=== PATIENT | male | born 1965 | race Caucasian/White ===

== ENCOUNTER 2016-06-25 20:32 | Emergency (ER) | payer MEDICAID ==
[~2016-06-25] VITALS: Ht 195.6 cm; Wt 170.0 kg
[~2016-06-25 20:32] MED LIST: GABA600T PO; GLUCTAB PO; LISI40TA PO; LYRI50CA2 PO; METH10TA PO; METO200T3 PO; NEUR600T PO; OXYC30TA PO; PARO40TA PO; PRIL40CA PO; SUMA50 PO; TRAZ50TA4 PO
[2016-06-25 20:34] VITALS: BP 183/113; PULSE 93; RESP 16; TEMP 97.3; O2SAT 92
[2016-06-25] MEDS ORDERED: METF500T4 PO (21:14)
[2016-06-25] MEDS ORDERED: OMEP40CA2 PO (21:14)
[2016-06-25] MEDS ORDERED: WARF-21 PO (21:14)
[2016-06-25] MEDS ORDERED: GABA600T PO (21:14)
[2016-06-25] MEDS ORDERED: METO200T3 PO (21:14)
[2016-06-25] MEDS ORDERED: IMIT50TA PO (21:14)
[2016-06-25] MEDS ORDERED: METH10TA PO (21:14)
[2016-06-25] MEDS ORDERED: PAXI40TA PO (21:14)
[2016-06-25] MEDS ORDERED: TRAZ50TA12 PO (21:14)
[2016-06-25] MEDS ORDERED: OXYC-395 PO (21:14)
[2016-06-25] MEDS ORDERED: FURO1TAB60 PO (21:14)
[2016-06-25 21:17] VITALS: BP 199/99; PULSE 68; RESP 18; TEMP 98.2; O2SAT 97
[2016-06-25 21:48] LABS: AUTOMATED NEUTROPHIL # 5.1 TH/MM3 (1.8-7.7); BASOPHIL # 0.1 TH/MM3 (0-0.2); BASOPHIL % 0.8 % (0.0-2.0); EOSINOPHIL # 0.1 TH/MM3 (0-0.4); EOSINOPHIL % 0.9 % (0.0-4.0); HEMATOCRIT 45.8 % (39.0-51.0); HEMO FLAGS DIFF FINAL; LYMPH % 35.5 % (9.0-44.0); LYMPHOCYTE # 3.3 TH/MM3 (1.0-4.8); MEAN CELL VOLUME 89.6 FL (80.0-100.0); MEAN CORPUSCULAR HEMOGLOBIN 30.3 PG (27.0-34.0); MEAN CORPUSCULAR HGB CONC 33.8 % (32.0-36.0); MONO % 7.5 % (0.0-8.0); NEUT % 55.3 % (16.0-70.0); PLATELET COUNT 198 TH/MM3 (150-450); RED BLOOD COUNT 5.11 MIL/MM3 (4.50-5.90); RED CELL DISTRIBUTION WIDTH 14.9 % (11.6-17.2); WHITE BLOOD COUNT 9.3 TH/MM3 (4.0-11.0)
[2016-06-25] MEDS ORDERED: HYDROmorphone HCL PF 1 MG/ML VIAL IV PUSH ONE (22:00)
[2016-06-25] MEDS ORDERED: LIDOCAINE VISCOUS 2% SOLN 15 ML UDC SWISH-SWAL ONE (22:00)
[2016-06-25] MEDS ORDERED: ALUMINUM/MAGNESIUM/SIMETH 30 ML CUP PO ONE (22:00)
[2016-06-25] MEDS ORDERED: ATROPINE/SCOPOLAM/HYOSCYAM/PB ELIXIR 10 ML CUP PO ONE (22:00)
[2016-06-25 22:07] LABS: APTT (PATIENT) 26.4 SEC (24.3-30.1); PROTHROMBIN TIME - PATIENT 11.4 SEC (9.8-11.6)
--- NOTE | 2016-06-25 22:12 | PD ---
HPI Chief Complaint: Chest Pain Time Seen by Provider: 20:45 Travel History International Travel<30 days: No Contact w/Intl Traveler<30days: No Traveled to known affect area: No History of Present Illness HPI This is a 50-year-old male who has a history of pulmonary embolism and peptic ulcer disease who presents to the emergency department reporting 2 days of chest discomfort described as tightness in the center of his chest, constant, moderate severity associated with shortness of breath as well as pain in his epigastrium associated with nausea, worse with eating. Patient reports this is very similar to the pain that he experiences when he has a pulmonary embolism or when his ulcers act up. He takes opiate pain medications and sees pain management but has not seen them in one month. He was just hospitalized 1 week ago at [facility] for a reported pulmonary embolism and was discharged on Coumadin which he reports he's been taking. He says he missed one dose earlier this week. PFSH Past Medical History Hx Anticoagulant Therapy: Yes Arthritis: No Asthma: No Autoimmune Disease: No Blood Disorders: No Anxiety: Yes Depression: Yes Heart Rhythm Problems: No Cancer: No Cardiac Catheterization: Yes Cardiovascular Problems: Yes High Cholesterol: No Chemotherapy: No Chest Pain: Yes Congestive Heart Failure: No COPD: No Cerebrovascular Accident: No Diabetes: Yes Patient Takes Glucophage: Yes Diminished Hearing: No Endocrine: No Gastrointestinal Disorders: Yes (GERD; ULCER HX) GERD: No Glaucoma: No Genitourinary: No Headaches: No Hepatitis: No Hiatal Hernia: No Hypertension: Yes Immune Disorder: No Kidney Stones: No Musculoskeletal: Yes (BACK AND NECK PAIN) Neurologic: No Psychiatric: No Reproductive: No Respiratory: Yes Immunizations Current: No Myocardial Infarction: Yes Pancreatitis: Yes Radiation Therapy: No Renal Failure: No Seizures: No Sickle Cell Disease: No Sleep Apnea: No Thyroid Disease: No Ulcer: No Past Surgical History Abdominal Surgery: Yes (BILATERAL INGUINAL HERNIA REPAIR ; REPAIR RECURRENT RT ING HERNIA) AICD: No Appendectomy: Yes Body Medical Devices: NONE Cardiac Surgery: No Cholecystectomy: Yes Coronary Artery Bypass Graft: No Ear Surgery: No Endocrine Surgery: No Eye Surgery: No Genitourinary Surgery: No Gynecologic Surgery: No Joint Replacement: No Oral Surgery: No Pacemaker: No Thoracic Surgery: No Other Surgery: Yes Family History Family Myocardial Infarction: Yes (FATHER 63 FROM [place], SISTER HAD ONE) Social History Alcohol Use: No Tobacco Use: No (never) Substance Use: No Allergies-Medications (Allergen,Severity, Reaction): Coded Allergies: No Known Allergies (Verified , 06/25/16) Reported Meds & Prescriptions Reported Meds & Active Scripts Active Reported Lasix (Furosemide) 40 Mg Tab 40 Mg PO DAILY Warfarin 7.5 Mg Tab 7.5 Mg PO DAILY Trazodone (Trazodone HCl) 50 Mg Tab 50 Mg PO HS Paxil (Paroxetine HCl) 40 Mg Tab 40 Mg PO DAILY Oxycodone (Oxycodone HCl) 10 Mg Tab 10 Mg PO BID PRN Omeprazole 40 Mg Cap 40 Mg PO DAILY Metoprolol Succinate ER 24 HR (Metoprolol Succinate) 200 Mg Tab 200 Mg PO DAILY Methadone (Methadone HCl) 10 Mg Tab 10 Mg PO DAILY Metformin ER (Metformin HCl) 500 Mg Todd 500 Mg PO DAILY With evening meal Imitrex (Sumatriptan Succinate) 50 Mg Tab 50 Mg PO ONCE PRN If a satisfactory response has not been obtained at 2 hours, a second dose may be administered Gabapentin 600 Mg Tab 600 Mg PO HS Review of Systems Except as stated in HPI: all other systems reviewed are Neg Physical Exam Narrative GENERAL:Well appearing, no acute distress SKIN: Warm and dry. HEAD: Atraumatic. Normocephalic. EYES: Pupils equal and round. No injection or drainage. ENT: Moist mucous membranes NECK: Trachea midline. CARDIOVASCULAR: Regular rate and rhythm. No murmur appreciated. RESPIRATORY: Clear to auscultation. Breath sounds equal bilaterally. GASTROINTESTINAL: Abdomen soft, non-tender, nondistended. MUSCULOSKELETAL: No obvious deformities. NEUROLOGICAL: Awake and alert. No obvious cranial nerve deficits. Moving all extremities. PSYCHIATRIC: Appropriate mood and affect; insight and judgment normal. Data Data Last Documented VS Vital Signs Date Time Temp Pulse Resp B/P Pulse Ox O2 Delivery O2 Flow Rate FiO2 06/25/16:17 98.2 68 18 199/99 97 06/25/16 20:34 Room Air Orders Complete Blood Count With Diff (06/25/16 21:09) Comprehensive Metabolic Panel (06/25/16 21:09) Lipase (06/25/16 21:09) Troponin I (06/25/16 21:09) ^ Insert Iv (06/25/16 21:09) Electrocardiogram (06/25/16 20:52) Prothrombin Time / Inr (Pt) (06/25/16 21:33) Act Partial Throm Time (Ptt) (06/25/16 21:33) Hydromorphone Pf Inj (Dilaudid Pf Inj) (06/25/16 22:00) Al-Mag Hy-Si 40-40-4 Mg/Ml Liq (Mag-Al P (06/25/16 22:00) Lidocaine 2% Viscous (Xylocaine 2% Visco (06/25/16 22:00) Bagle-Tczkkd-Iwfexh-Pb Liq ( Liq (06/25/16 22:00) Labs Laboratory Tests Test 06/25/16 06/25/16 21:20 21:35 Prothrombin Time 11.4 SEC Prothromb Time International 1.0 RATIO Ratio Activated Partial 26.4 SEC Thromboplast Time White Blood Count 9.3 TH/MM3 Red Blood Count 5.11 MIL/MM3 Hemoglobin 15.5 GM/DL Hematocrit 45.8 % Mean Corpuscular Volume 89.6 FL Mean Corpuscular Hemoglobin 30.3 PG Mean Corpuscular Hemoglobin 33.8 % Concent Red Cell Distribution Width 14.9 % Platelet Count 198 TH/MM3 Mean Platelet Volume 8.8 FL Neutrophils (%) (Auto) 55.3 % Lymphocytes (%) (Auto) 35.5 % Monocytes (%) (Auto) 7.5 % Eosinophils (%) (Auto) 0.9 % Basophils (%) (Auto) 0.8 % Neutrophils # (Auto) 5.1 TH/MM3 Lymphocytes # (Auto) 3.3 TH/MM3 Monocytes # (Auto) 0.7 TH/MM3 Eosinophils # (Auto) 0.1 TH/MM3 Basophils # (Auto) 0.1 TH/MM3 CBC Comment DIFF FINAL Differential Comment Sodium Level 137 MEQ/L Potassium Level 4.7 MEQ/L Chloride Level 104 MEQ/L Carbon Dioxide Level 23.7 MEQ/L Anion Gap 9 MEQ/L Blood Urea Nitrogen 10 MG/DL Creatinine 1.18 MG/DL Estimat Glomerular Filtration 66 ML/MIN Rate Random Glucose 87 MG/DL Calcium Level 8.7 MG/DL Total Bilirubin 0.6 MG/DL Aspartate Amino Transf 40 U/L (AST/SGOT) Alanine Aminotransferase 53 U/L (ALT/SGPT) Alkaline Phosphatase 104 U/L Troponin I LESS THAN 0.02 NG/ML Total Protein 7.6 GM/DL Albumin 3.3 GM/DL Lipase 89 U/L [facility] Medical Decision Making Medical Screen Exam Complete: Yes Emergency Medical Condition: Yes Interpretation(s) Afebrile, no tachycardia, hypertensive No leukocytosis Electrolytes are reassuring Troponin is normal Lipase is normal INR is 1 Differential Diagnosis Pulmonary embolism, gastritis, peptic ulcer disease, pancreatitis, saddle embolus Narrative Course This is a 50-year-old male who has a history of pulmonary embolus recently diagnosed at [facility]. He was diagnosed with subsegmental bilateral PEs. He reportedly represented to their emergency department on June 20 having not filled any of his anticoagulation. He was readmitted and discharged with an INR of 2. He presents with today with worsening pain. He has normal reassuring vital signs. He was placed on a monitor and an IV was established. Labs were obtained. He was given pain control. There would be no indication based on his presentation for thrombolysis. His INR is 1 today. He reports that he's been compliant with his medications. This seems very unlikely in the setting of a normal INR. Either way the patient can be safely discharged on Lovenox injections and was instructed to continue Coumadin and can follow-up at his scheduled appointment on Tuesday, and I don't think any repeat imaging is warranted in the absence of abnormal vital signs. Diagnosis Primary Impression: Pulmonary embolism Qualified Code: I27.82 - Other chronic pulmonary embolism without acute cor pulmonale Patient Instructions: General Instructions Med/Other Pt SpecificInfo: Prescription(s) given Scripts Enoxaparin Inj (Lovenox Inj)150 Mg/Ml [id number] Mg SQ BID #10 SYRINGE Ref 0 Prov:Joselin Cooper MD 06/25/16 Disposition: 01 DISCHARGE HOME Condition: Stable Joselin Cooper MD Jun 25, 2016 22:12
[2016-06-25 22:46] LABS: ALKALINE PHOSPHATASE 104 U/L (45-117); ALT (GPT) 53 U/L (12-78); ANION GAP 9 MEQ/L (5-15); AST (GOT) 40 U/L (15-37); BICARBONATE 23.7 MEQ/L (21.0-32.0); BLOOD UREA NITROGEN 10 MG/DL (7-18); CHLORIDE 104 MEQ/L (98-107); GLOMERULAR FILTRATION RATE 66 ML/MIN (>89); SODIUM (NA) 137 MEQ/L (136-145); TOTAL BILIRUBIN ADULT 0.6 MG/DL (0.2-1.0)
[2016-06-25 22:56] LABS: POTASSIUM 4.7 MEQ/L (3.5-5.1)
[2016-06-25] MEDS ORDERED: ENOX150P SQ (23:33)
--- NOTE | 2016-06-26 14:24 | EKG ---
Date Performed: 06/25/2016 Time Performed: 20:52:53 PTAGE: 50 years EKG: Sinus rhythm Left axis deviation Otherwise within normal limits Compared to the previous tracing axis slightly mo re leftward, otherwise no significant change BORDERLINE ECG PREVIOUS TRACING : 01/16/2016 12.56 DOCTOR: Darnell Adams Interpretating Date/Time 06/26/2016 14:22:16
[2016-06-28] MEDS ORDERED: OXYC-395 PO (15:17)
[2016-06-28] MEDS ORDERED: ONDA1TAB17 PO (15:23)
[2016-06-28] MEDS ORDERED: OMEP40CA2 PO (15:23)
[2016-06-28] MEDS ORDERED: LISI10TA3 PO (15:23)
[2016-06-28] MEDS ORDERED: GABA300C5 PO (15:26)
[2016-07-21] MEDS ORDERED: OXYC-395 PO (14:56)
[2016-07-29] MEDS ORDERED: FURO1TAB60 PO (10:28)
[2016-08-03] MEDS ORDERED: WARF-21 PO (14:48)
[2016-08-19] MEDS ORDERED: WARF-18 PO (11:21)
[2016-08-19] MEDS ORDERED: METF1000 PO (11:29)
[2016-08-19] MEDS ORDERED: OXYC-395 PO (11:29)
[2016-09-07] MEDS ORDERED: ONDA1TAB17 PO (09:38)
== END 2016-06-26 00:20 | disposition home or self-care (01) ==
LOC: NEPC 20:32
DX: I26.99 Other pulmonary embolism without acute cor pulmonale (principal); E11.9 Type 2 diabetes mellitus without complications; I10 Essential (primary) hypertension; I25.2 Old myocardial infarction
CPT/HCPCS: 80053; 83690; 84484; 85025; 85610; 85730; 93005; 96374; 99284; J1170

== ENCOUNTER 2016-07-04 18:03 | Emergency (ER) | payer MEDICAID ==
[~2016-07-04 18:03] MED LIST changes: +FURO1TAB60 PO; +GABA300C5 PO; -GABA600T PO; -GLUCTAB PO; +IMIT50TA PO; +LISI10TA3 PO; -LISI40TA PO; -LYRI50CA2 PO; +METF500T4 PO; -METH10TA PO; -NEUR600T PO; +OMEP40CA2 PO; +ONDA1TAB17 PO; +OXYC-395 PO; -OXYC30TA PO; -PARO40TA PO; +PAXI40TA PO; -PRIL40CA PO; -SUMA50 PO; -TRAZ50TA4 PO; +WARF-21 PO
[2016-07-04 18:17] VITALS: BP 221/103; PULSE 93; RESP 18; TEMP 97.7; O2SAT 98
[2016-07-04 18:18] VITALS: BP 217/120
[2016-07-04 18:36] VITALS: O2SAT 98
[2016-07-04 18:38] VITALS: BP 177/115; PULSE 86; RESP 18; O2SAT 98
--- NOTE | 2016-07-04 18:43 | RADRPT ---
EXAM DATE/TIME: 07/04/2016 18:24 [facility] COMPARISON: CHEST SINGLE AP, January 16, 2016, 13:05. INDICATIONS : Chest pain. MEDICAL HISTORY : Diabetes mellitus type I. Hypertension Pulmonary emboli SURGICAL HISTORY : None. ENCOUNTER: Initial ACUITY: 1 day PAIN SCORE: 6/10 LOCATION: Bilateral chest FINDINGS: A single view of the chest demonstrates the lungs to be symmetrically aerated without evidence of mas s, infiltrate or effusion. The cardiomediastinal contours are unremarkable. Osseous structures are intact. CONCLUSION: No acute disease. Donovan Cha MD on July 04, 2016 at 18:42 Board Certified Radiologist. This report was verified electronically.
--- NOTE | 2016-07-04 18:55 | PD ---
HPI Chief Complaint: Respiratory Symptoms Time Seen by Provider: 18:55 Travel History International Travel<30 days: No Contact w/Intl Traveler<30days: No Traveled to known affect area: No History of Present Illness HPI 50-year-old male presents to the emergency Department with multiple complaints. He is complaining of worsening chest pain and shortness of breath. He has history of PE that he is currently being treated for. Reports using Lovenox injections as directed; gave himself his last injection last night, so he started warfarin today and he is getting a refill on Lovenox tomorrow. Chest pain and shortness of breath is worse with activity. Reports her palpitations. Reports chest pain is constant, sharp, stabbing in nature. Denies hemoptysis. Reports chest pain 12/26. Reports 2 syncopal episodes, one yesterday and one today. He denies falling to the floor, says he fell backwards onto his bed both times. He reports feeling weak, tired, a little bit of a headache, lightheadedness. Denies dizziness. Reports vomiting 4 times today; last vomited at 2 PM. Reports hematemesis. Says he had black tarry stools on Tuesday and Tuesday. Said he had a toilet bowl full of bright red blood this morning. Denies fever, chills. Denies dysuria. History of gastric ulcers. Reports abdominal pain to the midepigastric area. History of hypertension, PE, ulcers, type 2 diabetes. Primary care provider is Dr. Chavarria. No known allergies. PFSH Past Medical History Hx Anticoagulant Therapy: Yes Arthritis: No Asthma: No Autoimmune Disease: No Blood Disorders: No Anxiety: Yes Depression: Yes Heart Rhythm Problems: No Cancer: No Cardiac Catheterization: Yes Cardiovascular Problems: Yes High Cholesterol: No Chemotherapy: No Chest Pain: Yes Congestive Heart Failure: No COPD: No Cerebrovascular Accident: No Diabetes: Yes Patient Takes Glucophage: Yes Diminished Hearing: No Endocrine: No Gastrointestinal Disorders: Yes (GERD; ULCER HX) GERD: No Glaucoma: No Genitourinary: No Headaches: No Hepatitis: No Hiatal Hernia: No Hypertension: Yes Immune Disorder: No Kidney Stones: No Musculoskeletal: Yes (BACK AND NECK PAIN) Neurologic: No Psychiatric: No Reproductive: No Respiratory: Yes Immunizations Current: No Myocardial Infarction: Yes Pancreatitis: Yes Radiation Therapy: No Renal Failure: No Seizures: No Sickle Cell Disease: No Sleep Apnea: No Thyroid Disease: No Ulcer: No Past Surgical History Abdominal Surgery: Yes (BILATERAL INGUINAL HERNIA REPAIR ; REPAIR RECURRENT RT ING HERNIA) AICD: No Appendectomy: Yes Body Medical Devices: NONE Cardiac Surgery: No Cholecystectomy: Yes Coronary Artery Bypass Graft: No Ear Surgery: No Endocrine Surgery: No Eye Surgery: No Genitourinary Surgery: No Gynecologic Surgery: No Joint Replacement: No Oral Surgery: No Pacemaker: No Thoracic Surgery: No Other Surgery: Yes Social History Alcohol Use: No Tobacco Use: No Substance Use: No Allergies-Medications (Allergen,Severity, Reaction): Coded Allergies: No Known Allergies (Verified , 07/04/16) Reported Meds & Prescriptions Reported Meds & Active Scripts Active Lortab (Hydrocodone-Acetaminophen) 5-325 Mg Tab 1-2 Tab PO Q4-6H PRN Lovenox Inj (Enoxaparin Sodium) 150 Mg/Ml Syr 150 Mg SQ BID 7 Days Gabapentin 300 Mg Cap 300 Mg PO TID Lisinopril 10 Mg Tab 10 Mg PO DAILY Ondansetron (Ondansetron HCl) 8 Mg Tab 8 Mg PO TID PRN Take 1/2 tab Q8H as needed for nausea Omeprazole 40 Mg Cap 40 Mg PO BID Oxycodone (Oxycodone HCl) 10 Mg Tab 10 Mg PO Q12HR Reported Lasix (Furosemide) 40 Mg Tab 40 Mg PO DAILY Warfarin 7.5 Mg Tab 7.5 Mg PO DAILY Paxil (Paroxetine HCl) 40 Mg Tab 40 Mg PO DAILY Metoprolol Succinate ER 24 HR (Metoprolol Succinate) 200 Mg Tab 200 Mg PO DAILY Metformin ER (Metformin HCl) 500 Mg Todd 500 Mg PO DAILY With evening meal Imitrex (Sumatriptan Succinate) 50 Mg Tab 50 Mg PO ONCE PRN If a satisfactory response has not been obtained at 2 hours, a second dose may be administered Review of Systems Except as stated in HPI: all other systems reviewed are Neg Physical Exam Narrative GENERAL: Well-nourished, well-developed male patient, in no acute distress; afebrile, nontoxic-appearing SKIN: Warm and dry. HEAD: Atraumatic. Normocephalic. EYES: Pupils equal and round. No scleral icterus. No injection or drainage. ENT: Mucosa pink and moist. Airway patent. NECK: Trachea midline. CARDIOVASCULAR: Regular rate and rhythm. No murmur appreciated. RESPIRATORY: No accessory muscle use. Clear to auscultation. Breath sounds equal bilaterally. GASTROINTESTINAL: Abdomen soft, tenderness to mid upper epigastric area, nondistended. Hepatic and splenic margins not palpable. Bowel sounds are active 4 quadrants. No guarding. Nonrigid. RECTAL EXAM: No masses or tenderness. Hemaprompt negative. Visualized external hemorrhoids noted. MUSCULOSKELETAL: No obvious deformities. No clubbing. No cyanosis. No edema. NEUROLOGICAL: Awake and alert. Oriented 3. No obvious cranial nerve deficits. Motor grossly within normal limits. Normal speech. PSYCHIATRIC: Appropriate mood and affect; insight and judgment normal. Data Data Last Documented VS Vital Signs Date Time Temp Pulse Resp B/P Pulse Ox O2 Delivery O2 Flow Rate FiO2 07/04/16 19:45 72 18 150/81 98 Room Air 07/04/16 18:17 97.7 Orders Electrocardiogram (07/04/16 18:11) Complete Blood Count With Diff (07/04/16 18:11) Basic Metabolic Panel (Bmp) (07/04/16 18:11) Ckmb (Isoenzyme) Profile (07/04/16 18:11) Troponin I (07/04/16 18:11) Chest, Single Ap (07/04/16 18:11) Iv Access Insert/Monitor (07/04/16 18:11) Ecg Monitoring (07/04/16 18:11) Oxygen Administration (07/04/16 18:11) Oximetry (07/04/16 18:11) Prothrombin Time / Inr (Pt) (07/04/16 18:32) Act Partial Throm Time (Ptt) (07/04/16 18:32) Ct Abd/Pel W/O Iv Contrast (07/04/16 ) Hepatic Functional Panel (07/04/16 19:37) Lipase (07/04/16 19:37) Morphine Inj (Morphine Inj) (07/04/16 20:00) Enoxaparin Inj (Lovenox Inj) (07/04/16 20:15) Labs Laboratory Tests Test 07/04/16 07/04/16 07/04/16 18:42 18:58 19:42 Prothrombin Time 11.2 SEC Prothromb Time International 1.0 RATIO Ratio Activated Partial 25.7 SEC Thromboplast Time White Blood Count 8.6 TH/MM3 Red Blood Count 4.72 MIL/MM3 Hemoglobin 14.3 GM/DL Hematocrit 42.6 % Mean Corpuscular Volume 90.3 FL Mean Corpuscular Hemoglobin 30.3 PG Mean Corpuscular Hemoglobin 33.6 % Concent Red Cell Distribution Width 14.4 % Platelet Count 203 TH/MM3 Mean Platelet Volume 8.6 FL Neutrophils (%) (Auto) 58.9 % Lymphocytes (%) (Auto) 31.5 % Monocytes (%) (Auto) 7.9 % Eosinophils (%) (Auto) 0.7 % Basophils (%) (Auto) 1.0 % Neutrophils # (Auto) 5.0 TH/MM3 Lymphocytes # (Auto) 2.7 TH/MM3 Monocytes # (Auto) 0.7 TH/MM3 Eosinophils # (Auto) 0.1 TH/MM3 Basophils # (Auto) 0.1 TH/MM3 CBC Comment DIFF FINAL Differential Comment Sodium Level 141 MEQ/L Potassium Level 3.6 MEQ/L Chloride Level 105 MEQ/L Carbon Dioxide Level 28.4 MEQ/L Anion Gap 8 MEQ/L Blood Urea Nitrogen 9 MG/DL Creatinine 1.16 MG/DL Estimat Glomerular Filtration 67 ML/MIN Rate Random Glucose 135 MG/DL Calcium Level 8.2 MG/DL Total Creatine Kinase 86 U/L Troponin I LESS THAN 0.02 NG/ML Total Bilirubin 0.2 MG/DL Direct Bilirubin 0.1 MG/DL Indirect Bilirubin 0.1 MG/DL Aspartate Amino Transf 15 U/L (AST/SGOT) Alanine Aminotransferase 36 U/L (ALT/SGPT) Alkaline Phosphatase 98 U/L Total Protein 6.8 GM/DL Albumin 2.9 GM/DL Lipase 101 U/L [facility] Medical Decision Making Medical Screen Exam Complete: Yes Emergency Medical Condition: Yes Medical Record Reviewed: Yes Differential Diagnosis Bleeding ulcers, hemorrhoids, MO, ACS, PE Narrative Course 50-year-old male presents with multiple complaints. He was recently seen here and had is being treated for PE. He is on Lovenox and warfarin. Complaining of blood in his stool. Hemaprompt negative. Visualized external hemorrhoids noted. Patient placed on cardiopulmonary monitor. IV site obtained. Labs and cardiac enzymes ordered. CT abdomen/pelvis ordered. Chest x-ray ordered. EKG with normal sinus rhythm; no ST elevation or depression. 1946: Chest x-ray with no acute findings. CBC unremarkable. BMP unremarkable. Total CPK 86. Troponin less than 0.02. 2001: CT abdomen/pelvis concludes Last 24 hours Impressions Chest X-Ray 07/04/16 1811 Signed Impressions: Service Date/Time: Monday, July 04, 2016 18:24 - CONCLUSION: No acute disease. Donovan Cha MD Abdomen/Pelvis CT 07/04/16 0000 Signed Impressions: Service Date/Time: Monday, July 04, 2016 19:19 - CONCLUSION: 1. Moderate to severe hepatic steatosis. 2. Cholecystectomy. 3. Wall thickening versus nondistention of the transverse and descending colon, could be colitis. No inflammatory changes. Jacob Alcantara MD 2007: Coags unremarkable. INR 1.0. Patient instructed to take Lovenox and warfarin; he verbalizes understanding and agreement. Lovenox 150 mg subcutaneous administered in the ER. 2032: LFTs within normal limits. Lipase 101. Patient will be discharged home. He was given further instructions to follow-up with primary care. Lovenox and Lortab prescribed for home. Patient verbalizes understanding and agreement with treatment plan. Patient is medically cleared and stable for discharge. Discussed reasons to return to the emergency department. Instructed patient to follow up with primary care provider. Patient agrees with treatment plan. The patients vital signs are stable and the patient is stable for outpatient follow-up and treatment. Patient discharged home, stable and in no acute distress. Diagnosis Primary Impression: Abdominal pain Qualified Code: R10.13 - Epigastric pain Additional Impressions: Chest pain Qualified Code: R07.9 - Chest pain, unspecified type Shortness of breath Referrals: Primary Care Physician Patient Instructions: Acute Abdominal Pain (ED), General Instructions, Pulmonary Embolism (DC) Additional Instructions: Take Lovenox and warfarin as prescribed Follow-up with primary care provider Follow-up with gastroenterology Follow-up with pulmonology Follow-up with environmental engineering intern Return to the emergency department immediately with worsening of symptoms Med/Other Pt SpecificInfo: Prescription(s) given, No Change to Meds, No Meds Exist/No RX given Scripts Hydrocodone-Acetaminophen (Lortab)5-325 Mg Tab1-2 Tab PO Q4-6H PRN (PAIN) #20 TAB Ref 0 Prov:Benoit Yoon MD 07/04/16 Enoxaparin Inj (Lovenox Inj)150 Mg/Ml [id number] Mg SQ BID 7 Days Ref 0 Prov:Kathryn Calderon 07/04/16 Disposition: 01 DISCHARGE HOME Condition: Stable Kathryn Calderon Jul 04, 2016 18:55
[2016-07-04 19:07] LABS: APTT (PATIENT) 25.7 SEC (24.3-30.1); PROTHROMBIN TIME - PATIENT 11.2 SEC (9.8-11.6)
[2016-07-04 19:10] LABS: BASOPHIL # 0.1 TH/MM3 (0-0.2); EOSINOPHIL # 0.1 TH/MM3 (0-0.4); EOSINOPHIL % 0.7 % (0.0-4.0); HEMATOCRIT 42.6 % (39.0-51.0); HEMO FLAGS DIFF FINAL; LYMPH % 31.5 % (9.0-44.0); LYMPHOCYTE # 2.7 TH/MM3 (1.0-4.8); MEAN CELL VOLUME 90.3 FL (80.0-100.0); MEAN CORPUSCULAR HEMOGLOBIN 30.3 PG (27.0-34.0); MEAN CORPUSCULAR HGB CONC 33.6 % (32.0-36.0); MONO % 7.9 % (0.0-8.0); NEUT % 58.9 % (16.0-70.0); PLATELET COUNT 203 TH/MM3 (150-450); RED BLOOD COUNT 4.72 MIL/MM3 (4.50-5.90); RED CELL DISTRIBUTION WIDTH 14.4 % (11.6-17.2); WHITE BLOOD COUNT 8.6 TH/MM3 (4.0-11.0)
[2016-07-04 19:26] LABS: ANION GAP 8 MEQ/L (5-15); BICARBONATE 28.4 MEQ/L (21.0-32.0); BLOOD UREA NITROGEN 9 MG/DL (7-18); CHLORIDE 105 MEQ/L (98-107); GLOMERULAR FILTRATION RATE 67 ML/MIN (>89); POTASSIUM 3.6 MEQ/L (3.5-5.1); SODIUM (NA) 141 MEQ/L (136-145)
[2016-07-04 19:44] LABS: CREATINE KINASE 86 U/L (39-308)
[2016-07-04 19:45] VITALS: BP 150/81; PULSE 72; RESP 18; O2SAT 98
--- NOTE | 2016-07-04 19:51 | RADRPT ---
EXAM DATE/TIME: 07/04/2016 19:19 [facility] COMPARISON: No previous studies available for comparison. INDICATIONS : Epigastric abdominal pain today. ORAL CONTRAST: No oral contrast ingested. RADIATION DOSE: 31.08 CTDIvol (mGy) MEDICAL HISTORY : Gastroesophageal reflux disease. Pancreatitis. Hypertension.Diabetes. SURGICAL HISTORY : Cholecystectomy. Hernia repair. ENCOUNTER: Initial ACUITY: 1 day PAIN SCALE: 7/10 LOCATION: epigastric abdomen TECHNIQUE: Volumetric scanning of the abdomen and pelvis was performed. Using automated exposure control and ad justment of the mA and/or kV according to patient size, radiation dose was kept as low as reasonably achievable to obtain optimal diagnostic quality images. FINDINGS: LOWER LUNGS: The visualized lower lungs are clear. LIVER: Decreased attenuation without lesion. There is no dilation of the biliary tree. Cholecystectomy clip s. SPLEEN: Normal size without lesion. PANCREAS: Within normal limits. KIDNEYS: Normal in size and shape. There is no mass, stone, or hydronephrosis. ADRENAL GLANDS: Within normal limits. VASCULAR: There is no aortic aneurysm. BOWEL/MESENTERY: Mild wall thickening versus nondistention of the mid to distal transverse colon and descending colon. . There is no free intraperitoneal air or fluid. ABDOMINAL WALL: Within normal limits. RETROPERITONEUM: There is no lymphadenopathy. BLADDER: No wall thickening or mass. REPRODUCTIVE: Within normal limits. INGUINAL: There is no lymphadenopathy or hernia. MUSCULOSKELETAL: Within normal limits for patient age. CONCLUSION: 1. Moderate to severe hepatic steatosis. 2. Cholecystectomy. 3. Wall thickening versus nondistention of the transverse and descending colon, could be colitis. No inflammatory changes. Jacob Alcantara MD on July 04, 2016 at 19:47 Board Certified Radiologist. This report was verified electronically.
[2016-07-04] MEDS ORDERED: MORPHINE SULFATE 4 MG/ML INJ IV PUSH ONE (20:00)
[2016-07-04] MEDS ORDERED: ENOX150P SQ (20:14)
[2016-07-04] MEDS ORDERED: ENOXAPARIN SODIUM 150 MG/ML SYRINGE SQ ONE (20:15)
[2016-07-04] MEDS ORDERED: HYDR-3533 PO (20:15)
[2016-07-04 20:19] LABS: INDIRECT BILIRUBIN 0.1 MG/DL (0.0-0.8); TOTAL BILIRUBIN ADULT 0.2 MG/DL (0.2-1.0)
--- NOTE | 2016-07-05 14:43 | EKG ---
Date Performed: 07/04/2016 Time Performed: 18:11:57 PTAGE: 50 years EKG: Sinus rhythm NORMAL ECG INTERPRETATION BASED ON A DEFAULT AGE OF 40 YEARS PREVIOUS TRACING : 06/25/2016 20.52 Compared to prior tracing no significant change DOCTOR: Teddy Mars Interpretating Date/Time 07/05/2016 14:43:17
[2016-07-21] MEDS ORDERED: OXYC-395 PO (14:56)
[2016-07-29] MEDS ORDERED: FURO1TAB60 PO (10:28)
[2016-08-03] MEDS ORDERED: WARF-21 PO (14:48)
[2016-08-19] MEDS ORDERED: WARF-18 PO (11:21)
[2016-08-19] MEDS ORDERED: METF1000 PO (11:29)
[2016-08-19] MEDS ORDERED: OXYC-395 PO (11:29)
[2016-09-07] MEDS ORDERED: ONDA1TAB17 PO (09:38)
== END 2016-07-04 20:46 | disposition home or self-care (01) ==
LOC: NEPA 18:03
DX: R10.13 Epigastric pain (principal); R07.9 Chest pain, unspecified; R06.02 Shortness of breath; R55 Syncope and collapse; I10 Essential (primary) hypertension
CPT/HCPCS: 71010; 74176; 80048; 80076; 82550; 83690; 84484; 85025; 85610; 85730; 93005; 96372; 96374; 99285; J1650; J2270

== ENCOUNTER 2016-08-06 16:21 | Observation (INO) | payer MEDICAID ==
[~2016-08-06] VITALS: Ht 182.9 cm; Wt 154.5 kg
[2016-08-06 16:24] VITALS: BP 196/109; PULSE 112; RESP 22; TEMP 98.2; O2SAT 99
[2016-08-06] MEDS ORDERED: LISI40TA PO (16:58)
[2016-08-06 16:59] VITALS: BP 186/102; PULSE 93; RESP 20; O2SAT 96
[2016-08-06] MEDS ORDERED: SODIUM CHLORIDE 0.9% FLUSH 10 ML FLUSH IVF PRN (17:00)
[2016-08-06 17:25] LABS: BASOPHIL # 0.1 TH/MM3 (0-0.2); BASOPHIL % 0.7 % (0.0-2.0); EOSINOPHIL # 0.1 TH/MM3 (0-0.4); EOSINOPHIL % 0.7 % (0.0-4.0); HEMATOCRIT 45.6 % (39.0-51.0); HEMO FLAGS DIFF FINAL; LYMPH % 30.2 % (9.0-44.0); LYMPHOCYTE # 2.9 TH/MM3 (1.0-4.8); MEAN CELL VOLUME 88.9 FL (80.0-100.0); MEAN CORPUSCULAR HEMOGLOBIN 31.3 PG (27.0-34.0); MEAN CORPUSCULAR HGB CONC 35.2 % (32.0-36.0); NEUT % 62.4 % (16.0-70.0); PLATELET COUNT 285 TH/MM3 (150-450); RED BLOOD COUNT 5.12 MIL/MM3 (4.50-5.90); RED CELL DISTRIBUTION WIDTH 14.2 % (11.6-17.2); WHITE BLOOD COUNT 9.6 TH/MM3 (4.0-11.0)
[2016-08-06] MEDS ORDERED: PANTOPRAZOLE SODIUM 40 MG VIAL IV PUSH ONE (17:30)
--- NOTE | 2016-08-06 17:40 | RADRPT ---
EXAM DATE/TIME: 08/06/2016 17:21 [facility] COMPARISON: CHEST SINGLE AP, July 04, 2016, 18:24. INDICATIONS : Patient states chest pain. MEDICAL HISTORY : Hypertension. Hypercholesterolemia. Diabetes mellitus type II. SURGICAL HISTORY : None. ENCOUNTER: Initial ACUITY: 1 day PAIN SCORE: 0/10 LOCATION: Bilateral chest FINDINGS: The lungs are clear without infiltrate, nodule, or mass. There is no appreciable pleural effusion fo r technique. Heart and mediastinum are unremarkable. CONCLUSION: No acute cardiopulmonary disease. Philly Mcgee MD on August 06, 2016 at 17:38 Board Certified Radiologist. This report was verified electronically.
[2016-08-06 17:49] LABS: APTT (PATIENT) 26.5 SEC (24.3-30.1); INTERNATIONAL NORMALIZED RATIO 1.1 RATIO; PROTHROMBIN TIME - PATIENT 12.2 SEC (9.8-11.6)
[2016-08-06 17:57] LABS: ANION GAP 8 MEQ/L (5-15); AST (GOT) 36 U/L (15-37); BICARBONATE 24.7 MEQ/L (21.0-32.0); BLOOD UREA NITROGEN 14 MG/DL (7-18); CHLORIDE 102 MEQ/L (98-107); GLOMERULAR FILTRATION RATE 58 ML/MIN (>89); MAGNESIUM 2.2 MG/DL (1.5-2.5); SODIUM (NA) 135 MEQ/L (136-145)
[2016-08-06 18:02] LABS: POTASSIUM 5.2 MEQ/L (3.5-5.1)
[2016-08-06 18:06] LABS: ALKALINE PHOSPHATASE 130 U/L (45-117); ALT (GPT) 33 U/L (12-78); CREATINE KINASE 188 U/L (39-308); TOTAL BILIRUBIN ADULT 0.7 MG/DL (0.2-1.0)
[2016-08-06 18:13] VITALS: BP 145/84; PULSE 87; RESP 18; O2SAT 99
[2016-08-06] MEDS ORDERED: ONDANSETRON HCL 4 MG/2 ML VIAL IV PUSH ONE (18:15)
[2016-08-06] MEDS ORDERED: HYDROmorphone HCL PF 1 MG/ML VIAL IV PUSH ONE (18:15)
[2016-08-06 18:19] LABS: CKMB 1.1 NG/ML (0.5-3.6)
[2016-08-06] MEDS ORDERED: IOHEXOL 350 MG/ML 10 ML VIAL (for RAD DIAG) IV ONE (19:05)
--- NOTE | 2016-08-06 19:11 | PD ---
HPI Chief Complaint: Chest Pain Time Seen by Provider: 17:27 Travel History International Travel<30 days: No Contact w/Intl Traveler<30days: No Traveled to known affect area: No History of Present Illness HPI 51-year-old male with history of previous PE 3, had been on Coumadin, presents to the ER today for several days history of left sided chest pains which he currently rates at a 10 out of 10. He states that he has had syncopal episodes from it. He has been short of breath. He also is complaining of abdominal pains. He denies any fevers, diarrhea, or other symptoms. He does not know any exacerbating or alleviating factors. Patient also states that he is having red blood in his stools in the past day. Modifying Factors: None Associated Signs & Symptoms: Chest pains, shortness of breath, abdominal pain, syncope, rectal bleeding Risk Factors: Previous PEs PFSH Past Medical History Hx Anticoagulant Therapy: Yes Arthritis: No Asthma: No Autoimmune Disease: No Blood Disorders: No Anxiety: Yes Depression: Yes Heart Rhythm Problems: No Cancer: No Cardiac Catheterization: Yes Cardiovascular Problems: Yes High Cholesterol: No Chemotherapy: No Chest Pain: Yes Congestive Heart Failure: No COPD: No Cerebrovascular Accident: No Diabetes: Yes Patient Takes Glucophage: Yes Diminished Hearing: No Endocrine: No Gastrointestinal Disorders: Yes (GERD; ULCER HX) GERD: No Glaucoma: No Genitourinary: No Headaches: No Hepatitis: No Hiatal Hernia: No Hypertension: Yes Immune Disorder: No Kidney Stones: No Musculoskeletal: Yes (BACK AND NECK PAIN) Neurologic: No Psychiatric: No Reproductive: No Respiratory: Yes Immunizations Current: No Myocardial Infarction: Yes Pancreatitis: Yes Radiation Therapy: No Renal Failure: No Seizures: No Sickle Cell Disease: No Sleep Apnea: No Thyroid Disease: No Ulcer: No Influenza Vaccination: Yes Past Surgical History Abdominal Surgery: Yes (BILATERAL INGUINAL HERNIA REPAIR ; REPAIR RECURRENT RT ING HERNIA) AICD: No Appendectomy: Yes Body Medical Devices: NONE Cardiac Surgery: No Cholecystectomy: Yes Coronary Artery Bypass Graft: No Ear Surgery: No Endocrine Surgery: No Eye Surgery: No Genitourinary Surgery: No Gynecologic Surgery: No Joint Replacement: No Oral Surgery: No Pacemaker: No Thoracic Surgery: No Other Surgery: Yes (RT SHOULDER SURGERY REBUILT 2013; RT KNEE SCOPED X 3, LT KNEE X 2) Family History Family Myocardial Infarction: Yes (FATHER 63 FROM [place], SISTER HAD ONE) Social History Alcohol Use: No Tobacco Use: No Substance Use: No Allergies-Medications (Allergen,Severity, Reaction): Coded Allergies: No Known Allergies (Verified , 08/06/16) Reported Meds & Prescriptions Reported Meds & Active Scripts Active Lasix (Furosemide) 40 Mg Tab 40 Mg PO DAILY Oxycodone (Oxycodone HCl) 10 Mg Tab 10 Mg PO TID PRN Take one tab in the AM and PM PRN pain and can take a half a tab in the afternoon as needed Gabapentin 300 Mg Cap 300 Mg PO TID Ondansetron (Ondansetron HCl) 8 Mg Tab 8 Mg PO TID PRN Take 1/2 tab Q8H as needed for nausea Omeprazole 40 Mg Cap 40 Mg PO BID Reported Lisinopril 40 Mg Tab 40 Mg PO DAILY Warfarin 7.5 Mg Tab 7.5 Mg PO DAILY Paxil (Paroxetine HCl) 40 Mg Tab 40 Mg PO DAILY Metoprolol Succinate ER 24 HR (Metoprolol Succinate) 200 Mg Tab 200 Mg PO DAILY Metformin ER (Metformin HCl) 500 Mg Todd 500 Mg PO DAILY With evening meal Imitrex (Sumatriptan Succinate) 50 Mg Tab 50 Mg PO ONCE PRN If a satisfactory response has not been obtained at 2 hours, a second dose may be administered Review of Systems Except as stated in HPI: all other systems reviewed are Neg Physical Exam Narrative GENERAL: Well-developed middle age white male patient currently in moderate distress. Awake and oriented 3. SKIN: Focused skin assessment warm/dry. HEAD: Atraumatic. Normocephalic. EYES: Pupils equal and round. No scleral icterus. No injection or drainage. ENT: No nasal bleeding or discharge. Mucous membranes pink and moist. NECK: Trachea midline. No JVD. CARDIOVASCULAR: Regular rate and rhythm. No murmur appreciated. Pulses are present and equal bilaterally. RESPIRATORY: No accessory muscle use. Clear to auscultation. Breath sounds equal bilaterally. GASTROINTESTINAL: Abdomen soft, upper abdominal tenderness without guarding or rebound, nondistended. Hepatic and splenic margins not palpable. MUSCULOSKELETAL: No obvious deformities. No clubbing. No cyanosis. No edema. NEUROLOGICAL: Awake and alert. No obvious cranial nerve deficits. Motor grossly within normal limits. Normal speech. PSYCHIATRIC: Appropriate mood and affect; insight and judgment normal. Data Data Last Documented VS Vital Signs Date Time Temp Pulse Resp B/P Pulse Ox O2 Delivery O2 Flow Rate FiO2 08/06/16 18:13 87 18 145/84 99 Nasal Cannula 2.5 08/06/16 16:24 98.2 Orders Electrocardiogram (08/06/16 ) Ckmb (Isoenzyme) Profile (08/06/16 16:59) Complete Blood Count With Diff (08/06/16 16:59) Comprehensive Metabolic Panel (08/06/16 16:59) D-Dimer (08/06/16 16:59) Magnesium (Mg) (08/06/16 16:59) Prothrombin Time / Inr (Pt) (08/06/16 16:59) Act Partial Throm Time (Ptt) (08/06/16 16:59) Troponin I (08/06/16 16:59) Chest, Single Ap (08/06/16 16:59) Ecg Monitoring (08/06/16 16:59) Bilateral Bp Monitoring (08/06/16 16:59) Iv Access Insert/Monitor (08/06/16 16:59) Oximetry (08/06/16 16:59) Oxygen Administration (08/06/16 16:59) Sodium Chloride 0.9% Flush (Ns Flush) (08/06/16 17:00) Pantoprazole Inj (Protonix Inj) (08/06/16 17:30) Ct Abd/Pel W Iv Contrast(Rout) (08/06/16 17:44) Ct Pulmonary Angiogram (08/06/16 17:44) CKMB (08/06/16 17:10) CKMB% (08/06/16 17:10) Hydromorphone Pf Inj (Dilaudid Pf Inj) (08/06/16 18:15) Ondansetron Inj (Zofran Inj) (08/06/16 18:15) Iohexol 350 Inj (Omnipaque 350 Inj) (08/06/16 19:05) Labs Laboratory Tests Test 08/06/16 17:10 White Blood Count 9.6 TH/MM3 Red Blood Count 5.12 MIL/MM3 Hemoglobin 16.0 GM/DL Hematocrit 45.6 % Mean Corpuscular Volume 88.9 FL Mean Corpuscular Hemoglobin 31.3 PG Mean Corpuscular Hemoglobin 35.2 % Concent Red Cell Distribution Width 14.2 % Platelet Count 285 TH/MM3 Mean Platelet Volume 8.7 FL Neutrophils (%) (Auto) 62.4 % Lymphocytes (%) (Auto) 30.2 % Monocytes (%) (Auto) 6.0 % Eosinophils (%) (Auto) 0.7 % Basophils (%) (Auto) 0.7 % Neutrophils # (Auto) 6.0 TH/MM3 Lymphocytes # (Auto) 2.9 TH/MM3 Monocytes # (Auto) 0.6 TH/MM3 Eosinophils # (Auto) 0.1 TH/MM3 Basophils # (Auto) 0.1 TH/MM3 CBC Comment DIFF FINAL Differential Comment Prothrombin Time 12.2 SEC Prothromb Time International 1.1 RATIO Ratio Activated Partial 26.5 SEC Thromboplast Time D-Dimer Quantitative (PE/DVT) 0.25 MG/L FEU Sodium Level 135 MEQ/L Potassium Level 5.2 MEQ/L Chloride Level 102 MEQ/L Carbon Dioxide Level 24.7 MEQ/L Anion Gap 8 MEQ/L Blood Urea Nitrogen 14 MG/DL Creatinine 1.30 MG/DL Estimat Glomerular Filtration 58 ML/MIN Rate Random Glucose 114 MG/DL Calcium Level 9.2 MG/DL Magnesium Level 2.2 MG/DL Total Bilirubin 0.7 MG/DL Aspartate Amino Transf 36 U/L (AST/SGOT) Alanine Aminotransferase 33 U/L (ALT/SGPT) Alkaline Phosphatase 130 U/L Total Creatine Kinase 188 U/L Creatine Kinase MB 1.1 NG/ML Troponin I LESS THAN 0.02 NG/ML Total Protein 8.5 GM/DL Albumin 3.5 GM/DL MDM Medical Decision Making Medical Screen Exam Complete: Yes Emergency Medical Condition: Yes Medical Record Reviewed: Yes Interpretation(s) EKG shows NSR, no ST elevation or depression, and no arrhythmias. No significant T-wave inversions. Laboratory Tests Test 08/06/16 17:10 Prothrombin Time 12.2 SEC (9.8-11.6) Sodium Level 135 MEQ/L (136-145) Potassium Level 5.2 MEQ/L (3.5-5.1) Estimat Glomerular Filtration 58 ML/MIN (>89) Rate Random Glucose 114 MG/DL (74-106) Alkaline Phosphatase 130 U/L (45-117) Troponin I LESS THAN 0.02 NG/ML (0.02-0.05) Total Protein 8.5 GM/DL (6.4-8.2) Last 24 hours Impressions Chest X-Ray 08/06/16 1659 Signed Impressions: Service Date/Time: Saturday, August 06, 2016 17:21 - CONCLUSION: No acute cardiopulmonary disease. Philly Mcgee MD Differential Diagnosis PE versus dysrhythmias versus dehydration versus electrolyte abnormalities versus gastroenteritis versus pneumonia versus acute intra-abdominal processes Narrative Course Lab work did not indicate significant dehydration or electro light abnormalities. EKG did not show any signs of ST acute changes. Chest x-ray did not show acute pulmonary processes. CTA of the chest and CT of the abdomen was ordered for further evaluation of the pain. Physician Communication Physician Communication Case is signed out to Dr. Lima at 7 PM pending CAT scan. Patient will likely need to be admitted to rule out other acute processes on chest and abdomen CT. Diagnosis Primary Impression: Chest pain Additional Impression: Syncope Admitting Information Admitting Physician Requests: Admit Sumaya Burns MD Aug 06, 2016 19:11
[2016-08-06 19:34] VITALS: BP 146/90; PULSE 88; RESP 16; O2SAT 98
--- NOTE | 2016-08-06 19:36 | RADRPT ---
EXAM DATE/TIME: 08/06/2016 19:01 [facility] COMPARISON: CT PULMONARY ANGIOGRAM, January 16, 2016, 13:55. INDICATIONS : Chest pain; shortness of breath. IV CONTRAST: 75 cc Omnipaque 350 (iohexol) IV RADIATION DOSE: 6.38 CTDIvol (mGy) MEDICAL HISTORY : Deep venous thrombosis. Pulmonary emboli. SURGICAL HISTORY : None. ENCOUNTER: Initial ACUITY: 1 day PAIN SCALE: 4/10 LOCATION: Right chest TECHNIQUE: Volumetric scanning of the chest was performed using a pulmonary embolism protocol MIP images were re constructed. Using automated exposure control and adjustment of the mA and/or kV according to patien t size, radiation dose was kept as low as reasonably achievable to obtain optimal diagnostic quality images. FINDINGS: PULMONARY ARTERIES: No filling defects are seen in the central pulmonary arteries. LUNGS: There is no consolidation or pneumothorax . No concerning pulmonary nodule is visualized. PLEURAE: There is no pleural thickening or pleural effusion. MEDIASTINUM: There is good visualization of the great vessels of the middle mediastinum. No enlarged adenopathy. S mall lymph node in the superior mediastinum. MUSCULOSKELETAL: Within normal limits for patient age. MISCELLANEOUS: The visualized upper abdominal organs demonstrate no acute abnormality. CONCLUSION: 1. No evidence for central pulmonary embolus. 2. No infiltrate or mass. Jacob Alcantara MD on August 06, 2016 at 19:32 Board Certified Radiologist. This report was verified electronically.
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
--- NOTE | 2016-08-06 19:45 | PD ---
Data Data Last Documented VS Vital Signs Date Time Temp Pulse Resp B/P Pulse Ox O2 Delivery O2 Flow Rate FiO2 08/06/16 19:34 88 16 146/90 98 Room Air 08/06/16 18:13 2.5 08/06/16 16:24 98.2 Orders Electrocardiogram (08/06/16 ) Ckmb (Isoenzyme) Profile (08/06/16 16:59) Complete Blood Count With Diff (08/06/16 16:59) Comprehensive Metabolic Panel (08/06/16 16:59) D-Dimer (08/06/16 16:59) Magnesium (Mg) (08/06/16 16:59) Prothrombin Time / Inr (Pt) (08/06/16 16:59) Act Partial Throm Time (Ptt) (08/06/16 16:59) Troponin I (08/06/16 16:59) Chest, Single Ap (08/06/16 16:59) Ecg Monitoring (08/06/16 16:59) Bilateral Bp Monitoring (08/06/16 16:59) Iv Access Insert/Monitor (08/06/16 16:59) Oximetry (08/06/16 16:59) Oxygen Administration (08/06/16 16:59) Sodium Chloride 0.9% Flush (Ns Flush) (08/06/16 17:00) Pantoprazole Inj (Protonix Inj) (08/06/16 17:30) Ct Abd/Pel W Iv Contrast(Rout) (08/06/16 17:44) Ct Pulmonary Angiogram (08/06/16 17:44) CKMB (08/06/16 17:10) CKMB% (08/06/16 17:10) Hydromorphone Pf Inj (Dilaudid Pf Inj) (08/06/16 18:15) Ondansetron Inj (Zofran Inj) (08/06/16 18:15) Iohexol 350 Inj (Omnipaque 350 Inj) (08/06/16 19:05) Admit Order (Ed Use Only) (08/06/16 20:14) Labs Laboratory Tests Test 08/06/16 17:10 White Blood Count 9.6 TH/MM3 Red Blood Count 5.12 MIL/MM3 Hemoglobin 16.0 GM/DL Hematocrit 45.6 % Mean Corpuscular Volume 88.9 FL Mean Corpuscular Hemoglobin 31.3 PG Mean Corpuscular Hemoglobin 35.2 % Concent Red Cell Distribution Width 14.2 % Platelet Count 285 TH/MM3 Mean Platelet Volume 8.7 FL Neutrophils (%) (Auto) 62.4 % Lymphocytes (%) (Auto) 30.2 % Monocytes (%) (Auto) 6.0 % Eosinophils (%) (Auto) 0.7 % Basophils (%) (Auto) 0.7 % Neutrophils # (Auto) 6.0 TH/MM3 Lymphocytes # (Auto) 2.9 TH/MM3 Monocytes # (Auto) 0.6 TH/MM3 Eosinophils # (Auto) 0.1 TH/MM3 Basophils # (Auto) 0.1 TH/MM3 CBC Comment DIFF FINAL Differential Comment Prothrombin Time 12.2 SEC Prothromb Time International 1.1 RATIO Ratio Activated Partial 26.5 SEC Thromboplast Time D-Dimer Quantitative (PE/DVT) 0.25 MG/L FEU Sodium Level 135 MEQ/L Potassium Level 5.2 MEQ/L Chloride Level 102 MEQ/L Carbon Dioxide Level 24.7 MEQ/L Anion Gap 8 MEQ/L Blood Urea Nitrogen 14 MG/DL Creatinine 1.30 MG/DL Estimat Glomerular Filtration 58 ML/MIN Rate Random Glucose 114 MG/DL Calcium Level 9.2 MG/DL Magnesium Level 2.2 MG/DL Total Bilirubin 0.7 MG/DL Aspartate Amino Transf 36 U/L (AST/SGOT) Alanine Aminotransferase 33 U/L (ALT/SGPT) Alkaline Phosphatase 130 U/L Total Creatine Kinase 188 U/L Creatine Kinase MB 1.1 NG/ML Troponin I LESS THAN 0.02 NG/ML Total Protein 8.5 GM/DL Albumin 3.5 GM/DL [facility] Medical Record Reviewed: Yes Supervised Visit with ERROL: No Narrative Course CBC & BMP Diagram 08/06/16 17:10 LFTs essentially normal Tn < 0.02 INR 1.1 Please refer to the outgoing provider's note. The patient to me reports recurrent syncope, 4 episodes coupled with chest pain, left lower quadrant pain and bloody stool. His workup today is essentially normal including a CT pulmonary angiogram and CT abdomen and pelvis. 4 episodes of syncope is somewhat concerning. Patient underwent cardiac catheterization 2000 however does not know the results. He denies any prior colonoscopy. He reports noncompliance with Coumadin for 4 days until yesterday when he resumed taking it. Apparently he had been unable to get it as [place]. Diagnosis Primary Impression: Chest pain Qualified Code: R07.9 - Chest pain, unspecified type Additional Impression: Syncope Qualified Code: R55 - Syncope, unspecified syncope type Admitting Information Admitting Physician Requests: Observation Gaston Lima MD Aug 06, 2016 19:45
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
[2016-08-06] MEDS ORDERED: NALOXONE HCL 0.4 MG/ML AMP IV PRN (21:30)
[2016-08-06] MEDS ORDERED: MORPHINE SULFATE 4 MG/ML INJ IV PRN (21:45)
[2016-08-06] MEDS ORDERED: ACETAMINOPHEN 325 MG TAB PO PRN (21:45)
[2016-08-06] MEDS ORDERED: ALPRAZolam 0.25 MG TAB PO PRN (21:45)
[2016-08-06] MEDS ORDERED: cloNIDine HCL 0.1 MG TAB PO PRN (22:45)
[2016-08-06 23:29] VITALS: BP 123/73; TEMP 97.8
[2016-08-06 23:35] VITALS: BP 142/84; PULSE 90; RESP 20; TEMP 97.8; O2SAT 98
[2016-08-06 23:46] LABS: BLOOD, URINE TRACE (NEG); GLUCOSE,URINE NEG (NEG); KETONE, URINE NEG (NEG); MUCUS URINE FEW /lpf (OCC); NITRITE,URINE NEG (NEG); PH, URINE 5.5 (5.0-8.5); SQUAMOUS EPITHELIAL CELL URINE 1 /hpf (0-5); URINE COLOR YELLOW (YELLW/STRAW)
[2016-08-06 23:48] LABS: COMMENT (UR) CULT NOT INDICATED; CULTURE IF INDICATED CULT NOT INDICATED
[2016-08-07] VITALS (8 sets, daily range): BP systolic 100–166; BP diastolic 56–92; PULSE 62–107; RESP 18–20; TEMP 96.5–98.1; O2SAT 93–98
[2016-08-07 00:20] LABS: HEMATOCRIT 45.1 % (39.0-51.0); REVIEW FLAG FINAL
[2016-08-07 00:42] LABS: CREATINE KINASE 111 U/L (39-308)
[2016-08-07 00:54] LABS: CKMB 1.3 NG/ML (0.5-3.6)
[2016-08-07] MEDS ORDERED: GLUCAGON 1 MG/ML VIAL OTHER PRN (02:15)
[2016-08-07] MEDS ORDERED: DEXTROSE 50% IN WATER 50 ML VIAL(D50) IV PUSH PRN (02:15)
[2016-08-07] MEDS: MORPHINE SULFATE 4 MG/ML INJ IV PUSH PRN ×7 (03:10→23:19)
[2016-08-07] MEDS: INSULIN ASPART SUPPLEMENTAL SCALE SQ SCH ×4 (06:09→20:19)
[2016-08-07 06:49] LABS: INTERNATIONAL NORMALIZED RATIO 1.9 RATIO; PROTHROMBIN TIME - PATIENT 21.4 SEC (9.8-11.6)
[2016-08-07 07:06] LABS: AUTOMATED NEUTROPHIL # 4.2 TH/MM3 (1.8-7.7); BASOPHIL % 0.3 % (0.0-2.0); EOSINOPHIL # 0.1 TH/MM3 (0-0.4); EOSINOPHIL % 0.9 % (0.0-4.0); HEMO FLAGS DIFF FINAL; LYMPH % 34.2 % (9.0-44.0); LYMPHOCYTE # 2.5 TH/MM3 (1.0-4.8); MEAN CELL VOLUME 89.5 FL (80.0-100.0); MEAN CORPUSCULAR HEMOGLOBIN 29.8 PG (27.0-34.0); MEAN CORPUSCULAR HGB CONC 33.3 % (32.0-36.0); MONO % 8.3 % (0.0-8.0); NEUT % 56.3 % (16.0-70.0); PLATELET COUNT 241 TH/MM3 (150-450); RED BLOOD COUNT 4.91 MIL/MM3 (4.50-5.90); RED CELL DISTRIBUTION WIDTH 13.8 % (11.6-17.2); WHITE BLOOD COUNT 7.4 TH/MM3 (4.0-11.0)
[2016-08-07 07:16] LABS: CREATINE KINASE 108 U/L (39-308)
[2016-08-07 07:21] LABS: BICARBONATE 24.3 MEQ/L (21.0-32.0); HDL CHOLESTEROL 32.6 MG/DL (40.0-60.0); POTASSIUM 3.9 MEQ/L (3.5-5.1)
[2016-08-07 07:29] LABS: CKMB 1.2 NG/ML (0.5-3.6)
[2016-08-07] MEDS: SODIUM CHLORIDE FLUSH BID IV FLUSH SCH ×2 (09:00→20:18)
[2016-08-07] MEDS ORDERED: metFORMIN HCL 500 MG TAB PO SCH (09:00)
[2016-08-07] MEDS: ONDANSETRON HCL 4 MG/2 ML VIAL IV PRN ×2 (09:13→20:18)
[2016-08-07] MEDS: PARoxetine HCL 20 MG TAB PO SCH (09:41)
[2016-08-07] MEDS: PANTOPRAZOLE SOD 40 MG DELAYED RELEASE TAB PO SCH ×2 (09:41→18:17)
[2016-08-07] MEDS: METOPROLOL SUCCINATE 50 MG EXTENDED RELEASE TAB PO SCH (09:41)
[2016-08-07] MEDS: LISINOPRIL 20 MG TAB PO SCH (09:41)
[2016-08-07] MEDS: FUROSEMIDE 40 MG TAB PO SCH (09:42)
[2016-08-07] MEDS: GABAPENTIN 300 MG CAP PO SCH ×3 (09:42→18:17)
--- NOTE | 2016-08-07 10:56 | PD.CONS ---
HPI History of Present Illness This is a 51 year old male who presented to the ER for evaluation of LLQ pain and rectal bleeding. He reports that he has been having intermittent diarrhea with hematochezia for the past month and half. Prior to yesterday, he was having about 3-4 loose stools with a small to moderate amount of red blood mixed within his stools. He was looking into going back to see his old foot doctor, Dr. Hernandez, but states that he was no longer on his insurance plan. He was then going to talk to his primary care physician at his next appointment. He started having abdominal pain on . This is a severe sharp pain that is constant, but varies in intensity. There are no aggravating or alleviating factors. He also has associated hematochezia with a large amount of bright red blood- several episodes since . The last episode of this was yesterday. He denies any fevers or chills. He has mild nausea without vomiting. He denies any unintentional weight loss. He has never had a colonoscopy. He does have a hx of peptic ulcer disease (last EGD was 2012). He does have heartburn/reflux and states this is well controlled with omeprazole 20mg po BID. He does have a hx of DVTs "many years ago." He also reports that he was diagnosed with a pulmonary embolism back in May of 2016. He takes Couamdin for this. He reports that his father had prostate cancer. He denies any recent travel, suspicious food, or sick contacts. He denies any recent antibiotic use. (Marissa Mas) PFSH Past Medical History Hx DVT Pulmonary embolism (May) HTN DM Osteoarthritis PUD MRSA Cellulitis Herniated disc Chronic neck and back pain Past Surgical History Appendectomy EGD Cholecystectomy Hernia repairs Bilateral knee laparoscopic procedures IM rodding and later removal right femur (Marissa Mas) Coded Allergies: No Known Allergies (Verified , 08/06/16) Medications Allergies Coded Allergies Type Severity Reaction Last Updated Verified No Known Allergies 08/06/16 Yes Active Scripts Medications Dose Route/Sig Days Date Category Dose Instructions Lisinopril 40 Mg Tab 40 Mg PO DAILY 08/06/16 Reported Lasix (Furosemide) 40 Mg Tab 40 Mg PO DAILY 07/29/16 Rx Oxycodone (Oxycodone HCl) 10 Mg Tab 10 Mg PO TID PRN 07/21/16 Rx Take one tab in the AM and PM PRN pain and can take a half a tab in the afternoon as needed Gabapentin 300 Mg Cap 300 Mg PO TID 06/28/16 Rx Ondansetron (Ondansetron HCl) 8 Mg Tab 8 Mg PO TID PRN 06/28/16 Rx Take 1/2 tab Q8H as needed for nausea Omeprazole 40 Mg Cap 40 Mg PO BID 06/28/16 Rx Warfarin 7.5 Mg Tab 7.5 Mg PO DAILY 06/25/16 Reported Paxil (Paroxetine HCl) 40 Mg Tab 40 Mg PO DAILY 06/25/16 Reported Metoprolol Succinate ER 24 HR (Metoprolol Succinate) 200 Mg Tab 200 Mg PO DAILY 06/25/16 Reported Metformin ER (Metformin HCl) 500 Mg Todd 500 Mg PO DAILY 06/25/16 Reported With evening meal Imitrex (Sumatriptan Succinate) 50 Mg Tab 50 Mg PO ONCE PRN 06/25/16 Reported If a satisfactory response has not been obtained at 2 hours, a second dose may be administered Family History Father had prostate cancer Mother had COPD, CVA Social History No tobacco. No ETOH (Marissa Mas) Review of Systems Constitutional: COMPLAINS OF: Fatigue, Chills, DENIES: Fever, Weight loss Respiratory: DENIES: Cough Cardiovascular: DENIES: Chest pain Gastrointestinal: COMPLAINS OF: Abdominal pain, Bloody stools, Diarrhea, Nausea , Heartburn, DENIES: Black stools, Constipation, Vomiting Musculoskeletal: COMPLAINS OF: Joint pain, Back pain, Neck pain Integumentary: DENIES: Abnormal pigmentation, Rash Hematologic/lymphatic: DENIES: Bruising Neurologic: DENIES: Headache Psychiatric: DENIES: Confusion (Marissa Mas) GI Exam Vitals I&O Vital Signs Date Time Temp Pulse Resp B/P Pulse Ox O2 Delivery O2 Flow Rate FiO2 08/07/16 08:00 97.9 79 18 158/77 94 08/07/16 04:40 97.9 78 20 129/80 95 08/07/16 00:00 98 Nasal Cannula 2.50 08/06/16 23:35 97.8 90 20 142/84 98 08/06/16 23:29 97.8 94 16 123/73 100 08/06/16 19:34 88 16 146/90 98 Nasal Cannula 2.5 08/06/16 18:13 87 18 145/84 99 Nasal Cannula 2.5 08/06/16 16:59 93 20 186/102 96 Nasal Cannula 2.5 08/06/16 16:24 98.2 112 22 196/109 99 I/O 08/06/16 08/06/16 08/06/16 08/07/16 08/07/16 08/07/16 07:00 15:00 23:00 07:00 15:00 23:00 Intake Total 120 ml Balance 120 ml Intake Oral 120 ml Imaging Last Impressions CT Angiography 08/06/16 1744 Signed Impressions: Service Date/Time: Saturday, August 06, 2016 19:01 - CONCLUSION: 1. No evidence for central pulmonary embolus. 2. No infiltrate or mass. Jacob Alcantara MD Abdomen/Pelvis CT 08/06/164 Signed Impressions: Service Date/Time: Saturday, August 06, 2016 19:09 - CONCLUSION: 1. No abdominal visceral injury. 2. Fatty liver and previous cholecystectomy. Jacob Alcantara MD Chest X-Ray 08/06/16 1659 Signed Impressions: Service Date/Time: Saturday, August 06, 2016 17:21 - CONCLUSION: No acute cardiopulmonary disease. Philly Mcgee MD Laboratory Test 08/06/16 08/06/16 08/07/16 08/07/16 17:10 23:15 00:02 06:07 White Blood Count 9.6 TH/MM3 7.4 TH/MM3 Red Blood Count 5.12 MIL/MM3 4.91 MIL/MM3 Hemoglobin 16.0 GM/DL 14.8 GM/DL 14.6 GM/DL Hematocrit 45.6 % 45.1 % 44.0 % Mean Corpuscular Volume 88.9 FL 89.5 FL Mean Corpuscular Hemoglobin 31.3 PG 29.8 PG Mean Corpuscular Hemoglobin 35.2 % 33.3 % Concent Red Cell Distribution Width 14.2 % 13.8 % Platelet Count 285 TH/MM3 241 TH/MM3 Mean Platelet Volume 8.7 FL 8.1 FL Neutrophils (%) (Auto) 62.4 % 56.3 % Lymphocytes (%) (Auto) 30.2 % 34.2 % Monocytes (%) (Auto) 6.0 % 8.3 % Eosinophils (%) (Auto) 0.7 % 0.9 % Basophils (%) (Auto) 0.7 % 0.3 % Neutrophils # (Auto) 6.0 TH/MM3 4.2 TH/MM3 Lymphocytes # (Auto) 2.9 TH/MM3 2.5 TH/MM3 Monocytes # (Auto) 0.6 TH/MM3 0.6 TH/MM3 Eosinophils # (Auto) 0.1 TH/MM3 0.1 TH/MM3 Basophils # (Auto) 0.1 TH/MM3 0.0 TH/MM3 CBC Comment DIFF FINAL DIFF FINAL Differential Comment Prothrombin Time 12.2 SEC 21.4 SEC Prothromb Time International 1.1 RATIO 1.9 RATIO Ratio Activated Partial 26.5 SEC Thromboplast Time D-Dimer Quantitative (PE/DVT) 0.25 MG/L FEU Sodium Level 135 MEQ/L 137 MEQ/L Potassium Level 5.2 MEQ/L 3.9 MEQ/L Chloride Level 102 MEQ/L 104 MEQ/L Carbon Dioxide Level 24.7 MEQ/L 24.3 MEQ/L Anion Gap 8 MEQ/L 9 MEQ/L Blood Urea Nitrogen 14 MG/DL 12 MG/DL Creatinine 1.30 MG/DL 1.08 MG/DL Estimat Glomerular Filtration 58 ML/MIN 72 ML/MIN Rate Random Glucose 114 MG/DL 104 MG/DL Calcium Level 9.2 MG/DL 8.4 MG/DL Magnesium Level 2.2 MG/DL Total Bilirubin 0.7 MG/DL Aspartate Amino Transf 36 U/L (AST/SGOT) Alanine Aminotransferase 33 U/L (ALT/SGPT) Alkaline Phosphatase 130 U/L Total Creatine Kinase 188 U/L 111 U/L 108 U/L Creatine Kinase MB 1.1 NG/ML 1.3 NG/ML 1.2 NG/ML Troponin I LESS THAN 0.02 LESS THAN 0.02 LESS THAN 0.02 NG/ML NG/ML NG/ML Total Protein 8.5 GM/DL Albumin 3.5 GM/DL Urine Color YELLOW Urine Turbidity CLEAR Urine pH 5.5 Urine Specific [place] GREATER THAN 1.050 Urine Protein TRACE mg/dL Urine Glucose (UA) NEG mg/dL Urine Ketones NEG mg/dL Urine Occult Blood TRACE Urine Nitrite NEG Urine Bilirubin NEG Urine Urobilinogen LESS THAN 2.0 MG/DL Urine Leukocyte Esterase NEG Urine RBC LESS THAN 1 /hpf Urine WBC 1 /hpf Urine Squamous Epithelial 1 /hpf Cells Urine Mucus FEW /lpf Microscopic Urinalysis Comment CULT NOT INDICATED Triglycerides Level 98 MG/DL Cholesterol Level 140 MG/DL LDL Cholesterol 88 MG/DL HDL Cholesterol 32.6 MG/DL Cholesterol/HDL Ratio 4.29 RATIO Physical Examination HEENT: Normocephalic; atraumatic; no jaundice. CHEST: CTA CARDIAC: RRR ABDOMEN: Soft, nondistended, LLQ tenderness; no hepatosplenomegaly; bowel sounds are present in all four quadrants. EXTREMITIES: No clubbing, cyanosis, or edema. SKIN: Normal; no rash; no jaundice. AUTOMATIC OPERATOR: No focal deficits; alert and oriented times three. (Marissa Mas) Assessment and Plan Plan ASSESSMENT: - LLQ Pain. Sudden onset severe constant sharp LLQ pain without radiation on - associated diarrhea and hematochezia. Abdomen/Pelvis CT (08/06/16)----> 1. No abdominal visceral injury. 2. Fatty liver and previous cholecystectomy. WBC 7.4. HH has remained stable 14.6/44.0. Never had a colonoscopy. No recent travel, suspicious food, sick contacts, abx use. - GIB, Hematochezia. C/O intermittent diarrhea with hematochezia for the past month and half. Prior to yesterday, he was having about 3-4 loose stools with a small to moderate amount of red blood mixed within his stools. - Diarrhea. 1.5 months of intermittent diarrhea (3-4 with small to moderate amount red blood mixed within stool), now with LLQ pain and large amount of blood mixed within stool. No recent travel, suspicious food , sick contacts, abx use. No hx colonoscopy. - GERD, Hx PUD (last egd was [address] Hernandez). PPI - Hx PE, DVT. On coumadin at home. - DM, HTN, OA, Chronic neck and back pain. PLAN: - Plan on EGD/Colonoscopy Tuesday - Obtain consents - Clear liquids - NPO after MN - Golytely prep - Protonix 40mg po BID - Flagyl 500mg IV q8h - Monitor HH - Transfuse as necessary - Stool for CDiff, C/S, Giardia, WBC - If anticoagulation started, prefer that short acting agent such as heparin be used in order that we can hold it prior to the procedure - Pt seen and examined by Dr. Block and myself and this note is written on her behalf (Marissa Mas) Physician Comments seen, examined agree with above (Klaudia Block MD) Marissa Mas Aug 07, 2016 10:56 Klaudia Block MD Aug 07, 2016 14:23 for central pulmonary embolus. 2. No infiltrate or mass. MD Jacob Foote MD Chest X-Ray 08/06/16 3317 Signed Impressions: Service Date/Time: Saturday, August 06, 2016 17:21 - CONCLUSION: No acute cardiopulmonary disease. MD Chace Salcedo Carly Melissa ARNP Aug 07, 2016 10:56
--- NOTE | 2016-08-07 13:35 | EKG ---
Date Performed: 08/06/2016 Time Performed: 23:41:32 PTAGE: 51 years EKG: Sinus rhythm MODERATE INTRAVENTRICULAR CONDUCTION DELAY BORDERLINE ECG Compared to prior tracing no significant c hange NO PREVIOUS TRACING DOCTOR: Hipolito Evans Interpretating Date/Time 08/07/2016 13:32:47
--- NOTE | 2016-08-07 13:35 | EKG ---
Date Performed: 08/06/2016 Time Performed: 16:33:46 PTAGE: 51 years EKG: Sinus rhythm PATTERN CONSISTENT WITH PULMONARY DISEASE LEFT ANTERIOR FASCICULAR BLOCK ABNORMAL ECG Compared to pr ior tracing no significant change PREVIOUS TRACING : 07/04/2016 18.11 DOCTOR: Hipolito Evans Interpretating Date/Time 08/07/2016 13:32:34
--- NOTE | 2016-08-07 13:35 | EKG ---
Date Performed: 08/07/2016 Time Performed: 05:07:50 PTAGE: 51 years EKG: Sinus rhythm INTRAVENTRICULAR CONDUCTION DELAY ABNORMAL ECG Compared to prior tracing no significant change PREVIOUS TRACING : 08/06/2016 23.41 DOCTOR: Hipolito Evans Interpretating Date/Time 08/07/2016 13:32:55
[2016-08-07] MEDS: metroNIDAZOLE 500 MG INJ 100 ML IV SCH ×2 (13:44→20:19)
--- NOTE | 2016-08-07 13:45 | RADRPT ---
EXAM DATE/TIME: 08/07/2016 12:01 [facility] COMPARISON: No previous studies available for comparison. INDICATIONS : Syncope. MEDICAL HISTORY : Myocardial infarction. Hypertension. Pancreatitis. Syncope. Chest pain. Dyspnea. GERD. Ulcer. Abdomin al pain. Melena. Diabetes. Back and neck pain. Depression. Anxiety. Anticoagulant therapy. MRSA. SURGICAL HISTORY : Cholecystectomy. Appendectomy. Cardiac cath. Bilateral inguinal hernia repair. ORIF right femur wit h angel. Removal hardware right femur. Bilateral knee. Righ shoulder. ENCOUNTER: Initial ACUITY: 1 month PAIN SCORE: 0/10 LOCATION: Bilateral neck PEAK SYSTOLIC VELOCITIES (cm/sec): ICA/CCA RATIO: Right: 0.8 Left: 1.0 ICA: Right: 89 Left: 84 CCA: Right: 105 Left: 86 ECA: Right: 84 Left: 77 VERTEBRAL: Right: 46 antegrade Left: 55 antegrade Elevated flow velocities and ICA/CCA ratios have been found to correlate with increased degrees of vessel stenosis, calculated as percentage of diameter relative to a normal segment of distal ICA/CCA FINDINGS: RIGHT CAROTID: No significant stenosis is visualized. The waveforms are within normal limits. LEFT CAROTID: No significant stenosis is visualized. The waveforms are within normal limits. VERTEBRAL ARTERIES: Antegrade flow is seen in both vertebral arteries. MISCELLANEOUS: None. CONCLUSION: Normal examination. Joe Fowler MD on August 07, 2016 at 13:41 Board Certified Radiologist. This report was verified electronically.
[2016-08-07 13:47] LABS: HEMATOCRIT 46.4 % (39.0-51.0); REVIEW FLAG FINAL
--- NOTE | 2016-08-07 15:50 | MB ---
cc: BIBIANA DICKINSON M.D. DATE OF CONSULTATION 08/07/16 REASON FOR CONSULTATION Evaluation of syncope. HISTORY OF PRESENT ILLNESS Hipolito Pagan is a 51-year-old man who has been to [facility] on multiple occasions. He comes in for left lower quadrant pain with bright red blood per rectum. He has already seen GI and they plan to scope him on Tuesday. The patient has had intermittent chest pain for many years. He underwent a cardiac catheterization December 11, [address] Tobin. He had a 10-20% mid-LAD irregularities and 10-20% ostial disease to the right coronary artery and mild irregularities throughout. There is no findings to explain his chest pain. Apparently, he has had multiple DVTs and pulmonary emboli and no those were at this hospital so we do not have any of the direct records. He has been on chronic warfarin therapy. He has hypertension and peptic ulcer disease. He has had he says about five episodes of passing out in the past one and a half months. He had an episode Tuesday morning sitting on the edge of the bed and when he stood up quickly he passed out without warning. He had an episode the same day at 2:00 p.m. brushing his teeth. He slightly scuffed his head on that one. The episodes typically occur when he gets up from sitting or lying down but the problem is he does not get any warning. He has been trying to lose weight and has lost from about 400 pounds down to 340 pounds. He has chronic shortness of breath with exertion. He has chronic intermittent chest pressure particularly under stress about twice a week, lasting 20 minutes. He gets some extremely sharp, crampy chest pains lasting about a second. PAST MEDICAL HISTORY Past medical history includes hypertension, peptic ulcer disease, previous DVT, previous pulmonary emboli. Herniated disk in his neck. MRSA infection left lower extremity. His chart documents a previous heart attack but there is not any objective evidence of him having had a prior heart attack looking at the chart. There was a mention of him having heart attack in 2000. He had two cardiology consults in 2004 and there was no mention of a previous [place]. The findings of the cath from 2007 also do not fit with a previous [place]. SOCIAL HISTORY He has never smoked. Denies alcohol. FAMILY HISTORY Family history his father had a heart attack and had bypass surgery. REVIEW OF SYSTEMS Significant for back, neck and joint pain. The remaining review of systems unremarkable. PHYSICAL EXAMINATION GENERAL: Physical exam reveals a morbidly obese white male in no acute distress. VITAL SIGNS: He was quite hypertensive when he first came in, blood pressure is improved. HEENT: Exam is unremarkable. NECK: Negative for bruits. Neck veins cannot be assessed due to the obesity. CHEST: Chest is clear to auscultation. CARDIAC: Exam S1-S2. Regular rate and rhythm. No murmurs or gallops appreciated. ABDOMEN: Notable for some mild left lower quadrant tenderness on palpation. EXTREMITIES: Show no peripheral edema. Peripheral pulses are intact. NEUROLOGICALLY: He is alert and oriented. LABORATORY FINDINGS Notable for hematocrit of 44, creatinine 1.08. Troponins are normal x3. LDL is 88 and HDL 33, triglycerides 98. IMAGING STUDIES Carotid Doppler results are pending. CT of the lungs this admission showed no evidence for pulmonary emboli. IMPRESSION Multiple episodes of syncope. This occur when he stands up. Most likely some vasomotor instability. No evidence for arrhythmia so far. He has ongoing left lower quadrant pain and plan to undergo scope procedures on Tuesday, I think that is appropriate. He has chronic intermittent chest discomfort with a fairly benign cath in 2007. This does not sound unstable. Continue watching the patient on telemetry, await the results of his carotid Doppler. Further therapy be determined. Bibiana Dickinson MD VEJuan Carlos/EO /1:21 PM /3:12 PM
[2016-08-07 18:53] LABS: HEMATOCRIT 47.3 % (39.0-51.0); REVIEW FLAG FINAL
[2016-08-07] MEDS: SODIUM CHLORIDE FLUSH PRN IV FLUSH ×2 (20:18→23:19)
[2016-08-07] MEDS: DOCUSATE SODIUM 50 MG/SENNA 8.6 MG TAB PO SCH (20:19)
[2016-08-07] MEDS: HEPARIN-D5W INJ 250 ML IV SCH (23:22)
[2016-08-07 23:45] LABS: HEMATOCRIT 44.3 % (39.0-51.0); REVIEW FLAG FINAL
[2016-08-08 02:22] VITALS: PULSE 61
[2016-08-08] MEDS: MORPHINE SULFATE 4 MG/ML INJ IV PUSH PRN ×7 (02:45→22:44)
[2016-08-08] MEDS: SODIUM CHLORIDE FLUSH PRN IV FLUSH ×2 (02:46→05:16)
[2016-08-08] MEDS: metroNIDAZOLE 500 MG INJ 100 ML IV SCH ×3 (05:15→20:31)
[2016-08-08] MEDS: INSULIN ASPART SUPPLEMENTAL SCALE SQ SCH ×4 (05:59→20:38)
[2016-08-08 07:47] LABS: AUTOMATED NEUTROPHIL # 4.1 TH/MM3 (1.8-7.7); BASOPHIL % 0.3 % (0.0-2.0); EOSINOPHIL # 0.1 TH/MM3 (0-0.4); EOSINOPHIL % 0.9 % (0.0-4.0); HEMATOCRIT 43.5 % (39.0-51.0); HEMO FLAGS DIFF FINAL; LYMPH % 35.7 % (9.0-44.0); LYMPHOCYTE # 2.7 TH/MM3 (1.0-4.8); MEAN CELL VOLUME 89.5 FL (80.0-100.0); MEAN CORPUSCULAR HEMOGLOBIN 31.2 PG (27.0-34.0); MEAN CORPUSCULAR HGB CONC 34.9 % (32.0-36.0); MONO % 7.7 % (0.0-8.0); NEUT % 55.4 % (16.0-70.0); PLATELET COUNT 250 TH/MM3 (150-450); RED BLOOD COUNT 4.86 MIL/MM3 (4.50-5.90); RED CELL DISTRIBUTION WIDTH 14.1 % (11.6-17.2); WHITE BLOOD COUNT 7.4 TH/MM3 (4.0-11.0)
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
[2016-08-08 07:59] LABS: APTT (PATIENT) 44.9 SEC (24.3-30.1)
[2016-08-08 08:00] VITALS: BP_SYST 100; BP_SYST 106; BP_SYST 108; BP_DIAS 54; BP_DIAS 56; BP_DIAS 60; PULSE 58; PULSE 62; RESP 18; TEMP 98.1; O2SAT 93
[2016-08-08 08:22] LABS: BICARBONATE 24.9 MEQ/L (21.0-32.0); POTASSIUM 3.9 MEQ/L (3.5-5.1)
[2016-08-08] MEDS: ONDANSETRON HCL 4 MG/2 ML VIAL IV PRN ×2 (08:36→22:43)
[2016-08-08] MEDS: METOPROLOL SUCCINATE 50 MG EXTENDED RELEASE TAB PO SCH (08:41)
[2016-08-08] MEDS: PANTOPRAZOLE SOD 40 MG DELAYED RELEASE TAB PO SCH ×2 (08:42→18:13)
[2016-08-08] MEDS: LISINOPRIL 20 MG TAB PO SCH (08:42)
[2016-08-08] MEDS: PARoxetine HCL 20 MG TAB PO SCH (08:42)
[2016-08-08] MEDS: DOCUSATE SODIUM 50 MG/SENNA 8.6 MG TAB PO SCH ×2 (08:42→20:25)
[2016-08-08] MEDS: GABAPENTIN 300 MG CAP PO SCH ×3 (08:43→18:12)
[2016-08-08] MEDS: FUROSEMIDE 40 MG TAB PO SCH (08:43)
[2016-08-08] MEDS: SODIUM CHLORIDE FLUSH BID IV FLUSH SCH ×2 (09:00→20:31)
[2016-08-08 12:00] VITALS: BP 114/55; PULSE 87; RESP 20; TEMP 97.8; O2SAT 92
--- NOTE | 2016-08-08 13:33 | PD.CARD.PN ---
Subjective Subjective Remarks Mild intermittent chest pressure. Severe LLQ abdominal pain. + hematochezia Objective Medications Current Medications Medications (Trade) Dose Ordered Sig/Sanjiv Route Start Time Stop Time Status Last Admin (Narcan Inj) 0.4 mg UNSCH PRN IV 08/06/16 21:30 (Tylenol) 650 mg Q6H PRN PO 08/06/16 21:45 (Xanax) 0.25 mg Q8H PRN PO 08/06/16 21:45 08/07/16 00:02 (Zofran Inj) 4 mg Q6H PRN IV 08/06/16 21:45 08/08/16 08:36 (NS Flush) 2 ml BID IV FLUSH 08/07/16 09:00 08/08/16 09:00 (NS Flush) 2 ml UNSCH PRN IV FLUSH 08/06/16 21:45 08/08/16 05:16 (Lasix) 40 mg DAILY PO 08/07/16 09:00 08/08/16 08:43 (Neurontin) 300 mg TID PO 08/07/16 09:00 08/08/16 08:43 (Prinivil) 40 mg DAILY PO 08/07/16 09:00 08/08/16 08:42 (Toprol Xl) 200 mg DAILY PO 08/07/16 09:00 08/08/16 08:41 (Protonix) 40 mg BIDPC PO 08/07/16 09:00 08/08/16 08:42 (Paxil) 40 mg DAILY PO 08/07/16 09:00 08/08/16 08:42 (Catapres) 0.1 mg Q6H PRN PO 08/06/16 22:45 (D50w (Vial) Inj) 25 ml UNSCH PRN IV PUSH 08/07/16 02:15 Glucagon 1 mg 1 mg UNSCH PRN OTHER 08/07/16 02:15 (Flagyl 500 Mg Inj) 100 ml @ 100 mls/hr Q8H IV 08/07/16 12:00 08/08/16 11:37 Polyethylene Glycol/ Electrolytes 4000 ml 4,000 ml ONCE ONCE PO 08/08/16 16:00 08/08/16 16:01 (Heparin-D5W Inj) 250 ml @ 0 mls/hr TITRATE IV 08/07/16 19:30 08/07/16 23:22 (Shantal-Colace) 2 tab BID PO 08/07/16 21:00 08/08/16 08:42 (Morphine Inj) 1 mg Q3H PRN IV PUSH 08/08/16 09:00 08/08/16 11:30 (Roxicodone) 10 mg Q6H PRN PO 08/08/16 06:44 (Roxicodone) 5 mg Q6H PRN PO 08/08/16 06:45 Vital Signs / I&O Vital Signs Date Time Temp Pulse Resp B/P Pulse Ox O2 Delivery O2 Flow Rate FiO2 08/08/16 08:33 20 08/08/16 08:00 106/60 08/08/16 08:00 108/56 08/08/16 08:00 98.1 62 18 100/54 93 08/08/16 05:37 16 08/08/16 02:22 61 08/07/16 23:52 98.1 78 18 102/82 97 08/07/16 20:22 93 08/07/16 19:23 97.8 62 18 100/56 97 08/07/16 16:00 97.8 107 18 166/66 95 I/O 08/07/16 08/07/16 08/07/16 08/08/16 08/08/16 08/08/16 07:00 15:00 23:00 07:00 15:00 23:00 Intake Total 120 ml 480 ml Balance 120 ml 480 ml Intake Oral 120 ml 480 ml # Voids 4 1 Physical Exam Alert Does not Appear toxic Morbisly obese Chest clear CV S1S2 RRR No edema Laboratory Laboratory Tests Test 08/07/16 08/07/16 08/08/16 18:28 23:19 06:45 Hemoglobin 15.3 GM/DL 15.1 GM/DL 15.2 GM/DL Hematocrit 47.3 % 44.3 % 43.5 % White Blood Count 7.4 TH/MM3 Red Blood Count 4.86 MIL/MM3 Mean Corpuscular Volume 89.5 FL Mean Corpuscular Hemoglobin 31.2 PG Mean Corpuscular Hemoglobin 34.9 % Concent Red Cell Distribution Width 14.1 % Platelet Count 250 TH/MM3 Mean Platelet Volume 8.4 FL Neutrophils (%) (Auto) 55.4 % Lymphocytes (%) (Auto) 35.7 % Monocytes (%) (Auto) 7.7 % Eosinophils (%) (Auto) 0.9 % Basophils (%) (Auto) 0.3 % Neutrophils # (Auto) 4.1 TH/MM3 Lymphocytes # (Auto) 2.7 TH/MM3 Monocytes # (Auto) 0.6 TH/MM3 Eosinophils # (Auto) 0.1 TH/MM3 Basophils # (Auto) 0.0 TH/MM3 CBC Comment DIFF FINAL Differential Comment Activated Partial 44.9 SEC Thromboplast Time Sodium Level 136 MEQ/L Potassium Level 3.9 MEQ/L Chloride Level 101 MEQ/L Carbon Dioxide Level 24.9 MEQ/L Anion Gap 10 MEQ/L Blood Urea Nitrogen 18 MG/DL Creatinine 1.67 MG/DL Estimat Glomerular Filtration 44 ML/MIN Rate Random Glucose 112 MG/DL Calcium Level 8.5 MG/DL Imaging Last 48 hours Impressions Carotid Artery Ultrasound 08/07/16 0000 Signed Impressions: Service Date/Time: Sunday, August 07, 2016 12:01 - CONCLUSION: Normal examination. Joe Fowler MD CT Angiography [id number]/06/161743 Signed Impressions: Service Date/Time: Saturday, August 06, 2016 19:01 - CONCLUSION: 1. No evidence for central pulmonary embolus. 2. No infiltrate or mass. Jacob Alcantara MD Abdomen/Pelvis CT [id number]/06/161743 Signed Impressions: Service Date/Time: Saturday, August 06, 2016 19:09 - CONCLUSION: 1. No abdominal visceral injury. 2. Fatty liver and previous cholecystectomy. Jacob Alcantara MD Chest X-Ray 08/06/16 1659 Signed Impressions: Service Date/Time: Saturday, August 06, 2016 17:21 - CONCLUSION: No acute cardiopulmonary disease. Philly Mcgee MD Assessment and Plan Problem List: (1) Coronary artery disease Assessment and Plan: Only 10% irregularites on 2007 cath. No evidence OR (2) Pulmonary embolism (3) Morbid obesity (4) Hematochezia (5) Angina pectoris (6) Syncope Assessment and Plan: Suspect vasomotor/ orthostasis Nate Guzman MD Aug 08, 2016 13:33
[2016-08-08 13:41] LABS: APTT (PATIENT) 44.7 SEC (24.3-30.1)
[2016-08-08] MEDS: HEPARIN-D5W INJ 250 ML IV SCH (14:16)
[2016-08-08 14:59] LABS: AMPHETAMINE, URINE NEG (NEG); BARBITURATES, URINE NEG (NEG); COCAINE, URINE NEG (NEG)
--- NOTE | 2016-08-08 15:46 | HHI.GIFU ---
Subjective Remarks Pt reports that he is still having the same abd pain, worse in the LLQ No BM yet today Pt tolerating liquids. (Britney Salcido) Objective Vitals I&O Vital Signs Date Time Temp Pulse Resp B/P Pulse Ox O2 Delivery O2 Flow Rate FiO2 08/08/16 12:00 97.8 87 20 114/55 92 08/08/16 08:33 20 08/08/16 08:00 106/60 08/08/16 08:00 108/56 08/08/16 08:00 98.1 62 18 100/54 93 08/08/16 05:37 16 08/08/16 02:22 61 08/07/16 23:52 98.1 78 18 102/82 97 08/07/16 20:22 93 08/07/16 19:23 97.8 62 18 100/56 97 08/07/16 16:00 97.8 107 18 166/66 95 I/O 08/07/16 08/07/16 08/07/16 08/08/16 08/08/16 08/08/16 07:00 15:00 23:00 07:00 15:00 23:00 Intake Total 120 ml 480 ml 840 ml Balance 120 ml 480 ml 840 ml Intake Oral 120 ml 480 ml 840 ml # Voids 4 1 2 Laboratory Laboratory Tests Test 08/07/16 08/07/16 08/08/16 08/08/16 18:28 23:19 06:45 13:05 Hemoglobin 15.3 15.1 15.2 Hematocrit 47.3 44.3 43.5 White Blood Count 7.4 Red Blood Count 4.86 Mean Corpuscular Volume 89.5 Mean Corpuscular Hemoglobin 31.2 Mean Corpuscular Hemoglobin 34.9 Concent Red Cell Distribution Width 14.1 Platelet Count 250 Mean Platelet Volume 8.4 Neutrophils (%) (Auto) 55.4 Lymphocytes (%) (Auto) 35.7 Monocytes (%) (Auto) 7.7 Eosinophils (%) (Auto) 0.9 Basophils (%) (Auto) 0.3 Neutrophils # (Auto) 4.1 Lymphocytes # (Auto) 2.7 Monocytes # (Auto) 0.6 Eosinophils # (Auto) 0.1 Basophils # (Auto) 0.0 CBC Comment DIFF FINAL Differential Comment Activated Partial 44.9 44.7 Thromboplast Time Sodium Level 136 Potassium Level 3.9 Chloride Level 101 Carbon Dioxide Level 24.9 Anion Gap 10 Blood Urea Nitrogen 18 Creatinine 1.67 Estimat Glomerular Filtration 44 Rate Random Glucose 112 Calcium Level 8.5 Test 08/08/16 14:10 Urine Opiates Screen POS Urine Barbiturates Screen NEG Urine Amphetamines Screen NEG Urine Benzodiazepines Screen POS Urine Cocaine Screen NEG Urine Cannabinoids Screen NEG Imaging Last Impressions Carotid Artery Ultrasound 08/07/16 0000 Signed Impressions: Service Date/Time: Sunday, August 07, 2016 12:01 - CONCLUSION: Normal examination. Joe Fowler MD CT Angiography [id number] Signed Impressions: Service Date/Time: Saturday, August 06, 2016 19:01 - CONCLUSION: 1. No evidence for central pulmonary embolus. 2. No infiltrate or mass. Jacob Alcantara MD Abdomen/Pelvis CT [id number] Signed Impressions: Service Date/Time: Saturday, August 06, 2016 19:09 - CONCLUSION: 1. No abdominal visceral injury. 2. Fatty liver and previous cholecystectomy. Jacob Alcantara MD Chest X-Ray 08/06/16 1659 Signed Impressions: Service Date/Time: Saturday, August 06, 2016 17:21 - CONCLUSION: No acute cardiopulmonary disease. Philly Mcgee MD Physical Exam HEENT: Pupils round and reactive to light; normocephalic; atraumatic; no jaundice. Throat is clear. NECK: Neck is supple CHEST: CTA CARDIAC: Regular ABDOMEN: +BS, semi-firm, mildly distended, lower abdominal tenderness, worse in the LLQ EXTREMITIES: No clubbing, cyanosis, or edema. SKIN: Normal; no rash; no jaundice. 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 (Britney Salcido E SHERITA) Assessment and Plan Plan ASSESSMENT: - LLQ Pain. Sudden onset severe constant sharp LLQ pain without radiation on - associated diarrhea and hematochezia. Abdomen/Pelvis CT (08/06/16)----> 1. No abdominal visceral injury. 2. Fatty liver and previous cholecystectomy. WBC 7.4. HH has remained stable. Never had a colonoscopy. No recent travel, suspicious food, sick contacts, abx use. - GIB, Hematochezia. C/O intermittent diarrhea with hematochezia for the past month and half. Prior to yesterday, he was having about 3-4 loose stools with a small to moderate amount of red blood mixed within his stools. - Diarrhea. 1.5 months of intermittent diarrhea (3-4 with small to moderate amount red blood mixed within stool), now with LLQ pain and large amount of blood mixed within stool. No recent travel, suspicious food , sick contacts, abx use. No hx colonoscopy. - GERD, Hx PUD (last egd was [address] Hernandez). PPI - Hx PE, DVT. On Coumadin at home. - DM, HTN, OA, Chronic neck and back pain. PLAN: - Plan on EGD/Colonoscopy tomorrow - Consent have been obtained - Clear liquids - NPO after MN - Golytely prep - Protonix 40mg po BID - Flagyl 500mg IV q8h - Monitor HH - Transfuse as necessary - Stool for CDiff, C/S, Giardia, WBC - Heparin to be held at midnight tonight - Pt seen and examined by Dr. Block and myself and this note is written on her behalf (Britney Salcido) Physician Comments seen, examined agree with above (Klaudia Block MD) Britney Salcido Aug 08, 2016 15:46 Klaudia Block MD Aug 08, 2016 17:07
[2016-08-08] MEDS ORDERED: PEG (High)/E-LYTE SOLN 4000 ML BTL PO ONE (16:00)
--- NOTE | 2016-08-08 17:28 | EC ---
Study Study Date:08/08/2016 STUDY CONCLUSIONS SUMMARY LEFT VENTRICLE: The cavity size was normal. Wall thickness was increased in a pattern of mild LVH. There was concentric hypertrophy. Systolic function was normal. The estimated ejection fraction was in the range of 55% to 60%. Although no diagnostic regional wall motion abnormality was identified, this possibility cannot be completely excluded on the basis of this study. Doppler parameters are consistent with abnormal left ventricular relaxation (grade 1 diastolic dysfunction). If LV function is below 40, please consider prescribing an ACEI or ARB or document rationale for non-use. PROCEDURE DATA STUDY STATUS: Elective. Procedure: Transthoracic echocardiography. Image quality was good. Scanning was performed from the parasternal, apical, and subcostal acoustic windows. Study completion: The patient tolerated the procedure well. Transthoracic echocardiography. M-mode, complete 2D, complete spectral Doppler, and color Doppler. Patient status: Inpatient. CARDIAC ANATOMY LEFT VENTRICLE: The cavity size was normal. Wall thickness was increased in a pattern of mild LVH. There was concentric hypertrophy. Systolic function was normal. The estimated ejection fraction was in the range of 55% to 60%. Although no diagnostic regional wall motion abnormality was identified, this possibility cannot be completely excluded on the basis of this study. Doppler parameters are consistent with abnormal left ventricular relaxation (grade 1 diastolic dysfunction). AORTIC VALVE: Probably trileaflet. Doppler: There was no stenosis. No significant regurgitation. MITRAL VALVE: The valve appears to be grossly normal. Doppler: There was no evidence for stenosis. No significant regurgitation. LEFT ATRIUM: The atrium was normal in size. PULMONIC VALVE: Not visualized. TRICUSPID VALVE: The valve appears to be grossly normal. Doppler: There was no evidence for stenosis. Trace regurgitation. PERICARDIUM: There was no pericardial effusion. BASIC MEASUREMENTS ADULT NORMAL Left ventricle LV internal dimension, ED, chordal level, 46.6 mm 43-52 PLAX LV internal dimension, ES, chordal level, 36.5 mm 23-38 PLAX Fractional shortening, chordal level, PLAX *22 % >29 LV posterior wall thickness, ED 10.5 mm IVS/LVPW ratio, ED 1.24 <1.3 Ventricular septum Septal thickness, ED 13 mm Aortic valve Leaflet separation 22 mm 15-26 Left atrium Anterior-posterior dimension 37 mm Right ventricle RV internal dimension, ED, PLAX 20.8 mm 19-38 BASIC MEASUREMENTS ADULT NORMAL Aortic valve Leaflet separation 22 mm 15-26 Aorta Root diameter, ED 34 mm 20-37 DOPPLER MEASUREMENTS ADULT NORMAL Mitral valve Peak E-wave velocity 41.6 cm/s Peak A-wave velocity 59.8 cm/s Peak E/A ratio 0.7 Tricuspid valve Regurgitant peak velocity 153 cm/s Peak RV-RA gradient, S 9 mm Hg Maximal regurgitant velocity 153 cm/s LEGEND: Mean values are shown as u=mean value. Asterisk (*) londono values outside specified normal range. Prepared and signed by Primitivo Lima [id number]
[2016-08-08 19:57] VITALS: BP 113/61; PULSE 58; RESP 18; TEMP 97.8
[2016-08-08 21:50] VITALS: PULSE 53
[2016-08-08 23:36] VITALS: BP 118/55; PULSE 56; RESP 18; TEMP 97.6; O2SAT 95
[2016-08-09] MEDS: MORPHINE SULFATE 4 MG/ML INJ IV PUSH PRN ×3 (02:53→09:05)
[2016-08-09] MEDS: SODIUM CHLORIDE FLUSH PRN IV FLUSH (02:54)
[2016-08-09 03:44] VITALS: BP 116/57; PULSE 56; RESP 18; TEMP 97.9; O2SAT 94
[2016-08-09] MEDS: metroNIDAZOLE 500 MG INJ 100 ML IV SCH ×2 (03:48→12:00)
[2016-08-09] MEDS: INSULIN ASPART SUPPLEMENTAL SCALE SQ SCH ×2 (06:11→11:00)
[2016-08-09 07:08] LABS: HEMATOCRIT 43.1 % (39.0-51.0); MEAN CELL VOLUME 88.6 FL (80.0-100.0); MEAN CORPUSCULAR HEMOGLOBIN 30.6 PG (27.0-34.0); MEAN CORPUSCULAR HGB CONC 34.5 % (32.0-36.0); PLATELET COUNT 231 TH/MM3 (150-450); RED BLOOD COUNT 4.86 MIL/MM3 (4.50-5.90); RED CELL DISTRIBUTION WIDTH 13.7 % (11.6-17.2); REVIEW FLAG FINAL; WHITE BLOOD COUNT 7.2 TH/MM3 (4.0-11.0)
[2016-08-09 07:18] LABS: APTT (PATIENT) 34.5 SEC (24.3-30.1)
[2016-08-09 07:40] LABS: BICARBONATE 26.2 MEQ/L (21.0-32.0); POTASSIUM 3.6 MEQ/L (3.5-5.1)
[2016-08-09] MEDS: PARoxetine HCL 20 MG TAB PO SCH (07:59)
[2016-08-09] MEDS: GABAPENTIN 300 MG CAP PO SCH ×2 (07:59→13:52)
[2016-08-09] MEDS: SODIUM CHLORIDE FLUSH BID IV FLUSH SCH (08:00)
[2016-08-09] MEDS: DOCUSATE SODIUM 50 MG/SENNA 8.6 MG TAB PO SCH (08:00)
[2016-08-09] MEDS: PANTOPRAZOLE SOD 40 MG DELAYED RELEASE TAB PO SCH (08:00)
[2016-08-09] MEDS ORDERED: METOPROLOL SUCCINATE 50 MG EXTENDED RELEASE TAB PO SCH (09:00)
[2016-08-09] MEDS ORDERED: LISINOPRIL 20 MG TAB PO SCH (09:00)
[2016-08-09 09:13] VITALS: PULSE 56
--- NOTE | 2016-08-09 09:42 | HHI.FPPN ---
Subjective Remarks The patient was seen and examined this am. His vitals are stable and he is afebrile. The patient is complaining of 8/10 LLQ pain. He has had multiple loose stools since his bowel prep, denies seeing any bright red blood. He has never had a colonoscopy before. He is denies having active chest pain. He denies any SOB or difficulty breathing. Having colonoscopy later this am. Objective Vitals Vital Signs Date Time Temp Pulse Resp B/P Pulse Ox O2 Delivery O2 Flow Rate FiO2 08/09/16 09:13 56 08/09/16 06:11 16 08/09/16 03:44 97.9 56 18 116/57 94 08/08/16 23:36 97.6 56 18 118/55 95 08/08/16 21:50 53 08/08/16 21:47 16 08/08/16 19:57 97.8 58 18 113/61 08/08/16 12:00 97.8 87 20 114/55 92 I/O 08/08/16 08/08/16 08/08/16 08/09/16 08/09/16 08/09/16 07:00 15:00 23:00 07:00 15:00 23:00 Intake Total 840 ml 958 ml Output Total 800 ml Balance 840 ml 158 ml Intake Oral 840 ml 800 ml IV Total 158 ml Output Urine Total 800 ml Stool Total 0 ml # Voids 1 2 4 # Bowel Movements 5 Result Diagram: 08/09/16 0640 08/09/16 0640 Imaging Last Impressions Carotid Artery Ultrasound 08/07/16 0000 Signed Impressions: Service Date/Time: Sunday, August 07, 2016 12:01 - CONCLUSION: Normal examination. Joe Fowler MD CT Angiography [id number] Signed Impressions: Service Date/Time: Saturday, August 06, 2016 19:01 - CONCLUSION: 1. No evidence for central pulmonary embolus. 2. No infiltrate or mass. Jacob Alcantara MD Abdomen/Pelvis CT [id number]/06/[id number] Signed Impressions: Service Date/Time: Saturday, August 06, 2016 19:09 - CONCLUSION: 1. No abdominal visceral injury. 2. Fatty liver and previous cholecystectomy. Jacob Alcantara MD Chest X-Ray 08/06/16 5436 Signed Impressions: Service Date/Time: Saturday, August 06, 2016 17:21 - CONCLUSION: No acute cardiopulmonary disease. Philly Mcgee MD Objective Remarks GENERAL: Morbidly obese male sitting up in bed in no acute distress. SKIN: No rashes, ecchymoses or lesions. Warm and dry. HEAD: Atraumatic. Normocephalic. Small abrasion on the medial forehead. EYES: Pupils equal round and reactive. Extraocular motions intact. No scleral icterus. No injection or drainage. ENT: Nose without bleeding or drainage. Airway patent. NECK: Trachea midline. No JVD or lymphadenopathy. Supple, nontender, no meningeal signs. CARDIOVASCULAR: Mild tachycardia on auscultation, regular rhythm. No murmurs, gallops, or rubs. RESPIRATORY: Clear to auscultation. Breath sounds equal bilaterally. No wheezes , rales, or rhonchi. GASTROINTESTINAL: Abdomen is obese and soft. Abdomen is tender to deep palpation only over the distal LLQ. No palpable organomegaly. Bowel sounds are hyperactive. No guarding. + pain in the LLQ MUSCULOSKELETAL: Extremities without clubbing, cyanosis, or edema. No joint tenderness, effusion, or edema noted. No calf tenderness. NEUROLOGICAL: Awake and alert. Motor and sensory grossly within normal limits.ps. Normal speech. PSYCH: Mild anxiety. Appropriate for situation. A/P Assessment and Plan 51-year-old male with a history of multiple PEs, morbid obesity, hypertension, chronic pain who presents to the ED with severe LLQ and BRBPR. He also has chronic, possible acute worsening of chest pain and shortness of breath which has not been worked up. He was admitted to observation for trending troponins and further workup of abdominal pain and BRBPR. Discharge Planning Cleared from a cardiac standpoint, negative PE workup, work up for GI bleed is pending this am and d.c is pending the results of this. Anticipate as early as this afternoon or tomorrow am. Problem List: (1) Chest pain Status: Resolved Plan: Currently without active chest pain. EKG showing no acute disease and troponins are negative x 3. Seen and evaluated by cardiology Dr. Guzman "only 10% irregularities on 2007 cath. no evidence of MA" Will continue to monitor. (2) Abdominal pain Status: Acute Plan: Patient has had a number of abdominal surgeries including hernia repairs , cholecystectomy. Differential diagnosis includes perforated viscus, diverticulitis, diverticulosis, gastroenteritis, mass, trauma, adhesions vs other. CT abdomen pelvis unremarkable. Plan: Monitor symptoms Seen by GI: EGD colonoscopy today, protonix 40 mg po BID, flagyl 500 mg IV q8, monitor H/H (have been stable), stool for c. diff, C/S, girardia, WBC Oxycodone 10 mg every 3 hours when necessary for pain 6-10 Morphine 2 mg every 3 hours when necessary breakthrough (3) BRBPR (bright red blood per rectum) Status: Acute Plan: See above. (4) Syncope Status: Acute Plan: Syncope chronic in nature but with increased frequency over last two days. Possibly cardiogenic in nature vs vasovagal or other cause Plan: Vital signs Orthostatics, negative. Some hypotension experienced with his regularly scheduled home meds, patient with a hx of non compliance. His metoprol xl decreased to 100 mg daily a Telemetry Echocardiogram: EF 55-60%, some LVH, grade 1 diastolic dysfunction Fall Precautions (5) History of pulmonary embolism Status: Acute Plan: Patient with history of multiple unprovoked PEs. He was on warfarin 7.5 mg daily without any recent changes in dose. However, patient did miss his doses on . He took warfarin 08/05 and 08/06 and now has BRBPR. EKG showing no acute disease. CT angiogram performed in ED, not showing PE Plan: Due to BRBPR, will hold warfarin at this time Monitor symptoms, patient currently does not have shortness of breath or vital sign abnormalities Consider hypercoagulability workup, possibly as outpatient given no current evidence of PE. Heparin on hold for procedure today (6) Diabetes Status: Chronic Plan: Chronic. Patient is on Metformin at home at 500mg daily. Plan: Low dose supplemental Novolog Titrate as needed, monitor BSG Monitor for hypoglycemia (7) Hypertension Status: Chronic Plan: Continue home lisinopril 40mg daily, metoprolol 100mg daily. - Add clonidine 0.1mg PRN. (8) Chronic pain Status: Chronic Plan: On oxycodone at home, TID PRN. Will continue. Monitor for respiratory depression. Add stool softener once no longer having diarrhea (9) Anxiety Status: Chronic Plan: Anxiety per patient is chronic. Low dose Xanax q8hr started, he seems fine today (10) Fluids/Electrolytes/Nutrition/Prophylaxis Status: Acute Plan: Fluids: HLIV, some renal injury noted, may be from the CTA, seems to be improving Electrolytes: monitor and replete as needed Nutrition: currently NPO, may have heart healthy diet after procedure DVT Prophylaxis: bilateral SCDs only at this time, HOLD warfarin 7.5 mg daily, heparin drip can see if his colonoscopy is fine with no source of acute bleed can bridge back to coumadin GI Prophylaxis: Continue Protonix 40 mg PO BID Discussed with patients PCP Dr. Chavarria Will discuss with attending Problem Qualifiers (1) Chest pain: Qualified Code: R07.9 - Chest pain, unspecified type (2) Syncope: Qualified Code: R55 - Syncope, unspecified syncope type (3) Diabetes: Qualified Code: E11.8 - Type 2 diabetes mellitus with complication, unspecified termite exterminator helper insulin use status (4) Hypertension: Qualified Code: I10 - Essential hypertension (5) Chronic pain: Qualified Code: G89.4 - Chronic pain syndrome Carlota Winkler MD R3 Aug 09, 2016 09:42
[2016-08-09] MEDS ORDERED: PHENYLEPH/NS 1000 MCG/10 ML SYR IV ONE (12:00)
[2016-08-09] MEDS ORDERED: ePHEDrine/NS 25 MG/5 ML SYR IV ONE (12:00)
[2016-08-09] MEDS ORDERED: PROPOFOL 200 MG/20 ML AMP IV ONE (12:21)
[2016-08-09] MEDS ORDERED: DO NOT ADM ANY ANTICOAGULANT DRUGS PRN (12:29)
--- NOTE | 2016-08-09 13:16 | GIPROC ---
[facility] [address] [facility]. [facility] [address] EGD PROCEDURE REPORT EXAM DATE: 08/09/2016 PATIENT NAME: Hipolito Pagan MR #: [id number] BIRTHDATE: 1965 ATTENDING: Balbir Blanc MD ORDER #: [id number] [employer] TILE FLOOR LAYER: Bibiana Navas and Myra Marin STATUS: inpatient INDICATIONS: The patient is a 51 yr old male here for an EGD due to GI bleed and unexplained diarrhea PROCEDURE PERFORMED: EGD w/ biopsy MEDICATIONS: None, Per Anesthesia, None, and Per Anesthesia. TOPICAL ANESTHETIC: CONSENT: The patient understands the risks and benefits of the procedure and understands that these risks include, but are not limited to: sedation, allergic reaction, infection, perforation and/or bleeding. Alternative means of evaluation and treatment include, among others: physical exam, x-rays, and/or surgical intervention. The patient elects to proceed with this endoscopic procedure. medical equipment was checked for proper function. Hand hygiene and appropriate measures for infection prevention was taken. After the risks, benefits and alternatives of the procedure were thoroughly explained, Informed consent was verified, confirmed and timeout was successfully executed by the treatment team. The patient was anesthetized with topical anesthesia and the EC-3490Li (Pedi C) endoscope was introduced through the mouth and advanced to the second portion of the duodenum. Retroflexed views revealed no abnormalities The gastroscope was then slowly withdrawn and removed. ESOPHAGUS: Irregular Z line and this was biopsied. STOMACH: There was erythematous moderate gastritis in the entire examined stomach. Multiple biopsies were performed. DUODENUM: The duodenal mucosa appeared normal. Cold forcep biopsies were taken in the second portion. ADVERSE EVENTS: There were no complications. IMPRESSIONS: 1. Irregular Z line and this was biopsied 2. There was erythematous gastritis in the entire examined stomach; multiple biopsies were performed 3. Normal duodenal mucosa 4. Retroflexed views revealed no abnormalities RECOMMENDATIONS: 1. Await biopsy results. Biopsy results will not be ready for 7-10 days. If you don't hear from us in two weeks, call our office for biopsy results. 2. Avoid NSAIDS PATIENT CONDITION: stable DISPOSITION: Inpatient REPEAT EXAM: Balbir Blanc MD eSigned: Balbir Blanc MD 08/09/2016 1:16 PM cc: PATIENT NAME: Hipolito Pagan Maribell MR#: [id number]
[2016-08-09 13:19] VITALS: BP 124/75; PULSE 75; RESP 16; TEMP 99.3; O2SAT 90
--- NOTE | 2016-08-09 13:27 | GIPROC ---
[facility] [address] [facility]. [facility], [address] COLONOSCOPY PROCEDURE REPORT EXAM DATE: 08/09/2016 PATIENT NAME: Hipolito Pagan MR #: [id number] BIRTHDATE: 1965 ENDOSCOPIST: Balbir Blanc MD ORDER #: [id number] MANAGER PAPER: Bibiana Navas and Myra Marin STATUS: inpatient INDICATIONS: The patient is a 51 yr old male here for a colonoscopy due to unexplained diarrhea PROCEDURE PERFORMED: Colonoscopy with polypectomy Colonoscopy with biopsy MEDICATIONS: None and Per Anesthesia. PREP QUALITY: good ESTIMATED BLOOD LOSS: None CONSENT: The patient understands the risks and benefits of the procedure and understands that these risks include, but are not limited to: sedation, allergic reaction, infection, perforation and/or bleeding. Alternative means of evaluation and treatment include, among others: physical exam, x-rays, and/or surgical intervention. The patient elects to proceed with this endoscopic procedure. medical equipment was checked for proper function. Hand hygiene and appropriate measures for infection prevention was taken. After the risks, benefits and alternatives of the procedure were thoroughly explained, Informed consent was verified, confirmed and timeout was successfully executed by the treatment team. A digital exam revealed no abnormalities of the rectum The Pentax EC-3490Li endoscope was introduced through the anus and advanced to the cecum, which was identified by both the appendix and ileocecal valve. The instrument was then slowly withdrawn as the colon was fully examined. COLON FINDINGS: A medium sized smooth sessile polyp was found in the transverse colon. A polypectomy was performed with a cold snare. The resection was complete and the polyp tissue was completely retrieved. The colon mucosa was otherwise normal. Multiple random biopsies of the area were performed. Retroflexed views revealed no abnormalities The scope was then completely withdrawn from the patient and the procedure terminated. PROCEDURE WITHDRAWAL TIME:10.8minutes ADVERSE EVENTS: There were no complications. IMPRESSIONS: 1. A medium sized sessile polyp was found in the transverse colon; polypectomy was performed with a cold snare 2. The colon mucosa was otherwise normal; multiple random biopsies of the area were performed 3. Retroflexed views revealed no abnormalities 4. Revealed no abnormalities of the rectum RECOMMENDATIONS: 1. Await biopsy results. Biopsy results will not be ready for 7-10 days. If you don't hear from us in two weeks, call our office for results. 2. Yearly hemoccult 3. High fiber diet 4. Follow-up: GI Clinic 4 week(s) RECALL: Return 5 years Colonoscopy Balbir Blanc MD eSigned: Balbir Blanc MD 08/09/2016 1:27 PM cc: PATIENT NAME: Hipolito Pagan MR#: [id number]
[2016-08-09 13:52] VITALS: RESP 16; O2SAT 95
--- NOTE | 2016-08-09 14:11 | HHI.FPPN ---
Addendum to progress note ADDENDUM Reason for addendum: Additonal documentation Additional information EGD and colonoscopy shows gastritis and colonic polyps. Patient is tolerating his diet and ambulatory without issues. He will be discharged home, follow up with his PCP and GI. We will resume his coumadin and he can have his INR checked in 3 days. Plan explained to patient. Carlota Winkler MD R3 Aug 09, 2016 14:11
--- NOTE | 2016-08-09 14:14 | HHI.DCPOC ---
Discharge Care Plan Diagnosis: (1) Gastritis Goals to Promote Your Health * To prevent worsening of your condition and complications * To maintain your health at the optimal level Directions to Meet Your Goals Take your medications as prescribed Follow your dietary instruction Follow activity as directed Keep your appointments as scheduled Take your immunizations and boosters as scheduled If your symptoms worsen call your PCP, if no PCP go to Urgent Care Center or Emergency Room Smoking is Dangerous to Your Health. Avoid second hand smoke Call the 24-hour hour crisis hotline for domestic abuse at Carlota Winkler MD R3 Aug 09, 2016 14:14
[2016-08-19] MEDS ORDERED: WARF-18 PO (11:21)
[2016-08-19] MEDS ORDERED: OXYC-395 PO (11:29)
[2016-08-19] MEDS ORDERED: METF1000 PO (11:29)
--- NOTE | 2016-08-27 10:08 | HHI.DS ---
Discharge Summary Admission Date Aug 06, 2016 at 20:16 Discharge Date: Aug 11, 2016 Admitting Diagnosis Recurrent Syncope, CP, Bloody Stool (1) Chest pain Plan: Currently without active chest pain. EKG showing no acute disease and troponins are negative x 3. Seen and evaluated by cardiology Dr. Guzman "only 10% irregularities on 2007 cath. no evidence of ID" Will continue to monitor. (2) Abdominal pain Diagnosis: Principal Plan: Patient has had a number of abdominal surgeries including hernia repairs , cholecystectomy. Differential diagnosis includes perforated viscus, diverticulitis, diverticulosis, gastroenteritis, mass, trauma, adhesions vs other. CT abdomen pelvis unremarkable. Plan: Monitor symptoms Seen by GI: EGD colonoscopy today, protonix 40 mg po BID, flagyl 500 mg IV q8, monitor H/H (have been stable), stool for c. diff, C/S, girardia, WBC Oxycodone 10 mg every 3 hours when necessary for pain 6-10 Morphine 2 mg every 3 hours when necessary breakthrough (3) BRBPR (bright red blood per rectum) Diagnosis: Principal Plan: See above. (4) Syncope Plan: Syncope chronic in nature but with increased frequency over last two days. Possibly cardiogenic in nature vs vasovagal or other cause Plan: Vital signs Orthostatics, negative. Some hypotension experienced with his regularly scheduled home meds, patient with a hx of non compliance. His metoprol xl decreased to 100 mg daily a Telemetry Echocardiogram: EF 55-60%, some LVH, grade 1 diastolic dysfunction Fall Precautions (5) History of pulmonary embolism Plan: Patient with history of multiple unprovoked PEs. He was on warfarin 7.5 mg daily without any recent changes in dose. However, patient did miss his doses on . He took warfarin 08/05 and 08/06 and now has BRBPR. EKG showing no acute disease. CT angiogram performed in ED, not showing PE Plan: Due to BRBPR, will hold warfarin at this time Monitor symptoms, patient currently does not have shortness of breath or vital sign abnormalities Consider hypercoagulability workup, possibly as outpatient given no current evidence of PE. Heparin on hold for procedure today (6) Diabetes Plan: Chronic. Patient is on Metformin at home at 500mg daily. Plan: Low dose supplemental Novolog Titrate as needed, monitor BSG Monitor for hypoglycemia (7) Hypertension Plan: Continue home lisinopril 40mg daily, metoprolol 100mg daily. - Add clonidine 0.1mg PRN. (8) Chronic pain Plan: On oxycodone at home, TID PRN. Will continue. Monitor for respiratory depression. Add stool softener once no longer having diarrhea (9) Anxiety Plan: Anxiety per patient is chronic. Low dose Xanax q8hr started, he seems fine today (10) Fluids/Electrolytes/Nutrition/Prophylaxis Plan: Fluids: HLIV, some renal injury noted, may be from the CTA, seems to be improving Electrolytes: monitor and replete as needed Nutrition: currently NPO, may have heart healthy diet after procedure DVT Prophylaxis: bilateral SCDs only at this time, HOLD warfarin 7.5 mg daily, heparin drip can see if his colonoscopy is fine with no source of acute bleed can bridge back to coumadin GI Prophylaxis: Continue Protonix 40 mg PO BID Discussed with patients PCP Dr. Chavarria Will discuss with attending Consultants GI Brief History Mr Pagan is a 51 year old male with a history of pulmonary emboli and hypertension who presents to the ED after acute onset of LLQ abdominal pain and bright red blood per rectum. He has had symptoms of feeling "crappy" for over a month at this point with acute worsening last night. He has had at least 4 syncopal episodes in the last week while standing, without any nausea, vomiting , or dizziness prior to the episodes. He began passing blood per rectum prior to his syncopal episode yesterday evening, large volume in the toilet with loose but normal brown stools. He reportedly passed out again this morning at 7am and 2pm. The syncopal episode this afternoon was associated with him head hitting his head on the floor in the bathroom. Prior to this episode he was brushing his teeth was standing. He does not have loss of bowel or bladder function during the episodes. He does not know how long he is passed out but the time appears to be short, and the episodes are unwitnessed. These are not the first episodes of syncope he has had. He has reported to [facility] in the last 2 months for evaluation after syncopal episodes, but states that extensive workup was not performed. He states that he had chest pain and shortness of breath with previous episodes of syncope more remotely but not in the episodes more recently. Chest pain and shortness of breath has been coming and going for a while. He is not having chest pain now, last episode 12:30 PM on 08/06. He describes the previous chest pain "like a truck parked on chest." The pain as non-radiating, pleuritic beneath the right shoulder blade. He has never had Holter monitoring. He states the EKGs he has gotten in the past have been normal. He states the episodes of bleeding per rectum are not new either. He has had this multiple times in the past but never large-volume like he had yesterday and today. The left lower quadrant pain which he describes as nonradiating and sharp as well as severe, is new. He has never had colonoscopy; has had EGDs in the remote past which showed bleeding ulcers. He had a PE, unprovoked in 2012 as well as one in May 2016. He states he has been on warfarin for many years. However, he did not take warfarin for 08/01- 08/04 due to running out, but did take it 08/05 and 08/06. He takes 7.5 mg of warfarin daily. Referrals for cardiology and pulmonology were placed by his PCP as outpatient he has not seen anyone yet. ANDRES with PCP, Dr. Ne Chavarria was on 07/21/16. At that time labs were ordered including INR which were not completed.. He had a family emergency at that time and did not get labs done due to this. He reports continuing abdominal pain this am but no chest pain currently. As a historian he is difficult to pin down as he has a hard time describing exact sequences of events or quantities of blood for example and can be a little vague. Fortunately, he has been able to walk to the bathroom here in the hospital without syncope or problems and does not drive. He was warned about not driving if he has any unusual events or possible syncope happening and the dangers of this. He was commenting this am that he thought maybe he was having hemorrhoids and is very concerned about his ongoing abdominal pain. He does not have any worsening when he eats nor is his pain tied to any particular activity or problem. Imaging Last Impressions Carotid Artery Ultrasound 08/07/16 0000 Signed Impressions: Service Date/Time: Sunday, August 07, 2016 12:01 - CONCLUSION: Normal examination. Joe Fowler MD CT Angiography [id number] Signed Impressions: Service Date/Time: Saturday, August 06, 2016 19:01 - CONCLUSION: 1. No evidence for central pulmonary embolus. 2. No infiltrate or mass. Jacob Alcantara MD Abdomen/Pelvis CT [id number] Signed Impressions: Service Date/Time: Saturday, August 06, 2016 19:09 - CONCLUSION: 1. No abdominal visceral injury. 2. Fatty liver and previous cholecystectomy. Jacob Alcantara MD Chest X-Ray 08/06/16 1712 Signed Impressions: Service Date/Time: Saturday, August 06, 2016 17:21 - CONCLUSION: No acute cardiopulmonary disease. Philly Mcgee MD PE at Discharge GENERAL: Morbidly obese male sitting up in bed in no acute distress. SKIN: No rashes, ecchymoses or lesions. Warm and dry. HEAD: Atraumatic. Normocephalic. Small abrasion on the medial forehead. EYES: Pupils equal round and reactive. Extraocular motions intact. No scleral icterus. No injection or drainage. ENT: Nose without bleeding or drainage. Airway patent. NECK: Trachea midline. No JVD or lymphadenopathy. Supple, nontender, no meningeal signs. CARDIOVASCULAR: Mild tachycardia on auscultation, regular rhythm. No murmurs, gallops, or rubs. RESPIRATORY: Clear to auscultation. Breath sounds equal bilaterally. No wheezes , rales, or rhonchi. GASTROINTESTINAL: Abdomen is obese and soft. Abdomen is tender to deep palpation only over the distal LLQ. No palpable organomegaly. Bowel sounds are hyperactive. No guarding. + pain in the LLQ MUSCULOSKELETAL: Extremities without clubbing, cyanosis, or edema. No joint tenderness, effusion, or edema noted. No calf tenderness. NEUROLOGICAL: Awake and alert. Motor and sensory grossly within normal limits.ps. Normal speech. PSYCH: Mild anxiety. Appropriate for situation. Hospital Course 51 yo male with hx recurrent syncopal episodes presented to ER after syncopal episode. ACS ruled out. Found to have GI bleed, BRB per rectum. EGD and colonoscopy showed gastritis and colonic polyps. Patient tolerated his diet and was ambulatory without issues. He was discharged home, and was instructed follow up with his PCP and GI. We resumed his Coumadin upon d/c. Pt Condition on Discharge: Stable Discharge Disposition: Discharge Home Discharge Instructions DIET: Follow Instructions for: Heart Healthy Diet, High Fiber Diet Activities you can perform: Regular-No Restrictions Follow up Referrals: Gastroenterology - 1 Week with Balbir Blanc MD PCP Follow-up - 1 Week Continued Medications: Furosemide (Lasix) 40 Mg Tab 40 MG PO DAILY #30 Ref 5 TAB Gabapentin (Gabapentin) 300 Mg Cap 300 MG PO TID #90 Ref 3 CAP Lisinopril (Lisinopril) 40 Mg Tab 40 MG PO DAILY Blood Pressure Management #30 Ref 0 TAB Metoprolol Succinate ER 24 HR (Metoprolol Succinate ER 24 HR) 200 Mg Tab 200 MG PO DAILY #30 Ref 0 TAB Omeprazole (Omeprazole) 40 Mg Cap 40 MG PO BID #30 Ref 3 CAP Ondansetron (Ondansetron) 8 Mg Tab 8 MG PO TID Take 1/2 tab Q8H as needed for nausea PRN NAUSEA OR VOMITING #12 Ref 1 TAB Paroxetine (Paxil) 40 Mg Tab 40 MG PO DAILY #30 Ref 0 TAB Sumatriptan (Imitrex) 50 Mg Tab 50 MG PO ONCE If a satisfactory response has not been obtained at 2 hours, a second dose may be administered PRN MIGRAINE HEADACHE Ref 0 TAB Warfarin (Warfarin) 7.5 Mg Tab 7.5 MG PO DAILY Blood Clot Prevention #30 Ref 0 TAB Carlota Winkler MD R3 August 27, 2016 10:08
[2016-09-07] MEDS ORDERED: ONDA1TAB17 PO (09:38)
== END 2016-08-09 18:17 | disposition home or self-care (01) ==
LOC: NEPE 16:21 → NEDA 20:16 → NEPFCDU 23:26
PROVIDERS: ADMIT Family Medicine; ATTEND Family Medicine
DX: R07.89 Other chest pain (principal); K21.0 Gastro-esophageal reflux disease with esophagitis; K29.50 Unspecified chronic gastritis without bleeding; D12.3 Benign neoplasm of transverse colon; K64.9 Unspecified hemorrhoids; K63.89 Other specified diseases of intestine; R55 Syncope and collapse; K92.1 Melena; R06.02 Shortness of breath; F41.9 Anxiety disorder, unspecified; M54.2 Cervicalgia; I25.2 Old myocardial infarction; R10.32 Left lower quadrant pain; I10 Essential (primary) hypertension; E11.8 Type 2 diabetes mellitus with unspecified complications; Z86.711 Personal history of pulmonary embolism; Z79.01 Long term (current) use of anticoagulants; Z79.4 Long term (current) use of insulin
CPT/HCPCS: 00740; 43239; 45385; 71010; 71275; 74177; 80048; 80053; 80061; 80307; 81001; 82550; 82552; 82948; 83735; 84484; 85014; 85018; 85025; 85027; 85379; 85610; 85730; 88305; 88312; 93005; 93306; 93880; 96374; 96375; 97162; 99285; C9113; G0378; G8987; G8988; J1170; J1644; J2270; J2370; J2405; Q9967

== ENCOUNTER 2016-09-09 16:47 | Emergency (ER) | payer MEDICAID ==
[~2016-09-09 16:47] MED LIST changes: -LISI10TA3 PO; +LISI40TA PO; +METF1000 PO; -METF500T4 PO; +WARF-18 PO
[2016-09-09 16:50] VITALS: BP 174/87; PULSE 90; RESP 24; TEMP 97.9; O2SAT 97
[2016-09-09] MEDS ORDERED: SODIUM CHLOR 0.9% 1000 ML INJ 1,000 ML IV SCH (17:25)
[2016-09-09] MEDS ORDERED: ONDANSETRON HCL 4 MG/2 ML VIAL IVP ONE (17:30)
[2016-09-09] MEDS ORDERED: HYDROmorphone HCL PF 1 MG/ML VIAL IVS ONE (17:30)
[2016-09-09] MEDS ORDERED: SODIUM CHLORIDE 0.9% FLUSH 10 ML FLUSH IV FLUSH PRN (17:30)
[2016-09-09 18:08] LABS: AUTOMATED NEUTROPHIL # 4.7 TH/MM3 (1.8-7.7); BASOPHIL # 0.1 TH/MM3 (0-0.2); BASOPHIL % 0.7 % (0.0-2.0); EOSINOPHIL # 0.1 TH/MM3 (0-0.4); EOSINOPHIL % 1.1 % (0.0-4.0); HEMATOCRIT 46.3 % (39.0-51.0); HEMO FLAGS DIFF FINAL; LYMPH % 31.2 % (9.0-44.0); LYMPHOCYTE # 2.4 TH/MM3 (1.0-4.8); MEAN CELL VOLUME 89.9 FL (80.0-100.0); MEAN CORPUSCULAR HEMOGLOBIN 29.3 PG (27.0-34.0); MEAN CORPUSCULAR HGB CONC 32.5 % (32.0-36.0); MONO % 7.1 % (0.0-8.0); NEUT % 59.9 % (16.0-70.0); PLATELET COUNT 236 TH/MM3 (150-450); RED BLOOD COUNT 5.15 MIL/MM3 (4.50-5.90); RED CELL DISTRIBUTION WIDTH 13.4 % (11.6-17.2); WHITE BLOOD COUNT 7.8 TH/MM3 (4.0-11.0)
[2016-09-09] MEDS ORDERED: WARF-21 PO (18:10)
[2016-09-09] MEDS ORDERED: OXYC15TA PO (18:10)
[2016-09-09] MEDS ORDERED: FURO40TA PO (18:10)
[2016-09-09] MEDS ORDERED: WARF-22 PO (18:10)
[2016-09-09] MEDS ORDERED: GABA100C4 PO (18:10)
[2016-09-09] MEDS ORDERED: PAXI30TA7 PO (18:10)
[2016-09-09 18:12] LABS: APTT (PATIENT) 34.1 SEC (24.3-30.1); INTERNATIONAL NORMALIZED RATIO 2.6 RATIO; PROTHROMBIN TIME - PATIENT 29.4 SEC (9.8-11.6)
[2016-09-09 18:22] LABS: ALT (GPT) 24 U/L (12-78); ANION GAP 5 MEQ/L (5-15); AST (GOT) 13 U/L (15-37); BICARBONATE 26.9 MEQ/L (21.0-32.0); BLOOD UREA NITROGEN 13 MG/DL (7-18); CHLORIDE 107 MEQ/L (98-107); GLOMERULAR FILTRATION RATE 65 ML/MIN (>89); POTASSIUM 4.2 MEQ/L (3.5-5.1); SODIUM (NA) 139 MEQ/L (136-145)
[2016-09-09 18:25] LABS: ALKALINE PHOSPHATASE 116 U/L (45-117); TOTAL BILIRUBIN ADULT 0.3 MG/DL (0.2-1.0)
[2016-09-09] MEDS ORDERED: IOHEXOL 350 MG/ML 10 ML VIAL (for RAD DIAG) IV ONE (19:23)
--- NOTE | 2016-09-09 19:41 | RADRPT ---
EXAM DATE/TIME: 09/09/2016 19:14 [place] COMPARISON: CT ABDOMEN & PELVIS W CONTRAST, August 06, 2016, 19:09. INDICATIONS : Diffuse abdominal pain. IV CONTRAST: 95 cc Omnipaque 350 (iohexol) IV ORAL CONTRAST: No oral contrast ingested. RADIATION DOSE: 45.33 CTDIvol (mGy) MEDICAL HISTORY : Hypertension. Gastroesophageal reflux disease. Diabetes. SURGICAL HISTORY : Appendectomy. Cholecystectomy. ENCOUNTER: Initial ACUITY: 3 days PAIN SCALE: 4/10 LOCATION: abdomen/pelvis TECHNIQUE: Volumetric scanning of the abdomen and pelvis was performed. Using automated exposure control and ad justment of the mA and/or kV according to patient size, radiation dose was kept as low as reasonably achievable to obtain optimal diagnostic quality images. FINDINGS: LOWER LUNGS: The visualized lower lungs are clear. LIVER: Homogeneous mildly fatty density without lesion. There is no dilation of the biliary tree. Previous cholecystectomy. SPLEEN: Normal size without lesion. PANCREAS: Within normal limits. KIDNEYS: Normal in size and shape. There is no mass, stone or hydronephrosis. ADRENAL GLANDS: Within normal limits. VASCULAR: There is no aortic aneurysm. BOWEL/MESENTERY: The stomach, small bowel, and colon demonstrate no acute abnormality. There is no free intraperitone al air or fluid. ABDOMINAL WALL: Within normal limits. RETROPERITONEUM: There is no lymphadenopathy. BLADDER: No wall thickening or mass. REPRODUCTIVE: Within normal limits. INGUINAL: There is no lymphadenopathy or hernia. MUSCULOSKELETAL: No fracture seen of the visualized osseous structures. There is evidence of right femoral rodding wit h subsequent removal again noted. CONCLUSION: No visceral organ injury or other acute abnormality. Mild fatty infiltration of the liver again noted . Joe Berry MD on September 09, 2016 at 19:37 Board Certified Radiologist. This report was verified electronically.
--- NOTE | 2016-09-09 19:56 | PD ---
HPI Chief Complaint: Lump, Cyst, Hernia Time Seen by Provider: 17:04 Travel History International Travel<30 days: No Contact w/Intl Traveler<30days: No Traveled to known affect area: No History of Present Illness HPI Patient is a 51-year-old male comes in complaining of abdominal pain. He says started 2 days ago and has been getting worse. He says he feels a lump that pops out when he stands and goes away when he lays down. He says he has had some nausea, but no vomiting. He had a bowel movement earlier today. He says he had a fever yesterday, but he has none today. He took an oxycodone at home for pain. He denies cough or cold, dysuria. PFSH Past Medical History Hx Anticoagulant Therapy: Yes Arthritis: No Asthma: No Autoimmune Disease: No Blood Disorders: No Anxiety: Yes Depression: Yes Heart Rhythm Problems: No Cancer: No Cardiac Catheterization: Yes Cardiovascular Problems: Yes High Cholesterol: No Chemotherapy: No Chest Pain: Yes Congestive Heart Failure: No COPD: No Cerebrovascular Accident: No Diabetes: Yes Patient Takes Glucophage: Yes Diminished Hearing: No Endocrine: No Gastrointestinal Disorders: Yes (GERD; ULCER HX) GERD: No Glaucoma: No Genitourinary: No Headaches: No Hepatitis: No Hiatal Hernia: No Hypertension: Yes Immune Disorder: No Kidney Stones: No Musculoskeletal: Yes (BACK AND NECK PAIN) Neurologic: No Psychiatric: No Reproductive: No Respiratory: Yes Immunizations Current: No Myocardial Infarction: Yes Pancreatitis: Yes Radiation Therapy: No Renal Failure: No Seizures: No Sickle Cell Disease: No Sleep Apnea: No Thyroid Disease: No Ulcer: No Past Surgical History Abdominal Surgery: Yes (BILATERAL INGUINAL HERNIA REPAIR ; REPAIR RECURRENT RT ING HERNIA) AICD: No Appendectomy: Yes Body Medical Devices: NONE Cardiac Surgery: No Cholecystectomy: Yes Coronary Artery Bypass Graft: No Ear Surgery: No Endocrine Surgery: No Eye Surgery: No Genitourinary Surgery: No Gynecologic Surgery: No Joint Replacement: No Oral Surgery: No Pacemaker: No Thoracic Surgery: No Other Surgery: Yes (RT SHOULDER SURGERY REBUILT 2012; RT KNEE SCOPED X 3, LT KNEE X 2) Family History Family Myocardial Infarction: Yes (FATHER 63 FROM [place], SISTER HAD ONE) Social History Alcohol Use: No Tobacco Use: No Substance Use: No Allergies-Medications (Allergen,Severity, Reaction): Coded Allergies: No Known Allergies (Verified , 09/09/16) Reported Meds & Prescriptions Reported Meds & Active Scripts Active Ondansetron (Ondansetron HCl) 8 Mg Tab 8 Mg PO TID PRN Take 1/2 tab Q8H as needed for nausea Metformin (Metformin HCl) 1,000 Mg Tab 1,000 Mg PO BIDPC With meals Omeprazole 40 Mg Cap 40 Mg PO BID Reported Furosemide 40 Mg Tab 40 Mg PO BID Gabapentin 100 Mg Cap 100 Mg PO BID Oxycodone (Oxycodone HCl) 15 Mg Tab 15 Mg PO Q4H PRN Paxil (Paroxetine HCl) 30 Mg Tab 30 Mg PO DAILY Warfarin 10 Mg Tab 10 Mg PO DAILY Warfarin 7.5 Mg Tab 7.5 Mg PO DAILY Lisinopril 40 Mg Tab 40 Mg PO DAILY Metoprolol Succinate ER 24 HR (Metoprolol Succinate) 200 Mg Tab 200 Mg PO DAILY Imitrex (Sumatriptan Succinate) 50 Mg Tab 50 Mg PO ONCE PRN If a satisfactory response has not been obtained at 2 hours, a second dose may be administered Review of Systems Except as stated in HPI: all other systems reviewed are Neg General / Constitutional: Positive: Fever HENT: No: Headaches, Lightheadedness Cardiovascular: No: Chest Pain or Discomfort Respiratory: No: Cough, Shortness of Breath Gastrointestinal: Positive: Nausea, Abdominal Pain, No: Vomiting Genitourinary: No: Dysuria Musculoskeletal: No: Weakness Skin: No Rash, No Change in Pigmentation Neurologic: No: Weakness, Dizziness Physical Exam Narrative GENERAL: Awake and alert, in no acute distress. SKIN: Focused skin assessment warm/dry. HEAD: Atraumatic. Normocephalic. EYES: Pupils equal and round. No scleral icterus. ENT: Mucous membranes pink and moist. NECK: Trachea midline. No JVD. CARDIOVASCULAR: Regular rate and rhythm. No murmur appreciated. RESPIRATORY: No accessory muscle use. Clear to auscultation. Breath sounds equal bilaterally. GASTROINTESTINAL: Abdomen soft, nondistended. Umbilical hernia present, easily reducible. Mild tenderness to palpation over the hernia. MUSCULOSKELETAL: No obvious deformities. No clubbing. No cyanosis. No edema. NEUROLOGICAL: Awake and alert. No obvious cranial nerve deficits. Motor grossly within normal limits. Normal speech. PSYCHIATRIC: Appropriate mood and affect; insight and judgment normal. Data Data Last Documented VS Vital Signs Date Time Temp Pulse Resp B/P Pulse Ox O2 Delivery O2 Flow Rate FiO2 09/09/16 16:50 97.9 90 24 174/87 97 Room Air Orders Complete Blood Count With Diff (09/09/16 17:25) Comprehensive Metabolic Panel (09/09/16 17:25) Lactic Acid (09/09/16 17:25) Prothrombin Time / Inr (Pt) (09/09/16 17:25) Act Partial Throm Time (Ptt) (09/09/16 17:25) Urinalysis - C+S If Indicated (09/09/16 17:25) Ua Includes Microscopic (09/09/16 17:25) Ct Abd/Pel W Iv Contrast(Rout) (09/09/16 17:25) Iv Access Insert/Monitor (09/09/16 17:25) Ecg Monitoring (09/09/16 17:25) Oximetry (09/09/16 17:25) Ondansetron Inj (Zofran Inj) (09/09/16 17:30) Sodium Chlor 0.9% 1000 Ml Inj (Ns 1000 M (09/09/16 17:25) Sodium Chloride 0.9% Flush (Ns Flush) (09/09/16 17:30) Hydromorphone Pf Inj (Dilaudid Pf Inj) (09/09/16 17:30) Iohexol 350 Inj (Omnipaque 350 Inj) (09/09/16 19:23) Labs Laboratory Tests Test 09/09/16 17:45 White Blood Count 7.8 TH/MM3 Red Blood Count 5.15 MIL/MM3 Hemoglobin 15.1 GM/DL Hematocrit 46.3 % Mean Corpuscular Volume 89.9 FL Mean Corpuscular Hemoglobin 29.3 PG Mean Corpuscular Hemoglobin 32.5 % Concent Red Cell Distribution Width 13.4 % Platelet Count 236 TH/MM3 Mean Platelet Volume 8.7 FL Neutrophils (%) (Auto) 59.9 % Lymphocytes (%) (Auto) 31.2 % Monocytes (%) (Auto) 7.1 % Eosinophils (%) (Auto) 1.1 % Basophils (%) (Auto) 0.7 % Neutrophils # (Auto) 4.7 TH/MM3 Lymphocytes # (Auto) 2.4 TH/MM3 Monocytes # (Auto) 0.6 TH/MM3 Eosinophils # (Auto) 0.1 TH/MM3 Basophils # (Auto) 0.1 TH/MM3 CBC Comment DIFF FINAL Differential Comment Prothrombin Time 29.4 SEC Prothromb Time International 2.6 RATIO Ratio Activated Partial 34.1 SEC Thromboplast Time Sodium Level 139 MEQ/L Potassium Level 4.2 MEQ/L Chloride Level 107 MEQ/L Carbon Dioxide Level 26.9 MEQ/L Anion Gap 5 MEQ/L Blood Urea Nitrogen 13 MG/DL Creatinine 1.18 MG/DL Estimat Glomerular Filtration 65 ML/MIN Rate Random Glucose 86 MG/DL Lactic Acid Level 2.1 mmol/L Calcium Level 8.4 MG/DL Total Bilirubin 0.3 MG/DL Aspartate Amino Transf 13 U/L (AST/SGOT) Alanine Aminotransferase 24 U/L (ALT/SGPT) Alkaline Phosphatase 116 U/L Total Protein 7.3 GM/DL Albumin 3.6 GM/DL [facility] Medical Decision Making Medical Screen Exam Complete: Yes Emergency Medical Condition: Yes Medical Record Reviewed: Yes Differential Diagnosis Incarcerated hernia versus strangulated hernia versus gastritis versus abdominal mass Narrative Course Patient is a 51-year-old male comes in complaining of abdominal pain. Exam shows a reducible umbilical hernia. IV established, labs sent. Labs show a lactic acid of 2.1, no other abnormalities. Patient hydrated with fluids. Given Dilaudid for pain. Given Zofran. CT of the abdomen and pelvis performed shows no acute abnormalities. Last 24 hours Impressions Abdomen/Pelvis CT 09/09/16 6959 Signed Impressions: Service Date/Time: August 19:14 - CONCLUSION: No visceral organ injury or other acute abnormality. Mild fatty infiltration of the liver again noted. Joe Berry MD Patient informed of the results. Advised to increase his fluid intake. Advised follow-up with Gen. surgery for repair of his hernia as an outpatient. Advised of warning signs and when to return to the emergency department. Advised to return to the ED as needed for any worsening symptoms. Patient is comfortable with this plan at this time. He has pain medicine at home. Diagnosis Primary Impression: Umbilical hernia Qualified Code: K42.9 - Umbilical hernia without obstruction and without gangrene Referrals: Ed Birmingham MD call for appointment Donovan Nava MD call for appointment Deandre Chandler MD call for appointment Patient Instructions: General Instructions, Umbilical Hernia (ED) Additional Instructions: Drink plenty of fluids. Follow up with general surgery. Return to the ED as needed for any worsening symptoms. Disposition: 01 DISCHARGE HOME Condition: Stable Tammy Stephenson MD September 09, 2016 19:56
[2016-09-09 20:16] VITALS: BP 155/76; PULSE 88; RESP 16; O2SAT 98
== END 2016-09-09 20:26 | disposition home or self-care (01) ==
LOC: NEPD 16:47
DX: K42.9 Umbilical hernia without obstruction or gangrene (principal)
CPT/HCPCS: 74177; 80053; 83605; 85025; 85610; 85730; 96361; 96374; 96375; 99285; J1170; J2405; J7030; Q9967

== ENCOUNTER 2017-05-26 15:48 | Inpatient (IN) | payer MEDICAID ==
[~2017-05-26] VITALS: Ht 182.9 cm; Wt 151.0 kg
[2017-05-26] VITALS (10 sets, daily range): BP systolic 157–190; BP diastolic 83–97; PULSE 68–85; RESP 14–25; TEMP 98.3–98.6; O2SAT 95–100
[~2017-05-26 15:48] MED LIST changes: -FURO1TAB60 PO; +FURO40TA PO; +LISI-515 PO; -LISI40TA PO; +METO-393 PO; -METO200T3 PO; +MOBI15TA PO; -ONDA1TAB17 PO; +ONDA8TAB7 PO; -OXYC-395 PO; +OXYC15TA PO; +PARO40TA2 PO; -PAXI40TA PO; -WARF-18 PO; +WARF-22 PO
[2017-05-26] MEDS ORDERED: IOHEXOL 350 MG/ML 10 ML VIAL (for RAD DIAG) IVCONTRAST ONE (15:49)
[2017-05-26] MEDS ORDERED: SODIUM CHLOR 0.9% 1000 ML INJ 1,000 ML IV SCH (17:40)
[2017-05-26] MEDS ORDERED: FAMOTIDINE 20 MG/2 ML VIAL IV PUSH ONE (17:45)
[2017-05-26] MEDS ORDERED: HYDROmorphone HCL PF 1 MG/ML VIAL IVS ONE (17:45)
[2017-05-26] MEDS ORDERED: ONDANSETRON HCL 4 MG/2 ML VIAL IVP ONE (17:45)
[2017-05-26] MEDS ORDERED: PANTOPRAZOLE SODIUM 40 MG VIAL IVP ONE (17:45)
[2017-05-26] MEDS ORDERED: SODIUM CHLORIDE 0.9% FLUSH 10 ML FLUSH IV FLUSH PRN ×2 (17:45→23:15)
--- NOTE | 2017-05-26 18:02 | PD ---
HPI Chief Complaint: GI Complaint Time Seen by Provider: 17:33 Travel History International Travel<30 days: No Contact w/Intl Traveler<30days: No Traveled to known affect area: No History of Present Illness HPI Patient comes to the emergency department advised his primary care doctor for evaluation of epigastric pain, left lower quadrant pain, bright red blood per rectum, and vomiting that is nonbloody and nonbilious ongoing for 4 days. Patient reports pain in the epigastric feels similar to previous ulcer pain without radiation. Patient reports that he pain left lower quadrant be a sharp stabbing pain. Patient reports he has been taking his home pain medication of oxycodone along with his ulcer meds with no improvement of symptoms. Denies any chest pain, shortness of breath, headaches, fevers, or loss or change in bladder. PFSH Past Medical History Hx Anticoagulant Therapy: Yes (Coumadin) Arthritis: No Asthma: No Autoimmune Disease: No Blood Disorders: No Anxiety: Yes Depression: Yes Heart Rhythm Problems: No Cancer: No Cardiac Catheterization: Yes Cardiovascular Problems: Yes High Cholesterol: No Chemotherapy: No Chest Pain: Yes Congestive Heart Failure: No COPD: No Cerebrovascular Accident: No Diabetes: Yes Diminished Hearing: No Endocrine: No Gastrointestinal Disorders: Yes (GERD; ULCER HX) GERD: No Glaucoma: No Genitourinary: No Headaches: No Hepatitis: No Hiatal Hernia: No Hypertension: Yes Immune Disorder: No Kidney Stones: No Musculoskeletal: Yes (BACK AND NECK PAIN) Neurologic: No Psychiatric: No Reproductive: No Respiratory: Yes Immunizations Current: No Myocardial Infarction: Yes Pancreatitis: Yes Radiation Therapy: No Renal Failure: No Seizures: No Sickle Cell Disease: No Sleep Apnea: No Thyroid Disease: No Ulcer: No Past Surgical History Abdominal Surgery: Yes (BILATERAL INGUINAL HERNIA REPAIR ; REPAIR RECURRENT RT ING HERNIA) AICD: No Appendectomy: Yes Body Medical Devices: NONE Cardiac Surgery: No Cholecystectomy: Yes Coronary Artery Bypass Graft: No Ear Surgery: No Endocrine Surgery: No Eye Surgery: No Genitourinary Surgery: No Gynecologic Surgery: No Joint Replacement: No Oral Surgery: No Pacemaker: No Thoracic Surgery: No Other Surgery: Yes (RT SHOULDER SURGERY REBUILT 2012; RT KNEE SCOPED X 3, LT KNEE X 2) Social History Alcohol Use: No Tobacco Use: No Substance Use: No Allergies-Medications (Allergen,Severity, Reaction): Coded Allergies: No Known Allergies (Verified Allergy, Unknown, 04/08/17) Reported Meds & Prescriptions Reported Meds & Active Scripts Active Warfarin 10 Mg Tab 10 Mg PO DIRECTED Take one (1) tablet once a week. On this day, do not take your 7.5 mg warfarin tablet. Lisinopril 20 Mg Tab 1 Tab PO DAILY Metoprolol Succinate ER 24 HR (Metoprolol Succinate) 200 Mg Tab 200 Mg PO DAILY Furosemide 40 Mg Tab 40 Mg PO BID Mobic (Meloxicam) 15 Mg Tab 15 Mg PO DAILY Gabapentin 300 Mg Cap 300 Mg PO TID Warfarin 7.5 Mg Tab 7.5 Mg PO DAILY Take one tabled daily every day except one; on that day, take a ten (10) mg tablet. Ondansetron (Ondansetron HCl) 8 Mg Tab 8 Mg PO TID PRN Take 1/2 tab Q8H as needed for nausea Paroxetine (Paroxetine HCl) 40 Mg Tab 40 Mg PO DAILY Metformin (Metformin HCl) 1,000 Mg Tab 1,000 Mg PO BIDPC With meals Omeprazole 40 Mg Cap 40 Mg PO BID Imitrex (Sumatriptan Succinate) 50 Mg Tab 50 Mg PO ONCE PRN If a satisfactory response has not been obtained at 2 hours, a second dose may be administered Reported Oxycodone (Oxycodone HCl) 15 Mg Tab 15 Mg PO Q4H PRN Review of Systems Except as stated in HPI: all other systems reviewed are Neg Physical Exam Narrative GENERAL: Well-developed, overly nourished, appears uncomfortable, and non-ill appearing. SKIN: Focused skin assessment warm and dry. HEAD: Atraumatic. Normocephalic. EYES: Pupils equal and round. EOMI. No scleral icterus. No injection or drainage. ENT: No nasal bleeding or discharge. Mucous membranes pink and moist. NECK: Trachea midline. No JVD. Supple. No nuclear rigidity. CARDIOVASCULAR: Regular rate and rhythm. No murmur appreciated. RESPIRATORY: No accessory muscle use. No respiratory distress. Clear to auscultation. Breath sounds equal bilaterally. GASTROINTESTINAL: Abdomen soft, nondistended, and no guarding. Hepatic and splenic margins not palpable. Normal bowel sounds x4. No pulsatile mass. Patient reports tenderness in epigastric and left lower quadrant to palpation. RECTAL EXAM: External hemorrhoids noted. Stool is brown. MUSCULOSKELETAL: No obvious deformities. No clubbing. No cyanosis. No edema. Full range of motion. NEUROLOGICAL: Awake and alert. No obvious cranial nerve deficits. Motor grossly within normal limits. Normal speech. PSYCHIATRIC: Appropriate mood and affect; insight and judgment normal. Data Data Last Documented VS Vital Signs Date Time Temp Pulse Resp B/P (MAP) Pulse Ox O2 Delivery O2 Flow Rate FiO2 05/26/17 20:09 72 20 175/89 (117) 98 Room Air 05/26/17 15:50 98.4 Orders Orders Complete Blood Count With Diff (05/26/17 16:16) Comprehensive Metabolic Panel (05/26/17 16:16) Lipase (05/26/17 16:16) Prothrombin Time / Inr (Pt) (05/26/17 16:16) Act Partial Throm Time (Ptt) (05/26/17 16:16) Type And Screen (05/26/17 16:16) Ct Abd/Pel W Iv Contrast(Rout) (05/26/17 17:40) Iv Access Insert/Monitor (05/26/17 17:40) Ecg Monitoring (05/26/17 17:40) Oximetry (05/26/17 17:40) Ondansetron Inj (Zofran Inj) (05/26/17 17:45) Pantoprazole Inj (Protonix Inj) (05/26/17 17:45) Sodium Chloride 0.9% Flush (Ns Flush) (05/26/17 17:45) Famotidine Inj (Pepcid Inj) (05/26/17 17:45) Hydromorphone Pf Inj (Dilaudid Pf Inj) (05/26/17 17:45) Chest, Single Ap (05/26/17 17:40) Sodium Chlor 0.9% 1000 Ml Inj (Ns 1000 M (05/26/17 17:40) Hydromorphone Pf Inj (Dilaudid Pf Inj) (05/26/17 18:45) ^ Lab Follow Up (05/26/17 18:36) Phytonadione Inj (Vitamin K Inj) (05/26/17 18:45) Prothrombin Complex Conc Inj (Kcentra In (05/26/17 19:15) Fresh Frozen Plasma (Ffp) (05/26/17 18:40) Blood Product Administration (05/26/17 18:40) Sodium Chloride 0.9... W/Pantoprazole In (05/26/17 18:41) Iohexol 350 Inj (Omnipaque 350 Inj) (05/26/17 15:49) Admit Order (Ed Use Only) (05/26/17 ) Film Reproducer / Telemetry ZEE.Q8H (05/26/17 20:33) Vital Signs (Adult) Q4H (05/26/17 20:33) Activity Oob With Assistance (05/26/17 20:33) Notify Dr: Other (05/26/17 20:33) Labs Laboratory Tests Test 05/26/17 18:00 White Blood Count 7.2 TH/MM3 Red Blood Count 4.91 MIL/MM3 Hemoglobin 14.9 GM/DL Hematocrit 43.3 % Mean Corpuscular Volume 88.2 FL Mean Corpuscular Hemoglobin 30.5 PG Mean Corpuscular Hemoglobin Concent 34.5 % Red Cell Distribution Width 13.8 % Platelet Count 222 TH/MM3 Mean Platelet Volume 8.2 FL Neutrophils (%) (Auto) 58.5 % Lymphocytes (%) (Auto) 31.5 % Monocytes (%) (Auto) 7.8 % Eosinophils (%) (Auto) 1.9 % Basophils (%) (Auto) 0.3 % Neutrophils # (Auto) 4.2 TH/MM3 Lymphocytes # (Auto) 2.3 TH/MM3 Monocytes # (Auto) 0.6 TH/MM3 Eosinophils # (Auto) 0.1 TH/MM3 Basophils # (Auto) 0.0 TH/MM3 CBC Comment DIFF FINAL Differential Comment Prothrombin Time 130.7 SEC Prothromb Time International Ratio 13.1 RATIO Activated Partial Thromboplast Time 56.4 SEC Blood Urea Nitrogen 8 MG/DL Creatinine 1.14 MG/DL Random Glucose 103 MG/DL Total Protein 7.3 GM/DL Albumin 3.3 GM/DL Calcium Level 8.0 MG/DL Alkaline Phosphatase 122 U/L Aspartate Amino Transf (AST/SGOT) 17 U/L Alanine Aminotransferase (ALT/SGPT) 20 U/L Total Bilirubin 0.2 MG/DL Sodium Level 140 MEQ/L Potassium Level 3.8 MEQ/L Chloride Level 106 MEQ/L Carbon Dioxide Level 27.7 MEQ/L Anion Gap 6 MEQ/L Estimat Glomerular Filtration Rate 68 ML/MIN Lipase 65 U/L [facility] Medical Decision Making Medical Screen Exam Complete: Yes Emergency Medical Condition: Yes Interpretation(s) Last Impressions Chest X-Ray 05/26/[id number] Signed Impressions: Service Date/Time: May 17:56 - CONCLUSION: No evidence of acute cardiopulmonary disease. Joe Berry MD Abdomen/Pelvis CT [id number]/26/[id number] Signed Impressions: Service Date/Time: May 19:42 - CONCLUSION: 1. Fat-containing umbilical hernia that appears mildly indurated. Adjacent loops of small bowel but no obstruction or other acute complication. 2. Mild diverticulosis without diverticulitis. 3. Otherwise negative. Joe Berry MD Differential Diagnosis Pancreatitis, gastritis, GI bleed, metabolic disturbance, SBO, ileus, diverticulitis Narrative Course Patient was seen and examined. Initial laboratory and radiological orders were placed. IV was established patient was placed on cardiac monitoring. Patient was given IV Dilaudid for pain, IV fluids, Zofran for nausea, IV Protonix, and IV Pepcid. After finding patient to have a elevated INR, then vitamin K, FFP, and Protonix drip ordered. Discussed all findings and plan of care with patient , who is agreeable for admission. All questions were answered. Discussed patient with Dr. Stephenson, so evaluated the patient and is in agreement with plan of care and disposition. Discussed patient with hospitalist who is agreeable to admit the patient. Patient remained stable throughout ED course. [facility]pt Point of Care Internal Pos. & Neg. Controls: Passed Fecal Specimen Occult Blood: Positive Comment Verbal consent was obtained. Digital rectal exam was performed. Stool specimen applied and test interpreted between 1 and 3 minutes of application and the result was positive. Internal Controls: Both positive and negative controls were validated. air force pilot Kelli was present during this exam. Physician Communication Physician Communication [address] Young, who is agreeable to admit the patient. [id number] discussed patient with the residents automobile brakes bonder who agreed with the patient to Dr. Belle as patient is one of their patients Diagnosis Primary Impression: Elevated INR Additional Impressions: Abdominal pain Qualified Codes: R10.13 - Epigastric pain Bright red blood per rectum Admitting Information Admitting Physician Requests: Admit Condition: Stable Shaji Soto May 26, 2017 18:02
--- NOTE | 2017-05-26 18:15 | RADRPT ---
EXAM DATE/TIME: 05/26/2017 17:56 [facility] COMPARISON: CHEST SINGLE AP, August 06, 2016, 17:21. INDICATIONS : Chest discomfort; vomiting. MEDICAL HISTORY : Hypertension. Diabetes mellitus type II. Myocardial infarction. SURGICAL HISTORY : Cardiac cath. ENCOUNTER: Initial ACUITY: 1 day PAIN SCORE: 4/10 LOCATION: Bilateral lower chest FINDINGS: A single view of the chest demonstrates the lungs to be symmetrically aerated without evidence of mas s, infiltrate or effusion. The cardiomediastinal contours are unremarkable. Osseous structures are intact. CONCLUSION: No evidence of acute cardiopulmonary disease. Joe Berry MD on May 26, 2017 at 18:12 Board Certified Radiologist. This report was verified electronically.
[2017-05-26 18:24] LABS: AUTOMATED NEUTROPHIL # 4.2 TH/MM3 (1.8-7.7); BASOPHIL % 0.3 % (0.0-2.0); EOSINOPHIL # 0.1 TH/MM3 (0-0.4); EOSINOPHIL % 1.9 % (0.0-4.0); HEMATOCRIT 43.3 % (39.0-51.0); HEMOGLOBIN 14.9 GM/DL (13.0-17.0); LYMPH % 31.5 % (9.0-44.0); LYMPHOCYTE # 2.3 TH/MM3 (1.0-4.8); MEAN CELL VOLUME 88.2 FL (80.0-100.0); MEAN CORPUSCULAR HEMOGLOBIN 30.5 PG (27.0-34.0); MEAN CORPUSCULAR HGB CONC 34.5 % (32.0-36.0); MEAN PLATELET VOLUME 8.2 FL (7.0-11.0); MONO % 7.8 % (0.0-8.0); MONOCYTE # 0.6 TH/MM3 (0-0.9); NEUT % 58.5 % (16.0-70.0); PLATELET COUNT 222 TH/MM3 (150-450); RED BLOOD COUNT 4.91 MIL/MM3 (4.50-5.90); RED CELL DISTRIBUTION WIDTH 13.8 % (11.6-17.2); WHITE BLOOD COUNT 7.2 TH/MM3 (4.0-11.0)
[2017-05-26 18:30] LABS: PROTHROMBIN TIME - PATIENT 130.7 SEC (9.8-11.6)
[2017-05-26 18:36] LABS: INTERNATIONAL NORMALIZED RATIO 13.1 RATIO
[2017-05-26 18:38] LABS: ALBUMIN 3.3 GM/DL (3.4-5.0); ALT (GPT) 20 U/L (12-78); AST (GOT) 17 U/L (15-37); BICARBONATE 27.7 MEQ/L (21.0-32.0); BLOOD UREA NITROGEN 8 MG/DL (7-18); CHLORIDE 106 MEQ/L (98-107); CREATININE 1.14 MG/DL (0.60-1.30); GLOMERULAR FILTRATION RATE 68 ML/MIN (>89); GLUCOSE,RANDOM 103 MG/DL (74-106); SODIUM (NA) 140 MEQ/L (136-145)
[2017-05-26 18:41] LABS: ALKALINE PHOSPHATASE 122 U/L (45-117); TOTAL BILIRUBIN ADULT 0.2 MG/DL (0.2-1.0); TOTAL PROTEIN 7.3 GM/DL (6.4-8.2)
[2017-05-26] MEDS: PANTOPRAZOLE INJ 80 MG in SODIUM CHLORIDE 0.9% INJ 100 ML IV SCH (18:41)
[2017-05-26] MEDS ORDERED: HYDROmorphone HCL PF 2 MG/ML VIAL IV PUSH ONE (18:45)
[2017-05-26] MEDS ORDERED: PHYTONADIONE INJ 10 MG in SODIUM CHLORIDE 0.9% INJ 50 ML IV ONE (18:45)
--- NOTE | 2017-05-26 19:06 | PD ---
Physical Exam Narrative I, Dr. Stephenson, have reviewed the advance practice practitioner's documentation and am in agreement, met with the patient face to face, made the diagnosis, and the medical decision making was done by me. *My assessment and Findings: Patient is a 51-year-old male who comes in complaining of epigastric pain as well as left lower quadrant pain. He says he has been noticing red blood in his stool. Patient has external hemorrhoids. He is on Coumadin for history of PE. He says he also has a history of gastric ulcers. He has had some nausea and vomiting, but denies seeing any blood in his vomit. Exam shows tenderness in the epigastric area as well as left lower quadrant. Data Data Last Documented VS Vital Signs Date Time Temp Pulse Resp B/P (MAP) Pulse Ox O2 Delivery O2 Flow Rate FiO2 05/26/17 17:56 85 25 175/94 (121) 97 Room Air 05/26/17 15:50 98.4 Orders Orders Complete Blood Count With Diff (05/26/17 16:16) Comprehensive Metabolic Panel (05/26/17 16:16) Lipase (05/26/17 16:16) Prothrombin Time / Inr (Pt) (05/26/17 16:16) Act Partial Throm Time (Ptt) (05/26/17 16:16) Type And Screen (05/26/17 16:16) Ct Abd/Pel W Iv Contrast(Rout) (05/26/17 17:40) Iv Access Insert/Monitor (05/26/17 17:40) Ecg Monitoring (05/26/17 17:40) Oximetry (05/26/17 17:40) Ondansetron Inj (Zofran Inj) (05/26/17 17:45) Pantoprazole Inj (Protonix Inj) (05/26/17 17:45) Sodium Chloride 0.9% Flush (Ns Flush) (05/26/17 17:45) Famotidine Inj (Pepcid Inj) (05/26/17 17:45) Hydromorphone Pf Inj (Dilaudid Pf Inj) (05/26/17 17:45) Chest, Single Ap (05/26/17 17:40) Sodium Chlor 0.9% 1000 Ml Inj (Ns 1000 M (05/26/17 17:40) Hydromorphone Pf Inj (Dilaudid Pf Inj) (05/26/17 18:45) ^ Lab Follow Up (05/26/17 18:36) Phytonadione Inj (Vitamin K Inj) (05/26/17 18:45) Prothrombin Complex Conc Inj (Kcentra In (05/26/17 19:15) Fresh Frozen Plasma (Ffp) (05/26/17 18:40) Blood Product Administration (05/26/17 18:40) Sodium Chloride 0.9... W/Pantoprazole In (05/26/17 18:41) Labs Laboratory Tests Test 05/26/17 18:00 White Blood Count 7.2 TH/MM3 Red Blood Count 4.91 MIL/MM3 Hemoglobin 14.9 GM/DL Hematocrit 43.3 % Mean Corpuscular Volume 88.2 FL Mean Corpuscular Hemoglobin 30.5 PG Mean Corpuscular Hemoglobin Concent 34.5 % Red Cell Distribution Width 13.8 % Platelet Count 222 TH/MM3 Mean Platelet Volume 8.2 FL Neutrophils (%) (Auto) 58.5 % Lymphocytes (%) (Auto) 31.5 % Monocytes (%) (Auto) 7.8 % Eosinophils (%) (Auto) 1.9 % Basophils (%) (Auto) 0.3 % Neutrophils # (Auto) 4.2 TH/MM3 Lymphocytes # (Auto) 2.3 TH/MM3 Monocytes # (Auto) 0.6 TH/MM3 Eosinophils # (Auto) 0.1 TH/MM3 Basophils # (Auto) 0.0 TH/MM3 CBC Comment DIFF FINAL Differential Comment Prothrombin Time 130.7 SEC Prothromb Time International Ratio 13.1 RATIO Activated Partial Thromboplast Time 56.4 SEC Blood Urea Nitrogen 8 MG/DL Creatinine 1.14 MG/DL Random Glucose 103 MG/DL Total Protein 7.3 GM/DL Albumin 3.3 GM/DL Calcium Level 8.0 MG/DL Alkaline Phosphatase 122 U/L Aspartate Amino Transf (AST/SGOT) 17 U/L Alanine Aminotransferase (ALT/SGPT) 20 U/L Total Bilirubin 0.2 MG/DL Sodium Level 140 MEQ/L Potassium Level 3.8 MEQ/L Chloride Level 106 MEQ/L Carbon Dioxide Level 27.7 MEQ/L Anion Gap 6 MEQ/L Estimat Glomerular Filtration Rate 68 ML/MIN Lipase 65 U/L MDM Supervised Visit with ERROL: Yes Narrative Course Labs and show hemoglobin of 14. INR is 13.1. Patient given vitamin K as well as FFP. His stool is positive for blood. He will be admitted for further management. Tammy Stephenson MD May 26, 2017 19:06
[2017-05-26] MEDS ORDERED: PROTHROMBIN COMPLEX CONC INJ 5,000 UNITS in SYRINGE/BAG 1 EA IV ONE (19:15)
--- NOTE | 2017-05-26 20:12 | RADRPT ---
EXAM DATE/TIME: 05/26/2017 19:42 [facility] COMPARISON: CT ABDOMEN & PELVIS W CONTRAST, September 09, 2016, 19:14. INDICATIONS : Eppigastric and left lower abdomen pain, passing bright red blood IV CONTRAST: 81 cc Omnipaque 350 (iohexol) IV ORAL CONTRAST: No oral contrast ingested. RADIATION DOSE: 29.56 CTDIvol (mGy) MEDICAL HISTORY : Hypertension. Pancreatitis. diabetes SURGICAL HISTORY : Appendectomy. Cholecystectomy. ENCOUNTER: Initial ACUITY: 2 days PAIN SCALE: 10/10 LOCATION: Abdomen TECHNIQUE: Volumetric scanning of the abdomen and pelvis was performed. Using automated exposure control and ad justment of the mA and/or kV according to patient size, radiation dose was kept as low as reasonably achievable to obtain optimal diagnostic quality images. DICOM format image data is available electro nically for review and comparison. FINDINGS: LOWER LUNGS: The visualized lower lungs are clear. LIVER: Homogeneous density without lesion. There is no dilation of the biliary tree. Previous cholecystecto my. SPLEEN: Normal size without lesion. PANCREAS: Within normal limits. KIDNEYS: Normal in size and shape. There is no mass, stone or hydronephrosis. ADRENAL GLANDS: Within normal limits. VASCULAR: There is no aortic aneurysm. BOWEL/MESENTERY: There is mild diverticulosis of the descending and sigmoid portions of the colon. No acute inflammato ry changes. Previous appendectomy. ABDOMINAL WALL: There is a small ventral hernia containing some indurated fat. There are some adjacent small bowel lo ops but no bowel herniation. There is no obstruction RETROPERITONEUM: There is no lymphadenopathy. BLADDER: No wall thickening or mass. REPRODUCTIVE: Within normal limits. INGUINAL: There is no lymphadenopathy or hernia. MUSCULOSKELETAL: No acute bony abnormality demonstrated. CONCLUSION: 1. Fat-containing umbilical hernia that appears mildly indurated. Adjacent loops of small bowel but n o obstruction or other acute complication. 2. Mild diverticulosis without diverticulitis. 3. Otherwise negative. Joe Berry MD on May 26, 2017 at 20:07 Board Certified Radiologist. This report was verified electronically.
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
[2017-05-26] MEDS ORDERED: SUMAtriptan SUCCINATE 50 MG TAB PO PRN (23:00)
[2017-05-26] MEDS ORDERED: ONDANSETRON ODT 4 MG TAB PO PRN (23:15)
[2017-05-26] MEDS ORDERED: GLUCAGON 1 MG/ML VIAL OTHER PRN (23:45)
[2017-05-26] MEDS ORDERED: DEXTROSE 50% IN WATER 50 ML VIAL(D50) IV PUSH PRN (23:45)
[2017-05-27] VITALS (10 sets, daily range): BP systolic 128–169; BP diastolic 74–97; PULSE 54–85; RESP 18–20; TEMP 97.6–98.3; O2SAT 92–99
[2017-05-27] MEDS ORDERED: NALOXONE HCL 0.4 MG/ML AMP IV PUSH PRN (00:15)
[2017-05-27] MEDS: HYDROmorphone HCL PF 2 MG/ML VIAL IV PRN ×5 (01:09→20:15)
[2017-05-27] MEDS: SODIUM CHLOR 0.9% 1000 ML INJ 1,000 ML IV SCH ×4 (02:25→20:14)
[2017-05-27] MEDS: PANTOPRAZOLE INJ 80 MG in SODIUM CHLORIDE 0.9% INJ 100 ML IV SCH ×2 (05:21→17:57)
[2017-05-27 06:21] LABS: HEMATOCRIT 40.8 % (39.0-51.0); HEMOGLOBIN 14.1 GM/DL (13.0-17.0); MEAN CELL VOLUME 88.7 FL (80.0-100.0); MEAN CORPUSCULAR HEMOGLOBIN 30.7 PG (27.0-34.0); MEAN CORPUSCULAR HGB CONC 34.6 % (32.0-36.0); MEAN PLATELET VOLUME 8.3 FL (7.0-11.0); PLATELET COUNT 205 TH/MM3 (150-450); WHITE BLOOD COUNT 6.5 TH/MM3 (4.0-11.0)
[2017-05-27 06:38] LABS: BICARBONATE 29.6 MEQ/L (21.0-32.0); CALCIUM 8.4 MG/DL (8.5-10.1)
[2017-05-27 06:50] LABS: INTERNATIONAL NORMALIZED RATIO 1.6 RATIO; PROTHROMBIN TIME - PATIENT 15.9 SEC (9.8-11.6)
[2017-05-27] MEDS: INSULIN ASPART SUPPLEMENTAL SCALE SQ SCH ×4 (08:00→20:14)
[2017-05-27] MEDS: GABAPENTIN 300 MG CAP PO SCH ×3 (08:49→17:57)
[2017-05-27] MEDS: METOPROLOL SUCCINATE 50 MG EXTENDED RELEASE TAB PO SCH (08:49)
[2017-05-27] MEDS: LISINOPRIL 20 MG TAB PO SCH (08:49)
[2017-05-27] MEDS: FUROSEMIDE 40 MG TAB PO SCH ×2 (08:49→20:13)
[2017-05-27] MEDS: SODIUM CHLORIDE 0.9% FLUSH 10 ML FLUSH IV FLUSH SCH ×2 (08:49→20:15)
[2017-05-27] MEDS: PARoxetine HCL 20 MG TAB PO SCH (08:49)
--- NOTE | 2017-05-27 09:29 | HHI.FPPN ---
Subjective Remarks Still with 8 out of 10 epigastric pain. Burning sensation. Also complaining of Left lower quadrant pain. Denies feeling nauseated currently. Denies any persistent rectal bleeding or diarrhea since being hospitalized. Denies CP, SOB, headaches. To note, he does have an extensive history of gastric ulcers and hemorrhoids. He has been taking Ibuprofen several days out of the week (400 mg). He is adherent to omeprazole therapy BID as an outpatient. He denies drinking EtOH. His only new medication is Carafate from a flu-like illness 2 weeks ago that resolved. No PO or IV steroids recently that he can recall. He is compliant with 75 mg of Coumadin 6 days a week and 10 mg 1 day per week. (Rl Angulo MD, R3) Objective Vitals Vital Signs Date Time Temp Pulse Resp B/P (MAP) Pulse Ox O2 Delivery O2 Flow Rate FiO2 05/27/17 08:00 97.7 68 18 169/88 (115) 92 05/27/17 04:00 70 05/27/17 04:00 Room Air 05/27/17 04:00 98.3 72 18 147/93 (111) 94 05/27/17 01:44 98.3 78 18 160/93 94 05/27/17 01:44 Room Air 05/27/17 00:00 98.3 85 20 160/97 (118) 93 05/26/17 23:50 71 05/26/17 23:18 98.3 78 20 158/97 97 05/26/17 23:02 98.4 71 20 158/91 95 05/26/17 22:32 72 05/26/17 22:15 Room Air 05/26/17 22:15 98.6 69 21 157/90 97 05/26/17 21:20 98.5 68 15 167/88 98 05/26/17 21:00 98.6 69 14 164/83 97 05/26/17 20:09 72 20 175/89 (117) 98 Room Air 05/26/17 17:56 85 25 175/94 (121) 97 Room Air 05/26/17 15:50 98.4 79 18 190/88 (122) 100 I/O 05/26/17 05/26/17 05/26/17 05/27/17 05/27/17 05/27/17 07:00 15:00 23:00 07:00 15:00 23:00 Intake Total 1617 ml 345 ml Output Total 1800 ml Balance 1617 ml -1455 ml Intake IV Total 1000 ml FFP 302 ml 341 ml Blood Product IV Normal Saline Flush 315 ml 4 ml Output Urine Total 1800 ml (Rl Angulo MD, R3) Result Diagram: 05/27/17 0540 05/27/17 0540 Imaging Last 72 hours Impressions Chest X-Ray 05/26/171739 Signed Impressions: Service Date/Time: May 17:56 - CONCLUSION: No evidence of acute cardiopulmonary disease. Joe Berry MD Abdomen/Pelvis CT 05/26/171739 Signed Impressions: Service Date/Time: May 19:42 - CONCLUSION: 1. Fat-containing umbilical hernia that appears mildly indurated. Adjacent loops of small bowel but no obstruction or other acute complication. 2. Mild diverticulosis without diverticulitis. 3. Otherwise negative. Joe Berry MD Objective Remarks GEN: Obese, NAD, non toxic HEENT: PERRL, EOMI, MMM CV: RRR, no mumrurs RESP: CTAB, no wheezing. NO accessory muscle use. Comfortable. GI: BS present, no rebound or guarding, TTP in epigastrium and LLQ. Ext: Hyperpigmented lower extremities, hair low, and thickened skin. No calf tenderness. Neuro: CN intack, 5/5 strength throughout. AAO to person place. (Rl Angulo MD, R3) A/P Assessment and Plan Patient is a 51 year old male with past history of DM, recurrent VTE, PE on coumadin, GI bleed who presented for red blood per rectum. Initially had hematemesis and melena, hematemesis has since resolved although there still is vomiting, melena has transition to hematochezia. Patient believes thiis similar to last time he had gastric ulcers. INR 13.1. (Rl Angulo MD, R3) Attending Attestation I examined the patient at 1155 today. He continues to complain of epigastric pain. LLQ pain seems to be improving. No vomiting, hematemesis, hematochezia or melena since admission. The patient states that two weeks ago, his warfarin dose was increased from 7.5 mg daily to 10 mg daily by an outside physician. For details of PMH, SH, FH, HPI and ROS please see Dr. Xavier's note. I agree wtih the physical findings as documented. I have discussed the case with Dr. Angulo. I agree with the present management plan. He is scheduled for EGD/ colonoscopy tomorrow. (Robby Woods Jr., MD) Problem List: (1) Hematochezia ICD Codes: K92.1 - Melena Status: Acute Plan: History of DM, recurrent VTE, PE, GI bleed who presented for red blood per rectum. Initially had hematemesis and melena, hematemesis has since resolved although there still is vomiting, melena has transition to hematochezia. Patient believes is similar to last time he had gastric ulcers. INR 13.1. Medical record shows Mobic daily. Hgb 14.[address] shows mild diverticulosis without diverticulitis. -See elevated INR plan below. -Mobic held. -Received vitamin K, FFP x 2. Stable at this time. -Protonix drip. -Monitor hemoglobin every 6 hours. Stable at 14.0 g/dL. -Monitor for signs or symptoms of anemia. -Consulted GI, appreciate recommendations. (2) Elevated INR ICD Codes: R79.1 - Abnormal coagulation profile Status: Acute Plan: Supratherapeutic INR 13.1 with minimal bleeding, hemoglobin 14.9. Stable. INR corrected to 1.6 after 2 bags FFP and Vit K. -Hold warfarin for now. -Follow up H&H every 6 hours (3) Diabetes ICD Codes: E11.9 - Type 2 diabetes mellitus without complications Status: Chronic Plan: History of diabetes, controlled metformin. -Held home medications -Monitor blood glucose -Low-dose sliding scale (4) Hypertension ICD Codes: I10 - Essential (primary) hypertension Status: Chronic Plan: History of hypertension: -BP at goal currently. -Continue home medications, metoprolol, lisinopril, lasix. Monitor for hypotension given GI bleed. (5) Fluids/Electrolytes/Nutrition/Prophylaxis Status: Acute Plan: Diet: NPO Fluids: NS at 185 ml/hr, reduce to 100 ml/hr. ECHO in 07/2016 showed 55-60% EF. DVT ppx: SCDs GI ppx: As above. WDW Dr. Woods. (Rl Angulo MD, R3) Rl Angulo MD, R3 May 27, 2017 09:29 Robby Woods Jr., MD May 27, 2017 12:33
--- NOTE | 2017-05-27 10:44 | PD.CONS ---
HPI History of Present Illness This is a 51 year old M with medical history significant for DM, recurrent VTE ( on Warfarin), PE, GI bleed who presents today with complaints of black, tarry stool that began on Tuesday with associated coffee ground emesis, two episodes. The coffee ground emesis resolved, however he continued to have clear emesis, 3- 4 episodes daily, last vomited on . The black, tarry stool was isolated on Tuesday with diarrhea, he began having BRB mixed in with stool on Tuesday. He had 2-3 episodes of this daily and then this resolved on Tuesday. He is now having abdominal pain, epigastric, chronic, progressive, described as aching. Pain states pain is localized, associated with nausea and vomiting throughout the day, increased with fluid intake and decreased in the position. Rates this a 9/10. He relates this to ulcer pain, he was diagnosed with PUD a few years ago, was also found to have H. Pylori. Reports heartburn, denies dysphagia. Pt was found to have INR 13.1 on arrival to ED, now S/P Vit K and 2 U FFP, INR currently 1.6. He is unsure when his last EGD was. He is also complaining of LLQ abdominal pain, came on suddenly at noon, described as sharp and stabbing. States pain is continuous, denies relieving factors. Rates this a 7/10. He is unsure when his last colonoscopy was, thinks they found a few polyps. Pt denies ETOH, smoking. Of note, pt is on Oxycodone for knee pain, planned for knee replacement surgery. Has been taking Ibuprofen as needed, but denies taking it daily. Denies family history significant for colon cancer. (Marta Rivers) [facility] Past Surgical History Cholecystectomy- 2010 Appendectomy- 1985 EGD Colonoscopy (Marta Rivers) Coded Allergies: No Known Allergies (Verified Allergy, Unknown, 04/08/17) Social History Denies ETOH Denies smoking (Marta Rivers) Review of Systems Gastrointestinal: COMPLAINS OF: Abdominal pain, Black stools, Bloody stools, Diarrhea, Nausea, Vomiting, Heartburn, DENIES: Constipation, Difficulty Swallowing, Odynophagia, Hematemesis (Marta Rivers) GI Exam Vitals I&O Vital Signs Date Time Temp Pulse Resp B/P (MAP) Pulse Ox O2 Delivery O2 Flow Rate FiO2 05/27/17 08:00 97.7 68 18 169/88 (115) 92 05/27/17 04:00 70 05/27/17 04:00 Room Air 05/27/17 04:00 98.3 72 18 147/93 (111) 94 05/27/17 01:44 98.3 78 18 160/93 94 05/27/17 01:44 Room Air 05/27/17 00:00 98.3 85 20 160/97 (118) 93 05/26/17 23:50 71 05/26/17 23:18 98.3 78 20 158/97 97 05/26/17 23:02 98.4 71 20 158/91 95 05/26/17 22:32 72 05/26/17 22:15 Room Air 05/26/17 22:15 98.6 69 21 157/90 97 05/26/17 21:20 98.5 68 15 167/88 98 05/26/17 21:00 98.6 69 14 164/83 97 05/26/17 20:09 72 20 175/89 (117) 98 Room Air 05/26/17 17:56 85 25 175/94 (121) 97 Room Air 05/26/17 15:50 98.4 79 18 190/88 (122) 100 I/O 05/26/17 05/26/17 05/26/17 05/27/17 05/27/17 05/27/17 07:00 15:00 23:00 07:00 15:00 23:00 Intake Total 1617 ml 345 ml Output Total 1800 ml Balance 1617 ml -1455 ml Intake IV Total 1000 ml FFP 302 ml 341 ml Blood Product IV Normal Saline Flush 315 ml 4 ml Output Urine Total 1800 ml Imaging Last Impressions Chest X-Ray 05/26/171739 Signed Impressions: Service Date/Time: May 17:56 - CONCLUSION: No evidence of acute cardiopulmonary disease. Joe Berry MD Abdomen/Pelvis CT 05/26/171739 Signed Impressions: Service Date/Time: May 19:42 - CONCLUSION: 1. Fat-containing umbilical hernia that appears mildly indurated. Adjacent loops of small bowel but no obstruction or other acute complication. 2. Mild diverticulosis without diverticulitis. 3. Otherwise negative. Joe Berry MD Laboratory Test 05/26/17 18:00 05/27/17 05:40 White Blood Count 7.2 TH/MM3 6.5 TH/MM3 Red Blood Count 4.91 MIL/MM3 4.60 MIL/MM3 Hemoglobin 14.9 GM/DL 14.1 GM/DL Hematocrit 43.3 % 40.8 % Mean Corpuscular Volume 88.2 FL 88.7 FL Mean Corpuscular Hemoglobin 30.5 PG 30.7 PG Mean Corpuscular Hemoglobin Concent 34.5 % 34.6 % Red Cell Distribution Width 13.8 % 14.0 % Platelet Count 222 TH/MM3 205 TH/MM3 Mean Platelet Volume 8.2 FL 8.3 FL Neutrophils (%) (Auto) 58.5 % Lymphocytes (%) (Auto) 31.5 % Monocytes (%) (Auto) 7.8 % Eosinophils (%) (Auto) 1.9 % Basophils (%) (Auto) 0.3 % Neutrophils # (Auto) 4.2 TH/MM3 Lymphocytes # (Auto) 2.3 TH/MM3 Monocytes # (Auto) 0.6 TH/MM3 Eosinophils # (Auto) 0.1 TH/MM3 Basophils # (Auto) 0.0 TH/MM3 CBC Comment DIFF FINAL Differential Comment Prothrombin Time 130.7 SEC 15.9 SEC Prothromb Time International Ratio 13.1 RATIO 1.6 RATIO Activated Partial Thromboplast Time 56.4 SEC Blood Urea Nitrogen 8 MG/DL 9 MG/DL Creatinine 1.14 MG/DL 1.00 MG/DL Random Glucose 103 MG/DL 81 MG/DL Total Protein 7.3 GM/DL Albumin 3.3 GM/DL Calcium Level 8.0 MG/DL 8.4 MG/DL Alkaline Phosphatase 122 U/L Aspartate Amino Transf (AST/SGOT) 17 U/L Alanine Aminotransferase (ALT/SGPT) 20 U/L Total Bilirubin 0.2 MG/DL Sodium Level 140 MEQ/L 141 MEQ/L Potassium Level 3.8 MEQ/L 3.7 MEQ/L Chloride Level 106 MEQ/L 105 MEQ/L Carbon Dioxide Level 27.7 MEQ/L 29.6 MEQ/L Anion Gap 6 MEQ/L 6 MEQ/L Estimat Glomerular Filtration Rate 68 ML/MIN 79 ML/MIN Lipase 65 U/L Physical Examination HEENT: Normocephalic; atraumatic. CHEST: Even/unlabored CARDIAC: RRR ABDOMEN: Distended, soft, epigastric TTP, left side to umbilicus TTP, bowel sounds active EXTREMITIES: No clubbing, cyanosis, or edema. SKIN: Normal; no rash; no jaundice. ACCOUNT REPRESENTATIVE: No focal deficits; alert and oriented times three. (Marta Rivers) Assessment and Plan Plan Assessment - Coffee ground emesis on Tuesday, 2 isolated episodes, now resolved. Continued nausea with clear emesis, last episode on . Associated melanotic stools that began on Tuesday. History of PUD a few years ago, was also found to have H. Pylori. Reports heartburn, denies dysphagia. Unsure when his last EGD was. Denies ETOH, smoking. Has been taking some OTC Ibuprofen but states not daily. Associated epigastric pain. Currently on Protonix gtt. H/H stable 14.1/40.8, has not received blood transfusion. - LLQ pain, described as continuous, sharp and stabbing. CT abdomen and pelvis W IV contrast (05/26) --> Fat-containing umbilical hernia that appears mildly indurated. Adjacent loops of small bowel but no obstruction or other acute complication. Mild diverticulosis without diverticulitis. Otherwise negative. - Hematochezia- BRB mixed in with stool that began on Tuesday. History of hemorrhoids. Has been having 2-3 episodes of this daily, has not had a bloody BM since Tuesday. - Coagulopathy- On Coumadin for history of DVTm PE. INR 13.1 on arrival to ED, now S/P Vit K and 2 U FFP, INR currently 1.6. He is unsure when his last EGD was. Plan: EGD/colonoscopy tomorrow Obtain consents Magnesium citrate prep Clear liquids today NPO after MN Continue Protonix gtt Monitor H/H Hold anticoagulation Transfuse as needed Further recommendations to follow based on results of above Pt has been seen and examined by myself and Dr. Block and this note is written on her behalf (Marta Rivers) Physician Comments seen, examined agree with above (Klaudia Block MD) Marta Rivers May 27, 2017 10:44 Klaudia Block MD May 27, 2017 19:46
[2017-05-27] MEDS ORDERED: MAGNESIUM CITRATE SOLN 300 ML BTL PO ONE ×3 (14:00→20:00)
[2017-05-27] MEDS: ONDANSETRON HCL 4 MG/2 ML VIAL IV PUSH PRN ×2 (14:11→20:16)
[2017-05-27 15:08] LABS: HEMATOCRIT 43.4 % (39.0-51.0); HEMOGLOBIN 14.8 GM/DL (13.0-17.0)
[2017-05-27 18:42] LABS: HEMATOCRIT 43.3 % (39.0-51.0); HEMOGLOBIN 14.9 GM/DL (13.0-17.0)
[2017-05-27 18:56] LABS: INTERNATIONAL NORMALIZED RATIO 1.4 RATIO; PROTHROMBIN TIME - PATIENT 13.9 SEC (9.8-11.6)
[2017-05-27] MEDS ORDERED: BISACODYL EC 5 MG TABEC PO ONE (20:00)
[2017-05-28] VITALS: BP 132/73; PULSE 51; PULSE 56; RESP 18; TEMP 97.8; O2SAT 94
[2017-05-28] MEDS: HYDROmorphone HCL PF 2 MG/ML VIAL IV PRN ×2 (01:38→06:16)
[2017-05-28 04:00] VITALS: BP 117/69; PULSE 57; RESP 18; TEMP 98; O2SAT 93
[2017-05-28] MEDS: PANTOPRAZOLE INJ 80 MG in SODIUM CHLORIDE 0.9% INJ 100 ML IV SCH ×2 (04:12→15:51)
[2017-05-28] MEDS: SODIUM CHLOR 0.9% 1000 ML INJ 1,000 ML IV SCH ×2 (06:10→20:00)
--- NOTE | 2017-05-28 07:37 | HHI.FPPN ---
Subjective Remarks Feeling "better." Woke up at 2 am with 10/10 epigastric. Relieved with IV dilaudid. Small amount of BRB in stools last night. Multiple BMs, soft. No SOB, CP or headaches. H&H stable. Objective Vitals Vital Signs Date Time Temp Pulse Resp B/P (MAP) Pulse Ox O2 Delivery O2 Flow Rate FiO2 05/28/17 04:00 98.0 57 18 117/69 (85) 93 05/28/17 00:00 97.8 56 18 132/73 (92) 94 05/27/17 20:00 Room Air 05/27/17 20:00 97.7 54 18 128/74 (92) 95 05/27/17 16:00 Room Air 05/27/17 16:00 97.6 59 18 156/94 (114) 92 05/27/17 15:56 55 05/27/17 12:00 97.6 67 18 155/91 (112) 99 05/27/17 12:00 Room Air 05/27/17 11:34 62 05/27/17 08:00 Room Air 05/27/17 08:00 97.7 68 18 169/88 (115) 92 I/O 05/27/17 05/27/17 05/27/17 05/28/17 05/28/17 05/28/17 07:00 15:00 23:00 07:00 15:00 23:00 Intake Total 345 ml Output Total 1800 ml Balance -1455 ml FFP 341 ml Blood Product IV Normal Saline Flush 4 ml Output Urine Total 1800 ml Result Diagram: 05/27/17 1810 05/27/17 0540 Imaging Last 72 hours Impressions Chest X-Ray 05/26/171739 Signed Impressions: Service Date/Time: May 17:56 - CONCLUSION: No evidence of acute cardiopulmonary disease. Joe Berry MD Abdomen/Pelvis CT 05/26/171739 Signed Impressions: Service Date/Time: May 19:42 - CONCLUSION: 1. Fat-containing umbilical hernia that appears mildly indurated. Adjacent loops of small bowel but no obstruction or other acute complication. 2. Mild diverticulosis without diverticulitis. 3. Otherwise negative. Joe Berry MD Objective Remarks GEN: Obese, NAD, non toxic HEENT: PERRL, EOMI, MMM CV: RRR, no mumrurs RESP: CTAB, no wheezing. NO accessory muscle use. Comfortable. GI: BS present, no rebound or guarding, TTP in epigastrium and LLQ. Ext: Hyperpigmented lower extremities, hair low, and thickened skin. No calf tenderness. Neuro: CN intack, 5/5 strength throughout. AAO to person place. A/P Assessment and Plan Patient is a 51 year old male with past history of DM, recurrent VTE, PE on coumadin, GI bleed who presented for red blood per rectum. Initially had hematemesis and melena, hematemesis has since resolved although there still is vomiting, melena has transition to hematochezia. Patient believes this similar to last time he had gastric ulcers. INR 13.1, resolved to 1.6. Problem List: (1) Hematochezia ICD Codes: K92.1 - Melena Status: Acute Plan: History of DM, recurrent VTE, PE, GI bleed who presented for red blood per rectum. Initially had hematemesis and melena, hematemesis has since resolved although there still is vomiting, melena has transition to hematochezia. Patient believes is similar to last time he had gastric ulcers. INR 13.1. Medical record shows Mobic daily. Hgb 14.[address] shows mild diverticulosis without diverticulitis. -See elevated INR plan below. -Mobic held. -Received vitamin K, FFP x 2. Stable at this time. -Protonix drip. -Monitor hemoglobin every 6 hours. Stable at 14.0 g/dL. -Monitor for signs or symptoms of anemia. -Consulted GI: Plan for upper and lower endoscopy today 05/28/2017. Will re- start anticoagulation based on findings. Will re-start anticoagulation (2) Elevated INR ICD Codes: R79.1 - Abnormal coagulation profile Status: Acute Plan: Takign increased dose of 10 mg daily after being seen in [place] ED. ON admission he had a supratherapeutic INR of 13.1 with minimal bleeding, hemoglobin 14.9. Stable. INR corrected to 1.6 after 2 bags FFP and Vit K. -Hold warfarin for now. -Follow up H&H (3) Diabetes ICD Codes: E11.9 - Type 2 diabetes mellitus without complications Status: Chronic Plan: History of diabetes, controlled metformin. -Held home medications -Monitor blood glucose -Low-dose sliding scale (4) Hypertension ICD Codes: I10 - Essential (primary) hypertension Status: Chronic Plan: History of hypertension: -BP at goal currently. -Continue home medications, metoprolol, lisinopril, lasix. Monitor for hypotension given GI bleed. (5) Fluids/Electrolytes/Nutrition/Prophylaxis Status: Acute Plan: Diet: NPO Fluids: 100 ml/hr. ECHO in 07/2016 showed 55-60% EF. DVT ppx: SCDs GI ppx: As above. DW Dr. Woods. Rl Angulo MD, R3 May 28, 2017 07:37
[2017-05-28 08:00] VITALS: BP 117/74; PULSE 56; PULSE 59; RESP 20; TEMP 97.4; O2SAT 93
[2017-05-28] MEDS: INSULIN ASPART SUPPLEMENTAL SCALE SQ SCH ×4 (08:00→21:00)
[2017-05-28] MEDS: GABAPENTIN 300 MG CAP PO SCH ×3 (08:55→18:00)
[2017-05-28] MEDS: METOPROLOL SUCCINATE 50 MG EXTENDED RELEASE TAB PO SCH (08:56)
[2017-05-28] MEDS: LISINOPRIL 20 MG TAB PO SCH (08:56)
[2017-05-28] MEDS: FUROSEMIDE 40 MG TAB PO SCH ×2 (08:56→21:52)
[2017-05-28] MEDS: PARoxetine HCL 20 MG TAB PO SCH (08:56)
[2017-05-28] MEDS: SODIUM CHLORIDE 0.9% FLUSH 10 ML FLUSH IV FLUSH SCH ×2 (08:57→21:00)
[2017-05-28] MEDS ORDERED: ENALAPRILAT 1.25 MG/ML VIAL IV PUSH PRN (09:30)
[2017-05-28] MEDS ORDERED: POTASSIUM CHLOR 40 MEQ PREMIX 100 ML IV SCH (10:00)
[2017-05-28] MEDS: oxyCODONE/ACETAMINOPHEN 7.5 MG/325 MG TAB PO PRN ×2 (11:07→15:49)
[2017-05-28] MEDS: ONDANSETRON HCL 4 MG/2 ML VIAL IV PUSH PRN (11:07)
[2017-05-28 11:12] LABS: AUTOMATED NEUTROPHIL # 4.8 TH/MM3 (1.8-7.7); BASOPHIL % 0.6 % (0.0-2.0); EOSINOPHIL # 0.2 TH/MM3 (0-0.4); EOSINOPHIL % 2.2 % (0.0-4.0); HEMATOCRIT 42.5 % (39.0-51.0); HEMOGLOBIN 14.7 GM/DL (13.0-17.0); LYMPH % 22.5 % (9.0-44.0); LYMPHOCYTE # 1.6 TH/MM3 (1.0-4.8); MEAN CELL VOLUME 88.8 FL (80.0-100.0); MEAN CORPUSCULAR HEMOGLOBIN 30.6 PG (27.0-34.0); MEAN CORPUSCULAR HGB CONC 34.4 % (32.0-36.0); MEAN PLATELET VOLUME 8.1 FL (7.0-11.0); MONO % 8.3 % (0.0-8.0); MONOCYTE # 0.6 TH/MM3 (0-0.9); NEUT % 66.4 % (16.0-70.0); PLATELET COUNT 191 TH/MM3 (150-450); RED BLOOD COUNT 4.79 MIL/MM3 (4.50-5.90); WHITE BLOOD COUNT 7.3 TH/MM3 (4.0-11.0)
[2017-05-28 11:16] LABS: INTERNATIONAL NORMALIZED RATIO 1.3 RATIO; PROTHROMBIN TIME - PATIENT 13.4 SEC (9.8-11.6)
[2017-05-28 12:00] VITALS: BP 128/69; PULSE 54; PULSE 55; RESP 20; TEMP 97.6; O2SAT 94
[2017-05-28] MEDS ORDERED: GLYCOPYRROLATE 1 MG/5 ML SYRINGE IV PUSH ONE (12:00)
[2017-05-28] MEDS ORDERED: LIDOCAINE HCL 1% PF 5 ML AMPULE OTHER ONE (12:00)
[2017-05-28] MEDS ORDERED: ePHEDrine/NS 25 MG/5 ML SYRINGE IV ONE (12:00)
[2017-05-28] MEDS ORDERED: PROPOFOL 200 MG/20 ML AMP IV ONE (12:00)
[2017-05-28 12:02] LABS: ALBUMIN 3.2 GM/DL (3.4-5.0); ALKALINE PHOSPHATASE 152 U/L (45-117); ALT (GPT) 111 U/L (12-78); AST (GOT) 61 U/L (15-37); BICARBONATE 29.2 MEQ/L (21.0-32.0); BLOOD UREA NITROGEN 13 MG/DL (7-18); CHLORIDE 103 MEQ/L (98-107); CREATININE 0.93 MG/DL (0.60-1.30); GLOMERULAR FILTRATION RATE 86 ML/MIN (>89); GLUCOSE,RANDOM 92 MG/DL (74-106); SODIUM (NA) 138 MEQ/L (136-145)
[2017-05-28 16:00] VITALS: BP 125/73; PULSE 52; PULSE 54; RESP 20; TEMP 98.1; O2SAT 94
[2017-05-28] MEDS ORDERED: KETAMINE HCL 500 MG/5 ML VIAL ONE (18:21)
--- NOTE | 2017-05-28 18:54 | PD.PROCEDR ---
GI Procedure PROCEDURE PERFORMED EGD with biopsy followed by a colonoscopy incomplete due to poor prep INDICATION FOR PROCEDURE GI bleed PROCEDURE: The procedure, risks and benefits were discussed with Mr. Pagan and informed consent was obtained. Anesthesia sedated him with Diprivan. He was placed in the left lateral decubitus position. EGD: The Pentax videoscope was introduced through the oropharynx and advanced to the second portion of the duodenum under direct visualization. Retroflexion was performed in the stomach. FINDINGS: The esophagus this was normal The stomach this was diffusely erythemic in a punctate fashion no ulcers no erosions no blood or bleeding biopsies were taken from the gastric body and the gastric antrum The duodenum this was normal Colonoscopy: The Pentax videoscope was introduced through the rectum and advanced to the cecum where the ileocecal valve and appendiceal orifice were identified. Retroflexion was performed in the rectum. Colonic prep was poor FINDINGS: Colonic withdrawal time greater than 6 minutes as the scope was slowly withdrawn colonic mucosa was carefully inspected this evaluation is incomplete due to poor prep there was no blood or bleeding noted throughout the colon there was some mild diverticulosis of the sigmoid region on retroflexion in the rectum there was grade 2 internal hemorrhoids otherwise colonic examination was incomplete and unremarkable ESTIMATED BLOOD LOSS: None SPECIMENS REMOVED: Gastric biopsies COMPLICATIONS: None IMPRESSION: Diffuse gastritis etiology unclear Mild diverticulosis Grade 2 internal hemorrhoids PLAN: Await biopsies Advanced diet Okay for discharge in a.m. if all is stable Follow-up with GI post discharge Recommend colonoscopy in one to 2 months Balbir Blanc MD May 28, 2017 18:54
[2017-05-28] MEDS ORDERED: DO NOT ADM ANY ANTICOAGULANT DRUGS PRN (19:15)
[2017-05-28 20:00] VITALS: BP 122/64; PULSE 48; PULSE 53; RESP 16; TEMP 98; O2SAT 95
[2017-05-28] MEDS ORDERED: MIDAZOLAM HCL 2 MG/2 ML VIAL ONE (21:48)
[2017-05-29] VITALS: BP 152/79; PULSE 49; PULSE 66; RESP 18; TEMP 97.8; O2SAT 94
[2017-05-29] MEDS: SODIUM CHLOR 0.9% 1000 ML INJ 1,000 ML IV SCH ×2 (02:01→06:02)
[2017-05-29] MEDS: oxyCODONE/ACETAMINOPHEN 7.5 MG/325 MG TAB PO PRN ×3 (03:20→14:50)
[2017-05-29] MEDS: ONDANSETRON HCL 4 MG/2 ML VIAL IV PUSH PRN ×2 (03:22→10:09)
[2017-05-29] MEDS: PANTOPRAZOLE INJ 80 MG in SODIUM CHLORIDE 0.9% INJ 100 ML IV SCH (03:25)
[2017-05-29 04:00] VITALS: BP 146/73; PULSE 54; RESP 18; TEMP 97.8; O2SAT 94
--- NOTE | 2017-05-29 06:52 | HHI.FPPN ---
Subjective Remarks Patient is feeling "better." His abdominal pain is well controlled. Mainly over epigastrium and RUQ. His LLQ pain has resolved. Had BM this morning, that "may have had some blood in it." He denies persistent n/v/d. He denies any fevers. He denies any palpitations or feeling lightheaded. Objective Vitals Vital Signs Date Time Temp Pulse Resp B/P (MAP) Pulse Ox O2 Delivery O2 Flow Rate FiO2 05/29/17 00:00 Nasal Cannula 2.00 05/28/17 19:50 Nasal Cannula 2.00 05/28/17 19:15 57 13 99/56 (70) 94 Nasal Cannula 2 05/28/17 19:00 98.1 64 14 90/55 (67) 94 Nasal Cannula 2 05/28/17 16:00 98.1 54 20 125/73 (90) 94 05/28/17 16:00 52 05/28/17 12:00 55 05/28/17 12:00 97.6 54 20 128/69 (88) 94 05/28/17 08:00 56 05/28/17 08:00 97.4 59 20 117/74 (88) 93 05/28/17 07:15 Room Air I/O 05/28/17 05/28/17 05/28/17 05/29/17 05/29/17 05/29/17 07:00 15:00 23:00 07:00 15:00 23:00 Intake Total 1120 ml 300 ml 2417.2 ml Balance 1120 ml 300 ml 2417.2 ml Intake Oral 0 ml 0 ml IV Total 1120 ml 2417.2 ml Other 300 ml # Voids 3 3 # Bowel Movements 4 4 Result Diagram: 05/28/17 1054 05/28/17 1054 Objective Remarks GEN: Obese, NAD, non toxic HEENT: PERRL, EOMI, MMM CV: RRR, no mumrurs RESP: CTAB, no wheezing. NO accessory muscle use. Comfortable. GI: BS present, no rebound or guarding, TTP in epigastrium and LLQ. Ext: Hyperpigmented lower extremities, hair low, and thickened skin. No calf tenderness. Neuro: CN intack, 5/5 strength throughout. AAO to person place. A/P Assessment and Plan Patient is a 51 year old male with past history of DM, recurrent VTE, PE on coumadin, GI bleed who presented for red blood per rectum. Initially had hematemesis and melena, hematemesis has since resolved although there still is vomiting, melena has transition to hematochezia. Patient believes this similar to last time he had gastric ulcers. INR 13.1, resolved to 1.6. Discharge Planning Likely today, 05/29/2017. Patient improved significantly, hemoglobin is stable, and pain is well controlled. Problem List: (1) Hematochezia ICD Codes: K92.1 - Melena Status: Acute Plan: History of DM, recurrent VTE, PE, GI bleed who presented for red blood per rectum. Initially had hematemesis and melena, hematemesis has since resolved although there still is vomiting, melena has transition to hematochezia. Patient believes is similar to last time he had gastric ulcers. INR 13.1. Medical record shows Mobic daily. Hgb 14.[address] shows mild diverticulosis without diverticulitis. --Consulted GI: Upper and lower endoscopy today 05/28/2017. His was significant for diffuse punctate erythema in the gastric mucosa, grade 2 internal hemorrhoids, and diverticulosis. The colonoscopy was a poor prep, and will need repeat in 1-2 months per gastroenterology. Hemoglobin has been stable since admission. -See elevated INR plan below. -Mobic held. -Protonix drip. Transition to by mouth Protonix. (2) Elevated INR ICD Codes: R79.1 - Abnormal coagulation profile Status: Acute Plan: Taking increased dose of 10 mg daily after being seen in [place] ED. ON admission he had a supratherapeutic INR of 13.1 with minimal bleeding, hemoglobin 14.9. Stable. INR corrected to 1.6 after 2 bags FFP and Vit K. -Restart Coumadin today, at previous doses 7.5 mg daily. Recheck INR in 2-3 days. (3) Diabetes ICD Codes: E11.9 - Type 2 diabetes mellitus without complications Status: Chronic Plan: History of diabetes, controlled metformin. -Held home medications -Monitor blood glucose -Low-dose sliding scale (4) Hypertension ICD Codes: I10 - Essential (primary) hypertension Status: Chronic Plan: History of hypertension: -BP at goal currently. -Continue home medications, metoprolol, lisinopril, lasix. Monitor for hypotension given GI bleed. -Recommend getting a blood pressure cuff as an outpatient, he agreed with this. His blood pressure was low this morning at 90/55. He was asymptomatic during this time. He may need to decrease his metoprolol succinate, as he has lost a significant amount of weight. (5) Fluids/Electrolytes/Nutrition/Prophylaxis Status: Acute Plan: Diet: Trial a heart healthy diet today. If tolerating, can be discharged home with follow-up in our clinic in 2-3 days. Fluids: By mouth. ECHO in 07/2016 showed 55-60% EF. DVT ppx: SCDs GI ppx: As above. HUGO Woods. Rl Angulo MD, R3 May 29, 2017 06:52
[2017-05-29 08:00] VITALS: BP 123/57; PULSE 55; RESP 20; TEMP 98.2; O2SAT 93
[2017-05-29] MEDS: INSULIN ASPART SUPPLEMENTAL SCALE SQ SCH ×2 (08:00→12:00)
[2017-05-29] MEDS ORDERED: PANTOPRAZOLE SOD 40 MG DELAYED RELEASE TAB PO SCH (09:00)
[2017-05-29] MEDS: SODIUM CHLORIDE 0.9% FLUSH 10 ML FLUSH IV FLUSH SCH (09:00)
--- NOTE | 2017-05-29 09:23 | HHI.DCPOC ---
Discharge Care Plan Diagnosis: (1) Hemorrhoids (2) Gastritis (3) BRBPR (bright red blood per rectum) Goals to Promote Your Health * To prevent worsening of your condition and complications * To maintain your health at the optimal level Directions to Meet Your Goals Take your medications as prescribed Follow your dietary instruction Follow activity as directed Keep your appointments as scheduled Take your immunizations and boosters as scheduled If your symptoms worsen call your PCP, if no PCP go to Urgent Care Center or Emergency Room Smoking is Dangerous to Your Health. Avoid second hand smoke Call the 24-hour hour crisis hotline for domestic abuse at Rl Angulo MD, R3 May 29, 2017 09:23
--- NOTE | 2017-05-29 09:31 | HHI.DS ---
Discharge Summary Admission Date May 26, 2017 at 20:36 Admitting Diagnosis Elevated INR, abdominal pain, hematochezia (1) Hematochezia Plan: History of DM, recurrent VTE, PE, GI bleed who presented for red blood per rectum. Initially had hematemesis and melena, hematemesis has since resolved although there still is vomiting, melena has transition to hematochezia. Patient believes is similar to last time he had gastric ulcers. INR 13.1. Medical record shows Mobic daily. Hgb 14.[address] shows mild diverticulosis without diverticulitis. --Consulted GI: Upper and lower endoscopy today 05/28/2017. His was significant for diffuse punctate erythema in the gastric mucosa, grade 2 internal hemorrhoids, and diverticulosis. The colonoscopy was a poor prep, and will need repeat in 1-2 months per gastroenterology. Hemoglobin has been stable since admission. -See elevated INR plan below. -Mobic held. -Protonix drip. Transition to by mouth Protonix. ICD Codes: K92.1 - Melena Status: Acute (2) Elevated INR Plan: Taking increased dose of 10 mg daily after being seen in [place] ED. ON admission he had a supratherapeutic INR of 13.1 with minimal bleeding, hemoglobin 14.9. Stable. INR corrected to 1.6 after 2 bags FFP and Vit K. -Restart Coumadin today, at previous doses 7.5 mg daily. Recheck INR in 2-3 days. ICD Codes: R79.1 - Abnormal coagulation profile Status: Acute (3) Diabetes Plan: History of diabetes, controlled metformin. -Held home medications -Monitor blood glucose -Low-dose sliding scale ICD Codes: E11.9 - Type 2 diabetes mellitus without complications Status: Chronic (4) Hypertension Plan: History of hypertension: -BP at goal currently. -Continue home medications, metoprolol, lisinopril, lasix. Monitor for hypotension given GI bleed. -Recommend getting a blood pressure cuff as an outpatient, he agreed with this. His blood pressure was low this morning at 90/55. He was asymptomatic during this time. He may need to decrease his metoprolol succinate, as he has lost a significant amount of weight. ICD Codes: I10 - Essential (primary) hypertension Status: Chronic (5) Fluids/Electrolytes/Nutrition/Prophylaxis Plan: Diet: Trial a heart healthy diet today. If tolerating, can be discharged home with follow-up in our clinic in 2-3 days. Fluids: By mouth. ECHO in 07/2016 showed 55-60% EF. DVT ppx: SCDs GI ppx: As above. HUGO Woods. Status: Acute Brief History 51 year old male with past history of DM, recurrent VTE, PE, GI bleed presents today for blood per rectum. Patient reports 5 days ago he had nausea, vomiting which looked like "coffee grounds" along with black tarry stools. He called his primary care's office who advised him to go to the emergency room, he decided to wait to see his primary care office later in the week. The symptoms persisted for 2 days. Nausea and vomiting continued up to 9 times per day however was clear of jesús blood, black specks, "coffee grounds." The black tarry stool stopped after 2 days, however he noticed bright red blood in his stools since then. He does note a history of internal hemorrhoids. He believes it was only a small amount, however enough to be noticed. He also states that he 's had abdominal pain this entire time which feels similar to when he last had gastric ulcers. Denies fevers, chills, cough, chest pain, palpitations, shortness of breath, arm or jaw pain, lightheadedness, dizziness, bleeding from his gums, other sources of bleeding. CBC/BMP: 05/28/17 1054 05/28/17 1054 Significant Findings Laboratory Tests Test 05/26/17 18:00 05/27/17 05:40 05/27/17 14:09 05/27/17 18:10 Prothrombin Time 130.7 SEC (9.8-11.6) 15.9 SEC (9.8-11.6) 13.9 SEC (9.8-11.6) Prothromb Time International Ratio 13.1 RATIO Activated Partial Thromboplast Time 56.4 SEC (24.3-30.1) Albumin 3.3 GM/DL (3.4-5.0) Calcium Level 8.0 MG/DL (8.5-10.1) 8.4 MG/DL (8.5-10.1) Alkaline Phosphatase 122 U/L (45-117) Estimat Glomerular Filtration Rate 68 ML/MIN (>89) 79 ML/MIN (>89) Lipase 65 U/L (73-393) Test 05/28/17 10:54 Monocytes (%) (Auto) 8.3 % (0.0-8.0) Prothrombin Time 13.4 SEC (9.8-11.6) Albumin 3.2 GM/DL (3.4-5.0) Calcium Level 8.0 MG/DL (8.5-10.1) Alkaline Phosphatase 152 U/L (45-117) Aspartate Amino Transf (AST/SGOT) 61 U/L (15-37) Alanine Aminotransferase (ALT/SGPT) 111 U/L (12-78) Estimat Glomerular Filtration Rate 86 ML/MIN (>89) PE at Discharge GEN: Obese, NAD, non toxic HEENT: PERRL, EOMI, MMM CV: RRR, no mumrurs RESP: CTAB, no wheezing. NO accessory muscle use. Comfortable. GI: BS present, no rebound or guarding, TTP in epigastrium and LLQ. Ext: Hyperpigmented lower extremities, hair low, and thickened skin. No calf tenderness. Neuro: CN intack, 5/5 strength throughout. AAO to person place. Hospital Course Mr. Pagan, is a very pleasant 51-year-old male, with past medical history significant for gastric ulcers, recurrent DVT/PEs, myocardial infarction, morbid obesity, type 2 diabetes, and chronic pain, who presented to the emergency department at the recommendation of his PCP Dr. Brian Galindo, after experiencing bright red blood in his stool for 4-5 days. Hemoglobin was stable , however his INR was elevated 13.0 on admission. He was told by a physician in [place] to take 10 mg of his Coumadin daily after he had a low INR in the emergency department. He was given 2 units of FFP, as well as vitamin K. This corrected his INR, rapidly to 1.6. Bleeding improved throughout his hospitalization. He was seen by our pharmacists, and an upper and lower endoscopy were performed. This showed grade 2 internal hemorrhoids, Diverticulosis, as well as punctate erythema throughout the gastric mucosa. He was discharged home in stable condition, was tolerating his diet. He will be started on 7.5 mg of Coumadin daily, and recheck his INR/PT in 2-3 days. He should have a repeat colonoscopy in one to 2 months, due to poor prep. Pt Condition on Discharge: Stable Discharge Disposition: Discharge Home Discharge Instructions DIET: Follow Instructions for: Heart Healthy Diet Activities you can perform: Regular-No Restrictions Continued Medications: Furosemide (Furosemide) 40 Mg Tab 40 MG PO BID, #60 TAB 0 Refills Gabapentin (Gabapentin) 300 Mg Cap 300 MG PO TID, #180 CAP 1 Refill Lisinopril (Lisinopril) 20 Mg Tab 1 TAB PO DAILY, #60 TAB 0 Refills Metformin (Metformin) 1,000 Mg Tab 1000 MG PO BIDPC for Blood Sugar Management, #60 TAB 5 Refills With meals Metoprolol Succinate ER 24 HR (Metoprolol Succinate ER 24 HR) 200 Mg Tab 200 MG PO DAILY, #30 TAB 0 Refills Omeprazole (Omeprazole) 40 Mg Cap 40 MG PO BID, #30 CAP 3 Refills Ondansetron (Ondansetron) 8 Mg Tab 8 MG PO TID PRN for NAUSEA OR VOMITING, #30 TAB 1 Refill Take 1/2 tab Q8H as needed for nausea Oxycodone (Oxycodone) 15 Mg Tab 15 MG PO Q4H PRN for PAIN, TAB 0 Refills Paroxetine (Paroxetine) 40 Mg Tab 40 MG PO DAILY, #90 TAB 0 Refills Sumatriptan (Imitrex) 50 Mg Tab 50 MG PO ONCE PRN for MIGRAINE HEADACHE, #30 TAB 0 Refills If a satisfactory response has not been obtained at 2 hours, a second dose may be administered Warfarin (Warfarin) 7.5 Mg Tab 7.5 MG PO DAILY for Blood Clot Prevention, #30 TAB 0 Refills Take one tabled daily every day except one; on that day, take a ten (10) mg tablet. Discontinued Medications: Meloxicam (Mobic) 15 Mg Tab 15 MG PO DAILY, #30 TAB 0 Refills Warfarin (Warfarin) 10 Mg Tab 10 MG PO DIRECTED for Blood Clot Prevention, #30 TAB 0 Refills Take one (1) tablet once a week. On this day, do not take your 7.5 mg warfarin tablet. Rl Angulo MD, R3 May 29, 2017 09:31
[2017-05-29 09:56] LABS: BASOPHIL % 0.5 % (0.0-2.0); EOSINOPHIL # 0.1 TH/MM3 (0-0.4); HEMATOCRIT 41.7 % (39.0-51.0); HEMOGLOBIN 14.5 GM/DL (13.0-17.0); LYMPH % 31.3 % (9.0-44.0); LYMPHOCYTE # 2.2 TH/MM3 (1.0-4.8); MEAN CELL VOLUME 89.1 FL (80.0-100.0); MEAN CORPUSCULAR HGB CONC 34.7 % (32.0-36.0); MEAN PLATELET VOLUME 8.5 FL (7.0-11.0); MONO % 8.3 % (0.0-8.0); MONOCYTE # 0.6 TH/MM3 (0-0.9); NEUT % 57.9 % (16.0-70.0); PLATELET COUNT 185 TH/MM3 (150-450); RED BLOOD COUNT 4.68 MIL/MM3 (4.50-5.90); RED CELL DISTRIBUTION WIDTH 13.8 % (11.6-17.2); WHITE BLOOD COUNT 6.9 TH/MM3 (4.0-11.0)
[2017-05-29] MEDS: LISINOPRIL 20 MG TAB PO SCH (10:04)
[2017-05-29] MEDS: FUROSEMIDE 40 MG TAB PO SCH (10:04)
[2017-05-29] MEDS: GABAPENTIN 300 MG CAP PO SCH ×3 (10:04→15:49)
[2017-05-29] MEDS: PARoxetine HCL 20 MG TAB PO SCH (10:04)
[2017-05-29] MEDS: METOPROLOL SUCCINATE 50 MG EXTENDED RELEASE TAB PO SCH (10:04)
[2017-05-29 10:14] LABS: AST (GOT) 28 U/L (15-37); BICARBONATE 28.1 MEQ/L (21.0-32.0); BLOOD UREA NITROGEN 13 MG/DL (7-18); CALCIUM 8.1 MG/DL (8.5-10.1); CHLORIDE 102 MEQ/L (98-107); CREATININE 0.94 MG/DL (0.60-1.30); GLOMERULAR FILTRATION RATE 85 ML/MIN (>89); GLUCOSE,RANDOM 77 MG/DL (74-106); SODIUM (NA) 137 MEQ/L (136-145)
[2017-05-29 10:15] LABS: ALT (GPT) 74 U/L (12-78)
[2017-05-29 10:17] LABS: ALKALINE PHOSPHATASE 142 U/L (45-117); TOTAL BILIRUBIN ADULT 1.2 MG/DL (0.2-1.0); TOTAL PROTEIN 6.8 GM/DL (6.4-8.2)
[2017-05-29 12:00] VITALS: BP 92/51; PULSE 54; RESP 20; TEMP 98.1; O2SAT 93
[2017-05-29] MEDS ORDERED: WARFARIN SOD 7.5 MG TAB PO SCH (16:00)
== END 2017-05-29 16:08 | disposition home or self-care (01) | DRG 378 ==
LOC: NEPC 15:48 → NEDA 20:36 → N04B 21:29
PROVIDERS: ADMIT Family Medicine; ATTEND Family Medicine
PROC: 30233K1 Transfusion of Nonautologous Frozen Plasma into Peripheral Vein, Percutaneous Approach (ICD-10-PCS; principal; 2017-05-26)
PROC: 0DB78ZX Excision of Stomach, Pylorus, Via Natural or Artificial Opening Endoscopic, Diagnostic (ICD-10-PCS; 2017-05-28)
PROC: 0DJD8ZZ Inspection of Lower Intestinal Tract, Via Natural or Artificial Opening Endoscopic (ICD-10-PCS; 2017-05-28)
PROC: 0DB68ZX Excision of Stomach, Via Natural or Artificial Opening Endoscopic, Diagnostic (ICD-10-PCS; 2017-05-28 18:20)
DX: K92.1 Melena (principal); D68.9 Coagulation defect, unspecified; Z68.42 Body mass index [BMI] 45.0-49.9, adult; I10 Essential (primary) hypertension; K64.4 Residual hemorrhoidal skin tags; E66.01 Morbid (severe) obesity due to excess calories; E11.9 Type 2 diabetes mellitus without complications; G89.29 Other chronic pain; M54.2 Cervicalgia; K57.30 Diverticulosis of large intestine without perforation or abscess without bleeding; K64.1 Second degree hemorrhoids; K21.9 Gastro-esophageal reflux disease without esophagitis; K29.70 Gastritis, unspecified, without bleeding; K42.9 Umbilical hernia without obstruction or gangrene; M17.10 Unilateral primary osteoarthritis, unspecified knee; F32.9 Major depressive disorder, single episode, unspecified; F41.9 Anxiety disorder, unspecified; Z87.11 Personal history of peptic ulcer disease; Z86.718 Personal history of other venous thrombosis and embolism; Z79.84 Long term (current) use of oral hypoglycemic drugs; Z86.711 Personal history of pulmonary embolism; Z79.01 Long term (current) use of anticoagulants; Z86.14 Personal history of Methicillin resistant Staphylococcus aureus infection; I25.2 Old myocardial infarction
CPT/HCPCS: 36430; 71045; 74177; 80048; 80053; 82948; 83690; 85014; 85018; 85025; 85027; 85610; 85730; 86850; 86900; 86901; 86927; 88305; 88312; 96361; 96365; 96375; C9113; J1170; J2250; J2405; J3430; J7030; P9017; Q9967

== ENCOUNTER 2017-09-03 19:22 | Observation (INO) | payer MEDICAID ==
[~2017-09-03 19:22] MED LIST changes: -MOBI15TA PO; -WARF-22 PO
[2017-09-03 19:24] VITALS: BP 176/94; PULSE 87; RESP 20; TEMP 97.9; O2SAT 98
[2017-09-03] MEDS ORDERED: PANTOPRAZOLE INJ 80 MG in SODIUM CHLORIDE 0.9% INJ 35 ML IV ONE (19:38)
[2017-09-03 19:41] VITALS: O2SAT 99
[2017-09-03] MEDS ORDERED: SODIUM CHLORIDE 0.9% FLUSH 10 ML FLUSH IVF PRN (19:45)
[2017-09-03] MEDS ORDERED: ONDANSETRON HCL 4 MG/2 ML VIAL IVP ONE (19:45)
[2017-09-03] MEDS ORDERED: PANT40TA3 PO (19:49)
[2017-09-03] MEDS ORDERED: SUCR1TAB PO ×2 (19:49)
[2017-09-03] MEDS ORDERED: METF1000 PO ×2 (19:49)
[2017-09-03] MEDS ORDERED: METO1TAB9 PO ×2 (19:49)
[2017-09-03] MEDS ORDERED: PAXI10TA8 PO (19:49)
[2017-09-03] MEDS ORDERED: OXYC-396 PO ×2 (19:49)
[2017-09-03] MEDS ORDERED: WARF-23 PO (19:49)
--- NOTE | 2017-09-03 19:54 | PD ---
HPI Chief Complaint: GI bleed Time Seen by Provider: 19:35 Travel History International Travel<30 days: No Contact w/Intl Traveler<30days: No Traveled to known affect area: No History of Present Illness HPI 52-year-old male states he has been having coffee-ground vomiting and dark stools over the past couple of days. He states that he ran out of his Coumadin a couple days ago and has had issues with GI bleeding in the past. He states when he was at [facility] before he had to get 4 units of blood but that was a while back. He states that he was out here visiting his sister and given his symptoms were getting worse he elected to come in. He denies other significant complaints other than abdominal pain that feels similar to his prior ulcers. Quality is dark. Severity is multiple episodes per patient. He states he feels worse when he moves around. He denies other modifying factors. PFSH Past Medical History Hx Anticoagulant Therapy: Yes (Coumadin) Arthritis: No Asthma: No Autoimmune Disease: No Blood Disorders: No Anxiety: Yes Depression: Yes Heart Rhythm Problems: No Cancer: No Cardiac Catheterization: Yes Cardiovascular Problems: Yes High Cholesterol: No Chemotherapy: No Chest Pain: Yes Congestive Heart Failure: No COPD: No Cerebrovascular Accident: No Diabetes: Yes Patient Takes Glucophage: No Diminished Hearing: No Endocrine: No Gastrointestinal Disorders: Yes (GERD; ULCER HX; SBO) GERD: Yes Glaucoma: No Genitourinary: No Headaches: No Hepatitis: No Hiatal Hernia: No Hypertension: Yes Immune Disorder: No Inguinal Hernia: Yes Kidney Stones: No Musculoskeletal: Yes Neurologic: No Psychiatric: Yes Reproductive: No Respiratory: No Immunizations Current: Yes Myocardial Infarction: Yes Pancreatitis: Yes Radiation Therapy: No Renal Failure: No Seizures: No Sickle Cell Disease: No Sleep Apnea: No Thyroid Disease: No Ulcer: Yes Past Surgical History Abdominal Surgery: Yes (BILATERAL INGUINAL HERNIA REPAIR ; REPAIR RECURRENT RT ING HERNIA) AICD: No Appendectomy: Yes Arteriovenous Shunt: No Body Medical Devices: NONE Cardiac Surgery: No Cholecystectomy: Yes Coronary Artery Bypass Graft: No Ear Surgery: No Endocrine Surgery: No Eye Surgery: No Genitourinary Surgery: No Gynecologic Surgery: No Insulin Pump: No Joint Replacement: No Oral Surgery: No Pacemaker: No Thoracic Surgery: No Other Surgery: Yes (RT SHOULDER SURGERY REBUILT 2012; RT KNEE SCOPED X 3/ REPLACED, LT KNEE X 2) Family History Family Myocardial Infarction: Yes (FATHER 63 FROM [place], SISTER HAD ONE) Social History Alcohol Use: No Tobacco Use: No Substance Use: No Allergies-Medications (Allergen,Severity, Reaction): Coded Allergies: No Known Allergies (Verified Allergy, Unknown, 09/03/17) Reported Meds & Prescriptions Reported Meds & Active Scripts Active Lisinopril 20 Mg Tab 1 Tab PO DAILY Furosemide 40 Mg Tab 40 Mg PO BID Gabapentin 300 Mg Cap 300 Mg PO TID Paroxetine (Paroxetine HCl) 40 Mg Tab 40 Mg PO DAILY Omeprazole 40 Mg Cap 40 Mg PO BID Imitrex (Sumatriptan Succinate) 50 Mg Tab 50 Mg PO ONCE PRN If a satisfactory response has not been obtained at 2 hours, a second dose may be administered Reported Metoprolol Succinate ER 24 HR (Metoprolol Succinate) 50 Mg Tab 50 Mg PO DAILY Warfarin 5 Mg Tab 5 Mg PO DAILY Oxycodone (Oxycodone HCl) 20 Mg Tab 20 Mg PO Q4HR Metformin (Metformin HCl) 1,000 Mg Tab 1,000 Mg PO DAILY With a meal Sucralfate 1 Gram Tab 1 Gm PO QID on empty stomach Paxil (Paroxetine HCl) 10 Mg Tab 40 Mg PO DAILY Pantoprazole (Pantoprazole Sodium) 40 Mg Tab 40 Mg PO BID Review of Systems Except as stated in HPI: all other systems reviewed are Neg Physical Exam Narrative GENERAL: 52-year-old male who appears uncomfortable SKIN: Focused skin assessment warm/dry. HEAD: Atraumatic. Normocephalic. EYES: Pupils equal and round. No scleral icterus. No injection or drainage. ENT: No nasal bleeding or discharge. Mucous membranes pink and moist. NECK: Trachea midline. CARDIOVASCULAR: Regular rate and rhythm. RESPIRATORY: No accessory muscle use. No increased effort GASTROINTESTINAL: Abdomen soft, tender in epigastric area, nondistended. No rebound MUSCULOSKELETAL: No obvious deformities. No clubbing. No cyanosis. NEUROLOGICAL: Awake and alert. Moves all extremities. Normal speech. RECTAL EXAM: Performed with ornament setter and after permission. No external hemorrhoid or fissure, stool is brown, non-bloody. Data Data Last Documented VS Vital Signs Date Time Temp Pulse Resp B/P (MAP) Pulse Ox O2 Delivery O2 Flow Rate FiO2 09/03/17 19:41 99 Room Air 09/03/17 19:24 97.9 87 20 176/94 (121) Orders Orders Complete Blood Count With Diff (09/03/17:38) Comprehensive Metabolic Panel (09/03/17:38) Lipase (09/03/17:38) Ammonia (09/03/17:38) Prothrombin Time / Inr (Pt) (09/03/17:38) Act Partial Throm Time (Ptt) (09/03/17:38) Alcohol (Ethanol) (09/03/17:38) Urinalysis - C+S If Indicated (09/03/17:38) Red Blood Cells (Rbc) (09/03/17:38) Chest, Single Ap (09/03/17:38) Ecg Monitoring (09/03/17:) Iv Access Insert/Monitor (09/03/17:38) Oximetry (09/03/17:38) Ondansetron Inj (Zofran Inj) (09/03/17 19:45) Sodium Chloride 0.9% Flush (Ns Flush) (09/03/17 19:45) Sodium Chloride 0.9... W/Pantoprazole In (09/03/17 19:38) Sodium Chloride 0.9... W/Pantoprazole In (09/03/17:38) Ckmb (Isoenzyme) Profile (09/03/17 19:38) Magnesium (Mg) (09/03/17 19:38) Troponin I (09/03/17 19:38) Type And Screen (09/03/17 19:38) Metoclopramide Inj (Reglan Inj) (09/03/17 20:00) Electrocardiogram (09/03/17 ) Morphine Inj (Morphine Inj) (09/03/17 20:45) Admit Order (Ed Use Only) (09/03/17 21:53) Labs Laboratory Tests Test 09/03/17 19:50 09/03/17 19:55 09/03/17 20:45 White Blood Count 7.0 TH/MM3 Red Blood Count 4.32 MIL/MM3 Hemoglobin 13.1 GM/DL Hematocrit 39.3 % Mean Corpuscular Volume 91.0 FL Mean Corpuscular Hemoglobin 30.3 PG Mean Corpuscular Hemoglobin Concent 33.3 % Red Cell Distribution Width 14.6 % Platelet Count 485 TH/MM3 Mean Platelet Volume 7.7 FL Neutrophils (%) (Auto) 54.0 % Lymphocytes (%) (Auto) 33.9 % Monocytes (%) (Auto) 10.1 % Eosinophils (%) (Auto) 1.2 % Basophils (%) (Auto) 0.8 % Neutrophils # (Auto) 3.8 TH/MM3 Lymphocytes # (Auto) 2.4 TH/MM3 Monocytes # (Auto) 0.7 TH/MM3 Eosinophils # (Auto) 0.1 TH/MM3 Basophils # (Auto) 0.1 TH/MM3 CBC Comment DIFF FINAL Differential Comment Prothrombin Time 11.5 SEC Prothromb Time International Ratio 1.1 RATIO Activated Partial Thromboplast Time 25.2 SEC Blood Urea Nitrogen 9 MG/DL Creatinine 1.25 MG/DL Random Glucose 86 MG/DL Total Protein 7.7 GM/DL Albumin 3.1 GM/DL Calcium Level 8.5 MG/DL Magnesium Level 2.0 MG/DL Alkaline Phosphatase 195 U/L Aspartate Amino Transf (AST/SGOT) 17 U/L Alanine Aminotransferase (ALT/SGPT) 54 U/L Total Bilirubin 0.2 MG/DL Sodium Level 145 MEQ/L Potassium Level 3.6 MEQ/L Chloride Level 112 MEQ/L Carbon Dioxide Level 25.4 MEQ/L Anion Gap 8 MEQ/L Estimat Glomerular Filtration Rate 61 ML/MIN Total Creatine Kinase 87 U/L Troponin I LESS THAN 0.02 NG/ML Lipase 97 U/L Ethyl Alcohol Level LESS THAN 3 MG/DL Ammonia 31 MCMOL/L MDM Medical Decision Making Medical Screen Exam Complete: Yes Emergency Medical Condition: Yes Medical Record Reviewed: Yes (Prior scopes noted from May of this year, past history confirmed) Interpretation(s) CBC & BMP Diagram 09/03/17 19:50 Total Protein 7.7, Albumin 3.1 L, Calcium Level 8.5, Magnesium Level 2.0, Alkaline Phosphatase 195 H, Aspartate Amino Transf (AST/SGOT) 17, Alanine Aminotransferase (ALT/SGPT) 54, Total Bilirubin 0.2 Last 24 hours Impressions Chest X-Ray 09/03/17 193 Signed Impressions: Service Date/Time: Tuesday, September 03, 2017 20:01 - CONCLUSION: No acute disease. Jacob Alcantara MD Differential Diagnosis Ulcer, anemia, pancreatitis, gastroenteritis Narrative Course We will check blood work, imaging and place on Protonix drip and reevaluate labs without emergent findings, will place in observation H[facility]pt Point of Care Internal Pos. & Neg. Controls: Passed Fecal Specimen Occult Blood: Positive Physician Communication Physician Communication resident team agree to observation Diagnosis Primary Impression: Hematochezia Additional Impressions: Coffee ground emesis Abdominal pain Qualified Codes: R10.9 - Unspecified abdominal pain Admitting Information Admitting Physician Requests: Observation Ale Hunt MD September 03, 2017 19:54
[2017-09-03 20:00] VITALS: BP 141/77; PULSE 73; RESP 16; O2SAT 98
[2017-09-03] MEDS ORDERED: METOCLOPRAMIDE HCL 10 MG/2 ML VIAL IV PUSH ONE (20:00)
--- NOTE | 2017-09-03 20:20 | RADRPT ---
EXAM DATE/TIME: 09/03/2017 20:01 [facility] COMPARISON: CHEST SINGLE AP, May 26, 2017, 17:56. INDICATIONS : Midchest pain and shortness of breath. MEDICAL HISTORY : Hypertension. Diabetes mellitus type II. SURGICAL HISTORY : None. ENCOUNTER: Initial ACUITY: 1 day PAIN SCORE: 4/10 LOCATION: chest FINDINGS: A single view of the chest demonstrates the lungs to be symmetrically aerated without evidence of mas s, infiltrate or effusion. The cardiomediastinal contours are unremarkable. Osseous structures are intact. CONCLUSION: No acute disease. Jacob Alcantara MD on September 03, 2017 at 20:18 Board Certified Radiologist. This report was verified electronically.
[2017-09-03] MEDS ORDERED: MORPHINE SULFATE 4 MG/ML INJ IV PUSH ONE (20:45)
[2017-09-03] MEDS: PANTOPRAZOLE INJ 80 MG in SODIUM CHLORIDE 0.9% INJ 100 ML IV SCH (20:50)
[2017-09-03 20:55] LABS: AUTOMATED NEUTROPHIL # 3.8 TH/MM3 (1.8-7.7); BASOPHIL # 0.1 TH/MM3 (0-0.2); BASOPHIL % 0.8 % (0.0-2.0); EOSINOPHIL # 0.1 TH/MM3 (0-0.4); EOSINOPHIL % 1.2 % (0.0-4.0); HEMATOCRIT 39.3 % (39.0-51.0); HEMOGLOBIN 13.1 GM/DL (13.0-17.0); LYMPH % 33.9 % (9.0-44.0); LYMPHOCYTE # 2.4 TH/MM3 (1.0-4.8); MEAN CORPUSCULAR HEMOGLOBIN 30.3 PG (27.0-34.0); MEAN CORPUSCULAR HGB CONC 33.3 % (32.0-36.0); MEAN PLATELET VOLUME 7.7 FL (7.0-11.0); MONO % 10.1 % (0.0-8.0); MONOCYTE # 0.7 TH/MM3 (0-0.9); PLATELET COUNT 485 TH/MM3 (150-450); RED BLOOD COUNT 4.32 MIL/MM3 (4.50-5.90); RED CELL DISTRIBUTION WIDTH 14.6 % (11.6-17.2)
[2017-09-03 21:00] VITALS: BP 152/79; PULSE 75; RESP 16; O2SAT 98
[2017-09-03 21:03] LABS: INTERNATIONAL NORMALIZED RATIO 1.1 RATIO; PROTHROMBIN TIME - PATIENT 11.5 SEC (9.8-11.6)
[2017-09-03 21:12] LABS: ALBUMIN 3.1 GM/DL (3.4-5.0); AST (GOT) 17 U/L (15-37); BICARBONATE 25.4 MEQ/L (21.0-32.0); BLOOD UREA NITROGEN 9 MG/DL (7-18); CALCIUM 8.5 MG/DL (8.5-10.1); CHLORIDE 112 MEQ/L (98-107); CREATININE 1.25 MG/DL (0.60-1.30); GLOMERULAR FILTRATION RATE 61 ML/MIN (>89); GLUCOSE,RANDOM 86 MG/DL (74-106); SODIUM (NA) 145 MEQ/L (136-145)
[2017-09-03 21:16] LABS: ALKALINE PHOSPHATASE 195 U/L (45-117); ALT (GPT) 54 U/L (12-78); TOTAL BILIRUBIN ADULT 0.2 MG/DL (0.2-1.0); TOTAL PROTEIN 7.7 GM/DL (6.4-8.2); TROPONIN I LESS THAN 0.02 NG/ML (0.02-0.05)
[2017-09-03 21:35] LABS: BILIRUBIN, URINE NEG (NEG); BLOOD, URINE NEG (NEG); GLUCOSE,URINE NEG (NEG); KETONE, URINE NEG (NEG); NITRITE,URINE NEG (NEG); URINE COLOR LIGHT-YELLOW (YELLW/STRAW); URINE LEUKOCYTE ESTERASE NEG (NEG)
[2017-09-03] MEDS ORDERED: IOHEXOL 350 MG/ML 10 ML VIAL (for RAD DIAG) IVCONTRAST ONE (21:55)
[2017-09-03 22:00] VITALS: BP 152/82; PULSE 80; RESP 16; O2SAT 99
[2017-09-03 22:01] LABS: BACTERIA, URINE RARE /hpf
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
[2017-09-03] MEDS ORDERED: GLUCAGON 1 MG/ML VIAL OTHER PRN (22:30)
[2017-09-03] MEDS ORDERED: DEXTROSE 50% IN WATER 50 ML VIAL(D50) IV PUSH PRN (22:30)
[2017-09-03] MEDS ORDERED: PANTOPRAZOLE SOD 40 MG DELAYED RELEASE TAB PO SCH (22:30)
[2017-09-03 22:57] VITALS: BP 149/70; PULSE 69; RESP 18; TEMP 98.8; O2SAT 99
[2017-09-03] MEDS ORDERED: NALOXONE HCL 0.4 MG/ML AMP IV PUSH PRN (23:00)
[2017-09-03] MEDS ORDERED: HYDROmorphone HCL PF 0.5 MG/0.5 ML SYRINGE IV PRN (23:30)
[2017-09-04] VITALS (7 sets, daily range): BP systolic 136–169; BP diastolic 68–90; PULSE 58–72; RESP 16–20; TEMP 97.6–98.5; O2SAT 94–97
[2017-09-04] MEDS: SODIUM CHLOR 0.9% 1000 ML INJ 1,000 ML IV SCH ×5 (00:04→21:44)
[2017-09-04] MEDS: HYDROmorphone HCL PF 0.5 MG/0.5 ML SYRINGE IV PRN ×7 (00:05→22:18)
[2017-09-04] MEDS: SODIUM CHLORIDE 0.9% FLUSH 10 ML FLUSH IV FLUSH PRN ×3 (00:05→06:21)
[2017-09-04] MEDS: TEMAZEPAM 15 MG CAP PO PRN ×2 (00:06→22:18)
[2017-09-04 03:31] LABS: ALBUMIN 2.8 GM/DL (3.4-5.0); ALT (GPT) 42 U/L (12-78); AST (GOT) 11 U/L (15-37); BICARBONATE 24.6 MEQ/L (21.0-32.0); BLOOD UREA NITROGEN 8 MG/DL (7-18); CHLORIDE 114 MEQ/L (98-107); CREATININE 1.13 MG/DL (0.60-1.30); GLOMERULAR FILTRATION RATE 68 ML/MIN (>89); GLUCOSE,RANDOM 83 MG/DL (74-106); SODIUM (NA) 146 MEQ/L (136-145)
[2017-09-04 03:33] LABS: ALKALINE PHOSPHATASE 168 U/L (45-117); TOTAL BILIRUBIN ADULT 0.2 MG/DL (0.2-1.0); TOTAL PROTEIN 6.7 GM/DL (6.4-8.2)
[2017-09-04] MEDS: PANTOPRAZOLE INJ 80 MG in SODIUM CHLORIDE 0.9% INJ 100 ML IV SCH ×2 (06:20→15:53)
[2017-09-04] MEDS: ONDANSETRON ODT 4 MG TAB PO PRN (06:21)
[2017-09-04] MEDS ORDERED: DIATRIZOATE MEGLUM/DIATRIZOATE SOD 9 ML CUP PO ONE (06:45)
[2017-09-04] MEDS: INSULIN ASPART SUPPLEMENTAL SCALE SQ SCH ×4 (07:57→20:30)
[2017-09-04] MEDS: METOPROLOL SUCCINATE 50 MG EXTENDED RELEASE TAB PO SCH (07:59)
[2017-09-04] MEDS: SODIUM CHLORIDE 0.9% FLUSH 10 ML FLUSH IV FLUSH SCH ×2 (07:59→21:00)
[2017-09-04] MEDS: LISINOPRIL 20 MG TAB PO SCH (07:59)
[2017-09-04] MEDS: PARoxetine HCL 20 MG TAB PO SCH (07:59)
[2017-09-04] MEDS: GABAPENTIN 300 MG CAP PO SCH ×3 (07:59→17:23)
[2017-09-04 08:18] LABS: HEMATOCRIT 36.7 % (39.0-51.0); HEMOGLOBIN 12.2 GM/DL (13.0-17.0)
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
[2017-09-04 09:10] LABS: AUTOMATED NEUTROPHIL # 3.7 TH/MM3 (1.8-7.7); BASOPHIL % 0.5 % (0.0-2.0); EOSINOPHIL # 0.1 TH/MM3 (0-0.4); EOSINOPHIL % 1.6 % (0.0-4.0); HEMATOCRIT 38.1 % (39.0-51.0); HEMOGLOBIN 12.6 GM/DL (13.0-17.0); LYMPH % 41.5 % (9.0-44.0); LYMPHOCYTE # 3.1 TH/MM3 (1.0-4.8); MEAN CELL VOLUME 90.6 FL (80.0-100.0); MEAN CORPUSCULAR HEMOGLOBIN 29.9 PG (27.0-34.0); MEAN PLATELET VOLUME 7.9 FL (7.0-11.0); MONO % 7.4 % (0.0-8.0); MONOCYTE # 0.5 TH/MM3 (0-0.9); PLATELET COUNT 465 TH/MM3 (150-450); RED CELL DISTRIBUTION WIDTH 14.6 % (11.6-17.2); WHITE BLOOD COUNT 7.5 TH/MM3 (4.0-11.0)
--- NOTE | 2017-09-04 09:26 | HHI.FPPN ---
Subjective Remarks Pt seen and examined this morning. No acute events overnight. Patient reports continued pain in his abdominal area, specifically epigastric and bilateral lower quadrants. States is a little improved since yesterday. Did have a bowel movement overnight, denies any blood in it. Endorses nausea, no vomiting. Denies any chest pain. Denies any shortness of breath. (Viraj Snider MD R2) Objective Vitals Vital Signs Date Time Temp Pulse Resp B/P (MAP) Pulse Ox O2 Delivery O2 Flow Rate FiO2 09/04/17 08:43 97 21 09/04/17 07:43 98.5 63 18 140/74 (96) 94 09/04/17 06:50 14 09/04/17 03:11 98.1 72 18 144/73 (96) 97 09/03/17 22:57 98.8 69 18 149/70 (96) 99 09/03/17 22:00 80 16 152/82 (105) 99 Room Air 09/03/17 21:00 75 16 152/79 (103) 98 Room Air 09/03/17 20:00 73 16 141/77 (98) 98 Room Air 09/03/17 19:41 99 Room Air 09/03/17 19:41 99 Room Air 09/03/17 19:24 97.9 87 20 176/94 (121) 98 I/O 09/03/17 09/03/17 09/03/17 09/04/17 09/04/17 09/04/17 07:00 15:00 23:00 07:00 15:00 23:00 Intake Total 35 ml Balance 35 ml Intake IV Total 35 ml # Voids 1 (Viraj Snider MD R2) Result Diagram: 09/04/17 0615 09/04/17 0255 Imaging Last Impressions Chest X-Ray 09/03/17 193 Signed Impressions: Service Date/Time: Sunday, September 03, 2017 20:01 - CONCLUSION: No acute disease. Jacob Alcantara MD Objective Remarks GENERAL: No acute distress, lying in bed. SKIN: Warm and dry. CARDIOVASCULAR: Regular rate and rhythm. RESPIRATORY: No accessory muscle use. Clear to auscultation. Breath sounds equal bilaterally. GASTROINTESTINAL: Abdomen soft, tender to palpation epigastric and bilateral lower quadrants. Bowel sounds positive. MUSCULOSKELETAL: Extremities without clubbing, cyanosis, or edema. No obvious deformities. NEUROLOGICAL: Awake and alert. Normal speech. PSYCHIATRIC: Appropriate mood and affect; insight and judgment normal. (Viraj Snider MD R2) A/P Assessment and Plan 52-year-old white male with past medical history of hypertension, diabetes, recurrent DVT/PEs admitted for a GI bleed. He is admitted to our [facility] for observation. Discharge Planning Pending GI workup (Viraj Snider MD R2) Attending Attestation Patient seen and examined. Discussed with Dr. Snider. Agree with assessment and plan as documented. (Prevatte,Robby Strickland Jr., MD) Problem List: (1) Hematochezia ICD Codes: K92.1 - Melena Status: Acute Plan: Bright red blood per rectum of 1 day duration. Hemoglobin on admission WNL at 13.1. No leukocytosis. INR at 1.1 Alkaline phosphatase is elevated at 195. Records from [facility] in [place] requested Hemoccult positive in ED H/H 12.6 this AM -CT abdomen/pelvis pending -Consult gastroenterology, appreciate recommendations -CLD -EGD/colonoscopy tomorrow -H-pylori -Protonix gtt -IV fluids at maintenance rate of 175 mls/hr -Monitor I's and O's -Hold anticoagulation at this time due to bleeding (2) Coffee ground emesis ICD Codes: K92.0 - Hematemesis Status: Acute Plan: Coffee-ground emesis of 2 days duration. Hemoglobin on admission 13.1. Differential diagnosis include gastric ulcers versus gastroenteritis vs esophageal varices Lipase is WNL CXR on admission shows no acute disease -Placed on Protonix drip in ED -Will continue this -Zofran ODT 4 mg p.o. every 4 hours as needed for nausea/vomiting -Dilaudid for abdominal pain (3) Chest pain ICD Codes: R07.9 - Chest pain, unspecified Status: Resolved Plan: Pressure-like chest pain that started on admission. Initial troponin negative. EKG on admission shows normal sinus rhythm. CXR as above -Troponins remained negative. -Chest pain resolved (4) Hypertension ICD Codes: I10 - Essential (primary) hypertension Status: Chronic Plan: Continue at home medications -Metoprolol succinate ER 50 mg p.o. daily -Lisinopril 20 mg p.o. daily (5) Diabetes ICD Codes: E11.9 - Type 2 diabetes mellitus without complications Status: Chronic Plan: At home Metformin was held -Hemoglobin A1c pending -NovoLog low-dose sliding scale insulin -Hypoglycemia protocol -Bedside Accu-Cheks (6) History of recurrent deep vein thrombosis ICD Codes: Z86.718 - Personal history of other venous thrombosis and embolism Status: Chronic Plan: As stated above, INR upon admission is WNL at 1.1. Patient's goal INR is 2-3. -Hold warfarin due to active bleeding (7) Chronic pain ICD Codes: G89.29 - Other chronic pain Status: Chronic Plan: Patient has chronic pain due to multiple surgeries on his neck, back, hips, knees. Patient is on oxycodone 20 mg every 4 hours at home. This is managed by pain management as an outpatient. -Due to n.p.o. status and high levels of pain, will do IV Dilaudid at this time -Will readjust to p.o. and very likely a different medication (8) Depression ICD Codes: F32.9 - Major depressive disorder, single episode, unspecified Status: Chronic Plan: Continue at home paroxetine 40 mg p.o. daily (9) FEN Status: Acute Plan: Fluids: NS @ 175ml/hr Electrolytes: monitor and replete as needed Nutrition: CLD, Npo after midnight DVT Prophylaxis: Early ambulation. bilateral SCDs GI Prophylaxis: As above (Viraj Snider MD R2) Problem Qualifiers (1) Chest pain: Qualified Codes: R07.9 - Chest pain, unspecified (2) Diabetes: Qualified Codes: E11.8 - Type 2 diabetes mellitus with unspecified complications (3) Chronic pain: Qualified Codes: G89.29 - Other chronic pain Viraj Snider MD R2 September 04, 2017 09:26 Robby Woods Jr., MD September 04, 2017 11:08
[2017-09-04 11:28] LABS: HEMOGLOBIN A1C 5.7 % (4.3-6.0)
[2017-09-04 15:52] LABS: HEMATOCRIT 35.7 % (39.0-51.0)
[2017-09-04] MEDS ORDERED: PEG (High)/E-LYTE SOLN 4000 ML BTL PO ONE (16:00)
--- NOTE | 2017-09-04 17:55 | RADRPT ---
EXAM DATE/TIME: 09/04/2017 16:06 [place] COMPARISON: CT ABDOMEN & PELVIS W CONTRAST, May 26, 2017, 19:42. INDICATIONS : Lower GI bleed. IV CONTRAST: 91 cc Omnipaque 350 (iohexol) IV ORAL CONTRAST: Prescribed oral contrast ingested. RADIATION DOSE: 17.02 CTDIvol (mGy) MEDICAL HISTORY : Cardiovascular disease. Hypertension. Pancreatitis.Hernia. SURGICAL HISTORY : Appendectomy. Cholecystectomy. ENCOUNTER: Initial ACUITY: 1 day PAIN SCALE: 0/10 LOCATION: TECHNIQUE: Volumetric scanning of the abdomen and pelvis was performed. Using automated exposure control and ad justment of the mA and/or kV according to patient size, radiation dose was kept as low as reasonably achievable to obtain optimal diagnostic quality images. DICOM format image data is available electro nically for review and comparison. FINDINGS: LOWER LUNGS: The visualized lower lungs are clear. LIVER: Mild diffusely decreased hepatic density without intrapelvic ductal dilatation or gross focal mass. G allbladder is surgically absent. SPLEEN: Normal size without lesion. PANCREAS: Within normal limits. KIDNEYS: Normal in size and shape. There is no mass, stone or hydronephrosis. ADRENAL GLANDS: Within normal limits. VASCULAR: There is no aortic aneurysm. BOWEL/MESENTERY: Ingested oral contrast is seen throughout the colon which is decompressed but otherwise appears unrem arkable by CT. No evidence for obstruction. Bowel appears otherwise unremarkable. No drainable fluid collection or free fluid in the abdomen. ABDOMINAL WALL: Small periumbilical anterior abdominal wall hernia containing small amount of fat with adjacent loops of small bowel but no herniation. RETROPERITONEUM: There is no lymphadenopathy. BLADDER: No wall thickening or mass. REPRODUCTIVE: Within normal limits. INGUINAL: There is no lymphadenopathy or hernia. MUSCULOSKELETAL: Within normal limits for patient age. CONCLUSION: 1. No acute CT abnormality in the abdomen or pelvis. 2. No evidence for bowel obstruction or focal bowel abnormality by CT exam. 3. Small periumbilical anterior abdominal wall hernia containing primarily fat with adjacent loops of small bowel but no herniation. 4. Hepatic steatosis. Hussein Kerns MD on September 04, 2017 at 17:49 Board Certified Radiologist. This report was verified electronically.
--- NOTE | 2017-09-04 20:45 | EKG ---
Date Performed: 09/04/2017 Time Performed: 07:52:54 PTAGE: 52 years EKG: Sinus rhythm POSSIBLE RIGHT VENTRICULAR CONDUCTION DELAY BORDERLINE ECG NO PREVIOUS TRACING DOCTOR: Teddy Mars Interpretating Date/Time 09/04/2017 20:44:44
--- NOTE | 2017-09-04 20:49 | EKG ---
Date Performed: 09/04/2017 Time Performed: 02:06:24 PTAGE: 52 years EKG: Sinus rhythm MODERATE INTRAVENTRICULAR CONDUCTION DELAY NONSPECIFIC ST ELEVATION BORDERLINE ECG PREVIOUS TRACING : 09/03/2017 19.37 Since the previous tracing, no significant change noted DOCTOR: Teddy Mars Interpretating Date/Time 09/04/2017 20:47:59
--- NOTE | 2017-09-04 21:11 | EKG ---
Date Performed: 09/03/2017 Time Performed: 19:37:30 PTAGE: 52 years EKG: Sinus rhythm MODERATE INTRAVENTRICULAR CONDUCTION DELAY NONSPECIFIC ST ELEVATION BORDERLINE ECG PREVIOUS TRACING : 08/07/2016 05.07 Since the previous tracing, no significant change noted DOCTOR: Teddy Mars Interpretating Date/Time 09/04/2017 21:10:14
[2017-09-05] VITALS (7 sets, daily range): BP systolic 134–171; BP diastolic 73–84; PULSE 64–73; RESP 16–20; TEMP 98–98.7; O2SAT 94–97
[2017-09-05] MEDS: PANTOPRAZOLE INJ 80 MG in SODIUM CHLORIDE 0.9% INJ 100 ML IV SCH ×2 (01:38→13:25)
[2017-09-05] MEDS: ONDANSETRON ODT 4 MG TAB PO PRN ×3 (01:56→21:25)
[2017-09-05] MEDS: HYDROmorphone HCL PF 0.5 MG/0.5 ML SYRINGE IV PRN ×5 (01:57→21:25)
[2017-09-05] MEDS: SODIUM CHLOR 0.9% 1000 ML INJ 1,000 ML IV SCH ×4 (03:02→21:26)
[2017-09-05] MEDS ORDERED: POVIDONE IODINE 5% (ANTISEPSIS KIT) 4 APPLICATIONS EACH NARE PRN (06:15)
[2017-09-05] MEDS ORDERED: CHLORHEXIDINE GLUCONATE 2 % 1 PACK (2 CLOTHS) TOPICAL PRN (06:15)
[2017-09-05] MEDS ORDERED: METOPROLOL TARTRATE 25 MG TAB PO PRN (06:15)
[2017-09-05] MEDS ORDERED: LACTATED RINGER'S 1000 ML IV PRN (06:15)
[2017-09-05] MEDS ORDERED: SODIUM CHLORID 0.9% 500 ML IV PRN (06:15)
[2017-09-05 07:55] LABS: HEMATOCRIT 38.3 % (39.0-51.0); MEAN CELL VOLUME 90.3 FL (80.0-100.0); MEAN CORPUSCULAR HEMOGLOBIN 30.6 PG (27.0-34.0); MEAN CORPUSCULAR HGB CONC 33.8 % (32.0-36.0); MEAN PLATELET VOLUME 7.7 FL (7.0-11.0); PLATELET COUNT 425 TH/MM3 (150-450); RED BLOOD COUNT 4.24 MIL/MM3 (4.50-5.90); RED CELL DISTRIBUTION WIDTH 14.6 % (11.6-17.2); WHITE BLOOD COUNT 7.8 TH/MM3 (4.0-11.0)
[2017-09-05] MEDS: INSULIN ASPART SUPPLEMENTAL SCALE SQ SCH ×4 (08:00→21:00)
--- NOTE | 2017-09-05 08:19 | HHI.FPPN ---
Subjective Remarks Mr. Pagan was afebrile with mild HTN overnight (MAP max of 115); other vital signs wnl. Patient reports having a poor night last night; he had lower abdominal pain associated with several episodes of vomiting. Patient denied presence of blood in vomit. Patient describes abdominal pain as lower and bilateral; he also has epigastric pain. Patient has had diarrhea which has some blood since taking colon prep. Patient denies chest pain or shortness of breath but states it is difficult to breathe deeply. Normal urination. No calf tenderness. Objective Vitals Vital Signs Date Time Temp Pulse Resp B/P (MAP) Pulse Ox O2 Delivery O2 Flow Rate FiO2 09/05/17 07:18 98.0 69 20 171/81 (111) 94 09/05/17 04:24 98.3 73 16 164/76 (105) 94 09/05/17 00:08 98.4 64 16 159/74 (102) 96 09/04/17 19:53 97.7 61 16 169/88 (115) 96 09/04/17 17:54 20 09/04/17 17:33 153/90 (111) 09/04/17 16:26 97.6 58 20 159/84 (109) 95 09/04/17 11:50 98.5 65 18 136/68 (90) 94 09/04/17 08:43 97 21 I/O 09/04/17 09/04/17 09/04/17 09/05/17 09/05/17 09/05/17 07:00 15:00 23:00 07:00 15:00 23:00 Intake Total 100 ml Balance 100 ml Intake IV Total 100 ml # Voids 1 1 Result Diagram: 09/05/17 0703 09/04/17 0255 Imaging Last Impressions Abdomen/Pelvis CT 09/04/17 0000 Signed Impressions: Service Date/Time: Monday, September 04, 2017 16:06 - CONCLUSION: 1. No acute CT abnormality in the abdomen or pelvis. 2. No evidence for bowel obstruction or focal bowel abnormality by CT exam. 3. Small periumbilical anterior abdominal wall hernia containing primarily fat with adjacent loops of small bowel but no herniation. 4. Hepatic steatosis. Hussein Kerns MD Chest X-Ray 09/03/17 193 Signed Impressions: Service Date/Time: Sunday, September 03, 2017 20:01 - CONCLUSION: No acute disease. Jacob Alcantara MD Objective Remarks GENERAL: No acute distress, lying in bed. SKIN: Warm and dry. Multiple tattoos CARDIOVASCULAR: Regular rate and rhythm. RESPIRATORY: No accessory muscle use. Clear to auscultation. Breath sounds equal bilaterally. GASTROINTESTINAL: Abdomen soft, tender to palpation epigastric and bilateral lower quadrants. Bowel sounds positive. MUSCULOSKELETAL: Grossly normal motor function and ROM NEUROLOGICAL: Grossly normal cranial nerves; grossly normal peripheral motor/ sensory function PSYCHIATRIC: Appropriate mood and affect; insight and judgment normal. A/P Assessment and Plan 52-year-old white male with past medical history of hypertension, diabetes, recurrent DVT/PEs admitted for a GI bleed. [facility]. Discharge Planning Pending GI workup Problem List: (1) Hematochezia ICD Codes: K92.1 - Melena Status: Acute Plan: Impression: Hemoglobin on admission WNL at 13.1. No leukocytosis. INR at 1.1 Alkaline phosphatase is elevated at 195. Records from [facility]- EGD 07/2017 with gastritis Hemoccult positive in ED H/H- 13.1 (09/03) -> 13 (09/05) -CT abdomen/pelvis pending -Consult gastroenterology, appreciate recommendations -CLD -EGD/colonoscopy today -H-pylori stool antigen pending -Protonix gtt -IV fluids at maintenance rate of 175 mls/hr -Monitor I's and O's -Hold anticoagulation at this time due to bleeding (2) Coffee ground emesis ICD Codes: K92.0 - Hematemesis Status: Acute Plan: Coffee-ground emesis of 2 days duration. Hemoglobin on admission 13.1. Differential diagnosis include gastric ulcers versus gastroenteritis vs esophageal varices Lipase is WNL CXR on admission shows no acute disease -Continue protonix drip -GI consulted -EGD/Colonoscopy pending -Zofran ODT 4 mg p.o. every 4 hours as needed for nausea/vomiting -Continue IV Dilaudid PRN (0.5mg q3 hrs for pain 3-5, 1mg q3 hrs for pain 6-10 ) for abdominal pain (3) Chest pain ICD Codes: R07.9 - Chest pain, unspecified Status: Resolved Plan: Pressure-like chest pain that started on admission. Initial troponin negative. EKG on admission shows normal sinus rhythm. CXR as above -Troponins remained negative. -Chest pain resolved (4) Hypertension ICD Codes: I10 - Essential (primary) hypertension Status: Chronic Plan: Continue at home medications -Metoprolol succinate ER 50 mg p.o. daily -Lisinopril 20 mg p.o. daily (5) Diabetes ICD Codes: E11.9 - Type 2 diabetes mellitus without complications Status: Chronic Plan: At home Metformin was held -Hemoglobin A1c pending -NovoLog low-dose sliding scale insulin -Hypoglycemia protocol -Bedside Accu-Cheks (6) History of recurrent deep vein thrombosis ICD Codes: Z86.718 - Personal history of other venous thrombosis and embolism Status: Chronic Plan: As stated above, INR upon admission is WNL at 1.1. Patient's goal INR is 2-3. No suggestion of DVT on exam -Hold warfarin due to active bleeding (7) Chronic pain ICD Codes: G89.29 - Other chronic pain Status: Chronic Plan: Patient has chronic pain due to multiple surgeries on his neck, back, hips, knees. Patient is on oxycodone 20 mg every 4 hours at home. This is managed by pain management as an outpatient. -Due to n.p.o. status and high levels of pain, will do IV Dilaudid at this time (8) Depression ICD Codes: F32.9 - Major depressive disorder, single episode, unspecified Status: Chronic Plan: Continue at home paroxetine 40 mg p.o. daily (9) FEN Status: Acute Plan: Fluids: NS @ 175ml/hr Electrolytes: monitor and replete as needed Nutrition: CLD, Npo after midnight DVT Prophylaxis: Early ambulation. bilateral SCDs GI Prophylaxis: As above Problem Qualifiers (1) Chest pain: Qualified Codes: R07.9 - Chest pain, unspecified (2) Diabetes: Qualified Codes: E11.8 - Type 2 diabetes mellitus with unspecified complications (3) Chronic pain: Qualified Codes: G89.29 - Other chronic pain Ilya Smallwood MD R3 September 05, 2017 08:19
[2017-09-05 08:27] LABS: BICARBONATE 25.5 MEQ/L (21.0-32.0); CALCIUM 8.4 MG/DL (8.5-10.1); CREATININE 1.02 MG/DL (0.60-1.30)
[2017-09-05] MEDS: SODIUM CHLORIDE 0.9% FLUSH 10 ML FLUSH IV FLUSH SCH ×2 (08:58→21:00)
[2017-09-05] MEDS: METOPROLOL SUCCINATE 50 MG EXTENDED RELEASE TAB PO SCH (08:58)
[2017-09-05] MEDS: PARoxetine HCL 20 MG TAB PO SCH (08:58)
[2017-09-05] MEDS: GABAPENTIN 300 MG CAP PO SCH ×3 (08:58→16:52)
[2017-09-05] MEDS: LISINOPRIL 20 MG TAB PO SCH (08:59)
[2017-09-05] MEDS ORDERED: LIDOCAINE HCL 1% PF 5 ML SYRINGE OTHER ONE (12:00)
[2017-09-05] MEDS ORDERED: PROPOFOL 200 MG/20 ML AMP IV ONE (12:00)
--- NOTE | 2017-09-05 12:44 | PD.PROCEDR ---
GI Procedure PROCEDURE PERFORMED EGD with biopsies followed by colonoscopy with biopsy INDICATION FOR PROCEDURE Coffee-ground emesis, lower abdominal pain, bright red blood per rectum, PROCEDURE: The procedure, risks and benefits were discussed with Patient/POA and informed consent was obtained. Anesthesia sedated Patient with Diprivan. Patient was placed in the left lateral decubitus position. EGD: The Pentax videoscope was introduced through the oropharynx and advanced to the second portion of the duodenum under direct visualization. Retroflexion was performed in the stomach. FINDINGS: The esophagus the Z line appeared to be irregular suggestive of Mercado's this would be short segment this was biopsied otherwise the esophagus was unremarkable The stomach the gastric mucosa appeared to be diffusely erythemic and somewhat edematous biopsies were taken from the gastric body and the antrum no ulcerations and no erosions were seen The duodenum this was normal Colonoscopy: The Pentax videoscope was introduced through the rectum and advanced to cecum where the ileocecal valve and appendiceal orifice were identified. Retroflexion was performed in the rectum. Colonic prep was fair FINDINGS: Colonic withdrawal time greater than 6 minutes. As the scope was slowly withdrawn colonic mucosa was carefully inspected the patient was noted to have a diminutive polyp in the distal sigmoid this was removed using biopsy forceps otherwise colonic mucosa was unremarkable and within normal limits retroflexion in the rectum did reveal grade 2 internal hemorrhoids rectal examination otherwise unremarkable ESTIMATED BLOOD LOSS: None SPECIMENS REMOVED: Esophageal, gastric, and colon biopsies COMPLICATIONS: None IMPRESSION: Irregular Z line Gunderson gastritis Colon polyp Internal hemorrhoids PLAN: Await biopsies Continue PPI Continue current supportive care Monitor labs Colonoscopy in 5 years Follow-up with GI post discharge Not much to add at this point from a GI perspective we will sign off Balbir Blanc MD September 05, 2017 12:43
--- NOTE | 2017-09-05 15:55 | HHI.FPPN ---
Addendum to progress note ADDENDUM Reason for addendum: Additonal documentation Additional information Discussed Endoscopy/colonoscopy results (EGD- Mercado's, erythematous gastric mucosa w/ o ulcerations; Colonoscopy with small polyp, grade 2 internal hemorrhoids) with patient and potential for further workup/treatment of abdominal pain as outpatient; patient declines due to feeling unsafe. Will plan to monitor an additional night prior to discharge Discussed BP during hospitalization; will plan to increase Lisinopril to 40mg daily at discharge Anticoagulation for prior DVT's discussed and [facility] Medicaid formulary reviewed; will plan to switch from Warfarin to Xarelto at discharge Ilya Smallwood MD R3 September 05, 2017 15:55
[2017-09-05] MEDS ORDERED: hydrALAZINE HCL 10 MG TAB PO PRN (16:00)
[2017-09-05] MEDS ORDERED: LISINOPRIL 20 MG TAB PO ONE (17:00)
[2017-09-06] MEDS: PANTOPRAZOLE INJ 80 MG in SODIUM CHLORIDE 0.9% INJ 100 ML IV SCH ×2 (00:52→07:38)
[2017-09-06] MEDS: SODIUM CHLOR 0.9% 1000 ML INJ 1,000 ML IV SCH ×2 (02:27→07:56)
[2017-09-06] MEDS: HYDROmorphone HCL PF 0.5 MG/0.5 ML SYRINGE IV PRN ×3 (02:28→10:21)
[2017-09-06 03:19] VITALS: BP 150/70; PULSE 71; RESP 16; TEMP 98.4; O2SAT 93
[2017-09-06 05:30] LABS: HEMATOCRIT 37.5 % (39.0-51.0); HEMOGLOBIN 12.5 GM/DL (13.0-17.0); MEAN CORPUSCULAR HEMOGLOBIN 30.1 PG (27.0-34.0); MEAN CORPUSCULAR HGB CONC 33.4 % (32.0-36.0); MEAN PLATELET VOLUME 7.4 FL (7.0-11.0); PLATELET COUNT 381 TH/MM3 (150-450); RED BLOOD COUNT 4.17 MIL/MM3 (4.50-5.90); RED CELL DISTRIBUTION WIDTH 14.3 % (11.6-17.2)
[2017-09-06 05:49] LABS: ALBUMIN 2.7 GM/DL (3.4-5.0); ALT (GPT) 30 U/L (12-78); AST (GOT) 10 U/L (15-37); BICARBONATE 27.1 MEQ/L (21.0-32.0); BLOOD UREA NITROGEN 10 MG/DL (7-18); CHLORIDE 107 MEQ/L (98-107); CREATININE 0.99 MG/DL (0.60-1.30); GLOMERULAR FILTRATION RATE 80 ML/MIN (>89); GLUCOSE,RANDOM 91 MG/DL (74-106); SODIUM (NA) 141 MEQ/L (136-145)
[2017-09-06 05:51] LABS: ALKALINE PHOSPHATASE 177 U/L (45-117); TOTAL BILIRUBIN ADULT 0.3 MG/DL (0.2-1.0); TOTAL PROTEIN 6.7 GM/DL (6.4-8.2)
[2017-09-06] MEDS: INSULIN ASPART SUPPLEMENTAL SCALE SQ SCH (07:57)
[2017-09-06 07:59] VITALS: BP 163/81; PULSE 63; RESP 20; TEMP 98.5; O2SAT 94
[2017-09-06] MEDS ORDERED: LISINOPRIL 20 MG TAB PO SCH (09:00)
[2017-09-06] MEDS: SODIUM CHLORIDE 0.9% FLUSH 10 ML FLUSH IV FLUSH SCH (09:00)
--- NOTE | 2017-09-06 09:14 | HHI.FPPN ---
Subjective Remarks Mr. Pagan was afebrile with HTN overnight (max MAP 108); other vital signs normal. Patient reports abdominal pain after eating dinner last night; this started 30 min after eating and lasted throughout the night. Patient reports 2 BM overnight with slight blood. No vomiting reported. Patient breathing well. Normal urination. Supplemental history obtained; patient thinks abdominal pain might have started after treatment for H Pylori. (Ilya Smallwood MD R3) Objective Vitals Vital Signs Date Time Temp Pulse Resp B/P (MAP) Pulse Ox O2 Delivery O2 Flow Rate FiO2 09/06/17 07:59 98.5 63 20 163/81 (108) 94 09/06/17 03:19 98.4 71 16 150/70 (96) 93 09/05/17 23:31 98.7 66 16 146/73 (97) 94 09/05/17 20:18 98.5 67 16 134/76 (95) 97 09/05/17 17:56 20 09/05/17 16:34 98.7 65 20 146/84 (104) 94 09/05/17 13:12 98.4 69 18 167/80 (109) 95 09/05/17 12:37 97.7 61 16 148/66 (93) 93 I/O 09/05/17 09/05/17 09/05/17 09/06/17 09/06/17 09/06/17 07:00 15:00 23:00 07:00 15:00 23:00 Intake Total 400 ml Balance 400 ml Other 400 ml # Voids 1 # Bowel Movements 1 (Ilya Smallwood MD R3) Result Diagram: 09/06/17 0458 09/06/17 0458 Imaging Last Impressions Abdomen/Pelvis CT 09/04/17 0000 Signed Impressions: Service Date/Time: Monday, September 04, 2017 16:06 - CONCLUSION: 1. No acute CT abnormality in the abdomen or pelvis. 2. No evidence for bowel obstruction or focal bowel abnormality by CT exam. 3. Small periumbilical anterior abdominal wall hernia containing primarily fat with adjacent loops of small bowel but no herniation. 4. Hepatic steatosis. Hussein Kerns MD Chest X-Ray 09/03/17 193 Signed Impressions: Service Date/Time: Sunday, September 03, 2017 20:01 - CONCLUSION: No acute disease. Jacob F. Tocci, MD Objective Remarks GENERAL: No acute distress, lying in bed. SKIN: Warm and dry. Multiple tattoos CARDIOVASCULAR: Regular rate and rhythm. RESPIRATORY: No accessory muscle use. Clear to auscultation. Breath sounds equal bilaterally. GASTROINTESTINAL: Abdomen soft, mild reported tender to palpationin bilateral lower quadrants. Bowel sounds normal. MUSCULOSKELETAL: Grossly normal motor function and ROM NEUROLOGICAL: Grossly normal cranial nerves; grossly normal peripheral motor/ sensory function PSYCHIATRIC: Appropriate mood and affect; insight and judgment normal. (Ilya Smallwood MD R3) A/P Assessment and Plan 52-year-old white male with past medical history of hypertension, diabetes, recurrent DVT/PEs admitted for a GI bleed. He is admitted to our [facility] Teaching [facility] for observation. Discharge Planning Planned discharge today (Ilya Smallwood MD R3) Attending Attestation Patient seen and examined. Case reviewed and discussed with the resident team. Agree with plan of care as discussed with me and documented in the resident note. encouraged him to follow up with GI as his abdominal pain is relatively recent. fortunately, there was no serious finding on endoscopy except he knows he needs to follow with his Barrets esophagus (Lisa Rhodes MD) Problem List: (1) Hematochezia ICD Codes: K92.1 - Melena Status: Acute Plan: Impression: Associated with vomiting. Hemoglobin on admission WNL at 13.1. No leukocytosis. INR at 1.1. Alkaline phosphatase is elevated at 195. Records from [facility]- EGD 07/2017 with gastritis Hemoccult positive in ED H/H- 13.1 (09/03) -> 13 (09/05) -> 12.5 (09/06) CT abdomen/pelvis 09/04: No acute abnormality. Periumbilical hernia. Hepatic steatosis. -Consult gastroenterology, appreciate recommendations -Continue PPI -EGD/colonoscopy performed 09/05 -Colonoscopy- grade 2 internal hemorrhoids, small polyp removed -EGD- suggestion of Mercado's, gastritis -H-pylori stool antigen pending -Signed off; patient will f/u as outpatient for biopsy results -Will plan to restart home anticoagulation and get f/u CBC; patient will return to clinic if bleeding recurs -Zofran ODT 4 mg p.o. every 4 hours as needed for nausea/vomiting -Will transition back to home pain control -Will add probiotics at home for pain control/changing jake (2) Chest pain ICD Codes: R07.9 - Chest pain, unspecified Status: Resolved Plan: Pressure-like chest pain that started on admission. Initial troponin negative. EKG on admission shows normal sinus rhythm. CXR as above -Troponins remained negative. -Chest pain resolved (3) Hypertension ICD Codes: I10 - Essential (primary) hypertension Status: Chronic Plan: Impression: Persistent HTN during hospitalization. On Metoprolol and Lisinopril at home -Metoprolol succinate ER 50 mg p.o. daily -Will increase Lisinopril to 40 mg p.o. daily (4) Diabetes ICD Codes: E11.9 - Type 2 diabetes mellitus without complications Status: Chronic Plan: At home Metformin was held -Hemoglobin A1c pending -NovoLog low-dose sliding scale insulin -Hypoglycemia protocol -Bedside Accu-Cheks (5) History of recurrent deep vein thrombosis ICD Codes: Z86.718 - Personal history of other venous thrombosis and embolism Status: Chronic Plan: As stated above, INR upon admission is WNL at 1.1. Patient's goal INR is 2-3. No suggestion of DVT on exam -Will change Warfarin to Xarelto at discharge (6) Chronic pain ICD Codes: G89.29 - Other chronic pain Status: Chronic Plan: Patient has chronic pain due to multiple surgeries on his neck, back, hips, knees. Patient is on oxycodone 20 mg every 4 hours at home. This is managed by pain management as an outpatient. -Due to n.p.o. status and high levels of pain, will do IV Dilaudid at this time (7) Depression ICD Codes: F32.9 - Major depressive disorder, single episode, unspecified Status: Chronic Plan: Continue at home paroxetine 40 mg p.o. daily (8) Alkaline phosphatase raised ICD Codes: R74.8 - Abnormal levels of other serum enzymes Status: Acute Plan: Impression: Present for several months; possibly secondary to knee surgery -Will need to work up further with fractionation/GGT as outpatient if it persists (9) FEN Status: Acute Plan: Fluids: NS @ 175ml/hr Electrolytes: monitor and replete as needed Nutrition: CLD, Npo after midnight DVT Prophylaxis: Early ambulation. bilateral SCDs GI Prophylaxis: As above (Chotas,Ilya N MD R3) Problem Qualifiers (1) Chest pain: Qualified Codes: R07.9 - Chest pain, unspecified (2) Hypertension: Qualified Codes: I10 - Essential (primary) hypertension (3) Diabetes: Qualified Codes: E11.8 - Type 2 diabetes mellitus with unspecified complications (4) Chronic pain: Qualified Codes: G89.29 - Other chronic pain Ilya Smallwood MD R3 September 06, 2017 09:14 Lisa Rhodes MD September 06, 2017 12:16
[2017-09-06] MEDS: GABAPENTIN 300 MG CAP PO SCH (09:18)
[2017-09-06] MEDS: PARoxetine HCL 20 MG TAB PO SCH (09:18)
[2017-09-06] MEDS: METOPROLOL SUCCINATE 50 MG EXTENDED RELEASE TAB PO SCH (09:18)
[2017-09-06] MEDS ORDERED: LISI-515 PO (09:43)
[2017-09-06] MEDS ORDERED: XARE20TA PO (09:43)
--- NOTE | 2017-09-06 09:43 | HHI.DCPOC ---
Discharge Care Plan Diagnosis: (1) BRBPR (bright red blood per rectum) (2) Abdominal pain (3) History of recurrent deep vein thrombosis (4) Hypertension Goals to Promote Your Health * To prevent worsening of your condition and complications * To maintain your health at the optimal level Directions to Meet Your Goals Take your medications as prescribed Follow your dietary instruction Follow activity as directed Keep your appointments as scheduled Take your immunizations and boosters as scheduled If your symptoms worsen call your PCP, if no PCP go to Urgent Care Center or Emergency Room Smoking is Dangerous to Your Health. Avoid second hand smoke Call the 24-hour hour crisis hotline for domestic abuse at Ilya Smallwood MD R3 September 06, 2017 09:43
[2017-09-06] MEDS: ONDANSETRON ODT 4 MG TAB PO PRN (10:20)
[2017-09-06 11:10] VITALS: BP 156/76; PULSE 64; RESP 18; TEMP 97.3; O2SAT 97
== END 2017-09-06 12:12 | disposition home or self-care (01) ==
LOC: NEPE 19:22 → NEDA 21:54 → NEPGCP 22:45
PROVIDERS: ADMIT Family Medicine; ATTEND Family Medicine
DX: K92.1 Melena (principal); K92.0 Hematemesis; K64.8 Other hemorrhoids; K64.1 Second degree hemorrhoids; K42.9 Umbilical hernia without obstruction or gangrene; K31.9 Disease of stomach and duodenum, unspecified; K29.50 Unspecified chronic gastritis without bleeding; K63.5 Polyp of colon; R07.89 Other chest pain; R19.7 Diarrhea, unspecified; R53.1 Weakness; R53.83 Other fatigue; R06.02 Shortness of breath; R10.9 Unspecified abdominal pain; I10 Essential (primary) hypertension; I25.2 Old myocardial infarction; E11.9 Type 2 diabetes mellitus without complications; K21.9 Gastro-esophageal reflux disease without esophagitis; K76.0 Fatty (change of) liver, not elsewhere classified; K43.9 Ventral hernia without obstruction or gangrene; M54.2 Cervicalgia; M54.9 Dorsalgia, unspecified; G89.29 Other chronic pain; F41.9 Anxiety disorder, unspecified; F32.9 Major depressive disorder, single episode, unspecified; M17.10 Unilateral primary osteoarthritis, unspecified knee; E66.9 Obesity, unspecified; Z86.718 Personal history of other venous thrombosis and embolism; Z79.84 Long term (current) use of oral hypoglycemic drugs; Z79.01 Long term (current) use of anticoagulants; Z79.899 Other long term (current) drug therapy
CPT/HCPCS: 00813; 36415; 43239; 45380; 71045; 74177; 80048; 80053; 80307; 81001; 82140; 82550; 82948; 83036; 83690; 83735; 84484; 85014; 85018; 85025; 85027; 85610; 85730; 86850; 86900; 86901; 86920; 88305; 88312; 93005; 94150; 96361; 96365; 96366; 96375; 96376; 99285; C9113; G0378; J1170; J2270; J2765; J7030; Q9963; Q9967

== ENCOUNTER 2017-09-07 18:03 | Emergency (ER) | payer MEDICAID ==
[~2017-09-07 18:03] MED LIST changes: +METO1TAB9 PO; +OXYC-396 PO; +PANT40TA3 PO; +PAXI10TA8 PO; +SUCR1TAB PO; +WARF-23 PO; +XARE20TA PO
[2017-09-07 18:06] VITALS: BP 143/82; PULSE 84; RESP 18; TEMP 98.6; O2SAT 99
--- NOTE | 2017-09-07 20:00 | PD ---
HPI Chief Complaint: GI Complaint Time Seen by Provider: 19:40 Travel History International Travel<30 days: No Contact w/Intl Traveler<30days: No Traveled to known affect area: No History of Present Illness HPI This patient complains of bright red rectal bleeding. Started this morning. He was just discharged from the hospital yesterday for GI bleeding. He had extensive workup including endoscopy and colonoscopy and CT of abdomen pelvis and GI consultation. He takes chronic anticoagulation for multiple DVT and PE history. He was taken off of Coumadin on the hospitalization and started his first dose of Xarelto today. No alcohol use. Symptom severity is moderate. No presyncopal symptoms. No alleviating factors. Symptoms exacerbated by blood thinners PFSH Past Medical History Hx Anticoagulant Therapy: Yes (Coumadin) Arthritis: No Asthma: No Autoimmune Disease: No Blood Disorders: No Anxiety: Yes Depression: Yes Heart Rhythm Problems: No Cancer: No Cardiac Catheterization: Yes Cardiovascular Problems: Yes High Cholesterol: No Chemotherapy: No Chest Pain: Yes Congestive Heart Failure: No COPD: No Cerebrovascular Accident: No Diabetes: Yes Patient Takes Glucophage: Yes (metformin) Diminished Hearing: No Endocrine: No Gastrointestinal Disorders: Yes (GERD; ULCER HX; SBO) GERD: Yes Glaucoma: No Genitourinary: No Headaches: No Hepatitis: No Hiatal Hernia: No Hypertension: Yes Immune Disorder: No Inguinal Hernia: Yes Kidney Stones: No Musculoskeletal: Yes Neurologic: No Psychiatric: Yes Reproductive: No Respiratory: No Immunizations Current: Yes Myocardial Infarction: Yes Pancreatitis: Yes Radiation Therapy: No Renal Failure: No Seizures: No Sickle Cell Disease: No Sleep Apnea: No Thyroid Disease: No Ulcer: Yes Past Surgical History Abdominal Surgery: Yes (BILATERAL INGUINAL HERNIA REPAIR ; REPAIR RECURRENT RT ING HERNIA) AICD: No Appendectomy: Yes Arteriovenous Shunt: No Body Medical Devices: NONE Cardiac Surgery: No Cholecystectomy: Yes Coronary Artery Bypass Graft: No Ear Surgery: No Endocrine Surgery: No Eye Surgery: No Genitourinary Surgery: No Gynecologic Surgery: No Insulin Pump: No Joint Replacement: No Oral Surgery: No Pacemaker: No Thoracic Surgery: No Other Surgery: Yes (RT SHOULDER SURGERY REBUILT 2012; RT KNEE SCOPED X 3/ REPLACED, LT KNEE X 2) Family History Family Myocardial Infarction: Yes (FATHER 63 FROM [place], SISTER HAD ONE) Social History Alcohol Use: No Tobacco Use: No Substance Use: No Allergies-Medications (Allergen,Severity, Reaction): Coded Allergies: No Known Allergies (Verified Allergy, Unknown, 09/03/17) Reported Meds & Prescriptions Reported Meds & Active Scripts Active Xarelto (Rivaroxaban) 20 Mg Tab 20 Mg PO DAILY Lisinopril 20 Mg Tab 40 Mg PO DAILY Furosemide 40 Mg Tab 40 Mg PO BID Gabapentin 300 Mg Cap 300 Mg PO TID Paroxetine (Paroxetine HCl) 40 Mg Tab 40 Mg PO DAILY Omeprazole 40 Mg Cap 40 Mg PO BID Imitrex (Sumatriptan Succinate) 50 Mg Tab 50 Mg PO ONCE PRN If a satisfactory response has not been obtained at 2 hours, a second dose may be administered Reported Metoprolol Succinate ER 24 HR (Metoprolol Succinate) 50 Mg Tab 50 Mg PO DAILY Oxycodone (Oxycodone HCl) 20 Mg Tab 20 Mg PO Q4HR Metformin (Metformin HCl) 1,000 Mg Tab 1,000 Mg PO DAILY With a meal Sucralfate 1 Gram Tab 1 Gm PO QID on empty stomach Review of Systems General / Constitutional: No: Fever Eyes: No: Visual changes HENT: No: Headaches Cardiovascular: No: Chest Pain or Discomfort Respiratory: No: Shortness of Breath Gastrointestinal: Positive: Hematochezia, No: Abdominal Pain Genitourinary: No: Dysuria Musculoskeletal: Positive: Pain Skin: No Rash Neurologic: No: Weakness Psychiatric: No: Depression Endocrine: No: Polydipsia Hematologic/Lymphatic: No: Easy Bruising Physical Exam Narrative GENERAL: Well-nourished, well-developed patient in no apparent distress. SKIN: Focused skin assessment reveals no rash and nodules. Skin is Warm and dry. HEAD: Atraumatic. Normocephalic. EYES: Pupils equal and round. No scleral icterus. No injection or drainage. ENT: No nasal bleeding or discharge. Mucous membranes pink and moist. NECK: Trachea midline. No JVD. CARDIOVASCULAR: Regular rate and rhythm. No murmur appreciated. RESPIRATORY: No accessory muscle use. Clear to auscultation. Breath sounds equal bilaterally. GASTROINTESTINAL: Abdomen soft, mild bilateral lower quadrant tenderness without rebound or guarding, nondistended. Hepatic and splenic margins not palpable. MUSCULOSKELETAL: No obvious deformities. No clubbing. No cyanosis. Trace symmetric lower extremity edema. NEUROLOGICAL: Awake and alert. No obvious cranial nerve deficits. Motor grossly within normal limits. Normal speech. PSYCHIATRIC: Appropriate mood and affect; insight and judgment normal. Rectal: Has some external hemorrhoid but no obvious bleeding from it. No fissure seen Data Data Last Documented VS Vital Signs Date Time Temp Pulse Resp B/P (MAP) Pulse Ox O2 Delivery O2 Flow Rate FiO2 09/07/17 18:06 98.6 84 18 143/82 (102) 99 Orders Orders Iv Access Insert/Monitor (09/07/17 19:50) Complete Blood Count With Diff (09/07/17 19:50) Oxycodone-Acetamin 5-325 Mg (Percocet (09/07/17 21:45) Labs Laboratory Tests Test 09/07/17 20:30 White Blood Count 8.0 TH/MM3 Red Blood Count 4.75 MIL/MM3 Hemoglobin 14.3 GM/DL Hematocrit 43.2 % Mean Corpuscular Volume 91.1 FL Mean Corpuscular Hemoglobin 30.1 PG Mean Corpuscular Hemoglobin Concent 33.0 % Red Cell Distribution Width 14.3 % Platelet Count 398 TH/MM3 Mean Platelet Volume 8.3 FL Neutrophils (%) (Auto) 66.6 % Lymphocytes (%) (Auto) 23.6 % Monocytes (%) (Auto) 8.4 % Eosinophils (%) (Auto) 0.3 % Basophils (%) (Auto) 1.1 % Neutrophils # (Auto) 5.3 TH/MM3 Lymphocytes # (Auto) 1.9 TH/MM3 Monocytes # (Auto) 0.7 TH/MM3 Eosinophils # (Auto) 0.0 TH/MM3 Basophils # (Auto) 0.1 TH/MM3 CBC Comment DIFF FINAL Differential Comment MDM Medical Decision Making Medical Screen Exam Complete: Yes Emergency Medical Condition: Yes Medical Record Reviewed: Yes Differential Diagnosis Hemorrhoidal bleeding, polyp, colon cancer Narrative Course I have reviewed the patient's electronic medical record. I reviewed his discharge summary from yesterday. I reviewed his lab studies from yesterday. Patient returns the day after discharge from GI bleeding evaluation. He reports bright red blood per rectum. He started Xarelto today and took 1 dose. He just had colonoscopy revealing grade 2 internal hemorrhoids and one polyp was removed IV placed and CBC sent Hemoglobin today is significantly higher than yesterday. It is 14.5. However he reports bright red rectal bleeding so I advised him to stop his Xarelto and contact his family physician tomorrow for follow-up and further instructions. Diagnosis Primary Impression: BRBPR (bright red blood per rectum) Additional Instructions: Stop Xarelto until you discuss with your prescribing physician The patient was advised to follow up with their physician and return if they worsen. Med/Other Pt SpecificInfo: Other Disposition: 01 DISCHARGE HOME Condition: Stable Niko Whitley MD September 07, 2017 20:00
[2017-09-07 20:58] LABS: AUTOMATED NEUTROPHIL # 5.3 TH/MM3 (1.8-7.7); BASOPHIL # 0.1 TH/MM3 (0-0.2); BASOPHIL % 1.1 % (0.0-2.0); EOSINOPHIL % 0.3 % (0.0-4.0); HEMATOCRIT 43.2 % (39.0-51.0); HEMOGLOBIN 14.3 GM/DL (13.0-17.0); LYMPH % 23.6 % (9.0-44.0); LYMPHOCYTE # 1.9 TH/MM3 (1.0-4.8); MEAN CELL VOLUME 91.1 FL (80.0-100.0); MEAN CORPUSCULAR HEMOGLOBIN 30.1 PG (27.0-34.0); MEAN PLATELET VOLUME 8.3 FL (7.0-11.0); MONO % 8.4 % (0.0-8.0); MONOCYTE # 0.7 TH/MM3 (0-0.9); NEUT % 66.6 % (16.0-70.0); PLATELET COUNT 398 TH/MM3 (150-450); RED BLOOD COUNT 4.75 MIL/MM3 (4.50-5.90); RED CELL DISTRIBUTION WIDTH 14.3 % (11.6-17.2)
[2017-09-07] MEDS ORDERED: oxyCODONE/ACETAMINOPHEN 5 MG/325 MG TAB PO ONE (21:45)
== END 2017-09-07 22:03 | disposition home or self-care (01) ==
LOC: NEPD 18:03
DX: K62.5 Hemorrhage of anus and rectum (principal); E11.9 Type 2 diabetes mellitus without complications; I10 Essential (primary) hypertension; K21.9 Gastro-esophageal reflux disease without esophagitis; Z79.01 Long term (current) use of anticoagulants; Z79.84 Long term (current) use of oral hypoglycemic drugs
CPT/HCPCS: 85025; 99283

== ENCOUNTER 2017-09-10 18:11 | Emergency (ER) | payer MEDICAID ==
[~2017-09-10 18:11] MED LIST changes: -METO-393 PO; -ONDA8TAB7 PO; -OXYC15TA PO; -PANT40TA3 PO; -PAXI10TA8 PO; -WARF-21 PO; -WARF-23 PO
[2017-09-10 18:27] VITALS: BP 142/71; PULSE 101; RESP 20; O2SAT 96
[2017-09-10] MEDS ORDERED: SODIUM CHLORIDE 0.9% FLUSH 10 ML FLUSH IVF PRN (18:45)
[2017-09-10 18:50] VITALS: BP 141/81; PULSE 95; RESP 18; O2SAT 99
[2017-09-10] MEDS ORDERED: SODIUM CHLOR 0.9% 1000 ML INJ 1,000 ML IV SCH (19:05)
--- NOTE | 2017-09-10 19:08 | PD ---
HPI Chief Complaint: GI Complaint Time Seen by Provider: 19:02 Travel History International Travel<30 days: No Contact w/Intl Traveler<30days: No Traveled to known affect area: No History of Present Illness HPI c/o lower abd pain along with bloody stools for over a month. patient was admitted and scoped found to have brooks gastritis, polyp which was removed and 2 internal hemorrhoids. Patient stated that he was told by his primary care that if he starts to feel worse to return. And in his opinion he feels worse. No alleviating or aggravating factors. Patient denies any associated factors such as fever, headache, rash, neck pain, back pain, chest pain, shortness of breath , hematuria, urgency, dysuria. pcp dr franklin all:nkda pmhx significant for [place], on Xarelto for DVT and PE, hypertension, ulcer disease , pancreatitis, GERD, gastritis, polyps, previous history of small bowel obstruction, depression, anxiety, claustrophobia, diabetes Pshx: scope, appendectomy, cholecystectomy, knee, on xarelto for dvt/pe after shoulder surgery. PFSH Past Medical History Hx Anticoagulant Therapy: Yes Arthritis: No Asthma: No Autoimmune Disease: No Blood Disorders: No Anxiety: Yes Depression: Yes Heart Rhythm Problems: No Cancer: No Cardiac Catheterization: Yes Cardiovascular Problems: Yes High Cholesterol: No Chemotherapy: No Chest Pain: Yes Congestive Heart Failure: No COPD: No Cerebrovascular Accident: No Diabetes: Yes Patient Takes Glucophage: Yes Diminished Hearing: No Deep Vein Thrombosis: Yes Endocrine: No Gastrointestinal Disorders: Yes (GERD; ULCER HX; SBO) GERD: Yes Glaucoma: No Genitourinary: No Headaches: No Hepatitis: No Hiatal Hernia: No Hypertension: Yes Immune Disorder: No Inguinal Hernia: Yes Kidney Stones: No Musculoskeletal: Yes Neurologic: No Psychiatric: Yes Reproductive: No Respiratory: Yes (PE) Immunizations Current: Yes Myocardial Infarction: Yes Pancreatitis: Yes Radiation Therapy: No Renal Failure: No Seizures: No Sickle Cell Disease: No Sleep Apnea: No Thyroid Disease: No Ulcer: Yes Past Surgical History Abdominal Surgery: Yes (BILATERAL INGUINAL HERNIA REPAIR ; REPAIR RECURRENT RT ING HERNIA) AICD: No Appendectomy: Yes Arteriovenous Shunt: No Body Medical Devices: NONE Cardiac Surgery: No Cholecystectomy: Yes Coronary Artery Bypass Graft: No Ear Surgery: No Endocrine Surgery: No Eye Surgery: No Genitourinary Surgery: No Gynecologic Surgery: No Insulin Pump: No Joint Replacement: No Oral Surgery: No Pacemaker: No Other Surgery: Yes (RT SHOULDER SURGERY REBUILT 2013; RT KNEE SCOPED X 3/ REPLACED, LT KNEE X 2) Family History Family Myocardial Infarction: Yes (FATHER 63 FROM [place], SISTER HAD ONE) Social History Alcohol Use: No Tobacco Use: No Substance Use: No Allergies-Medications (Allergen,Severity, Reaction): Coded Allergies: No Known Allergies (Verified Allergy, Unknown, 09/10/17) Reported Meds & Prescriptions Reported Meds & Active Scripts Active Xarelto (Rivaroxaban) 20 Mg Tab 20 Mg PO DAILY Lisinopril 20 Mg Tab 40 Mg PO DAILY Furosemide 40 Mg Tab 40 Mg PO BID Gabapentin 300 Mg Cap 300 Mg PO TID Paroxetine (Paroxetine HCl) 40 Mg Tab 40 Mg PO DAILY Omeprazole 40 Mg Cap 40 Mg PO BID Imitrex (Sumatriptan Succinate) 50 Mg Tab 50 Mg PO ONCE PRN If a satisfactory response has not been obtained at 2 hours, a second dose may be administered Reported Metoprolol Succinate ER 24 HR (Metoprolol Succinate) 50 Mg Tab 50 Mg PO DAILY Oxycodone (Oxycodone HCl) 20 Mg Tab 20 Mg PO Q4HR Metformin (Metformin HCl) 1,000 Mg Tab 1,000 Mg PO DAILY With a meal Sucralfate 1 Gram Tab 1 Gm PO QID on empty stomach Review of Systems General / Constitutional: No: Fever Eyes: No: Visual changes HENT: No: Headaches Cardiovascular: No: Chest Pain or Discomfort Respiratory: No: Shortness of Breath Gastrointestinal: Positive: Abdominal Pain, Hematochezia Genitourinary: No: Dysuria Musculoskeletal: No: Pain Skin: No Rash Neurologic: No: Weakness Psychiatric: No: Depression Endocrine: No: Polydipsia Hematologic/Lymphatic: No: Easy Bruising Physical Exam Narrative GENERAL: SKIN: Warm and dry. HEAD: Atraumatic. Normocephalic. EYES: Pupils equal and round. No scleral icterus. No injection or drainage. ENT: No nasal bleeding or discharge. Mucous membranes pink and moist. NECK: Trachea midline. No JVD. CARDIOVASCULAR: Regular rate and rhythm. RESPIRATORY: No accessory muscle use. Clear to auscultation. Breath sounds equal bilaterally. GASTROINTESTINAL: Abdomen soft, mild suprapubic and right lower quadrant tenderness to percussion , nondistended, no rebound/guarding/rigidity. Rectal has trace guaiac positive MUSCULOSKELETAL: Extremities without clubbing, cyanosis, or edema. No obvious deformities. NEUROLOGICAL: Awake and alert. No obvious cranial nerve deficits. Motor grossly within normal limits. Five out of 5 muscle strength in the arms and legs. Normal speech. PSYCHIATRIC: Appropriate mood and affect; insight and judgment normal. Data Data Last Documented VS Vital Signs Date Time Temp Pulse Resp B/P (MAP) Pulse Ox O2 Delivery O2 Flow Rate FiO2 09/10/17 21:45 79 16 118/57 (77) 98 Room Air Orders Orders Complete Blood Count With Diff (09/10/17 18:34) Comprehensive Metabolic Panel (09/10/17 18:34) Prothrombin Time / Inr (Pt) (09/10/17 18:34) Act Partial Throm Time (Ptt) (09/10/17 18:34) Type And Screen (09/10/17 18:34) Ecg Monitoring (09/10/17 18:34) Iv Access Insert/Monitor (09/10/17 18:34) Orthostatic Vital Signs (09/10/17 18:34) Oximetry (09/10/17 18:34) Sodium Chloride 0.9% Flush (Ns Flush) (09/10/17 18:45) Ct Abd/Pel W/O Iv Contrast (09/10/17 19:05) Morphine Inj (Morphine Inj) (09/10/17 19:15) Pantoprazole Inj (Protonix Inj) (09/10/17 19:15) Sodium Chlor 0.9% 1000 Ml Inj (Ns 1000 M (09/10/17 19:05) Dicyclomine Inj (Bentyl Inj) (09/10/17 20:30) Ed Discharge Order (09/10/17 21:41) Labs Laboratory Tests Test 09/10/17 19:20 White Blood Count 7.5 TH/MM3 Red Blood Count 4.48 MIL/MM3 Hemoglobin 13.6 GM/DL Hematocrit 40.4 % Mean Corpuscular Volume 90.3 FL Mean Corpuscular Hemoglobin 30.4 PG Mean Corpuscular Hemoglobin Concent 33.6 % Red Cell Distribution Width 14.2 % Platelet Count 326 TH/MM3 Mean Platelet Volume 7.7 FL Neutrophils (%) (Auto) 51.6 % Lymphocytes (%) (Auto) 34.7 % Monocytes (%) (Auto) 12.1 % Eosinophils (%) (Auto) 1.2 % Basophils (%) (Auto) 0.4 % Neutrophils # (Auto) 3.8 TH/MM3 Lymphocytes # (Auto) 2.6 TH/MM3 Monocytes # (Auto) 0.9 TH/MM3 Eosinophils # (Auto) 0.1 TH/MM3 Basophils # (Auto) 0.0 TH/MM3 CBC Comment DIFF FINAL Differential Comment Prothrombin Time 12.8 SEC Prothromb Time International Ratio 1.3 RATIO Activated Partial Thromboplast Time 28.2 SEC Blood Urea Nitrogen 8 MG/DL Creatinine 1.28 MG/DL Random Glucose 89 MG/DL Total Protein 7.6 GM/DL Albumin 3.3 GM/DL Calcium Level 8.8 MG/DL Alkaline Phosphatase 160 U/L Aspartate Amino Transf (AST/SGOT) 14 U/L Alanine Aminotransferase (ALT/SGPT) 29 U/L Total Bilirubin 0.5 MG/DL Sodium Level 142 MEQ/L Potassium Level 3.9 MEQ/L Chloride Level 107 MEQ/L Carbon Dioxide Level 24.6 MEQ/L Anion Gap 10 MEQ/L Estimat Glomerular Filtration Rate 59 ML/MIN [facility] Medical Decision Making Medical Screen Exam Complete: Yes Emergency Medical Condition: Yes Medical Record Reviewed: Yes Differential Diagnosis Colitis versus diverticulitis versus internal hemorrhoid versus bleeding gastritis versus SBO Narrative Course CBC shows no leukocytosis, no anemia with a hemoglobin of 13.6/40.4, normal platelet count of 326,000, and also no left shift Coagulation profile PT slightly elevated at 12.8 and INR is 1.3 patient is known to be on Xarelto Electrolytes are all within normal limits, normal liver functions. Patient is O+ with a negative screen CT abdomen and pelvis read by radiologist as no evidence of acute process, no evidence of mass or lymphadenopathy, status post cholecystectomy. Diagnosis Primary Impression: Spasm of bowel Additional Impression: Gastritis Patient Instructions: Diet for Stomach Ulcers and Gastritis (GEN), Gastritis ( ED), General Instructions Scripts Ondansetron Odt (Zofran Odt) 4 Mg Tab 4 MG SL Q6HR Y for Nausea/Vomiting, #12 TAB 0 Refills Prov: Kevin Campos MD 09/10/17 Dicyclomine (Bentyl) 10 Mg Cap 10 MG PO TID Y for Bowel Management for 3 Days, #10 CAP 0 Refills Prov: Lightburn,Kevin Portillo MD 09/10/17 Disposition: 01 DISCHARGE HOME Condition: Stable Kevin Campos MD September 10, 2017 19:08
[2017-09-10] MEDS ORDERED: PANTOPRAZOLE SODIUM 40 MG VIAL IVP ONE (19:15)
[2017-09-10] MEDS ORDERED: MORPHINE SULFATE 4 MG/ML INJ IV PUSH ONE (19:15)
[2017-09-10 19:24] VITALS: O2SAT 98
[2017-09-10 19:34] LABS: AUTOMATED NEUTROPHIL # 3.8 TH/MM3 (1.8-7.7); BASOPHIL % 0.4 % (0.0-2.0); EOSINOPHIL # 0.1 TH/MM3 (0-0.4); EOSINOPHIL % 1.2 % (0.0-4.0); HEMATOCRIT 40.4 % (39.0-51.0); HEMOGLOBIN 13.6 GM/DL (13.0-17.0); LYMPH % 34.7 % (9.0-44.0); LYMPHOCYTE # 2.6 TH/MM3 (1.0-4.8); MEAN CELL VOLUME 90.3 FL (80.0-100.0); MEAN CORPUSCULAR HEMOGLOBIN 30.4 PG (27.0-34.0); MEAN CORPUSCULAR HGB CONC 33.6 % (32.0-36.0); MEAN PLATELET VOLUME 7.7 FL (7.0-11.0); MONO % 12.1 % (0.0-8.0); MONOCYTE # 0.9 TH/MM3 (0-0.9); NEUT % 51.6 % (16.0-70.0); PLATELET COUNT 326 TH/MM3 (150-450); RED BLOOD COUNT 4.48 MIL/MM3 (4.50-5.90); RED CELL DISTRIBUTION WIDTH 14.2 % (11.6-17.2); WHITE BLOOD COUNT 7.5 TH/MM3 (4.0-11.0)
[2017-09-10 19:41] VITALS: BP_SYST 124; BP_SYST 130; BP_SYST 133; BP_DIAS 66; BP_DIAS 70; RESP 16
[2017-09-10 19:46] LABS: INTERNATIONAL NORMALIZED RATIO 1.3 RATIO; PROTHROMBIN TIME - PATIENT 12.8 SEC (9.8-11.6)
[2017-09-10 19:50] LABS: ALBUMIN 3.3 GM/DL (3.4-5.0); AST (GOT) 14 U/L (15-37); BICARBONATE 24.6 MEQ/L (21.0-32.0); BLOOD UREA NITROGEN 8 MG/DL (7-18); CALCIUM 8.8 MG/DL (8.5-10.1); CHLORIDE 107 MEQ/L (98-107); CREATININE 1.28 MG/DL (0.60-1.30); GLOMERULAR FILTRATION RATE 59 ML/MIN (>89); GLUCOSE,RANDOM 89 MG/DL (74-106); SODIUM (NA) 142 MEQ/L (136-145)
[2017-09-10 19:51] LABS: ALT (GPT) 29 U/L (12-78)
[2017-09-10 19:53] LABS: ALKALINE PHOSPHATASE 160 U/L (45-117); TOTAL BILIRUBIN ADULT 0.5 MG/DL (0.2-1.0); TOTAL PROTEIN 7.6 GM/DL (6.4-8.2)
--- NOTE | 2017-09-10 20:04 | RADRPT ---
EXAM DATE: 09/10/2017 7:44 PM EDT AGE/SEX: 52 years / Male INDICATIONS: Lower abdomen pain with rectal bleeding. CLINICAL DATA: This is the patient's initial encounter. Patient reports that signs and symptoms have been present for 1 month and indicates a pain score of 5/10. MEDICAL/SURGICAL HISTORY: Hypertension. Pancreatitis. Diabetes mellitus type II. DVT PE Stephen endectomy. Cholecystectomy. Inguinal hernia repair. RADIATION DOSE: 16.98 CTDI (mGy) COMPARISON: [facility] – [place], CT ABDOMEN & PELVIS W/O CONTRAST, 07/04/2016. . TECHNIQUE: Multiple contiguous axial images were obtained through the abdomen. Images were obtained using multiple row detector helical technique. Using dose reduction techniques, radiation dose was ke pt as low as reasonably achievable to obtain optimal diagnostic quality images. FINDINGS: Lower Lungs: The visualized lower lungs are clear. Liver: The liver has a homogeneous density without space-occupying lesion. There is no dilation of th e biliary tree. Postcholecystectomy clips are noted. Spleen: Homogeneous density without enlargement. Pancreas: Unremarkable without mass or calcification. Kidneys: Normal in size and shape. No evidence of mass or hydronephrosis. Adrenal Glands: Unremarkable. Aorta: The aorta and proximal iliac vessels are grossly unremarkable without aneurysmal dilation. Bowel/Mesentery: The bowel loops are grossly unremarkable. The cecum and sigmoid colon have a normal configuration. Abdominal Wall: Intact. Retroperitoneum: No evidence of adenopathy in the retrocrural, para-aortic, or deep pelvic regions. Bladder: Contours are smooth. Reproductive Organs: No abnormal masses or calcifications seen. Inguinal: The inguinal region is unremarkable without evidence of adenopathy. Bony Structures: Unremarkable. CONCLUSION: 1. No evidence of acute process 2. No evidence of mass or lymphadenopathy 3. Status post cholecystectomy. Electronically signed by: Roberto Smith MD 09/10/2017 8:03 PM EDT
[2017-09-10] MEDS ORDERED: DICYCLOMINE HCL 20 MG/2 ML VIAL IM ONE (20:30)
[2017-09-10 21:45] VITALS: BP 118/57; PULSE 79; RESP 16; O2SAT 98
[2017-09-10] MEDS ORDERED: ZOFR4TAB3 SL (22:31)
[2017-09-10] MEDS ORDERED: DICY10 PO (22:31)
== END 2017-09-10 22:46 | disposition home or self-care (01) ==
LOC: NEPE 18:11
DX: K58.9 Irritable bowel syndrome, unspecified (principal); K29.70 Gastritis, unspecified, without bleeding; E11.9 Type 2 diabetes mellitus without complications; I10 Essential (primary) hypertension; K21.9 Gastro-esophageal reflux disease without esophagitis; Z79.01 Long term (current) use of anticoagulants; Z79.84 Long term (current) use of oral hypoglycemic drugs; Z86.718 Personal history of other venous thrombosis and embolism
CPT/HCPCS: 74176; 80053; 85025; 85610; 85730; 86850; 86900; 86901; 96374; 96375; 99284; C9113; J0500; J2270; J7030

== ENCOUNTER 2017-10-05 15:20 | Inpatient (IN) | payer MEDICAID ==
[~2017-10-05] VITALS: Ht 182.9 cm; Wt 140.0 kg
[~2017-10-05 15:20] MED LIST changes: +DICY10 PO; +ZOFR4TAB3 SL
[2017-10-05 15:25] VITALS: BP 135/83; PULSE 85; RESP 20; TEMP 98.4; O2SAT 99
[2017-10-05] MEDS ORDERED: SODIUM CHLOR 0.9% 1000 ML INJ 1,000 ML IV SCH (16:06)
[2017-10-05] MEDS ORDERED: ONDANSETRON ODT 4 MG TAB PO ONE (16:15)
[2017-10-05] MEDS ORDERED: SODIUM CHLORIDE 0.9% FLUSH 10 ML FLUSH IVF PRN (16:15)
[2017-10-05] MEDS ORDERED: MORPHINE SULFATE 4 MG/ML INJ IV PUSH ONE (16:15)
[2017-10-05] MEDS ORDERED: PANTOPRAZOLE INJ 80 MG in SODIUM CHLORIDE 0.9% INJ 35 ML IV ONE (16:21)
[2017-10-05 16:23] VITALS: BP 148/86; PULSE 84; RESP 16; O2SAT 98
--- NOTE | 2017-10-05 16:25 | PD ---
HPI Chief Complaint: GI Complaint Time Seen by Provider: 15:52 Travel History International Travel<30 days: No Contact w/Intl Traveler<30days: No Traveled to known affect area: No History of Present Illness HPI Patient presents to the emergency department with GI bleed. He is a patient of Dr. Galindo sent in here for the GI bleed. Patient is complaining of abdominal pain lower abdomen and epigastric area and vomiting blood and bright red blood in stool since Tuesday. States that it has been constant and he has had this in the past. 2 ulcers and small bowel obstruction. He is on Xarelto last dose baby aspirin, last dose this morning. Also taking Aleve last dose denies constipation, but reports some diarrhea, vomiting bright red blood 5-6 times a day (less than 1/4c), shortness of breath with the pain, chills, but he denies fever or chest pain. GI Note 09/04/17: "EGD/colonoscopy on 05/28/17 --->Diffuse gastritis etiology unclear, Mild diverticulosis, Grade 2 internal hemorrhoids, colonoscopy was incomplete due to poor prep and was recommended a repeat in 2 months but he didn't follow up as an OP. BX raised possibility of H-pylori and stool AG recommended." PFSH Past Medical History Hx Anticoagulant Therapy: Yes (XERALTO) Arthritis: No Asthma: No Autoimmune Disease: No Blood Disorders: No Anxiety: Yes Depression: Yes Heart Rhythm Problems: No Cancer: No Cardiac Catheterization: Yes Cardiovascular Problems: Yes High Cholesterol: No Chemotherapy: No Chest Pain: Yes Congestive Heart Failure: No COPD: No Cerebrovascular Accident: No Diabetes: Yes Patient Takes Glucophage: Yes Diminished Hearing: No Deep Vein Thrombosis: Yes Endocrine: No Gastrointestinal Disorders: Yes (GERD; ULCER HX; SBO) GERD: Yes Glaucoma: No Genitourinary: No Headaches: No Hepatitis: No Hiatal Hernia: No Hypertension: Yes Immune Disorder: No Inguinal Hernia: Yes Kidney Stones: No Musculoskeletal: Yes Neurologic: No Psychiatric: Yes Reproductive: No Respiratory: Yes Immunizations Current: Yes Myocardial Infarction: Yes Pancreatitis: Yes Radiation Therapy: No Renal Failure: No Seizures: No Sickle Cell Disease: No Sleep Apnea: No Thyroid Disease: No Ulcer: Yes Past Surgical History Abdominal Surgery: Yes (BILATERAL INGUINAL HERNIA REPAIR ; REPAIR RECURRENT RT ING HERNIA) AICD: No Appendectomy: Yes Arteriovenous Shunt: No Body Medical Devices: NONE Cardiac Surgery: No Cholecystectomy: Yes Coronary Artery Bypass Graft: No Ear Surgery: No Endocrine Surgery: No Eye Surgery: No Genitourinary Surgery: No Gynecologic Surgery: No Insulin Pump: No Joint Replacement: No Oral Surgery: No Pacemaker: No Other Surgery: Yes (RT SHOULDER SURGERY REBUILT 2012; RT KNEE SCOPED X 3/ REPLACED, LT KNEE X 2) Family History Family Myocardial Infarction: Yes (FATHER 63 FROM [place], SISTER HAD ONE) Social History Alcohol Use: No Tobacco Use: No Substance Use: No Allergies-Medications (Allergen,Severity, Reaction): Coded Allergies: No Known Allergies (Verified Allergy, Unknown, 10/05/17) Reported Meds & Prescriptions Reported Meds & Active Scripts Active Zofran Odt (Ondansetron Odt) 4 Mg Tab 4 Mg SL Q6HR PRN Bentyl (Dicyclomine HCl) 10 Mg Cap 10 Mg PO TID PRN 3 Days Xarelto (Rivaroxaban) 20 Mg Tab 20 Mg PO DAILY Lisinopril 20 Mg Tab 40 Mg PO DAILY Furosemide 40 Mg Tab 40 Mg PO BID Gabapentin 300 Mg Cap 300 Mg PO TID Paroxetine (Paroxetine HCl) 40 Mg Tab 40 Mg PO DAILY Omeprazole 40 Mg Cap 40 Mg PO BID Imitrex (Sumatriptan Succinate) 50 Mg Tab 50 Mg PO ONCE PRN If a satisfactory response has not been obtained at 2 hours, a second dose may be administered Reported Metoprolol Succinate ER 24 HR (Metoprolol Succinate) 50 Mg Tab 50 Mg PO DAILY Oxycodone (Oxycodone HCl) 20 Mg Tab 20 Mg PO Q4HR Metformin (Metformin HCl) 1,000 Mg Tab 1,000 Mg PO DAILY With a meal Sucralfate 1 Gram Tab 1 Gm PO QID on empty stomach Review of Systems Except as stated in HPI: all other systems reviewed are Neg Physical Exam Narrative GENERAL: No acute distress. SKIN: Focused skin assessment warm/dry. HEAD: Atraumatic. Normocephalic. EYES: Pupils equal and round. No scleral icterus. No injection or drainage. ENT: No nasal bleeding or discharge. Mucous membranes pink and moist. NECK: Trachea midline. No JVD. CARDIOVASCULAR: Regular rate and rhythm. No murmur appreciated. RESPIRATORY: No accessory muscle use. Clear to auscultation. Breath sounds equal bilaterally. GASTROINTESTINAL: Abdomen soft, epigastric tenderness and diffuse left lower abdomen tenderness, obese. Rectal: Brown stool, no blood MUSCULOSKELETAL: No obvious deformities. No clubbing. No cyanosis. No edema. NEUROLOGICAL: Awake and alert. No obvious cranial nerve deficits. Motor grossly within normal limits. Normal speech. PSYCHIATRIC: Appropriate mood and affect; insight and judgment normal. Data Data Last Documented VS Vital Signs Date Time Temp Pulse Resp B/P (MAP) Pulse Ox O2 Delivery O2 Flow Rate FiO2 10/05/17 19:12 69 16 120/70 (87) 100 Room Air 10/05/17 15:25 98.4 Orders Orders Complete Blood Count With Diff (10/05/17 16:06) Comprehensive Metabolic Panel (10/05/17 16:06) Prothrombin Time / Inr (Pt) (10/05/17 16:06) Act Partial Throm Time (Ptt) (10/05/17 16:06) Urinalysis - C+S If Indicated (10/05/17 16:06) Red Blood Cells (Rbc) (10/05/17 16:06) Ecg Monitoring (10/05/17 16:06) Iv Access Insert/Monitor (10/05/17 16:06) Oximetry (10/05/17 16:06) Sodium Chlor 0.9% 1000 Ml Inj (Ns 1000 M (10/05/17 16:06) Sodium Chloride 0.9% Flush (Ns Flush) (10/05/17 16:15) Electrocardiogram (10/05/17 16:06) Troponin I (10/05/17 16:06) Chest, Single Ap (10/05/17 16:06) Ct Abd/Pel W Iv Contrast(Rout) (10/05/17 16:06) Type And Screen (10/05/17 16:06) Magnesium (Mg) (10/05/17 16:12) Lipase (10/05/17 16:12) Morphine Inj (Morphine Inj) (10/05/17 16:15) Ondansetron Odt (Zofran Odt) (10/05/17 16:15) Sodium Chloride 0.9... W/Pantoprazole In (10/05/17 16:21) Sodium Chloride 0.9... W/Pantoprazole In (10/05/17 16:21) Sodium Chlor 0.9% 1000 Ml Inj (Ns 1000 M (10/05/17 16:45) Iohexol 350 Inj (Omnipaque 350 Inj) (10/05/17 18:41) Admit Order (Ed Use Only) (10/05/17 19:47) Labs Laboratory Tests Test 10/05/17 16:20 White Blood Count 7.5 TH/MM3 Red Blood Count 4.73 MIL/MM3 Hemoglobin 14.0 GM/DL Hematocrit 43.1 % Mean Corpuscular Volume 91.2 FL Mean Corpuscular Hemoglobin 29.7 PG Mean Corpuscular Hemoglobin Concent 32.6 % Red Cell Distribution Width 15.0 % Platelet Count 454 TH/MM3 Mean Platelet Volume 7.9 FL Neutrophils (%) (Auto) 49.1 % Lymphocytes (%) (Auto) 40.0 % Monocytes (%) (Auto) 8.7 % Eosinophils (%) (Auto) 1.5 % Basophils (%) (Auto) 0.7 % Neutrophils # (Auto) 3.7 TH/MM3 Lymphocytes # (Auto) 3.0 TH/MM3 Monocytes # (Auto) 0.6 TH/MM3 Eosinophils # (Auto) 0.1 TH/MM3 Basophils # (Auto) 0.0 TH/MM3 CBC Comment DIFF FINAL Differential Comment Prothrombin Time 13.5 SEC Prothromb Time International Ratio 1.3 RATIO Activated Partial Thromboplast Time 31.5 SEC Blood Urea Nitrogen 8 MG/DL Creatinine 0.98 MG/DL Random Glucose 78 MG/DL Total Protein 7.7 GM/DL Albumin 3.4 GM/DL Calcium Level 8.4 MG/DL Alkaline Phosphatase 114 U/L Aspartate Amino Transf (AST/SGOT) 18 U/L Alanine Aminotransferase (ALT/SGPT) 17 U/L Total Bilirubin 0.3 MG/DL Sodium Level 146 MEQ/L Potassium Level 4.5 MEQ/L Chloride Level 112 MEQ/L Carbon Dioxide Level 25.1 MEQ/L Anion Gap 9 MEQ/L Estimat Glomerular Filtration Rate 81 ML/MIN Magnesium Level 2.5 MG/DL Troponin I LESS THAN 0.02 NG/ML Lipase 110 U/L MDM Medical Decision Making Medical Screen Exam Complete: Yes Emergency Medical Condition: Yes Interpretation(s) Labs: Elevated platelets, INR 1.3, elevated PT and PTT; sodium elevated ECG: SR, rate 75, IV conduction delay. T wave inversion in lead III and V1 Last Impressions Chest X-Ray 10/05/17 1606 Signed Impressions: CONCLUSION: 1. No acute cardiopulmonary disease. Abdomen/Pelvis CT 10/05/17 1606 Signed Impressions: CONCLUSION: 1. No acute inflammatory process. 2. Bulge in the anterior abdominal wall without significant hernia. Differential Diagnosis Pancreatitis, UTI, ulcer disease, lower GI bleed, upper GI bleed, gastritis, bleeding ulcer Narrative Course Patient presents to the emergency department complaining of rectal bleeding and vomiting blood, as well as abdominal pain. Patient placed on the equipment monitor phototypesetting, IV access obtained, and chest x-ray/EKG/CT/labs ordered. Patient started on a Protonix drip. 1L IV normal saline and 4mg Zofran ODT. Patient also typed and crossed 2 units of PRBCs. Diagnosis Primary Impression: GI bleed Qualified Codes: K92.2 - Gastrointestinal hemorrhage, unspecified Admitting Information Admitting Physician Requests: Admit Condition: Stable Marie Pickett MD Oct 05, 2017 16:25
[2017-10-05 16:44] LABS: AUTOMATED NEUTROPHIL # 3.7 TH/MM3 (1.8-7.7); BASOPHIL % 0.7 % (0.0-2.0); EOSINOPHIL # 0.1 TH/MM3 (0-0.4); EOSINOPHIL % 1.5 % (0.0-4.0); HEMATOCRIT 43.1 % (39.0-51.0); MEAN CELL VOLUME 91.2 FL (80.0-100.0); MEAN CORPUSCULAR HEMOGLOBIN 29.7 PG (27.0-34.0); MEAN CORPUSCULAR HGB CONC 32.6 % (32.0-36.0); MEAN PLATELET VOLUME 7.9 FL (7.0-11.0); MONO % 8.7 % (0.0-8.0); MONOCYTE # 0.6 TH/MM3 (0-0.9); NEUT % 49.1 % (16.0-70.0); PLATELET COUNT 454 TH/MM3 (150-450); RED BLOOD COUNT 4.73 MIL/MM3 (4.50-5.90); WHITE BLOOD COUNT 7.5 TH/MM3 (4.0-11.0)
[2017-10-05] MEDS ORDERED: SODIUM CHLOR 0.9% 1000 ML INJ 1,000 ML IV ONE (16:45)
[2017-10-05 16:55] LABS: INTERNATIONAL NORMALIZED RATIO 1.3 RATIO; PROTHROMBIN TIME - PATIENT 13.5 SEC (9.8-11.6)
[2017-10-05] MEDS: PANTOPRAZOLE INJ 80 MG in SODIUM CHLORIDE 0.9% INJ 100 ML IV SCH (17:09)
[2017-10-05 17:11] LABS: ALKALINE PHOSPHATASE 114 U/L (45-117); TOTAL BILIRUBIN ADULT 0.3 MG/DL (0.2-1.0); TOTAL PROTEIN 7.7 GM/DL (6.4-8.2); TROPONIN I LESS THAN 0.02 NG/ML (0.02-0.05)
[2017-10-05 17:12] LABS: ALBUMIN 3.4 GM/DL (3.4-5.0); ALT (GPT) 17 U/L (12-78); AST (GOT) 18 U/L (15-37); BICARBONATE 25.1 MEQ/L (21.0-32.0); BLOOD UREA NITROGEN 8 MG/DL (7-18); CALCIUM 8.4 MG/DL (8.5-10.1); CHLORIDE 112 MEQ/L (98-107); CREATININE 0.98 MG/DL (0.60-1.30); GLOMERULAR FILTRATION RATE 81 ML/MIN (>89); GLUCOSE,RANDOM 78 MG/DL (74-106); SODIUM (NA) 146 MEQ/L (136-145)
--- NOTE | 2017-10-05 17:29 | RADRPT ---
EXAM DATE: 10/05/2017 5:26 PM EDT AGE/SEX: 52 years / Male INDICATIONS: Shortness of breath. CLINICAL DATA: This is the patient's initial encounter. Patient reports that signs and symptoms have been present for 4 - 6 days and indicates a pain score of 0/10. MEDICAL/SURGICAL HISTORY: None. None. [place] [facility] [place]. . FINDINGS: No new focal pleural or parenchymal opacities. The cardiomediastinal contours are unremarkable. Osse ous structures are intact. CONCLUSION: 1. No acute cardiopulmonary disease. Electronically signed by: Hussein Kerns MD 10/05/2017 5:28 PM EDT
[2017-10-05 17:39] LABS: MAGNESIUM 2.5 MG/DL (1.5-2.5)
[2017-10-05] MEDS ORDERED: IOHEXOL 350 MG/ML 10 ML VIAL (for RAD DIAG) IVCONTRAST ONE (18:41)
--- NOTE | 2017-10-05 18:51 | RADRPT ---
EXAM DATE: 10/05/2017 6:40 PM EDT AGE/SEX: 52 years / Male INDICATIONS: Upper abdominal pain with bright red blood in stool and vomiting blood as well. CLINICAL DATA: This is the patient's initial encounter. Patient reports that signs and symptoms have been present for 4 - 6 days and indicates a pain score of 7/10. MEDICAL/SURGICAL HISTORY: Deep venous thrombosis. Pancreatitis. Gastroesophageal reflux disea se. Hypertension. Ulcer. Diabetes. Inguinal hernia. Appendectomy. Cholecystectomy. ORAL CONTRAST: No oral contrast ingested. RADIATION DOSE: 16.92 CTDI (mGy) COMPARISON: [facility] [place]AST, 09/04/2017. . TECHNIQUE: Multiple contiguous axial images were obtained through the abdomen and pelvis following b olus infusion of 100 ml Omnipaque 350 (iohexol) nonionic water-soluble contrast as a single exam do se. No oral contrast ingested. Using automated exposure control and adjustment of the mA and/or kV a ccording to patient size, radiation dose was kept as low as reasonably achievable to obtain optimal d iagnostic quality images. DICOM format image data is available electronically for review and compari son. FINDINGS: Lower Lungs: The visualized lower lungs are clear. Liver: The liver has a homogeneous density without space-occupying lesion. Cholecystectomy clips. The re is no dilation of the biliary tree. Spleen: Homogeneous density without enlargement. Pancreas: Unremarkable without mass or calcification. Kidneys: Normal in size and shape. No evidence of mass or hydronephrosis. Adrenal Glands: Unremarkable. Aorta: The aorta and proximal iliac vessels are grossly unremarkable without aneurysmal dilation. Bowel/Mesentery: The bowel loops are grossly unremarkable. The cecum and sigmoid colon have a normal configuration. Abdominal Wall: Bulging of the anterior abdominal wall without significant hernia.. Retroperitoneum: No evidence of adenopathy in the retrocrural, para-aortic, or deep pelvic regions. Bladder: Contours are smooth. Reproductive Organs: No abnormal masses or calcifications seen. Inguinal: The inguinal region is unremarkable without evidence of adenopathy. Bony Structures: Unremarkable. CONCLUSION: 1. No acute inflammatory process. 2. Bulge in the anterior abdominal wall without significant hernia. Electronically signed by: Jacob Alcantara MD 10/05/2017 6:49 PM EDT
[2017-10-05 19:12] VITALS: BP 120/70; PULSE 69; RESP 16; O2SAT 100
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
[2017-10-05 20:31] LABS: BILIRUBIN, URINE NEG (NEG); BLOOD, URINE NEG (NEG); GLUCOSE,URINE NEG (NEG); KETONE, URINE NEG (NEG); NITRITE,URINE NEG (NEG); URINE COLOR YELLOW (YELLW/STRAW); URINE LEUKOCYTE ESTERASE NEG (NEG)
[2017-10-05] MEDS ORDERED: ONDANSETRON HCL 4 MG/2 ML VIAL IV PUSH PRN (20:45)
[2017-10-05] MEDS ORDERED: MORPHINE SULFATE 2 MG/ML SYRINGE IV PUSH PRN ×2 (21:00)
[2017-10-05] MEDS ORDERED: NALOXONE HCL 0.4 MG/ML AMP IV PUSH PRN (21:00)
[2017-10-05] MEDS ORDERED: MORPHINE SULFATE 4 MG/ML INJ IV PUSH PRN (22:00)
[2017-10-05] MEDS: SODIUM CHLORIDE 0.9% FLUSH 10 ML FLUSH IV FLUSH SCH (22:00)
[2017-10-05] MEDS: FUROSEMIDE 40 MG TAB PO SCH (22:01)
[2017-10-05] MEDS: ONDANSETRON ODT 4 MG TAB PO PRN (22:01)
[2017-10-05] MEDS: MORPHINE SULFATE 4 MG/ML INJ IV PUSH PRN (22:03)
[2017-10-05] MEDS: D5-1/2 NS + KCL 20 MEQ INJ 1,000 ML IV SCH (22:03)
[2017-10-05] MEDS ORDERED: GLUCAGON 1 MG/ML VIAL OTHER PRN (23:15)
[2017-10-05] MEDS ORDERED: DEXTROSE 50% IN WATER 50 ML VIAL(D50) IV PUSH PRN (23:15)
[2017-10-05] MEDS: SUCRALFATE 1 GM TAB PO SCH (23:24)
[2017-10-05 23:27] LABS: HEMATOCRIT 40.7 % (39.0-51.0); HEMOGLOBIN 13.3 GM/DL (13.0-17.0)
[2017-10-05 23:45] VITALS: BP 153/82; PULSE 70; RESP 17; TEMP 98.5; O2SAT 97
[2017-10-05] MEDS ORDERED: cloNIDine HCL 0.1 MG TAB PO PRN (23:45)
[2017-10-05] MEDS ORDERED: RESP: ALBUTEROL 2.5 MG/IPRATROPIUM 0.5 MG NEB (PRN) NEB (23:45)
[2017-10-06] MEDS: PANTOPRAZOLE INJ 80 MG in SODIUM CHLORIDE 0.9% INJ 100 ML IV SCH ×3 (01:34→18:52)
[2017-10-06] MEDS: SODIUM CHLORIDE 0.9% FLUSH 10 ML FLUSH IV FLUSH PRN ×2 (01:34→05:37)
[2017-10-06] MEDS: MORPHINE SULFATE 4 MG/ML INJ IV PUSH PRN ×7 (01:34→21:51)
[2017-10-06 04:11] VITALS: BP 103/57; PULSE 69; RESP 17; TEMP 98.4; O2SAT 96
[2017-10-06 04:20] LABS: AUTOMATED NEUTROPHIL # 2.7 TH/MM3 (1.8-7.7); BASOPHIL % 0.7 % (0.0-2.0); EOSINOPHIL # 0.1 TH/MM3 (0-0.4); EOSINOPHIL % 2.2 % (0.0-4.0); HEMATOCRIT 40.8 % (39.0-51.0); HEMOGLOBIN 13.6 GM/DL (13.0-17.0); LYMPH % 44.5 % (9.0-44.0); LYMPHOCYTE # 2.8 TH/MM3 (1.0-4.8); MEAN CELL VOLUME 91.3 FL (80.0-100.0); MEAN CORPUSCULAR HEMOGLOBIN 30.4 PG (27.0-34.0); MEAN CORPUSCULAR HGB CONC 33.3 % (32.0-36.0); MEAN PLATELET VOLUME 7.3 FL (7.0-11.0); MONO % 8.6 % (0.0-8.0); MONOCYTE # 0.5 TH/MM3 (0-0.9); PLATELET COUNT 399 TH/MM3 (150-450); RED BLOOD COUNT 4.47 MIL/MM3 (4.50-5.90); RED CELL DISTRIBUTION WIDTH 14.9 % (11.6-17.2); WHITE BLOOD COUNT 6.2 TH/MM3 (4.0-11.0)
[2017-10-06 04:43] LABS: ALBUMIN 3.2 GM/DL (3.4-5.0); AST (GOT) 9 U/L (15-37); BICARBONATE 26.1 MEQ/L (21.0-32.0); BLOOD UREA NITROGEN 9 MG/DL (7-18); CALCIUM 8.7 MG/DL (8.5-10.1); CHLORIDE 107 MEQ/L (98-107); CREATININE 1.04 MG/DL (0.60-1.30); GLOMERULAR FILTRATION RATE 75 ML/MIN (>89); GLUCOSE,RANDOM 95 MG/DL (74-106); SODIUM (NA) 142 MEQ/L (136-145)
[2017-10-06 04:44] LABS: ALT (GPT) 18 U/L (12-78)
[2017-10-06 04:46] LABS: ALKALINE PHOSPHATASE 111 U/L (45-117); TOTAL BILIRUBIN ADULT 0.3 MG/DL (0.2-1.0); TOTAL PROTEIN 7.2 GM/DL (6.4-8.2)
[2017-10-06] MEDS: D5-1/2 NS + KCL 20 MEQ INJ 1,000 ML IV SCH ×4 (05:04→20:41)
[2017-10-06] MEDS ORDERED: SOD PHOSPHATE/SOD BIPHOSPHATE (ADULT) ENEMA 133ML RECTAL ONE (05:30)
[2017-10-06] MEDS: ONDANSETRON ODT 4 MG TAB PO PRN ×2 (05:44→18:41)
[2017-10-06] MEDS ORDERED: CHLORHEXIDINE GLUCONATE 2 % 1 PACK (2 CLOTHS) TOPICAL PRN (06:15)
[2017-10-06] MEDS ORDERED: SODIUM CHLORID 0.9% 500 ML IV PRN (06:15)
[2017-10-06] MEDS ORDERED: LACTATED RINGER'S 1000 ML IV PRN (06:15)
[2017-10-06] MEDS ORDERED: POVIDONE IODINE 5% (ANTISEPSIS KIT) 4 APPLICATIONS EACH NARE PRN (06:15)
[2017-10-06 08:00] VITALS: BP 113/61; PULSE 69; RESP 14; TEMP 97.6; O2SAT 96
[2017-10-06] MEDS: INSULIN ASPART SUPPLEMENTAL SCALE SQ SCH ×4 (08:00→20:45)
[2017-10-06] MEDS: PARoxetine HCL 20 MG TAB PO SCH (08:15)
[2017-10-06] MEDS: FUROSEMIDE 40 MG TAB PO SCH ×2 (08:15→20:40)
[2017-10-06] MEDS: SUCRALFATE 1 GM TAB PO SCH ×4 (08:15→20:40)
[2017-10-06] MEDS: METOPROLOL SUCCINATE 50 MG EXTENDED RELEASE TAB PO SCH (08:15)
[2017-10-06] MEDS: SODIUM CHLORIDE 0.9% FLUSH 10 ML FLUSH IV FLUSH SCH ×2 (08:16→20:40)
[2017-10-06] MEDS: LISINOPRIL 20 MG TAB PO SCH (08:16)
[2017-10-06] MEDS: GABAPENTIN 300 MG CAP PO SCH ×3 (08:16→17:37)
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
[2017-10-06 12:00] VITALS: BP 122/63; PULSE 69; RESP 16; TEMP 97.6; O2SAT 96
[2017-10-06] MEDS ORDERED: PROPOFOL 200 MG/20 ML AMP IV ONE (12:00)
[2017-10-06] MEDS ORDERED: LIDOCAINE HCL 1% PF 5 ML SYRINGE OTHER ONE (12:00)
--- NOTE | 2017-10-06 12:13 | HHI.FPPN ---
Subjective Remarks Patient seen and examined, discussed with the medicine team. This is a 52-year-old male patient of Dr. Meng Galindo with multiple chronic health conditions, in particular recurrent DVT and recent knee surgery. He currently takes Xarelto daily. He reportedly began having some bloody vomit and bloody stools several days ago. This persisted, and he presented to the emergency department yesterday October 05. He had knee surgery in July and continues to have some discomfort in the knee, and had been taking 2 Aleve capsules twice daily for the past several days. He has had bleeding from the GI tract in the past and the most recent upper endoscopy was in August of this year which showed some significant gastritis. When seen today, he is feeling" so-so", last vomitus was this morning with minimal blood, and he has had enemas today and does not know if there was blood in his stool. He is being prepared for upper endoscopy and sigmoidoscopy. Please see H&P for this admission for additional historical details, including past, family, social history and review of systems at the time of admission. He lives at home with his sister, his 14-year-old son and 16-year-old daughter. His children are currently staying with friends as his sister is out of town. Objective Vitals Vital Signs Date Time Temp Pulse Resp B/P (MAP) Pulse Ox O2 Delivery O2 Flow Rate FiO2 10/06/17 08:00 97.6 69 14 113/61 (78) 96 10/06/17 05:41 15 10/06/17 04:11 98.4 69 17 103/57 (72) 96 10/05/17 23:45 98.5 70 17 153/82 (105) 97 10/05/17 20:43 10/05/17 19:12 69 16 120/70 (87) 100 Room Air 10/05/17 16:23 84 16 148/86 (106) 98 Room Air 10/05/17 15:25 98.4 85 20 135/83 (100) 99 I/O 10/05/17 10/05/17 10/05/17 10/06/17 10/06/17 10/06/17 07:00 15:00 23:00 07:00 15:00 23:00 Intake Total 1035 ml Output Total 1400 ml Balance 1035 ml -1400 ml Intake IV Total 1035 ml Output Urine Total 1400 ml # Voids 1 # Bowel Movements 1 Result Diagram: 10/06/17 0355 10/06/17 0355 Other Results Laboratory Tests Test 10/05/17 16:20 10/05/17 19:55 10/05/17 23:06 10/06/17 03:55 Platelet Count 454 TH/MM3 Monocytes (%) (Auto) 8.7 % 8.6 % Prothrombin Time 13.5 SEC Activated Partial Thromboplast Time 31.5 SEC Calcium Level 8.4 MG/DL Sodium Level 146 MEQ/L Chloride Level 112 MEQ/L Estimat Glomerular Filtration Rate 81 ML/MIN 75 ML/MIN Troponin I LESS THAN 0.02 NG/ML Red Blood Count 4.47 MIL/MM3 Lymphocytes (%) (Auto) 44.5 % Albumin 3.2 GM/DL Aspartate Amino Transf (AST/SGOT) 9 U/L Imaging Last Impressions Chest X-Ray 10/05/17 1606 Signed Impressions: CONCLUSION: 1. No acute cardiopulmonary disease. Abdomen/Pelvis CT 10/05/17 1606 Signed Impressions: CONCLUSION: 1. No acute inflammatory process. 2. Bulge in the anterior abdominal wall without significant hernia. Objective Remarks O. CONSTITUTIONAL/GEN: normally nourished, in NAD. Obese man. EYES: conjunctiva normal, PERRLA, EOMI, no scleral icterus ENT: Mouth and pharynx normal. Mucous membranes slightly dry NECK: No thyromegaly LUNGS: clear A-P, respiratory effort is normal. CARDIOVASCULAR: RR without murmur or gallop. No significant edema. GI/ABD: Obese, soft without masses, without organomegaly. Bowel sounds are active NEURO: No focal deficits. SKIN: color normal, no rashes noted. No jaundice, good turgor. HEME/LYMPH: no bruising, petechia or significant adenopathy MUSC: Extremities are normal in appearance, healing scar over the right knee. PSYCH/MENTAL STATUS: Alert and oriented x 3. A/P Assessment and Plan Mr. Pagan is a 52-year-old male who presented to the ED with GI bleed likely secondary to NSAID use. Has been on daily Xarelto for recurrent DVT. Attending Attestation Patient seen and examined. Case reviewed and discussed with the resident team. Agree with plan of care as discussed with me. Problem List: (1) Hematochezia ICD Codes: K92.1 - Melena Status: Acute Plan: Patient presenting with 5 days of hematemesis with intermittent hematochezia likely secondary to NSAID use. Patient endorses history of gastric ulcer as well as previous GI bleed. Patient currently on chronic anticoagulation. -Abdominal CT: No acute inflammatory process. Bulge in the anterior abdominal wall without significant hernia. -CBC: H/H 14/43.1, platelets 454 -CMP: Sodium 146, chloride 112, glucose 81, calcium 8.4, otherwise negative -Coags: PT 13.5, INR 1.3, PTT 31.5 -Lipase 110 -Type and cross -Trend H/H every 6 hours -Repeat CBC, CMP in a.m. -I/Os -Patient to be n.p.o. for possible GI procedure -Gastroenterology consulted, appreciate recommendations Medications: -Protonix drip per protocol -Morphine as needed for pain -Zofran as needed for nausea/vomiting -D5 half-normal saline at 180 mL/h (maintenance fluid) -Continue home sucralfate (2) Hematemesis ICD Codes: K92.0 - Hematemesis Status: Acute Plan: Patient presenting with 5 days of hematemesis with intermittent hematochezia likely secondary to NSAID use. Patient endorses history of gastric ulcer as well as previous GI bleed. Patient currently on chronic anticoagulation. -Please see plan as above (3) History of embolism ICD Codes: Z86.718 - Personal history of other venous thrombosis and embolism Status: Chronic Plan: Patient with history of multiple thromboembolisms with negative hypercoagulable evaluation Medications: -Hold home Xarelto due to likely GI bleed (4) Hypertension ICD Codes: I10 - Essential (primary) hypertension Status: Chronic Plan: Patient with chronic hypertension Medications: -Continue home lisinopril, furosemide, and metoprolol daily (5) Chronic pain ICD Codes: G89.29 - Other chronic pain Status: Chronic Plan: Patient with long-standing chronic pain currently managed by pain management Medications: -Hold home oxycodone -Continue home gabapentin -Morphine as needed for pain as above (6) Diabetes ICD Codes: E11.9 - Type 2 diabetes mellitus without complications Status: Chronic Plan: Patient with type 2 diabetes currently managed on metformin. Recent hemoglobin A1c 5.7 with abnormal lipid panel except for decreased HDL. -CMP: Glucose 81 -Monitor blood glucose as D5 half-normal saline will be started due to patient being n.p.o. with glucose currently at 81; plan to likely transition to normal saline with hyperglycemia Medications: -Hold home metformin -Low-dose sliding scale per protocol (7) Depression ICD Codes: F32.9 - Major depressive disorder, single episode, unspecified Status: Chronic Plan: Medications: -Continue home paroxetine (8) Nutrition, metabolism, and development symptoms ICD Codes: R63.8 - Other symptoms and signs concerning food and fluid intake Status: Acute Plan: -Fluids: D5 half-normal saline at 180 mL/h (maintenance fluids) -Diet: N.p.o. for possible GI procedure tomorrow -Electrolytes: Sodium 146, chloride 112, calcium 8.4; continue to monitor -Prophylaxis: Protonix drip per protocol, sliding scale insulin, clonidine as needed for blood pressure greater than 180/110, DuoNeb's as needed for shortness of breath, hold patient's home sumatriptan, hold patient's home Bentyl , incentive spirometry -PT consulted (9) DVT prophylaxis Status: Acute Plan: -Bilateral SCDs -Defer medical prophylaxis due to likely GI bleeding Problem Qualifiers (1) Hematemesis: Qualified Codes: K92.0 - Hematemesis (2) Hypertension: Qualified Codes: I10 - Essential (primary) hypertension (3) Diabetes: Qualified Codes: E11.8 - Type 2 diabetes mellitus with unspecified complications (4) Depression: Roxana Valencia MD Oct 06, 2017 12:13
[2017-10-06] MEDS ORDERED: PEG (High)/E-LYTE SOLN 4000 ML BTL PO ONE (15:15)
--- NOTE | 2017-10-06 15:39 | GIPROC ---
[facility] [address] [facility]. [facility], [address] EGD PROCEDURE REPORT EXAM DATE: 10/06/2017 PATIENT NAME: Hipolito Pagan MR #: [id number] BIRTHDATE: 1965 ATTENDING: Klaudia Block MD ORDER #: [id number] TRAVEL GUIDE: Alexander Ortiz and Maryam Retana STATUS: inpatient INDICATIONS: The patient is a 52 yr old male here for an EGD due to gi bleeding PROCEDURE PERFORMED: EGD w/ biopsy MEDICATIONS: None and Per Anesthesia. TOPICAL ANESTHETIC: none CONSENT: The patient understands the risks and benefits of the procedure and understands that these risks include, but are not limited to: sedation, allergic reaction, infection, perforation and/or bleeding. Alternative means of evaluation and treatment include, among others: physical exam, x-rays, and/or surgical intervention. The patient elects to proceed with this endoscopic procedure. medical equipment was checked for proper function. Hand hygiene and appropriate measures for infection prevention was taken. After the risks, benefits and alternatives of the procedure were thoroughly explained, Informed consent was verified, confirmed and timeout was successfully executed by the treatment team. The patient was anesthetized with topical anesthesia and the Pentax [id number] endoscope was introduced through the mouth and advanced to the second portion of the duodenum. Retroflexed views revealed a hiatal hernia The gastroscope was then slowly withdrawn and removed. Gastritis antrum-biopsy esophagitis distal esophagus-biopsy. ADVERSE EVENTS: There were no complications. IMPRESSIONS: 1. Gastritis antrum-biopsy esophagitis distal esophagus-biopsy 2. Retroflexed views revealed a hiatal hernia RECOMMENDATIONS: 1. Await biopsy results. Biopsy results will not be ready for 7-10 days. If you don't hear from us in two weeks, call our office for biopsy results. 2. Anti-reflux regimen 3. Continue PPI 4. Avoid NSAIDS PATIENT CONDITION: stable DISPOSITION: Inpatient REPEAT EXAM: Return 1 year EGD Klaudia Block MD eSigned: Klaudia Block MD 10/06/2017 3:39 PM cc:
--- NOTE | 2017-10-06 15:43 | GIPROC ---
[facility] [address] [facility], [address] FLEXIBLE SIGMOIDOSCOPY PROCEDURE REPORT EXAM DATE: 10/06/2017 PATIENT NAME: Hipolito Pagan MR #: [id number] BIRTHDATE: 1965 ORDER #: [id number] ATTENDING: Klaudia Block MD TECHNICAL PROJECT LEAD: Alexander Ortiz and Maryam Retana STATUS: inpatient INDICATIONS: The patient is a 52 yr old male here for a flexible sigmoidoscopy due to rectal bleeding PROCEDURE PERFORMED: Flexible Sigmoidoscopy, diagnostic MEDICATIONS: None and Per Anesthesia. ESTIMATED BLOOD LOSS: None CONSENT: The patient understands the risks and benefits of the procedure and understands that these risks include, but are not limited to: sedation, allergic reaction, infection, perforation and/or bleeding. Alternative means of evaluation and treatment include, among others: physical exam, x-rays, and/or surgical intervention. The patient elects to proceed with this endoscopic procedure. medical equipment was checked for proper function. Hand hygiene and appropriate measures for infection prevention was taken. After the risks, benefits and alternatives of the procedure were thoroughly explained, Informed consent was verified, confirmed and timeout was successfully executed by the treatment team. A digital rectal exam revealed external hemorrhoids The Pentax [id number] endoscope was introduced through the anus and advanced to the sigmoid colon. The prep was fair. The instrument was then slowly withdrawn as the colon was fully examined. COLON FINDINGS: Diverticulosis sigmoid,descending. Retroflexed views revealed internal hemorrhoid The scope was then completely withdrawn from the patient and the procedure terminated. ADVERSE EVENTS: There were no complications. IMPRESSIONS: 1. Diverticulosis sigmoid,descending 2. Retroflexed views revealed internal hemorrhoid 3. Revealed external hemorrhoids RECOMMENDATIONS: 1. Fiber rich diet 2. Colonoscopy in am RECALL: Return 1 day Colonoscopy Klaudia Block MD eSigned: Klaudia Block MD 10/06/2017 3:43 PM cc:
[2017-10-06 16:00] VITALS: BP 143/67; PULSE 64; RESP 16; TEMP 97.6; O2SAT 96
[2017-10-06 16:51] VITALS: BP 144/84; PULSE 63; RESP 18; TEMP 97.7; O2SAT 99
--- NOTE | 2017-10-06 18:33 | EKG ---
Date Performed: 10/05/2017 Time Performed: 18:01:44 PTAGE: 52 years EKG: Sinus rhythm MODERATE INTRAVENTRICULAR CONDUCTION DELAY BORDERLINE ECG Since the PREVIOUS TRACING , no significant change noted PREVIOUS TRACIN09/04/2017 07.52 DOCTOR: Guillermina Miguel Interpretating Date/Time 10/06/2017 18:31:37
[2017-10-06 20:00] VITALS: BP 125/66; PULSE 64; RESP 18; TEMP 97.4; O2SAT 96
[2017-10-07] VITALS: BP 111/66; PULSE 66; RESP 18; TEMP 97.6; O2SAT 95
[2017-10-07 00:14] VITALS: O2SAT 95
[2017-10-07] MEDS: MORPHINE SULFATE 4 MG/ML INJ IV PUSH PRN ×4 (00:56→13:17)
[2017-10-07] MEDS: D5-1/2 NS + KCL 20 MEQ INJ 1,000 ML IV SCH ×2 (00:58→05:13)
[2017-10-07] MEDS ORDERED: LACTATED RINGER'S 1000 ML IV PRN (02:45)
[2017-10-07] MEDS ORDERED: CHLORHEXIDINE GLUCONATE 2 % 1 PACK (2 CLOTHS) TOPICAL PRN (02:45)
[2017-10-07] MEDS ORDERED: POVIDONE IODINE 5% (ANTISEPSIS KIT) 4 APPLICATIONS EACH NARE PRN (02:45)
[2017-10-07] MEDS: PANTOPRAZOLE INJ 80 MG in SODIUM CHLORIDE 0.9% INJ 100 ML IV SCH (05:14)
[2017-10-07 08:00] VITALS: BP 131/76; PULSE 63; RESP 18; TEMP 98; O2SAT 95
[2017-10-07] MEDS: INSULIN ASPART SUPPLEMENTAL SCALE SQ SCH ×2 (08:00→12:00)
[2017-10-07] MEDS: PARoxetine HCL 20 MG TAB PO SCH (08:23)
[2017-10-07] MEDS: GABAPENTIN 300 MG CAP PO SCH ×2 (08:24→13:17)
[2017-10-07] MEDS: METOPROLOL SUCCINATE 50 MG EXTENDED RELEASE TAB PO SCH (08:24)
[2017-10-07] MEDS: SUCRALFATE 1 GM TAB PO SCH (08:24)
[2017-10-07] MEDS: LISINOPRIL 20 MG TAB PO SCH (08:24)
[2017-10-07] MEDS: FUROSEMIDE 40 MG TAB PO SCH (08:24)
[2017-10-07] MEDS: SODIUM CHLORIDE 0.9% FLUSH 10 ML FLUSH IV FLUSH SCH (08:38)
[2017-10-07 09:05] VITALS: O2SAT 98
[2017-10-07] MEDS: ONDANSETRON ODT 4 MG TAB PO PRN (10:10)
[2017-10-07 12:00] VITALS: BP 129/69; PULSE 62; RESP 18; TEMP 98.6; O2SAT 96
[2017-10-07] MEDS ORDERED: PROPOFOL 200 MG/20 ML AMP IV ONE (12:00)
--- NOTE | 2017-10-07 12:10 | GIPROC ---
[facility] [address] [facility]. [facility], [address] COLONOSCOPY PROCEDURE REPORT EXAM DATE: 10/07/2017 PATIENT NAME: Hipolito Pagan MR #: [id number] BIRTHDATE: 1965 ENDOSCOPIST: Klaudia Block MD ORDER #: [id number] NEWSPAPER SUBSCRIPTION SOLICITOR: Cuauhtemoc Pham and Maryam Retana STATUS: inpatient INDICATIONS: The patient is a 52 yr old male here for a colonoscopy due to gi bleeding PROCEDURE PERFORMED: Colonoscopy, diagnostic MEDICATIONS: None and Per Anesthesia. PREP QUALITY: fair PREP TYPE:Other: ESTIMATED BLOOD LOSS: None CONSENT: The patient understands the risks and benefits of the procedure and understands that these risks include, but are not limited to: sedation, allergic reaction, infection, perforation and/or bleeding. Alternative means of evaluation and treatment include, among others: physical exam, x-rays, and/or surgical intervention. The patient elects to proceed with this endoscopic procedure. medical equipment was checked for proper function. Hand hygiene and appropriate measures for infection prevention was taken. After the risks, benefits and alternatives of the procedure were thoroughly explained, Informed consent was verified, confirmed and timeout was successfully executed by the treatment team. A digital exam revealed external hemorrhoids The Pentax [id number] endoscope was introduced through the anus and advanced to the cecum, which was identified by both the appendix and ileocecal valve. The instrument was then slowly withdrawn as the colon was fully examined. COLON FINDINGS: Diverticulosis sigmoid, descending colon. Retroflexed views revealed internal hemorrhoids and Retroflexed views revealed small internal hemorrhoids The scope was then completely withdrawn from the patient and the procedure terminated. PROCEDURE WITHDRAWAL TIME:6minutes ADVERSE EVENTS: There were no complications. IMPRESSIONS: 1. Diverticulosis sigmoid, descending colon 2. Retroflexed views revealed internal hemorrhoids 3. Retroflexed views revealed small internal hemorrhoids 4. Revealed external hemorrhoids RECOMMENDATIONS: 1. Benefiber 2 tsp daily 2. High fiber diet 3. Probiotics from any C or health food store 4. Yearly rectal exams 5. Proctozone cream ok to ut home from [facility] office 4 weeks call if still issues RECALL: Return 3 years Colonoscopy Klaudia Block MD eSigned: Klaudia Block MD 10/07/2017 12:09 PM cc:
[2017-10-07] MEDS ORDERED: SODIUM CHLOR 0.9% 1000 ML INJ 1,000 ML IV SCH (12:15)
[2017-10-07] MEDS ORDERED: METOCLOPRAMIDE HCL 10 MG/2 ML VIAL IV PUSH PRN (12:15)
--- NOTE | 2017-10-07 12:23 | HHI.FPPN ---
Subjective Remarks Vitals stable. Patient vomited x1 last night. Was clear liquid. Has been feeling nauseous, using 3-4 oral zofran since then. Slight epigastric abdominal pain, tender to palpation but improved since admission. No episodes of melena, hematochezia, or hematemesis. (Pushpa Jarquin MD R1) Objective Vitals Vital Signs Date Time Temp Pulse Resp B/P (MAP) Pulse Ox O2 Delivery O2 Flow Rate FiO2 10/07/17 09:05 98 21 10/07/17 08:00 98.0 63 18 131/76 (94) 95 10/07/17 00:14 95 10/07/17 00:00 97.6 66 18 111/66 (81) 95 10/06/17 20:00 97.4 64 18 125/66 (85) 96 10/06/17 16:51 97.7 63 18 144/84 (104) 99 10/06/17 16:00 97.6 64 16 143/67 (92) 96 10/06/17 15:08 97.3 67 18 107/62 (77) 99 I/O 10/06/17 10/06/17 10/06/17 10/07/17 10/07/17 10/07/17 07:00 15:00 23:00 07:00 15:00 23:00 Intake Total 850 ml 2520 ml 2100 ml 400 ml Output Total 1400 ml 750 ml 2 ml Balance -1400 ml 100 ml 2520 ml 2098 ml 400 ml Intake Oral 720 ml IV Total 650 ml 1800 ml 2100 ml Other 200 ml 400 ml Output Urine Total 1400 ml 750 ml 2 ml # Voids 1 1 # Bowel Movements 1 5 (Pushpa Jarquin MD R1) Result Diagram: 10/06/17 0355 10/06/17 0355 Objective Remarks O. CONSTITUTIONAL/GEN: normally nourished, in NAD. Obese man. EYES: conjunctiva normal, PERRLA, EOMI. LUNGS: clear A-P, respiratory effort is normal. CARDIOVASCULAR: RR without murmur or gallop. No significant edema. GI/ABD: Obese, soft without masses, without organomegaly. Bowel sounds are active. Slight tenderness in epigastrium. MUSC: Extremities are normal in appearance, healing scar over the right knee. PSYCH/MENTAL STATUS: Alert. (Pushpa Jarquin MD R1) A/P Assessment and Plan Mr. Pagan is a 52-year-old male who presented to the ED with GI bleed likely secondary to NSAID use. Has been on daily Xarelto for recurrent DVT. Discharge Planning Possible today (Pushpa Jarquin MD R1) Attending Attestation Case reviewed and discussed with the resident team. Agree with plan of care as discussed with me and documented in the resident note. (William Coyle MD) Problem List: (1) Nausea ICD Codes: R11.0 - Nausea Plan: Hx of DM A1C in August 20., but has a hx of being inadequately controlled/compliance issues PO Reglan PRN for possible gastroparesis (2) GI bleed ICD Codes: K92.2 - Gastrointestinal hemorrhage, unspecified Status: Acute Plan: EGD: gastritis, hiatal hernia Sigmoidoscopy: Diverticulosis, ext hemorrhoids F/u bx in 1 wk Con't PPI Con't IVF Colonoscopy today (3) History of embolism ICD Codes: Z86.718 - Personal history of other venous thrombosis and embolism Status: Chronic Plan: Patient with history of multiple thromboembolisms with negative hypercoagulable evaluation Medications: -Hold home Xarelto due to likely GI bleed (4) Hypertension ICD Codes: I10 - Essential (primary) hypertension Status: Chronic Plan: Patient with chronic hypertension Medications: -Continue home lisinopril, furosemide, and metoprolol daily (5) Chronic pain ICD Codes: G89.29 - Other chronic pain Status: Chronic Plan: Patient with long-standing chronic pain currently managed by pain management Medications: -Hold home oxycodone -Continue home gabapentin -Morphine as needed for pain as above (6) Diabetes ICD Codes: E11.9 - Type 2 diabetes mellitus without complications Status: Chronic Plan: Patient with type 2 diabetes currently managed on metformin. Recent hemoglobin A1c 5.7 with abnormal lipid panel except for decreased HDL. -CMP: Glucose 81 -Monitor blood glucose as D5 half-normal saline will be started due to patient being n.p.o. with glucose currently at 81; plan to likely transition to normal saline with hyperglycemia Medications: -Hold home metformin -Low-dose sliding scale per protocol (7) Depression ICD Codes: F32.9 - Major depressive disorder, single episode, unspecified Status: Chronic Plan: Medications: -Continue home paroxetine (8) DVT prophylaxis Status: Acute Plan: -Bilateral SCDs -Defer medical prophylaxis due to likely GI bleeding (Pushpa Jarquin MD R1) Problem Qualifiers (1) GI bleed: Qualified Codes: K92.2 - Gastrointestinal hemorrhage, unspecified (2) Hypertension: Qualified Codes: I10 - Essential (primary) hypertension (3) Diabetes: Qualified Codes: E11.8 - Type 2 diabetes mellitus with unspecified complications (4) Depression: Pushpa Jarquin MD R1 Oct 07, 2017 12:23 William Coyle MD Oct 09, 2017 09:29
[2017-10-07] MEDS ORDERED: WHEA1POW9 PO (12:28)
[2017-10-07] MEDS ORDERED: HYDR-4009 RECTAL (12:28)
[2017-10-07] MEDS ORDERED: OMEP40CA2 PO (12:28)
[2017-10-07] MEDS ORDERED: DOCU8.6T PO (15:00)
--- NOTE | 2017-10-07 15:02 | HHI.DCPOC ---
Discharge Care Plan Diagnosis: (1) Diverticulosis (2) Nausea (3) History of embolism (4) Chronic pain (5) Diabetes (6) Depression (7) Hemorrhoids Goals to Promote Your Health * To prevent worsening of your condition and complications * To maintain your health at the optimal level Directions to Meet Your Goals Take your medications as prescribed Follow your dietary instruction Follow activity as directed Keep your appointments as scheduled Take your immunizations and boosters as scheduled If your symptoms worsen call your PCP, if no PCP go to Urgent Care Center or Emergency Room Smoking is Dangerous to Your Health. Avoid second hand smoke Call the 24-hour hour crisis hotline for domestic abuse at Meng Galindo MD R2 Oct 07, 2017 15:02
[2017-10-07] MEDS ORDERED: METO5TAB PO (15:03)
[2017-10-07 16:00] VITALS: BP 133/67; PULSE 60; RESP 18; TEMP 97.5; O2SAT 95
[2017-10-07] MEDS ORDERED: HYDROCORTISONE 2.5% CREAM 30 GM TOPICAL SCH (21:00)
== END 2017-10-07 17:20 | disposition home or self-care (01) | DRG 379 ==
LOC: NEPE 15:20 → NEDA 19:49 → NEPGCP 20:47 → N07B 10-06 16:37
PROVIDERS: ADMIT Family Medicine; ATTEND Family Medicine
PROC: 0DB38ZX Excision of Lower Esophagus, Via Natural or Artificial Opening Endoscopic, Diagnostic (ICD-10-PCS; principal; 2017-10-06 14:44)
PROC: 0DB68ZX Excision of Stomach, Via Natural or Artificial Opening Endoscopic, Diagnostic (ICD-10-PCS; 2017-10-06 14:44)
PROC: 0DJD8ZZ Inspection of Lower Intestinal Tract, Via Natural or Artificial Opening Endoscopic (ICD-10-PCS; 2017-10-07)
DX: K92.2 Gastrointestinal hemorrhage, unspecified (principal); I10 Essential (primary) hypertension; F32.9 Major depressive disorder, single episode, unspecified; K92.1 Melena; E11.9 Type 2 diabetes mellitus without complications; G89.29 Other chronic pain; K64.4 Residual hemorrhoidal skin tags; K57.30 Diverticulosis of large intestine without perforation or abscess without bleeding; K29.70 Gastritis, unspecified, without bleeding; K64.8 Other hemorrhoids; R63.8 Other symptoms and signs concerning food and fluid intake; I25.2 Old myocardial infarction; K20.9 Esophagitis, unspecified; K44.9 Diaphragmatic hernia without obstruction or gangrene; T39.395A Adverse effect of other nonsteroidal anti-inflammatory drugs [NSAID], initial encounter; Z86.718 Personal history of other venous thrombosis and embolism
CPT/HCPCS: 71045; 74177; 80053; 81001; 82948; 83690; 83735; 84484; 85014; 85018; 85025; 85610; 85730; 86850; 86900; 86901; 86920; 87641; 88305; 88312; 93005; 94150; 96365; 96368; 96375; C9113; J2270; J3480; J7030; Q9967

== ENCOUNTER 2018-02-16 09:21 | Observation (INO) ==
[2018-02-16] MEDS ORDERED: Sod Chloride 0.9% Inj 1,000 ML IV.SIG ONE (11:20)
[2018-02-16] MEDS ORDERED: Pantoprazole Inj 40 MG Vial IV.PUSH ONE (11:20)
[2018-02-16 12:09] LABS: Baso % (Auto) 0.6 % (0.0-2.0); Eos % (Auto) 0.8 % (0.0-4.0); Hematocrit 45.9 % (39.0-51.0); Hemoglobin 15.5 gm/dL (13.0-17.0); Lymph # (Auto) 1.8 th/mm3 (1.0-4.8); Lymph % (Auto) 29.4 % (9.0-44.0); Mean Corpuscular HGB Conc 33.8 % (32.0-36.0); Mean Corpuscular Hemoglobin 31.5 pg (27.0-34.0); Mean Corpuscular Volume 93.2 fL (80.0-100.0); Mean Platelet Volume 8.4 fL (7.0-11.0); Mono # (Auto) 0.4 th/mm3 (0.0-0.9); Neut # (Auto) 3.8 th/mm3 (1.8-7.7); Neut % (Auto) 63.2 % (16.0-70.0); Platelet Count 225 th/mm3 (150-450); Red Blood Count 4.92 mil/mm3 (4.50-5.90); Red Cell Distribution Width 14.2 % (11.6-17.2)
[2018-02-16] MEDS ORDERED: Morphine Inj 4 MG/ML Vial IV.PUSH ONE (12:18)
[2018-02-16 12:24] LABS: Activated Partial Thrombo Time 25.3 sec (23.4-31.7); Prothrombin Time 10.5 sec (9.8-11.6)
[2018-02-16 12:34] LABS: Alanine Aminotransferase 29 U/L (12-78)
[2018-02-16 12:36] LABS: Alkaline Phosphatase 120 U/L (45-117); Total Protein 8.8 g/dL (6.4-8.2)
[2018-02-16 12:45] LABS: Albumin 3.6 g/dL (3.4-5.0); Anion Gap 8 meq/L (5-15); Aspartate Aminotransferase 33 U/L (15-37); Blood Urea Nitrogen 12 mg/dL (7-18); Calcium 8.9 mg/dL (8.5-10.1); Carbon Dioxide 27.9 meq/L (21.0-32.0); Chloride 106 meq/L (98-107); Glomerular Filtration Rate 80 mL/min (>89); Glucose,Random 107 mg/dL (74-106); Lipase 48 U/L (73-393); Sodium 142 meq/L (136-145)
[2018-02-16 12:46] LABS: Potassium 4.2 meq/L (3.5-5.1)
[2018-02-16] MEDS ORDERED: Morphine Sulfate Inj 8 MG/ML Vial IV.PUSH ONE (13:38)
--- NOTE | 2018-02-16 13:42 | CT ---
EXAM DATE: 02/16/2018 1:25 PM EDT AGE/SEX: 52 years / Male INDICATIONS: Epigastric pain hematemesis CLINICAL DATA: This is the patient's initial encounter. Patient reports that signs and symptoms have been present for 1 day and indicates a pain score of 7/10. MEDICAL/SURGICAL HISTORY: Hypertension. Diabetes. None. ORAL CONTRAST: No oral contrast ingested. RADIATION DOSE: 26.16 CTDI (mGy) COMPARISON: [facility] [place], CT ABDOMEN & PELVIS W CONTRAST, 10/05/2017. . TECHNIQUE: Multiple contiguous axial images were obtained through the abdomen and pelvis following b olus infusion of 96 ml Omnipaque 350 (iohexol) nonionic water-soluble contrast as a single exam dos e. No oral contrast ingested. Using automated exposure control and adjustment of the mA and/or kV ac cording to patient size, radiation dose was kept as low as reasonably achievable to obtain optimal di agnostic quality images. DICOM format image data is available electronically for review and comparis on. FINDINGS: Lower Lungs: The visualized lower lungs are clear. Liver: The liver has a homogeneous density without space-occupying lesion. There is no dilation of th e biliary tree. Cholecystectomy clips Spleen: Homogeneous density without enlargement. Pancreas: Unremarkable without mass or calcification. Kidneys: Normal in size and shape. No evidence of mass or hydronephrosis. Adrenal Glands: Unremarkable. Aorta: The aorta and proximal iliac vessels are grossly unremarkable without aneurysmal dilation.David wel/Mesentery: The bowel loops are grossly unremarkable. The cecum and sigmoid colon have a normal c onfiguration. Abdominal Wall: There is an eventration around the umbilicus slightly more pronounced than in September Retroperitoneum: No evidence of adenopathy in the retrocrural, para-aortic, or deep pelvic regions. Bladder: Contours are smooth. Reproductive Organs: No abnormal masses or calcifications seen. Inguinal: Small inguinal lymph nodes bilaterally including a few deep pelvis without pathologic enla rgement. Bony Structures: Unremarkable. CONCLUSION: 1. No etiology for hematemesis is identified. The stomach is unremarkable. There is no evidence of b owel obstruction. Status post cholecystectomy. Eventration the anterior abdominal wall Electronically signed by: Jesus Ta MD 02/16/2018 1:41 PM EDT
[2018-02-16] MEDS ORDERED: Famotidine PF Inj 20 MG/2 ML Vial IV.PUSH ONE (15:18)
[2018-02-16] MEDS ORDERED: Aluminum/Magnesium/Simethacone Susp 30 ML UDC PO ONE (15:18)
[2018-02-16] MEDS ORDERED: Morphine Inj 4 MG, Morphine Inj 2 MG IV.PUSH ONE ×2 (15:19)
[2018-02-16] MEDS ORDERED: Dextrose 50% in Water 50 ML Vial IV.PUSH PRN (16:16)
[2018-02-16] MEDS ORDERED: Bisacodyl 10 MG Supp RECTAL PRN (16:16)
--- NOTE | 2018-02-16 16:27 | ED ---
HPI General Chief complaint: GI Bleed Stated complaint: Vomitting Blood Complaint Time Seen by Provider: 02/16/18 11:02 Source: patient Mode of arrival: ambulatory Limitations: no limitations History of Present Illness HPI Narrative: Patient is a 52-year-old male who presents with complaint of epigastric abdominal pain over the last several days with nausea and vomiting that has had some blood streaked emesis. He states that he also had a blood- streaked stool 2 days ago but has not had any dark or bloody stools since then. He does have a history of peptic ulcer disease and reports intermittent use of NSAIDs. No fevers nor chills. No chest pain or shortness of breath. He is on blood thinners for prev PE. MD complaint: Reports blood streaked emesis and blood streaked stool Onset (ago): day(s) Pain Consistency: intermittent Severity: mild Relieving factors: none Exacerbating factors: none Context: Reports history of GI bleed Associated symptoms: Reports abdominal pain, nausea and vomiting Treatments Prior to Arrival: Reports none Related Data Home Medications Medication Instructions Recorded Confirmed furosemide [Lasix] 40 mg PO DAILY 01/17/18 02/16/18 gabapentin 300 mg PO TID 01/17/18 02/16/18 lisinopril 40 mg PO DAILY 01/17/18 02/16/18 metformin 1,000 mg PO BID 01/17/18 02/16/18 metoprolol tartrate 100 mg PO BID 01/17/18 02/16/18 oxycodone 15 mg PO Q4-6H PRN 01/17/18 02/16/18 paroxetine HCl [Paxil] 40 mg PO DAILY 01/17/18 02/16/18 rivaroxaban [Xarelto] 20 mg PO DAILY 02/16/18 02/16/18 Allergies Allergy/AdvReac Type Severity Reaction Status Date / Time No Known Allergies Allergy Verified 01/17/18 17:59 Review of Systems ROS: all other systems reviewed are negative [facility] Medical History Medical History Chronic pain (Acute) Diabetes (Acute) Hypertension (Acute) Social History Social History Substance History: No History of Abuse Second Hand Smoke Exposure: No Smoking Status: Never smoker How Often Do You Have a Drink Containing Alcohol: Never Recent Travel in [facility] within the Last 8 Weeks: No Recent Out of Country Travel within the Last 8 Weeks: No Immunization History Tetanus Immunization: <5 Years Tetanus Immunization Year if Known: 2017 Exam Narrative Exam Narrative: GENERAL: Well-appearing male hunched over complaining of abdominal pain SKIN: Focused skin assessment warm/dry. HEAD: Atraumatic. Normocephalic. EYES: Pupils equal and round. No scleral icterus. No injection or drainage. ENT: No nasal bleeding or discharge. Mucous membranes pink and moist. NECK: Trachea midline. No JVD. CARDIOVASCULAR: Regular rate and rhythm. No murmur appreciated. Intact and equal peripheral pulses. Normal cap refill. RESPIRATORY: No accessory muscle use. Clear to auscultation. Breath sounds equal bilaterally. GASTROINTESTINAL: Abdomen soft, nondistended. Tenderness in the epigastric region with slight tenderness in the RLQ. Obvious large ventral abdominal hernia. Hepatic and splenic margins not palpable. : (done with RN present) Guaiac negative. No gross blood nor melena. MUSCULOSKELETAL: No obvious deformities. No clubbing. No cyanosis. No edema. NEUROLOGICAL: Awake and alert. No obvious cranial nerve deficits. Motor grossly within normal limits. Normal speech. PSYCHIATRIC: Appropriate mood and affect; insight and judgment normal. Course Initial Documented Vital Signs Temperature 97.9 F 02/16/18 09:29 Pulse Rate 68 02/16/18 09:29 Respiratory Rate 18 02/16/18 09:29 Blood Pressure 183/86 H 02/16/18 09:29 Pulse Oximetry 99 02/16/18 09:29 Last Documented Vital Signs Temperature 97.9 F 02/16/18 09:29 Pulse Rate 68 02/16/18 09:29 Respiratory Rate 18 02/16/18 09:29 Blood Pressure 183/86 H 02/16/18 09:29 Pulse Oximetry 99 02/16/18 11:29 Medical Decision Making MDM Narrative Medical decision making narrative: Patient is a 52-year-old male, on blood thinners, who presents with complaint of nausea, vomiting, blood-streaked stool 2 days ago. He states his last episode of blood-streaked emesis was this morning. He is hemodynamically stable on arrival here. Hemoglobin is stable as well. Guaiac was negative. CT does not show any acute concerning findings. Patient has been in significant pain while in the emergency department despite multiple doses of pain medicine and antacids. He has been admitted by Dr. Galindo, on Dr. Beckwith's service, for further evaluation and management. Medical Screen Exam Complete: Yes Emergency Medical Condition: Yes Differential Diagnosis Differential Diagnosis: Differential diagnosis includes but is not limited to peptic ulcer disease, Lucia-Poe tear, diverticulosis. Medical Records Medical records reviewed: Yes I reviewed the patient's medical records. Lab Data Lab results reviewed: Yes I reviewed the patient's lab results. Result diagrams: 02/16/18 12:00 02/16/18 12:00 Lab Results 02/16/18 02/16/18 02/16/18 Range/Units 12:00 12:00 12:00 WBC 6.0 (4.0-11.0) th/mm3 RBC 4.92 (4.50-5.90) mil/mm3 Hgb 15.5 (13.0-17.0) gm/dL Hct 45.9 (39.0-51.0) % MCV 93.2 (80.0-100.0) fL MCH 31.5 (27.0-34.0) pg MCHC 33.8 (32.0-36.0) % RDW 14.2 (11.6-17.2) % Plt Count 225 (150-450) th/mm3 MPV 8.4 (7.0-11.0) fL Neut % (Auto) 63.2 (16.0-70.0) % Lymph % (Auto) 29.4 (9.0-44.0) % [place] % (Auto) 6.0 (0.0-8.0) % Eos % (Auto) 0.8 (0.0-4.0) % Baso % (Auto) 0.6 (0.0-2.0) % Neut # (Auto) 3.8 (1.8-7.7) th/mm3 Lymph # (Auto) 1.8 (1.0-4.8) th/mm3 [place] # (Auto) 0.4 (0.0-0.9) th/mm3 Eos # (Auto) 0.0 (0.0-0.4) th/mm3 Baso # (Auto) 0.0 (0.0-0.2) th/mm3 WBC Differential . Differential Comment Auto diff final PT 10.5 (9.8-11.6) sec INR 1.0 Ratio APTT 25.3 (23.4-31.7) sec Sodium 142 (136-145) meq/L Potassium 4.2 (3.5-5.1) meq/L Chloride 106 (98-107) meq/L Carbon Dioxide 27.9 (21.0-32.0) meq/L Anion Gap 8 (5-15) meq/L BUN 12 (7-18) mg/dL Creatinine 0.99 (0.60-1.30) mg/dL Estimated GFR 80 L (>89) mL/min Random Glucose 107 H (74-106) mg/dL Calcium 8.9 (8.5-10.1) mg/dL Total Bilirubin 0.6 (0.2-1.0) mg/dL AST 33 (15-37) U/L ALT 29 (12-78) U/L Alkaline Phosphatase 120 H (45-117) U/L Total Protein 8.8 H (6.4-8.2) g/dL Albumin 3.6 (3.4-5.0) g/dL Lipase 48 L (73-393) U/L Blood Type Blood Type Recheck Antibody Screen 02/16/18 Range/Units 12:00 WBC (4.0-11.0) th/mm3 RBC (4.50-5.90) mil/mm3 Hgb (13.0-17.0) gm/dL Hct (39.0-51.0) % MCV (80.0-100.0) fL MCH (27.0-34.0) pg MCHC (32.0-36.0) % RDW (11.6-17.2) % Plt Count (150-450) th/mm3 MPV (7.0-11.0) fL Neut % (Auto) (16.0-70.0) % Lymph % (Auto) (9.0-44.0) % [place] % (Auto) (0.0-8.0) % Eos % (Auto) (0.0-4.0) % Baso % (Auto) (0.0-2.0) % Neut # (Auto) (1.8-7.7) th/mm3 Lymph # (Auto) (1.0-4.8) th/mm3 [place] # (Auto) (0.0-0.9) th/mm3 Eos # (Auto) (0.0-0.4) th/mm3 Baso # (Auto) (0.0-0.2) th/mm3 WBC Differential Differential Comment PT (9.8-11.6) sec INR Ratio APTT (23.4-31.7) sec Sodium (136-145) meq/L Potassium (3.5-5.1) meq/L Chloride (98-107) meq/L Carbon Dioxide (21.0-32.0) meq/L Anion Gap (5-15) meq/L BUN (7-18) mg/dL Creatinine (0.60-1.30) mg/dL Estimated GFR (>89) mL/min Random Glucose (74-106) mg/dL Calcium (8.5-10.1) mg/dL Total Bilirubin (0.2-1.0) mg/dL AST (15-37) U/L ALT (12-78) U/L Alkaline Phosphatase (45-117) U/L Total Protein (6.4-8.2) g/dL Albumin (3.4-5.0) g/dL Lipase (73-393) U/L Blood Type O Positive Blood Type Recheck Required Antibody Screen Negative Imaging Data Attestation: I personally reviewed and interpreted this imaging study as follows : Radiologist's impression: Abdomen/Pelvis CT 02/16/18 11:20 CONCLUSION: 1. No etiology for hematemesis is identified. The stomach is unremarkable. There is no evidence of bowel obstruction. Status post cholecystectomy. Eventration the anterior abdominal wall Discharge Plan Discharge Disposition Patient Disposition: 30 Still Patient Discharge Details Diagnosis: Intractable abdominal pain, Gastritis Physicians Team ED Provider: Anne Mcdowell Primary Care Provider: Primary Care Bianca,Marta Attending Provider: Javier Beckwith Other Providers: Seamus Kebede Status ED Status: Admitted Observation Patient
--- NOTE | 2018-02-16 16:49 | XR ---
EXAM DATE: 02/16/2018 4:43 PM EDT AGE/SEX: 52 years / Male INDICATIONS: Abdomen pain, and vomiting blood for 3 days. CLINICAL DATA: This is the patient's initial encounter. Patient reports that signs and symptoms have been present for 3 days and indicates a pain score of 9/10. MEDICAL/SURGICAL HISTORY: Diabetes mellitus type II. Hypertension. . Hernia repair. COMPARISON: No prior exams available for comparison. FINDINGS: A single erect view of the abdomen demonstrates the lower lungs to be clear.No evidence of free intra peritoneal gas.The visualized bowel loops are unremarkable. Cholecystectomy clips CONCLUSION: Negative examination. Electronically signed by: Jesus Ta MD 02/16/2018 4:47 PM EDT
--- NOTE | 2018-02-16 16:54 | P.HPFP ---
Addendum entered and electronically signed by Meng Galindo MD, R3 02/16/18 17:14: Update: CT abdomen/pelvis without evidence of mesenteric ischemia Original Note: History of Present Illness Primary Care Physician: No Primary Care Physician <Javier Beckwith - 02/17/18 13:50> No Primary Care Physician <Meng Galindo - 02/16/18 16:53> Chief Complaint: Abdominal pain <Meng Galindo - 02/16/18 16:53> History of Present Illness: 52 yo male with DM, recurrent DVT/PE presents for abdominal pain after being sent from my office for further evaluation. Tuesday he noted vomiting blood, described as bright red. Happened several more times. Then yesterday noted sudden onset severe abdominal pain epigastric and RLQ. No fevers or chills. Still nauseous and vomiting with intermittent bright red blood. No bile. Occasional hematochezia which is not a new problem for him. He does note some diarrhea over the last couple days and his stools seem darker with some blood clot (which is new). PMH significant for PUD and SBO in the past. States this feels like his ulcers felt before. Pain has been doubling him over which is unusual for him. Last BM yesterday evening. Of note he was hospitalized in September for similar concerns. GI was consulted and performed EGD and colonoscopy which showed gastritis and hemorrhoid but no varices, ulcers, colonic polyps, AVM, or other pathology. His GI physician is Dr. Block. His PMH is also significant for numerous hernia repair surgeries (5 in total, most recently in 2017). He has also had a cholecystectomy and appendectomy. <Meng Galindo - 02/16/18 16:53> - Diagnosis (1) Abdominal pain (2) Recurrent deep vein thrombosis (DVT) (3) Diabetes type 2, controlled (4) Essential hypertension (5) Chronic pain (6) Bilateral lower extremity edema <Meng Galindo - 02/16/18 16:24> Review of Systems Constitutional: Denies anorexia, Denies body ache(s), Denies chills <Meng Galindo - 02/16/18 16:53> Eyes: Denies blurry vision <Meng Galindo - 11/01/18 16:53> Ears, Nose, Mouth, and Throat: Denies headache(s) <GalindoMeng Mai 02/16/18 16:53> Cardiovascular: Denies chest pain, Denies chest pain at rest, Denies chest pain with activity, Denies fast heart rate, Denies shortness of breath <Galindo Meng Mai 02/16/18 16:53> Respiratory: Denies cough, Denies shortness of breath, Denies shortness of breath with activity, Denies wheezing <JosieMeng Mai 02/16/18 16:53> Gastrointestinal: Reports abdominal pain, Reports black, tarry stools, Reports nausea, Reports vomiting blood, Denies bright, red blood in stools <Josie Meng Mai 02/16/18 16:53> Genitourinary: Denies painful urination <JosieMeng Mai 02/16/18 16:53> Musculoskeletal: Reports back pain (chronic), Denies abnormal walking <Meng Galindo Mai 02/16/18 16:53> Skin/Breast: Denies rash <JosieMeng Mai 02/16/18 16:53> Neurologic: Denies abnormal movements, Denies abnormal speech, Denies confusion , Denies localized weakness <Meng Galindo Mai 02/16/18 16:53> Psychiatric: Denies thoughts of hurting/killing others, Denies thoughts of hurting/killing yourself <Meng Galindo Mai 02/16/18 16:53> Hematologic/Lymphatic: Denies easy bleeding, Denies easy bruising <Meng Galindo 02/16/18 16:53> PMFSH - History History Provided By: Patient <Darryl Galindohelen Oneill 02/16/18 16:53> - Medical History Medical History: Medical History (Last Updated 02/16/18 @ 16:27 by Meng Galindo MD, R3) Coronary artery disease Edema of both lower extremities Recurrent deep venous thrombosis Chronic pain Diabetes Hypertension <Javier Beckwith - 02/17/18 13:50> Medical History (Last Updated 02/16/18 @ 16:27 by Meng Galindo MD, R3) Coronary artery disease Edema of both lower extremities Recurrent deep venous thrombosis Chronic pain Diabetes Hypertension <Meng Galindo 02/16/18 16:53> - Surgical History Surgical History: Surgical History (Last Updated 02/16/18 @ 16:29 by Meng Galindo MD, R3) H/O hernia repair H/O shoulder surgery History of appendectomy History of cholecystectomy <Javier Beckwith - 02/17/18 13:50> Surgical History (Last Updated 02/16/18 @ 16:29 by Meng Galindo MD, R3) H/O hernia repair H/O shoulder surgery History of appendectomy History of cholecystectomy <Meng Galindo 02/16/18 16:53> - Social History I have reviewed the patient's Social History: Yes <Meng Galindo 02/16/18 16:53> - Tobacco History Second Hand Smoke Exposure: No <Meng Galindo 02/16/18 16:53> Smoking Status: Never smoker <Meng Galindo 02/16/18 16:53> - Alcohol History How Often Do You Have a Drink Containing Alcohol: Never <Meng Galindo 05/05 16:53> - Substance Use History Substance History: No History of Abuse <Meng Galindo 02/16/18 16:53> - Travel History Recent Travel in the [place] Within the Last 8 Weeks: No <Meng Galindo 16:53> Recent Travel Out of the Country Within the Last 8 Weeks: No <Meng Galindo 02/16/18 16:53> - Immunization History Tetanus Immunization: <5 Years <Meng Galindo 02/16/18 16:53> Tetanus Immunization Year if Known: 2017 <Meng Galindo 02/16/18 16:53> Medications and Allergies Allergies Allergy/AdvReac Type Severity Reaction Status Date / Time No Known Allergies Allergy Verified 01/17/18 17:59 <Javier Beckwith - 02/17/18 13:50> Home Medications Medication Instructions Recorded Confirmed Type furosemide [Lasix] 40 mg PO DAILY 01/17/18 02/16/18 History gabapentin 300 mg PO TID 01/17/18 02/16/18 History lisinopril 40 mg PO DAILY 01/17/18 02/16/18 History metformin 1,000 mg PO BID 01/17/18 02/16/18 History metoprolol tartrate 100 mg PO BID 01/17/18 02/16/18 History oxycodone 15 mg PO 5 TIMES A DAY PRN 01/17/18 02/16/18 History paroxetine HCl [Paxil] 40 mg PO DAILY 01/17/18 02/16/18 History rivaroxaban [Xarelto] 20 mg PO DAILY 02/16/18 02/16/18 History <Javier Beckwith - 02/17/18 13:50> Active Medications: Active Medications Acetaminophen (Tylenol) 650 mg PO Q4H PRN PRN Reason: PAIN SCALE 4 TO 6 MODERATE Al Hydroxide/Mg Hydroxide (Milk Of Magnesia Liq) 30 ml PO Q12H PRN PRN Reason: Mild Constipation Bisacodyl (Dulcolax Supp) 10 mg RECTAL DAILY PRN PRN Reason: SEVERE CONSITIPATION Dextrose (D50w Vial) 50 ml IV.PUSH UNSCH PRN PRN Reason: PER HYPOGLYCEMIA PROTOCOL Furosemide (Lasix) 40 mg PO DAILY [facility] Last Admin: 02/17/18 08:23 Dose: 40 mg Gabapentin (Neurontin) 300 mg PO TID [facility] Last Admin: 02/17/18 12:23 Dose: 300 mg Glucagon (Glucagon Inj) 1 mg OTHER PRN PRN PRN Reason: for Hypoglycemia Protocol Lactated Ringer's (Lr 1000 Ml Inj) 1,000 mls @ 30 mls/hr IV.CONT .Q24H ONE Stop: 02/18/18 09:59 Last Admin: 02/17/18 09:25 Dose: 30 mls/hr Sodium Chloride (Ns Inj) 500 mls @ 30 mls/hr IV.CONT .[id number] ONE Stop: 02/18/18 02:39 Last Admin: 02/17/18 12:14 Dose: Not Given Insulin Aspart (Novolog Insulin Correctional Sugar Inj) 0 unit SQ ACHS [facility]; Protocol Last Admin: 02/17/18 12:52 Dose: Not Given Lactulose (Lactulose Liq) 30 ml PO DAILY PRN PRN Reason: SEVERE CONSITIPATION Lisinopril (Prinivil) 40 mg PO DAILY [facility] Last Admin: 02/17/18 08:22 Dose: 40 mg Metoclopramide HCl (Reglan Inj) 5 mg IV.PUSH Q6H PRN; Protocol PRN Reason: NAUSEA OR VOMITING Last Admin: 02/17/18 12:29 Dose: 5 mg Metoprolol Tartrate (Lopressor) 100 mg PO BID [facility] Last Admin: 02/17/18 08:23 Dose: 100 mg Morphine Sulfate (Morphine Inj) 4 mg IV.PUSH Q4H PRN PRN Reason: PAIN SCALE 7 TO 10 SEVERE Last Admin: 02/17/18 12:22 Dose: 4 mg Oxycodone HCl (Roxicodone) 15 mg PO 5 TIMES A DAY [facility] Last Admin: 02/17/18 11:49 Dose: 15 mg Paroxetine HCl (Paxil) 40 mg PO DAILY [facility] Last Admin: 02/17/18 08:24 Dose: 40 mg Sennosides (Senokot) 17.2 mg PO Q12H PRN PRN Reason: Moderate Constipation Sodium Chloride (Ns Flush) 2 ml IV.FLUSH PRN PRN PRN Reason: FLUSH AFTER USING IV ACCESS <Javier Beckwith - 02/17/18 13:50> Active Medications Al Hydroxide/Mg Hydroxide (Milk Of Magnesia Liq) 30 ml PO Q12H PRN PRN Reason: Mild Constipation Bisacodyl (Dulcolax Supp) 10 mg RECTAL DAILY PRN PRN Reason: SEVERE CONSITIPATION Dextrose (D50w Vial) 50 ml IV.PUSH UNSCH PRN PRN Reason: PER HYPOGLYCEMIA PROTOCOL Glucagon (Glucagon Inj) 1 mg OTHER PRN PRN PRN Reason: for Hypoglycemia Protocol Insulin Aspart (Novolog Insulin Correctional Sugar Inj) 0 unit SQ ACHS [facility]; Protocol Lactulose (Lactulose Liq) 30 ml PO DAILY PRN PRN Reason: SEVERE CONSITIPATION Metoclopramide HCl (Reglan Inj) 5 mg IV.PUSH Q6HR PRN; Protocol PRN Reason: NAUSEA OR VOMITING Sennosides (Senokot) 17.2 mg PO Q12H PRN PRN Reason: Moderate Constipation Sodium Chloride (Ns Flush) 2 ml IV.FLUSH PRN PRN PRN Reason: FLUSH AFTER USING IV ACCESS <Meng Galindo - 02/16/18 16:53> Exam Vital signs: Vital Signs 02/16/18 17:33 02/16/18 19:59 02/16/18 23:44 Temperature 98.2 F 98.6 F Pulse Rate 81 53 L Respiratory Rate 18 20 Blood Pressure 152/75 H 133/79 137/74 Pulse Oximetry 96 93 L 02/17/18 05:27 02/17/18 07:00 02/17/18 07:43 Temperature 97.8 F 97.6 F Pulse Rate 52 L 56 L Respiratory Rate 18 20 Blood Pressure 150/85 H 125/71 Pulse Oximetry 97 96 96 02/17/18 11:05 Temperature 97.6 F Pulse Rate 57 L Respiratory Rate 20 Blood Pressure 125/71 Pulse Oximetry 96 Intake & Output 02/16/18 02/17/18 02/17/18 18:59 06:59 18:59 Intake Total 1500 / 1500 0 / 0 400 / 400 Output Total 400 / 400 Balance 1500 / 1500 -400 / -400 400 / 400 Weight 133.81 kg 133.81 kg Intake: IV 1000 / 1000 NS Inj 1,000 ML @ Wide Open IV. 1000 / 1000 SIG BOLUS ONE Rx#:[id number] Oral 500 / 500 0 / 0 Anesthesia Amount 400 / 400 Output: Urine 400 / 400 Other: Date of Last Bowel Movement 02/16/18 <Javier Beckwith - 02/17/18 13:50> Vital Signs 02/16/18 09:29 02/16/18 11:29 Temperature 97.9 F Pulse Rate 68 Respiratory Rate 18 Blood Pressure 183/86 H Pulse Oximetry 99 99 Intake & Output 02/15/18 02/16/18 02/16/18 18:59 06:59 18:59 Intake Total 1000 / 1000 Balance 1000 / 1000 Weight 133.81 kg Intake: IV 1000 / 1000 NS Inj 1,000 ML @ Wide Open IV. 1000 / 1000 SIG BOLUS ONE Rx#:[id number] <Meng Galindo S - 02/16/18 16:53> - Constitutional no acute distress, obese, cooperative <Meng Galindo S - 02/16/18 16:53> - Routine HEENT Exam Head: Present: normocephalic, atraumatic <Meng Galindo S - 02/16/18 16:53> Eye: Present: EOMI, PERRL <Meng Galindo S - 02/16/18 16:53> ENT: Present: mucous membranes moist, oropharynx clear <Meng Galindo S - 02/16 16:53> - Routine Neck Exam Present: supple <Meng Galindo - 02/16/18 16:53> - Routine Chest/Breast/Axilla Exam Chest wall: Absent: tenderness <Meng Galindo 02/16/18 16:53> - Routine Respiratory Exam Present: CTA bilaterally. Absent: accessory muscle use, wheezes, crackles < Meng Galindo 02/16/18 16:53> - Routine Cardiovascular Exam Present: RRR, S1, S2. Absent: murmur <Meng Galindo 02/16/18 16:53> - Routine Abdominal Exam Present: soft, normoactive bowel sounds, tenderness (epigastric), hernia ( reducible, protrudes when patient sits up, umbilical/ventral, no signs of incarceration), surgical scars. Absent: distended, rebound, guarding, firm, rigid, Snell Duong's sign, Kevyn's sign <Meng Galindo 02/16/18 16:53> - Routine Extremities Exam Present: edema, full ROM. Absent: cyanosis <Meng Galindo 02/16/18 16:53> - Routine Skin Exam Present: intact. Absent: rash <Meng Galindo 02/16/18 16:53> - Routine Neurological Exam Present: alert, oriented X3, moving all extremities. Absent: sensory deficit, motor deficit <Meng Galindo 02/16/18 16:53> Results - Labs Result diagrams: 02/17/18 06:03 02/16/18 12:00 <Javier Beckwith - 02/17/18 13:50> Abnormal lab results 02/16/18 Range/Units 12:00 Troponin I Less than 0.02 L (0.02-0.05) ng/mL Short CBC 02/16/18 02/17/18 02/17/18 Range/Units 19:02 00:00 06:03 Hgb 14.4 14.2 14.6 (13.0-17.0) gm/dL Hct 42.4 42.9 43.1 (39.0-51.0) % Cardiac Enzymes 02/16/18 Range/Units 12:00 Troponin I Less than 0.02 L (0.02-0.05) ng/mL <Javier Beckwith - 02/17/18 13:50> Abnormal lab results 02/16/18 Range/Units 12:00 Estimated GFR 80 L (>89) mL/min Random Glucose 107 H (74-106) mg/dL Alkaline Phosphatase 120 H (45-117) U/L Total Protein 8.8 H (6.4-8.2) g/dL Lipase 48 L (73-393) U/L Short CBC 02/16/18 Range/Units 12:00 WBC 6.0 (4.0-11.0) th/mm3 Hgb 15.5 (13.0-17.0) gm/dL Hct 45.9 (39.0-51.0) % Plt Count 225 (150-450) th/mm3 BMP 02/16/18 12:00 Sodium 142 Potassium 4.2 Chloride 106 Carbon Dioxide 27.9 BUN 12 Creatinine 0.99 Calcium 8.9 Liver Function 02/16/18 Range/Units 12:00 Total Bilirubin 0.6 (0.2-1.0) mg/dL AST 33 (15-37) U/L ALT 29 (12-78) U/L Alkaline Phosphatase 120 H (45-117) U/L Albumin 3.6 (3.4-5.0) g/dL <Meng Galindo - 02/16/18 16:53> - Imaging Impressions Abdomen/Pelvis CT 02/16/18 11:20 CONCLUSION: 1. No etiology for hematemesis is identified. The stomach is unremarkable. There is no evidence of bowel obstruction. Status post cholecystectomy. Eventration the anterior abdominal wall Abdomen X-Ray 02/16/18 16:21 CONCLUSION: Negative examination. <Javier Beckwith - 02/17/18 13:50> Impressions Abdomen/Pelvis CT 02/16/18 11:20 CONCLUSION: 1. No etiology for hematemesis is identified. The stomach is unremarkable. There is no evidence of bowel obstruction. Status post cholecystectomy. Eventration the anterior abdominal wall <Meng Galindo - 02/16/18 16:53> Caprini VTE Risk Assessment Caprini VTE Risk Assessment: Moderate/High Risk (score >= 2) <Meng Galindo - 02/16/18 16:53> Caprini Risk Assessment Model: Point Value = 1 Point Value = 2 Point Value = 3 Point Value = 5 Age 41-60 Minor surgery BMI > 25 kg/m2 Swollen legs Varicose veins or History of unexplained or recurrent spontaneous Oral contraceptives or hormone replacement Sepsis (< 1 month) Serious lung disease, including pneumonia (< 1 month) Abnormal pulmonary function Acute myocardial infarction Congestive heart failure (< 1 month) History of inflammatory bowel disease Medical patient at bed rest Age 61-74 Arthroscopic surgery Major open surgery (> 45 min) Laparoscopic surgery (> 45 min) Malignancy Confined to bed (> 72 hours) Immobilizing plaster cast Central venous access Age >= 75 History of VTE Family history of VTE Factor V Leiden Prothrombin [id number] Lupus anticoagulant Anticardiolipin antibodies Elevated serum homocysteine Heparin-induced thrombocytopenia Other congenital or acquired thrombophilia Stroke (< 1 month) Elective arthroplasty Hip, pelvis, or leg fracture Acute spinal cord injury (< 1 month) <Javier Beckwith - 02/17/18 13:50> Prophylaxis Regimen: Total Risk Factor Score Risk Level Prophylaxis Regimen 0-1 Low Early ambulation 2 Moderate Order ONE of the following: *Sequential Compression Device (SCD) *Heparin 5000 units SQ BID 3-4 Higher Order ONE of the following medications: *Heparin 5000 units SQ TID *Enoxaparin/Lovenox 40 mg SQ daily (WT < 150 kg, CrCl > 30 mL/min) *Enoxaparin/Lovenox 30 mg SQ daily (WT < 150 kg, CrCl > 10-29 mL/min) *Enoxaparin/Lovenox 30 mg SQ BID (WT < 150 kg, CrCl > 30 mL/min) AND/OR *Sequential Compression Device (SCD) 5 or more Highest Order ONE of the following medications: *Heparin 5000 units SQ TID (Preferred with Epidurals) *Enoxaparin/Lovenox 40 mg SQ daily (WT < 150 kg, CrCl > 30 mL/min) *Enoxaparin/Lovenox 30 mg SQ daily (WT < 150 kg, CrCl > 10-29 mL/min) *Enoxaparin/Lovenox 30 mg SQ BID (WT < 150 kg, CrCl > 30 mL/min) AND *Sequential Compression Device (SCD) <Javier Beckwith - 02/17/18 13:50> Assessment and Plan - Assessment (1) Abdominal pain Code(s): R10.9 - Unspecified abdominal pain Status: Acute (2) Recurrent deep vein thrombosis (DVT) Code(s): I82.409 - Acute embolism and thrombosis of unspecified deep veins of unspecified lower extremity Status: Chronic (3) Diabetes type 2, controlled Code(s): E11.9 - Type 2 diabetes mellitus without complications Status: Chronic (4) Essential hypertension Code(s): I10 - Essential (primary) hypertension Status: Chronic (5) Chronic pain Code(s): G89.29 - Other chronic pain Status: Chronic (6) Bilateral lower extremity edema Code(s): R60.0 - Localized edema Status: Chronic <Meng Galindo S - 02/16/18 16:24> - Assessment and Plan 52 yo male with DM, HTN, h/o multiple hernia repairs and multiple unprovoked DVT /PE presents with: 1. Epigastric pain Epigastric pain presenting acutely with reported hematemesis since Tuesday Differential broad including PUD +/- perforation, mesenteric ischemia, IN, SBO Hemoccult negative in ED Last BM yesterday 02/15 - SBO less likely Hgb 15 CT abdomen/pelvis with slightly larger ventral hernia without incarceration, otherwise unremarkable Last EGD Sep 2017 with gastritis, no ulcer or varices Last colonoscopy Sep 2017 with hemorrhoid * Place in observation * Trend H/H * Check EKG/troponin to r/o atypical IN presentation * Check upright abdominal XR to r/o free air * Check CTA abdomen to r/o mesenteric ischemia * Consult GI physician for possible repeat scope depending how serial H/H go * Protonix IV BID * Avoid NSAIDs * Strict I/O * Hold Xarelto until serial H/H show stability * Continue home pain Rx as below * Tylenol for moderate pain, morphine for severe pain 2. DM with polyneuropathy Well controlled with metformin at home * Hold metformin * Accu-check, SSI low dose * Continue gabapentin 3. HTN Well controlled at home, BP slightly high likely due to acute pain * Continue home Metoprolol, lisinopril, Lasix 4. Recurrent DVT/PE Many recurrent unprovoked DVT/PE, hypercoagulable work-up previously negative * hold Xarelto for now * SCD / compression hose 5. Chronic pain syndrome Stable with pain meds through pain management physician If thorough work-up negative would raise possibility of malingering however patient historically not known to doctor shop or bounce around different ERs * Continue home oxycodone 15 mg five times a day * Continue home Paxil 6. Lower extremity edema Secondary to venous insufficiency * Continue Lasix * SCD / compression hose as above FEN Fluid: PO only Elecs: Monitor, replete PRN Nutr: Liquid diet until seen by GI CODE STATUS: Full code <Meng Galindo - 02/16/18 16:53> Discussed Condition With: Dr. Beckwith, Dr. Jarquin, Dr. Isabel <Meng Galindo - 02/16/18 16:53> - Attending Attestation See the residents documentation for details. I saw and evaluated the patient regarding the arboleda portions of this evaluation and agree with the residents findings and plans as written. Parts of this note were created using [employer] voice recognition software program. While efforts were made to correct any mistakes made by this software, some mistakes, errors, and omissions may remain in the final note that were not caught when the note was originally created. Plan of care was discussed and agreed upon with the patient as specifically documented in the above note. An opportunity to ask questions with explanation was provided. Patient voiced understanding on all information reviewed and discussed. <Javier Beckwith - 02/17/18 13:50> <Meng Galindo S - Last Filed: 02/16/18 16:24> (1) Abdominal pain Qualifiers: Abdominal location: epigastric Qualified Code(s): R10.13 - Epigastric pain (3) Diabetes type 2, controlled Qualifiers: Diabetes mellitus host hostess insulin use: without [place] [facility] use Diabetes mellitus complication status: with neurologic complications Diabetes mellitus complication detail: with polyneuropathy Qualified Code(s): E11.42 - Type 2 diabetes mellitus with diabetic polyneuropathy (5) Chronic pain Qualifiers: Chronic pain type: chronic pain syndrome Qualified Code(s): G89.4 - Chronic pain syndrome <Meng Galindo S - Last Filed: 02/16/18 16:24> (1) Abdominal pain Qualifiers: Abdominal location: epigastric Qualified Code(s): R10.13 - Epigastric pain (3) Diabetes type 2, controlled Qualifiers: Diabetes mellitus [facility] insulin use: without host hostess use Diabetes mellitus complication status: with neurologic complications Diabetes mellitus complication detail: with polyneuropathy Qualified Code(s): E11.42 - Type 2 diabetes mellitus with diabetic polyneuropathy (5) Chronic pain Qualifiers: Chronic pain type: chronic pain syndrome Qualified Code(s): G89.4 - Chronic pain syndrome
[2018-02-16] MEDS ORDERED: Acetaminophen 325 MG Tablet PO PRN (16:58)
[2018-02-16] MEDS: Insulin NovoLOG Aspart Correctional Sugar Inj SQ SCH ×2 (17:17→21:55)
--- NOTE | 2018-02-16 17:33 | P.CONGI ---
History of Present Illness Consult date: 02/16/18 Consult reason: Epigastric pain Chief complaint: Intractable pain, dehydration History of Present Illness: This patient is a 52-year-old male who presents to the emergency room at [facility] on 02/16/2018 with complaint of epigastric pain over the last 3 days patient reports nausea and vomiting with some blood streaked emesis over the last 2 days. Patient has history of diabetes type 2, hypertension, DVT , and chronic pain. Of note, patient states that he is currently on Xarelto for history of pulmonary embolism. Last dose of Xarelto was 3 days ago. Our service has been consulted to evaluate patient's epigastric pain. Patient describes pain as a sharp, burning, constant pain he denies that this pain radiates. Patient denies any aggravating or alleviating factors. States he takes omeprazole 40 mg p.o. twice daily and this pain "feels like when I had an ulcer". Last EGD was done in September 2017 and revealed the following findings- gastritis, esophagitis and hiatal hernia. Patient denies any difficulty or painful swallowing. Denies any unintended weight loss. Patient denies any use of tobacco products or alcohol. Patient endorses family history mother and father both had gastric ulcers. Patient denies use of NSAIDs or aspirin. Denies constipation or diarrhea, denies any noted bleeding in stool. Last colonoscopy September 2017 revealed diverticulosis in the sigmoid colon as well as internal/external hemorrhoids. Review of Systems All other systems reviewed negative except as stated in HPI PMFSH - History History Provided By: Patient - Medical History Medical History: Medical History (Last Updated 02/16/18 @ 16:27 by Meng Galindo MD, R3) Coronary artery disease Edema of both lower extremities Recurrent deep venous thrombosis Chronic pain Diabetes Hypertension - Surgical History Surgical History: Surgical History (Last Updated 02/16/18 @ 16:29 by Meng Galindo MD, R3) H/O hernia repair H/O shoulder surgery History of appendectomy History of cholecystectomy - Tobacco History Second Hand Smoke Exposure: No Smoking Status: Never smoker - Alcohol History How Often Do You Have a Drink Containing Alcohol: Never - Substance Use History Substance History: No History of Abuse - Travel History Recent Travel in the [place] Within the Last 8 Weeks: No Recent Travel Out of the Country Within the Last 8 Weeks: No - Immunization History Tetanus Immunization: <5 Years Tetanus Immunization Year if Known: 2016 Medications and Allergies Active Medications: Active Medications Acetaminophen (Tylenol) 650 mg PO Q4H PRN PRN Reason: PAIN SCALE 4 TO 6 MODERATE Al Hydroxide/Mg Hydroxide (Milk Of Magnesia Liq) 30 ml PO Q12H PRN PRN Reason: Mild Constipation Bisacodyl (Dulcolax Supp) 10 mg RECTAL DAILY PRN PRN Reason: SEVERE CONSITIPATION Dextrose (D50w Vial) 50 ml IV.PUSH UNSCH PRN PRN Reason: PER HYPOGLYCEMIA PROTOCOL Furosemide (Lasix) 40 mg PO DAILY GABRIEL Gabapentin (Neurontin) 300 mg PO TID GABRIEL Glucagon (Glucagon Inj) 1 mg OTHER PRN PRN PRN Reason: for Hypoglycemia Protocol Insulin Aspart (Novolog Insulin Correctional Sugar Inj) 0 unit SQ ACHS GABRIEL; Protocol Lactulose (Lactulose Liq) 30 ml PO DAILY PRN PRN Reason: SEVERE CONSITIPATION Metoclopramide HCl (Reglan Inj) 5 mg IV.PUSH Q6H PRN; Protocol PRN Reason: NAUSEA OR VOMITING Metoprolol Tartrate (Lopressor) 100 mg PO BID [facility] Morphine Sulfate (Morphine Inj) 4 mg IV.PUSH Q4H PRN PRN Reason: PAIN SCALE 7 TO 10 SEVERE Non-Formulary Medication (Lisinopril [Lisinopril]) 40 mg PO DAILY [facility] Non-Formulary Medication (Paroxetine Hcl [Paxil]) 40 mg PO DAILY [facility] Non-Formulary Medication (Oxycodone [Oxycodone]) 15 mg PO 5 TIMES A DAY GABRIEL Pantoprazole Sodium (Protonix Inj) 40 mg IV.PUSH Q12H [facility] Sennosides (Senokot) 17.2 mg PO Q12H PRN PRN Reason: Moderate Constipation Sodium Chloride (Ns Flush) 2 ml IV.FLUSH PRN PRN PRN Reason: FLUSH AFTER USING IV ACCESS Allergies Allergy/AdvReac Type Severity Reaction Status Date / Time No Known Allergies Allergy Verified 01/17/18 17:59 Home Medications Medication Instructions Recorded Confirmed Type furosemide [Lasix] 40 mg PO DAILY 01/17/18 02/16/18 History gabapentin 300 mg PO TID 01/17/18 02/16/18 History lisinopril 40 mg PO DAILY 01/17/18 02/16/18 History metformin 1,000 mg PO BID 01/17/18 02/16/18 History metoprolol tartrate 100 mg PO BID 01/17/18 02/16/18 History oxycodone 15 mg PO 5 TIMES A DAY PRN 01/17/18 02/16/18 History paroxetine HCl [Paxil] 40 mg PO DAILY 01/17/18 02/16/18 History rivaroxaban [Xarelto] 20 mg PO DAILY 02/16/18 02/16/18 History Exam Vital signs: Vital Signs 02/16/18 09:29 02/16/18 11:29 Temperature 97.9 F Pulse Rate 68 Respiratory Rate 18 Blood Pressure 183/86 H Pulse Oximetry 99 99 Intake & Output 02/15/18 02/16/18 02/16/18 18:59 06:59 18:59 Intake Total 1000 / 1000 Balance 1000 / 1000 Weight 133.81 kg Intake: IV 1000 / 1000 NS Inj 1,000 ML @ Wide Open IV. 1000 / 1000 SIG BOLUS ONE Rx#:[id number] - Constitutional no acute distress - Routine HEENT Exam Head: Present: normocephalic - Routine Respiratory Exam Present: CTA bilaterally. Absent: accessory muscle use - Routine Abdominal Exam Present: soft, normoactive bowel sounds, distended. Absent: tenderness, guarding, firm, rigid - Routine Extremities Exam Present: full ROM - Routine Skin Exam Present: dry, warm. Absent: pallor - Routine Neurological Exam Present: alert, oriented X3 Results - Labs CBC & Chem 7: 02/16/18 12:00 02/16/18 12:00 Labs: Laboratory Results - last 24 hr 02/16/18 02/16/18 02/16/18 12:00 12:00 12:00 WBC 6.0 RBC 4.92 Hgb 15.5 Hct 45.9 MCV 93.2 MCH 31.5 MCHC 33.8 RDW 14.2 Plt Count 225 MPV 8.4 Neut % (Auto) 63.2 Lymph % (Auto) 29.4 [place] % (Auto) 6.0 Eos % (Auto) 0.8 Baso % (Auto) 0.6 Neut # (Auto) 3.8 Lymph # (Auto) 1.8 [place] # (Auto) 0.4 Eos # (Auto) 0.0 Baso # (Auto) 0.0 WBC Differential . Differential Comment Auto diff final PT 10.5 INR 1.0 APTT 25.3 Sodium 142 Potassium 4.2 Chloride 106 Carbon Dioxide 27.9 Anion Gap 8 BUN 12 Creatinine 0.99 Estimated GFR 80 L POC Glucose Random Glucose 107 H Calcium 8.9 Total Bilirubin 0.6 AST 33 ALT 29 Alkaline Phosphatase 120 H Total Protein 8.8 H Albumin 3.6 Lipase 48 L Blood Type Blood Type Recheck Antibody Screen 02/16/18 02/16/18 12:00 16:57 WBC RBC Hgb Hct MCV MCH MCHC RDW Plt Count MPV Neut % (Auto) Lymph % (Auto) [place] % (Auto) Eos % (Auto) Baso % (Auto) Neut # (Auto) Lymph # (Auto) [place] # (Auto) Eos # (Auto) Baso # (Auto) WBC Differential Differential Comment PT INR APTT Sodium Potassium Chloride Carbon Dioxide Anion Gap BUN Creatinine Estimated GFR POC Glucose 80 Random Glucose Calcium Total Bilirubin AST ALT Alkaline Phosphatase Total Protein Albumin Lipase Blood Type O Positive Blood Type Recheck Required Antibody Screen Negative - Imaging Impressions Abdomen/Pelvis CT 02/16/18 11:20 CONCLUSION: 1. No etiology for hematemesis is identified. The stomach is unremarkable. There is no evidence of bowel obstruction. Status post cholecystectomy. Eventration the anterior abdominal wall Abdomen X-Ray 02/16/18 16:21 CONCLUSION: Negative examination. Assessment and Plan (1) Epigastric abdominal pain Status: Acute Code(s): R10.13 - Epigastric pain - Plan This patient is a 52-year-old male who presents to the emergency room at [facility] on 02/16/2018 with complaint of epigastric pain over the last 3 days patient reports nausea and vomiting with some blood streaked emesis over the last 2 days. Patient has history of diabetes type 2, hypertension, DVT , and chronic pain. Of note, patient states that he is currently on Xarelto for history of pulmonary embolism. Last dose of Xarelto was 3 days ago. Our service has been consulted to evaluate patient's epigastric pain. Patient describes pain as a sharp, burning, constant pain he denies that this pain radiates. Patient denies any aggravating or alleviating factors. States he takes omeprazole 40 mg p.o. twice daily and this pain "feels like when I had an ulcer". Last EGD was done in September 2017 and revealed the following findings- gastritis, esophagitis and hiatal hernia. Patient denies any difficulty or painful swallowing. Denies any unintended weight loss. Patient denies any use of tobacco products or alcohol. Patient endorses family history mother and father both had gastric ulcers. Patient denies use of NSAIDs or aspirin. Denies constipation or diarrhea, denies any noted bleeding in stool. Last colonoscopy September 2017 revealed diverticulosis in the sigmoid colon as well as internal/external hemorrhoids. Epigastric pain Patient presents with 3-day history of epigastric pain that he describes as burning and gnawing. Last EGD Joe in September 2017 revealed gastritis, esophagitis and hiatal hernia. Patient on Xarelto for history of pulmonary embolism last dose 3 days ago. 02/16/2018 hemoglobin 15.5 hematocrit 45.9 platelet count 225 INR 1.0. 02/16/2018 CT of abdomen and pelvis revealed the following: No etiology for hematemesis is identified. The stomach is unremarkable. There is no evidence of bowel obstruction. Status post cholecystectomy. Eventration the anterior abdominal wall. Discussed need for EGD , patient verbalized understanding and agreement. Plan -Clear liquids tonight -N.p.o. after midnight -Obtain consent for EGD -EGD in the a.m. -Hold anticoagulants, NSAIDs or aspirin -PPI -Monitor for bleeding -Monitor hemoglobin and hematocrit -Supportive care -Further recommendations to follow This patient has been seen by myself and Dr. Kebede and this note is written on his behalf - Attending Attestation Dr. Kebede
[2018-02-16] MEDS: Gabapentin 300 MG Capsule PO SCH (17:53)
[2018-02-16 20:18] LABS: Hematocrit 42.4 % (39.0-51.0); Hemoglobin 14.4 gm/dL (13.0-17.0)
[2018-02-16] MEDS: Morphine Inj 4 MG/ML Vial IV.PUSH PRN (20:51)
[2018-02-16] MEDS: Metoprolol Tartrate 100 MG Tablet PO SCH (20:53)
[2018-02-17 00:20] LABS: Hematocrit 42.9 % (39.0-51.0); Hemoglobin 14.2 gm/dL (13.0-17.0)
[2018-02-17] MEDS: Morphine Inj 4 MG/ML Vial IV.PUSH PRN ×2 (00:44→12:22)
[2018-02-17] MEDS ORDERED: Pantoprazole Inj 40 MG Vial IV.PUSH SCH (06:00)
[2018-02-17 07:00] LABS: Hematocrit 43.1 % (39.0-51.0); Hemoglobin 14.6 gm/dL (13.0-17.0)
[2018-02-17 07:45] VITALS: BP 125/71; RESP 20; TEMP 97.6; O2SAT 96
[2018-02-17] MEDS: Insulin NovoLOG Aspart Correctional Sugar Inj SQ SCH ×2 (07:56→12:52)
[2018-02-17] MEDS: Metoprolol Tartrate 100 MG Tablet PO SCH (08:23)
[2018-02-17] MEDS: Gabapentin 300 MG Capsule PO SCH ×2 (08:24→12:23)
[2018-02-17] MEDS ORDERED: Furosemide 40 MG Tablet PO SCH (09:00)
[2018-02-17] MEDS ORDERED: Lisinopril 20 MG Tablet PO SCH (09:00)
[2018-02-17] MEDS ORDERED: Chlorhexidine Gluconate 2% 1 Pack (2 Cloths) TOPICAL ONE (10:00)
[2018-02-17] MEDS ORDERED: Sodium Chlor 0.9% Inj 500 ML IV.CONT ONE (10:00)
[2018-02-17] MEDS ORDERED: Metoprolol Tartrate 25 MG Tablet PO ONE (10:00)
--- NOTE | 2018-02-17 11:00 | P.PCN ---
Date of procedure: 02/17/18 Pre-op diagnosis: Epigastric pain Procedure: PROCEDURE PERFORMED EGD with biopsy PROCEDURE: The procedure, risks and benefits were discussed with Patient/POA and informed consent was obtained. Anesthesia sedated Patient with Diprivan. Patient was placed in the left lateral decubitus position. EGD: The Pentax videoscope was introduced through the oropharynx and advanced to the second portion of the duodenum under direct visualization. Retroflexion was performed in the stomach. FINDINGS: The esophagus this appeared to be unremarkable except for an irregular Z line this was biopsied The stomach there was patchy erythema in the gastric body and antrum but no ulcerations and no erosions no blood or bleeding the rest of the stomach unremarkable antral biopsies were taken for further evaluation The duodenum this was normal ESTIMATED BLOOD LOSS: None SPECIMENS REMOVED: Esophageal and gastric biopsies COMPLICATIONS: None IMPRESSION: Irregular Z line Mild gastritis PLAN: Await biopsies Agree with current supportive care Follow-up with GI post discharge Anesthesia: MAC Surgeon: Balbir Blanc Condition: stable Disposition: floor
[2018-02-17 11:14] VITALS: PULSE 57
--- NOTE | 2018-02-17 12:28 | P.PNFP ---
Subjective Interval history: Patient is feeling better today. No episodes of hematochezia or melena. Denies lightheadedness or SOB. Walking around with no problems. Vitals wnl. Plan for procedure w/GI today. <Pushpa Jarquin - 02/17/18 12:28> Results - Labs Result diagrams: 02/17/18 06:03 02/16/18 12:00 <Javier Beckwith - 02/17/18 14:08> Abnormal lab results 02/16/18 Range/Units 12:00 Troponin I Less than 0.02 L (0.02-0.05) ng/mL Short CBC 02/16/18 02/17/18 02/17/18 Range/Units 19:02 00:00 06:03 Hgb 14.4 14.2 14.6 (13.0-17.0) gm/dL Hct 42.4 42.9 43.1 (39.0-51.0) % Cardiac Enzymes 02/16/18 Range/Units 12:00 Troponin I Less than 0.02 L (0.02-0.05) ng/mL <Javier Beckwith - 02/17/18 14:08> Abnormal lab results 02/16/18 02/16/18 Range/Units 12:00 12:00 Estimated GFR 80 L (>89) mL/min Random Glucose 107 H (74-106) mg/dL Alkaline Phosphatase 120 H (45-117) U/L Troponin I Less than 0.02 L (0.02-0.05) ng/mL Total Protein 8.8 H (6.4-8.2) g/dL Lipase 48 L (73-393) U/L Short CBC 02/16/18 02/17/18 02/17/18 Range/Units 19:02 00:00 06:03 Hgb 14.4 14.2 14.6 (13.0-17.0) gm/dL Hct 42.4 42.9 43.1 (39.0-51.0) % BMP 02/16/18 12:00 Sodium 142 Potassium 4.2 Chloride 106 Carbon Dioxide 27.9 BUN 12 Creatinine 0.99 Calcium 8.9 Cardiac Enzymes 02/16/18 Range/Units 12:00 Troponin I Less than 0.02 L (0.02-0.05) ng/mL Liver Function 02/16/18 Range/Units 12:00 Total Bilirubin 0.6 (0.2-1.0) mg/dL AST 33 (15-37) U/L ALT 29 (12-78) U/L Alkaline Phosphatase 120 H (45-117) U/L Albumin 3.6 (3.4-5.0) g/dL <Pushpa Jarquin N - 02/17/18 12:28> - Imaging Impressions Abdomen/Pelvis CT 02/16/18 11:20 CONCLUSION: 1. No etiology for hematemesis is identified. The stomach is unremarkable. There is no evidence of bowel obstruction. Status post cholecystectomy. Eventration the anterior abdominal wall Abdomen X-Ray 02/16/18 16:21 CONCLUSION: Negative examination. <Javier Beckwith - 02/17/18 14:08> Impressions Abdomen/Pelvis CT 02/16/18 11:20 CONCLUSION: 1. No etiology for hematemesis is identified. The stomach is unremarkable. There is no evidence of bowel obstruction. Status post cholecystectomy. Eventration the anterior abdominal wall Abdomen X-Ray 02/16/18 16:21 CONCLUSION: Negative examination. <NormaazaleaGeoffreyPushpa N - 02/17/18 12:28> Physical Exam Vital signs: Vital Signs 02/16/18 17:33 02/16/18 19:59 02/16/18 23:44 Temperature 98.2 F 98.6 F Pulse Rate 81 53 L Respiratory Rate 18 20 Blood Pressure 152/75 H 133/79 137/74 Pulse Oximetry 96 93 L 02/17/18 05:27 02/17/18 07:00 02/17/18 07:43 Temperature 97.8 F 97.6 F Pulse Rate 52 L 56 L Respiratory Rate 18 20 Blood Pressure 150/85 H 125/71 Pulse Oximetry 97 96 96 02/17/18 11:05 Temperature 97.6 F Pulse Rate 57 L Respiratory Rate 20 Blood Pressure 125/71 Pulse Oximetry 96 Intake & Output 02/16/18 02/17/18 02/17/18 18:59 06:59 18:59 Intake Total 1500 / 1500 0 / 0 400 / 400 Output Total 400 / 400 Balance 1500 / 1500 -400 / -400 400 / 400 Weight 133.81 kg 133.81 kg Intake: IV 1000 / 1000 NS Inj 1,000 ML @ Wide Open IV. 1000 / 1000 SIG BOLUS ONE Rx#:[id number] Oral 500 / 500 0 / 0 Anesthesia Amount 400 / 400 Output: Urine 400 / 400 Other: Date of Last Bowel Movement 02/16/18 <BeckwithJavier - 02/17/18 14:08> Vital Signs 02/16/18 17:33 02/16/18 19:59 02/16/18 23:44 Temperature 98.2 F 98.6 F Pulse Rate 81 53 L Respiratory Rate 18 20 Blood Pressure 152/75 H 133/79 137/74 Pulse Oximetry 96 93 L 02/17/18 05:27 02/17/18 07:00 02/17/18 07:43 Temperature 97.8 F 97.6 F Pulse Rate 52 L 56 L Respiratory Rate 18 20 Blood Pressure 150/85 H 125/71 Pulse Oximetry 97 96 96 02/17/18 11:05 Temperature 97.6 F Pulse Rate 57 L Respiratory Rate 20 Blood Pressure 125/71 Pulse Oximetry 96 Intake & Output 02/16/18 02/17/18 02/17/18 18:59 06:59 18:59 Intake Total 1500 / 1500 0 / 0 400 / 400 Output Total 400 / 400 Balance 1500 / 1500 -400 / -400 400 / 400 Weight 133.81 kg 133.81 kg Intake: IV 1000 / 1000 NS Inj 1,000 ML @ Wide Open IV. 1000 / 1000 SIG BOLUS ONE Rx#:[id number] Oral 500 / 500 0 / 0 Anesthesia Amount 400 / 400 Output: Urine 400 / 400 <Pushpa Jarquin - 02/17/18 12:28> Narrative: GENERAL: Obese, NAD SKIN: Warm and dry. HEAD: Normocephalic. EYES: No scleral icterus. No injection or drainage. NECK: Supple, trachea midline. No JVD or lymphadenopathy. CARDIOVASCULAR: Regular rate and rhythm without murmurs, gallops, or rubs. RESPIRATORY: Breath sounds equal bilaterally. No accessory muscle use. GASTROINTESTINAL: Present: soft, normoactive bowel sounds, tenderness ( epigastric), hernia (reducible, protrudes when patient sits up, umbilical/ ventral, no signs of incarceration), surgical scars. MUSCULOSKELETAL: No cyanosis, or edema. BACK: Nontender without obvious deformity. No CVA tenderness. <Pushpa Jarquin - 02/17/18 12:28> Assessment and Plan - Assessment (1) Abdominal pain Code(s): R10.9 - Unspecified abdominal pain Status: Acute Plan: Stable HH stable, no anemia Con't Protonix, change to PO Avoid NSAIDs Diet per GI EGD this AM showed pathcy erythema in gastric body. Esophageal and gastric bx removed Plan to await biopsies, con't supportive care Can f/u w/GI after discharge (2) Recurrent deep vein thrombosis (DVT) Code(s): I82.409 - Acute embolism and thrombosis of unspecified deep veins of unspecified lower extremity Status: Chronic Plan: Resume Xarelto on D/C (3) Diabetes type 2, controlled Code(s): E11.9 - Type 2 diabetes mellitus without complications Status: Chronic Plan: Resume metformin Accu-check, SSI low dose Continue gabapentin (4) Essential hypertension Code(s): I10 - Essential (primary) hypertension Status: Chronic Plan: Continue home Metoprolol, lisinopril, Lasix (5) Chronic pain Code(s): G89.29 - Other chronic pain Status: Chronic Plan: Stable with pain meds through pain management physician If thorough work-up negative would raise possibility of malingering however patient historically not known to doctor shop or bounce around different ERs * Continue home oxycodone 15 mg five times a day * Continue home Paxil (6) Bilateral lower extremity edema Code(s): R60.0 - Localized edema Status: Chronic Plan: Secondary to venous insufficiency * Continue Lasix * SCD / compression hose as above <Pushpa Jarquin N - 02/17/18 12:13> - Assessment and Plan FEN Fluid: PO only Elecs: Monitor, replete PRN Nutr: Liquid diet until seen by GI <Pushpa Jarquin N - 02/17/18 12:28> Discharge Planning: DC today <Pushpa Jarquin N - 02/17/18 12:28> - Attending Attestation See the residents documentation for details. I saw and evaluated the patient regarding the arboleda portions of this evaluation and agree with the residents findings and plans as written. Parts of this note were created using [employer] voice recognition software program. While efforts were made to correct any mistakes made by this software, some mistakes, errors, and omissions may remain in the final note that were not caught when the note was originally created. Plan of care was discussed and agreed upon with the patient as specifically documented in the above note. An opportunity to ask questions with explanation was provided. Patient voiced understanding on all information reviewed and discussed. <Javier Beckwith - 02/17/18 14:08> <Pushpa Jarquin N - Last Filed: 02/17/18 12:13> (1) Abdominal pain Qualifiers: Abdominal location: epigastric Qualified Code(s): R10.13 - Epigastric pain (3) Diabetes type 2, controlled Qualifiers: Diabetes mellitus terminal makeup operator insulin use: without correction use Diabetes mellitus complication status: with neurologic complications Diabetes mellitus complication detail: with polyneuropathy Qualified Code(s): E11.42 - Type 2 diabetes mellitus with diabetic polyneuropathy (5) Chronic pain Qualifiers: Chronic pain type: chronic pain syndrome Qualified Code(s): G89.4 - Chronic pain syndrome <Pushpa Jarquin N - Last Filed: 02/17/18 12:13> (1) Abdominal pain Qualifiers: Abdominal location: epigastric Qualified Code(s): R10.13 - Epigastric pain (3) Diabetes type 2, controlled Qualifiers: Diabetes mellitus terminal makeup operator insulin use: without terminal makeup operator use Diabetes mellitus complication status: with neurologic complications Diabetes mellitus complication detail: with polyneuropathy Qualified Code(s): E11.42 - Type 2 diabetes mellitus with diabetic polyneuropathy (5) Chronic pain Qualifiers: Chronic pain type: chronic pain syndrome Qualified Code(s): G89.4 - Chronic pain syndrome
--- NOTE | 2018-02-17 19:25 | ECG ---
Date Performed: 02/16/2018 Time Performed: 16:21:51 PTAGE: 52 years EKG: Sinus rhythm WITH FIRST DEGREE AV BLOCK MODERATE INTRAVENTRICULAR CONDUCTION DELAY Since the previous tracing, no significant change noted ABNORMAL ECG PREVIOUS TRACING : 10/05/2017 18.01 DOCTOR: Nate Guzman Interpretating Date/Time 02/17/2018 19:24:14
== END 2018-02-17 16:45 | disposition home or self-care (01) ==
LOC: NEPD 09:21 → NEDA 09:21 → NEPGCP 16:20
PROVIDERS: ADMIT Family Medicine; ATTEND Family Medicine